=== PATIENT | male | born 1960 | race Caucasian/White ===

== ENCOUNTER → 2020-09-21 10:12 | Outpatient (BNVA) | payer MEDICARE, MEDICAID, SELFPAY | PROVIDERS: PCP Internal Medicine; Visit Provider Internal Medicine | DX: I48.0 Paroxysmal atrial fibrillation (principal); I48.92 Unspecified atrial flutter; E66.01 Morbid (severe) obesity due to excess calories; G47.33 Obstructive sleep apnea (adult) (pediatric); Z98.890 Other specified postprocedural states; Z99.89 Dependence on other enabling machines and devices | CPT/HCPCS: 93005; 99212 ==

== ENCOUNTER → 2021-04-26 10:56 | Outpatient (BNVA) | payer MEDICARE, MEDICAID, SELFPAY | PROVIDERS: PCP Internal Medicine; Referring Provider Internal Medicine; Visit Provider Internal Medicine | DX: I48.0 Paroxysmal atrial fibrillation (principal); I48.92 Unspecified atrial flutter; E66.01 Morbid (severe) obesity due to excess calories; G47.33 Obstructive sleep apnea (adult) (pediatric); Z98.890 Other specified postprocedural states; Z99.89 Dependence on other enabling machines and devices | CPT/HCPCS: 99212 ==

== ENCOUNTER → 2021-09-14 09:00 | Outpatient (RCR) | payer MEDICARE, MEDICAID, SELFPAY | END | disposition home or self-care (01) | LOC: HO.WCC 05-08 10:12 | PROVIDERS: PCP Internal Medicine; Visit Provider Physician Assistant | DX: I87.311 Chronic venous hypertension (idiopathic) with ulcer of right lower extremity (principal); L97.212 Non-pressure chronic ulcer of right calf with fat layer exposed; I73.9 Peripheral vascular disease, unspecified; I48.91 Unspecified atrial fibrillation; G62.9 Polyneuropathy, unspecified; E78.5 Hyperlipidemia, unspecified; L08.9 Local infection of the skin and subcutaneous tissue, unspecified; Z79.899 Other long term (current) drug therapy; Z87.891 Personal history of nicotine dependence; Z91.19 Patient's noncompliance with other medical treatment and regimen; Z79.2 Long term (current) use of antibiotics | CPT/HCPCS: 11042; 11045; 15271; 15272; 17250; 97602; 99212; 99213; 99214; Q4101; Q4186; Q4196 ==

== ENCOUNTER 2022-03-31 13:03 | Emergency (ER) | payer MEDICARE, MEDICAID, SELFPAY ==
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
[2022-03-31 13:11] VITALS: BP 133/42; PULSE 82; RESP 18; TEMP 36.9; O2SAT 98; BMI 37.3
[2022-03-31 13:22] VITALS: BP 152/82; PULSE 78; O2SAT 99
[2022-03-31 13:24] VITALS: BP 152/82; PULSE 78; RESP 16; TEMP 36.9; O2SAT 98
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
[2022-03-31] MEDS: Ibuprofen 600 MG TABLET PO (14:45)
[2022-03-31] MEDS: Acetaminophen 325 MG TABLET 975 MG PO (14:46)
== END 2022-03-31 18:04 | disposition home or self-care (01) ==
PROVIDERS: Emergency Provider Emergency Medicine; PCP Physician Assistant
DX: S13.4XXA Sprain of ligaments of cervical spine, initial encounter (principal); R51.9 Headache, unspecified; M54.2 Cervicalgia; R07.89 Other chest pain; M25.512 Pain in left shoulder; M25.511 Pain in right shoulder; V43.52XA Car driver injured in collision with other type car in traffic accident, initial encounter; Y93.9 Activity, unspecified; Y92.410 Unspecified street and highway as the place of occurrence of the external cause; Y99.9 Unspecified external cause status; Z87.81 Personal history of (healed) traumatic fracture
CPT/HCPCS: 70450; 71046; 72125; 73030; 99283

== ENCOUNTER → 2022-04-30 10:56 | Outpatient (BNVA) | payer MEDICARE, MEDICAID, SELFPAY | PROVIDERS: PCP Internal Medicine; Referring Provider Internal Medicine; Visit Provider Internal Medicine | DX: I48.0 Paroxysmal atrial fibrillation (principal); I48.92 Unspecified atrial flutter; E66.01 Morbid (severe) obesity due to excess calories; G47.33 Obstructive sleep apnea (adult) (pediatric); Z99.89 Dependence on other enabling machines and devices; Z98.890 Other specified postprocedural states | CPT/HCPCS: 93005 ==

== ENCOUNTER 2023-01-02 11:32 | Inpatient (IN) | payer OTHER, MEDICAID, SELFPAY ==
[2023-01-02] VITALS (8 sets, daily range): BP systolic 122–159; BP diastolic 70–91; PULSE 71–148; RESP 14–20; TEMP 36.1–36.8; O2SAT 96–97; BMI 37.4; BMI 36.5
--- NOTE | ~2023-01-02 | XR_ITS ---
EXAMINATION: XR CHEST CLINICAL INFORMATION: Chest pain, rule out pneumonia. COMPARISON: Chest radiographs dated 03/31/2022. TECHNIQUE: Frontal view of the chest was obtained. FINDINGS: No significant abnormality is noted involving the heart, lungs, mediastinum, bony thorax or soft tissues. XR/XR chest 1V IMPRESSION: No acute cardiopulmonary process.
--- NOTE | 2023-01-02 11:40 | ECG_ITS ---
Test Reason : CP Blood Pressure : / mmHG Vent. Rate : 148 BPM Atrial Rate : 148 BPM P-R Int : 142 ms QRS Dur : 074 ms QT Int : 292 ms P-R-T Axes : 000 043 -49 degrees QTc Int : 458 ms Atrial flutter with 2 to [address] and T wave abnormality Abnormal ECG When compared with ECG of 20-JUN-2017 13:17, Atrial flutter with 2 to 1 block has replaced Normal sinus rhythm Vent. rate has increased BY [address] now depressed in Inferior leads Non-specific change in ST segment in Lateral leads Referred By: Generic ED Physician Electronically Signed By:JUSTYNA ALVAREZ MD
--- NOTE | 2023-01-02 11:57 | PC.NURSE ---
Initial contact with pt. pt placed on monitor, afib in 140s. states started while sleeping around 1130.
--- NOTE | 2023-01-02 12:09 | ED.ARRPALP ---
HPI - Arrhythmia/Palpitations General Chief Complaint: Arrhythmia/Palpitations Stated Complaint: l cp 1/2 hour,pressure per ems Time Seen by Provider: 01/02/23 11:49 Source: patient Mode of arrival: ambulatory Limitations: no limitations History of Present Illness HPI narrative: 62-year-old male with a history of atrial fibrillation status post ablation who presents emergency department for evaluation of rapid irregular heart rate and left-sided chest pain patient states that he was doing yd work at around 10:00. He states that he stopped working in his yd to eat an early lunch. He then fell asleep in front of his television. He woke up at 11:30 with a fast heart rate and was skipping beats. He also noted a left sided chest pressure which is been constant is 5/10 at its worst. The patient states he takes diltiazem extended release 120 mg daily any took his daily dose prior to coming to the emergency department. The patient states that over the last 2 weeks he has been experiencing a fluttering sensation in his chest he states mainly with exertion and the sensation seems resolved when he rests. He also has increased fatigue with exertion which is new over the last 2 weeks as well. He is currently complaining of left-sided chest pressure which is 5/10. He denied lightheadedness, dizziness, diaphoresis, nausea, vomiting, neck, jaw or arm pain. He is not on blood thinners. Patient states that he has had an intentional weight loss any went from 354 lb to 266 lb. Related Data Home Medications Medication Instructions Recorded Confirmed apremilast 30 mg tablet 30 mg PO BID 09/21/20 05/29/22 miscellaneous medical supply ea miscellaneous 05/24/21 05/29/22 ibuprofen 800 mg tablet 800 mg PO TID 10/01/22 tizanidine 4 mg tablet 4 mg PO BEDTIME 10/01/22 Previous Rx's Medication Instructions Recorded betamethasone valerate 0.1 % lotion 1 appl topical BID #60 mL 06/19/21 miscellaneous medical supply 1 ea miscellaneous DAILY #1 ea 10/25/21 diltiazem HCl 120 mg 120 mg PO DAILY #90 caps 04/30/22 capsule,extended release 24 hr albuterol sulfate 2.5 mg/3 mL 2.5 mg (3 mL) inhalation Q4H PRN 05/29/22 (0.083 %) solution for nebulization shortness of breath or wheezing 30 days #540 mL cyclobenzaprine 10 mg tablet 10 mg PO TID PRN muscle spasm #14 05/29/22 tabs miscellaneous medical supply 1 ea miscellaneous DAILY #1 ea 10/01/22 lactulose 10 gram/15 mL oral 15 ml PO BEDTIME PRN constipation 10/17/22 solution #237 mL CPAP (CPAP Machine/Device) #1 ea 11/18/22 adhesive bandage 6 X 6 (Adhesive #50 ea 12/05/22 Pads) albuterol sulfate 90 mcg/actuation 2 puff inhalation Q6H PRN 12/05/22 aerosol inhaler (Ventolin HFA) shortness of breath or wheezing 30 days #8.5 grams docusate sodium 100 mg capsule 100 mg PO BID PRN constipation #60 12/05/22 caps fluticasone propionate 50 1 spray intranasal DAILY 30 days 12/05/22 mcg/actuation nasal #16 grams spray,suspension naproxen 500 mg tablet 500 mg PO Q12H PRN pain #30 tabs 12/05/22 amoxicillin 875 mg tablet 875 mg PO BID 7 days #14 tabs 12/17/22 Allergies Allergy/AdvReac Type Severity Reaction Status Date / Time No Known Allergies Allergy Unknown Verified 10/01/22 11:23 [No Known Allergies*] Review of Systems Review of Systems: Yes all other systems are reviewed and are negative [facility] Past Medical History [facility] Narrative: Past medical history: Reviewed below patient also has prior derma gangrenosum of the right lower extremity. Past surgical history: Cardiac ablation for atrial fibrillation. Social history: He denies tobacco use, he has quit smoking 30 years prior. He states that he drinks alcohol 2 times a week and drinks 3 shots at a time when he drinks. Medical History Morbid obesity MALICK on CPAP PAF (paroxysmal atrial fibrillation) Paroxysmal atrial flutter Psoriatic arthritis Surgical History History of cardiac radiofrequency ablation (RFA) (~11/05/17) Status post catheter ablation of atrial fibrillation Family History Family History Father CVD (cardiovascular disease) Mother CVD (cardiovascular disease) Atrial fibrillation Other Substance use disorder Social History Social History Housing: House Alcohol intake: never Patient Tobacco Use Status: Former Tobacco user Quit Date: 1994 Smoked: 20 +/- Smoked in Last 30 Days: No e-Cigarette/Vaping Use: Never Used Second Hand Smoke Exposure: No Use of substances other than those prescribed or required for medical reasons: No Advance Directives: No Advance Directives Information Provided: Yes service: No Current occupational status: disabled Cognitive needs: No Hearing needs: Yes (hearing aide) Vision needs: Yes (Glasses) Physical Exam Vital Signs: Vital Signs: Last Vital Signs Temp 97.7 F 01/02/23 11:43 Pulse 94 01/02/23 15:40 Resp 20 01/02/23 15:40 BP 139/74 01/02/23 15:40 Pulse Ox 97 01/02/23 15:40 O2 Del Method Room Air 01/02/23 15:40 BMI result Body Mass Index 37.4 Const: General: cooperative and no acute distress Orientation/consciousness: oriented to person and oriented to place Limitations: no limitations HEENT: Head: Yes normal to inspection, Yes normocephalic and Yes atraumatic Ears: external ears normal General nose exam: Normal external nose present Face and sinus: Yes normal facial exam Mouth: Normal oral and palatal mucosa present Throat: Yes posterior oropharynx normal Eyes: General: appearance normal, both eyes and all related structures Pupils: Equal, round and reactive pupils present Neck: Neck: Yes normal visual inspection, Yes no lymphadenopathy, Yes trachea midline and Yes supple Chest: Chest palpation & inspection: normal inspection of the chest and normal palpation of entire chest wall Resp: Effort & Inspection: normal respiratory effort and able to speak in complete sentences Auscultation: clear to auscultation bilaterally Cardio: Rate: tachycardic Rhythm: abnormal rhythm irregularly irregular Heart sounds: S1 normal heart sound present, S2 normal heart sound present and no murmurs GI: Inspection: Yes normal to inspection Palpation (GI): Soft to palpation, nontender and no guarding Auscultation: normal bowel sounds : General: Yes no CVA tenderness Back/Spine/Pelvis: Back: no CVA tenderness Neuro: General: oriented to person and oriented to place Cranial nerves: Yes CN's II-XII intact bilaterally and Yes Equal, round and reactive pupils present Cognition (Neuro): normal cognition Motor exam (neuro): 5/5 motor strength present throughout Extrem: Other: Patient's right lower extremity reveals chronic erythema with open lesions which is consistent with his pyoderma gangrenosum Psych: Appearance: grossly normal Speech and movement: Normal speech and movement present Affect: normal affect Attitude: cooperative Thought process: Normal thought process present Thought content: Normal thought content present Medications Administered Generic Name Dose Route Start Last Admin Trade Name Freq PRN Reason Stop Dose Admin Diltiazem HCl 125 mg/ Sodium 125 mls @ 0 mls/hr 01/02/23 14:15 01/02/23 15:07 Chloride IVCONT 10 mg/hr .Q0M HANNA 10 mls/hr Titration Protocol Per Protocol Discontinued Medications Generic Name Dose Route Start Last Admin Trade Name Freq PRN Reason Stop Dose Admin Diltiazem HCl 20 mg 01/02/23 12:17 01/02/23 12:25 Diltiazem Hcl 50 Mg/10 Ml Vial IVPUSH 01/02/23 12:18 20 mg STAT STA Administration Sodium Chloride 1,000 mls @ 999 mls/hr 01/02/23 12:09 01/02/23 13:09 Ns IV 01/02/23 13:09 Infused .Q1H1M STA Infusion Rivaroxaban 20 mg 01/02/23 14:11 01/02/23 14:38 Rivaroxaban 20 Mg Tablet PO 01/02/23 14:12 20 mg ONCE ONE Administration Medical Decision Making Medical Decision Making MDM Narrative: 62-year-old male with a history of paroxysmal atrial fibrillation status post ablation who presents emergency department for evaluation of left-sided chest pressure and rapid irregular heart rate. Patient is currently experiencing 5/10 left-sided chest pressure. Physical examination did reveal your irregularly irregular heart rapid heart rate and right skin lesion consistent with his pyoderma gangrenosum. I did order laboratory evaluation to include CBC, CMP, lipase, PT/INR, PTT, troponin, BMP, TSH, EKG and chest x-ray. Patient was ordered to get diltiazem 20 mg IV and normal saline x1 L. 1412: My interpretation patient's laboratory evaluation is as follows: CBC and CMP were unremarkable. BNP elevated 215. First troponin was normal at 4.3. Patient's ventricular rate improved after the above diltiazem. Patient still is in atrial flutter/fib I did discuss the patient's presentation with the covering candy cooker helper, Dr. Mendez who recommended giving the patient Xarelto 20 mg orally and starting the patient diltiazem drip. He recommended the patient be admitted for transesophageal echo and cardioversion. Differential Diagnosis Differential diagnosis includes was not limited to atrial flutter/ atrial fibrillation with rapid ventricular response, STEMI, NSTEMI, electrolyte abnormality, anemia Admission/Observation Consideration of admission/observation: Escalation of care including admission/observation considered Lab Data MDM Lab Attestation statement: I reviewed the patient's lab results. 01/02/23 12:15 01/02/23 12:15 Labs: Lab Results 01/02/23 01/02/23 01/02/23 Range/Units 12:15 12:15 12:15 WBC 10.9 H (4.8-10.8) X10*3/uL RBC 5.14 (4.60-5.80) X10*6/uL Hgb 14.1 (14.0-18.0) g/dl Hct 42.8 (42.0-52.0) % MCV 83.3 (80.0-98.0) fL MCH 27.4 (27.0-33.0) pg MCHC 32.9 (31.0-36.0) g/dl RDW 13.3 (11.0-16.0) % Plt Count 356 (160-400) X10*3/uL MPV 9.8 (9.4-12.4) fL Immature Gran % (Auto) 0.3 (0.0-0.4) % Neut % (Auto) 71.4 (45-73) % Lymph % (Auto) 21.1 (20-40) % Peach % (Auto) 6.4 (2-11) % Eos % (Auto) 0.6 (0-4) % Baso % (Auto) 0.2 (0-2) % Lymph # (Auto) 2.3 (1.2-4.9) X10*3/uL Peach # (Auto) 0.7 (0.1-1.2) X10*3/uL Eos # (Auto) 0.1 (0.0-0.4) X10*3/uL Baso # (Auto) 0.0 (0.0-0.2) X10*3/uL Abs Immat Gran (auto) 0.03 (0.00-0.03) X10*3/uL Absolute Neuts (auto) 7.8 (2.0-8.3) x10*3/uL Absolute Nucleated RBC 0.000 (0.0-0.012) X10*3/uL Nucleated RBC % (auto) 0.0 (0.0-0.2) /100WBC PT 12.7 (10.0-13.1) SEC INR 1.1 (0.9-1.1) APTT 26.8 (26.0-36.4) SEC Sodium 142 (135-145) mmol/L Potassium 4.4 (3.3-5.1) mmol/L Chloride 107 (96-108) mmol/L Carbon Dioxide 26 (22-29) mmol/L Anion Gap 13 (12-20) BUN 19 H (9-16) mg/dL Creatinine 0.84 (0.5-1.4) mg/dL Estim Creat Clear Calc 121.1 Estimated GFR > 60 Random Glucose 81 (60-115) mg/dL Calcium 9.9 (8.4-10.2) mg/dL Total Bilirubin 0.6 (0.0-1.0) mg/dL AST 15 (5-37) U/L ALT 24 (0-40) U/L Alkaline Phosphatase 89 (39-117) U/L Troponin I High Sens (<3.5-35.0) ng/L B-Natriuretic Peptide (<100) pg/mL Total Protein 6.7 (6.5-8.0) g/dL Albumin 3.9 (3.5-5.0) g/dL Lipase 15 (8-78) U/L TSH 1.40 (0.32-4.0) uIU/mL Ethyl Alcohol mg/dL 01/02/23 01/02/23 01/02/23 Range/Units 12:15 12:15 14:12 WBC (4.8-10.8) X10*3/uL RBC (4.60-5.80) X10*6/uL Hgb (14.0-18.0) g/dl Hct (42.0-52.0) % MCV (80.0-98.0) fL MCH (27.0-33.0) pg MCHC (31.0-36.0) g/dl RDW (11.0-16.0) % Plt Count (160-400) X10*3/uL MPV (9.4-12.4) fL Immature Gran % (Auto) (0.0-0.4) % Neut % (Auto) (45-73) % Lymph % (Auto) (20-40) % Peach % (Auto) (2-11) % Eos % (Auto) (0-4) % Baso % (Auto) (0-2) % Lymph # (Auto) (1.2-4.9) X10*3/uL Peach # (Auto) (0.1-1.2) X10*3/uL Eos # (Auto) (0.0-0.4) X10*3/uL Baso # (Auto) (0.0-0.2) X10*3/uL Abs Immat Gran (auto) (0.00-0.03) X10*3/uL Absolute Neuts (auto) (2.0-8.3) x10*3/uL Absolute Nucleated RBC (0.0-0.012) X10*3/uL Nucleated RBC % (auto) (0.0-0.2) /100WBC PT (10.0-13.1) SEC INR (0.9-1.1) APTT (26.0-36.4) SEC Sodium (135-145) mmol/L Potassium (3.3-5.1) mmol/L Chloride (96-108) mmol/L Carbon Dioxide (22-29) mmol/L Anion Gap (12-20) BUN (9-16) mg/dL Creatinine (0.5-1.4) mg/dL Estim Creat Clear Calc Estimated GFR Random Glucose (60-115) mg/dL Calcium (8.4-10.2) mg/dL Total Bilirubin (0.0-1.0) mg/dL AST (5-37) U/L ALT (0-40) U/L Alkaline Phosphatase (39-117) U/L Troponin I High Sens 4.3 (<3.5-35.0) ng/L B-Natriuretic Peptide 215 H (<100) pg/mL Total Protein (6.5-8.0) g/dL Albumin (3.5-5.0) g/dL Lipase (8-78) U/L TSH (0.32-4.0) uIU/mL Ethyl Alcohol < 10 mg/dL Independent Interpretation I performed an independent interpretation of an: EKG Interpretation: My interpretation the patient's 12 EKG done at 11:41 hours is as follows: Atrial flutter with a rate of 148, no ST segment elevation, no ST segment depression, no T-wave abnormalities, no PACs, no PVCs. Discharge Plan Discharge Clinical Impression: Atrial flutter with rapid ventricular response, Chest pain, Exertional angina Patient Disposition: Admitted As Inpatient
[2023-01-02] MEDS: 0.9 % Sodium Chloride 1,000 ML 999 ML IV (12:13)
[2023-01-02 12:22] LABS: MANUAL DIFF FLAG NO
[2023-01-02] MEDS: dilTIAZem HCL 50 MG/10 ML VIAL 20 MG IVPUSH (12:25)
[2023-01-02 12:31] LABS: Basophils Percent Auto 0.2 % (0-2); Eosinophils Absolute Auto 0.1 X10*3/uL (0.0-0.4); Eosinophils Percent Auto 0.6 % (0-4); Hematocrit 42.8 % (42.0-52.0); Hemoglobin 14.1 g/dl (14.0-18.0); Imm Gran Abs Auto 0.03 X10*3/uL (0.00-0.03); Imm Gran Pct Auto 0.3 % (0.0-0.4); Lymphocytes Absolute Auto 2.3 X10*3/uL (1.2-4.9); Lymphocytes Percent Auto 21.1 % (20-40); Mean Corpuscular HGB Conc 32.9 g/dl (31.0-36.0); Mean Corpuscular Hemoglobin 27.4 pg (27.0-33.0); Mean Corpuscular Volume 83.3 fL (80.0-98.0); Mean Platelet Volume 9.8 fL (9.4-12.4); Monocytes Absolute Auto 0.7 X10*3/uL (0.1-1.2); Monocytes Percent Auto 6.4 % (2-11); Neutrophils Absolute Auto 7.8 x10*3/uL (2.0-8.3); Neutrophils Percent Auto 71.4 % (45-73); Platelet Count 356 X10*3/uL (160-400); Red Blood Count 5.14 X10*6/uL (4.60-5.80); Red Cell Distribution Width 13.3 % (11.0-16.0); White Blood Count 10.9 X10*3/uL (4.8-10.8)
[2023-01-02 12:34] LABS: INTERNATIONAL NORM RATIO 1.1 (0.9-1.1); Prothrombin Time 12.7 SEC (10.0-13.1)
--- NOTE | 2023-01-02 12:34 | PC.NURSE ---
Hr improved after diltiazem with rates now 85-105. pt states chest pressure is greatly relieved.
[2023-01-02 12:37] LABS: Partial Thromboplastin Time 26.8 SEC (26.0-36.4)
[2023-01-02 12:57] LABS: Troponin-I High Sensitivity 4.3 ng/L (<3.5-35.0)
[2023-01-02 12:59] LABS: Alanine Aminotransferase 24 U/L (0-40); Albumin Level 3.9 g/dL (3.5-5.0); Alkaline Phosphatase 89 U/L (39-117); Anion Gap 13 (12-20); Aspartate Amino Transferase 15 U/L (5-37); Bilirubin Total 0.6 mg/dL (0.0-1.0); Blood Urea Nitrogen 19 mg/dL (9-16); Calcium 9.9 mg/dL (8.4-10.2); Carbon Dioxide 26 mmol/L (22-29); Chloride 107 mmol/L (96-108); Creatinine Clr Calc Pharmacy 121.1; Estimated Glomerular Filt Rate > 60; Glucose Random 81 mg/dL (60-115); Lipase 15 U/L (8-78); Potassium 4.4 mmol/L (3.3-5.1); Sodium 142 mmol/L (135-145); Total Protein 6.7 g/dL (6.5-8.0)
[2023-01-02 13:01] LABS: B Type Natriuretic Peptide 215 pg/mL (<100)
[2023-01-02] MEDS: dilTIAZem HCL 125 MG in 0.9 % Sodium Chloride 100 ML IVCONT (14:37)
[2023-01-02] MEDS: Rivaroxaban 20 MG TABLET PO (14:38)
[2023-01-02 15:03] LABS: Ethanol < 10 mg/dL
--- NOTE | 2023-01-02 16:25 | PM.IMHP ---
History of Present Illness Date of Service: 01/02/23 Chief Complaint: palpitations 62yo M with history of paroxysmal atrial fibrillation who has been doing well after an ablation in 2018, MALICK on CPAP, obesity [though actively losing weight], psoriatic arthritis, pyoderma gangrenosum, and intermittent asthma who was trimming his hedge this morning in the hot sun. At 10:00, he went inside his house to eat lunch, then fell asleep. He woke up at 11:00 with palpitations and chest pressure, consistent with how he has felt in the past with AF/RVR. He does admit occasional piercing pain in his chest over the last few weeks, mostly with defecation. He is on diltiazem 120 mg daily but not on any anticoagulation. In the ED, he was in atrial flutter with 2:1 block, ventricular rate of 148. He was given 20 mg of IV diltiazem then started on a diltiazem infusion which is currently running at 10 mg/hr with his heart in atrial fibrillation with ventricular rate in the 90s. He feels much better. Initial troponin-I 4.3. Mg 2.2, K 4.4. He was given rivaroxaban 20 mg once. Review of Systems Review of Systems: Yes all other systems are reviewed and are negative [facility] Medical History Morbid obesity MALICK on CPAP PAF (paroxysmal atrial fibrillation) Paroxysmal atrial flutter Psoriatic arthritis Family History Father CVD (cardiovascular disease) Mother CVD (cardiovascular disease) Atrial fibrillation Other Substance use disorder Surgical History History of cardiac radiofrequency ablation (RFA) (~11/05/17) Status post catheter ablation of atrial fibrillation Social History Housing: House Alcohol intake: never Patient Tobacco Use Status: Former Tobacco user Quit Date: 1994 Smoked: 20 +/- Smoked in Last 30 Days: No e-Cigarette/Vaping Use: Never Used Second Hand Smoke Exposure: No Use of substances other than those prescribed or required for medical reasons: No Advance Directives: No Advance Directives Information Provided: Yes service: No Current occupational status: disabled Cognitive needs: No Hearing needs: Yes (hearing aide) Vision needs: Yes (Glasses) Meds Allergies Allergy/AdvReac Type Severity Reaction Status Date / Time No Known Allergies Allergy Unknown Verified 10/01/22 11:23 [No Known Allergies*] Active Medications: Current Medications Acetaminophen (Acetaminophen 325 Mg Tablet) 650 mg PO Q6H PRN PRN Reason: Pain, Mild (Pain Scale 1-3) Diltiazem HCl 125 mg/ Sodium (Chloride) 125 mls @ 0 mls/hr IVCONT .Q0M [facility]; Protocol Last Titration: 01/02/23 15:07 Dose: 10 mg/hr, 10 mls/hr Ondansetron HCl (Ondansetron Hcl 4 Mg/2 Ml Vial) 4 mg IVPUSH Q8H PRN PRN Reason: Nausea and Vomiting Pharmacy Consult (Consult Rx Perform Med Rec) 1 each MISCELLANE ONCE PRN PRN Reason: Consult order Pharmacy Consult (Consult Rx Perform Med Rec) 1 each MISCELLANE STAT STA Stop: 01/02/23 15:42 Rivaroxaban (Rivaroxaban 20 Mg Tablet) 20 mg PO DAILY [facility] Sodium Chloride (0.9 % Sodium Chloride Flush 3 Ml Syringe) 3 ml IVFLUSH QSHIFT [facility] Home Medications Medication Instructions Recorded Confirmed Last Taken Type apremilast 30 mg tablet 30 mg PO BID 09/21/20 01/02/23 Unknown History alclometasone 0.05 % topical cream 1 appl topical BID PRN Itching 01/02/23 01/02/23 Unknown History fluocinonide 0.05 % topical cream 1 appl topical BID 01/02/23 01/02/23 Unknown History Physical Exam Vital Signs and Narrative: Vital Signs: Last Vital Signs Temp 97.9 F 01/02/23 16:00 Pulse 71 01/02/23 16:00 Resp 18 01/02/23 16:00 BP 127/70 01/02/23 16:00 Pulse Ox 97 01/02/23 16:00 O2 Del Method Room Air 01/02/23 16:00 BMI result Body Mass Index 37.4 Gen: in no acute distress HEENT: sclera anicteric, moist mucus membranes Neck: supple Lungs: clear to auscultation bilaterally Heart: irregularly irregular, no murmurs Abd: soft, non-tender, non-distended, obese Ext: no edema Skin: warm/well-perfused, chronic wounds on shins Neuro: alert and oriented x3, no focal findings Psych: appropriate affect Results Labs 01/02/23 12:15 01/02/23 12:15 Labs: Laboratory Results - last 24 hr 01/02/23 01/02/23 01/02/23 12:15 12:15 12:15 MCV 83.3 MCH 27.4 MCHC 32.9 RDW 13.3 Plt Count 356 MPV 9.8 Immature Gran % (Auto) 0.3 Neut % (Auto) 71.4 Lymph % (Auto) 21.1 Bates % (Auto) 6.4 Eos % (Auto) 0.6 Baso % (Auto) 0.2 Lymph # (Auto) 2.3 Bates # (Auto) 0.7 Eos # (Auto) 0.1 Baso # (Auto) 0.0 Abs Immat Gran (auto) 0.03 Absolute Neuts (auto) 7.8 Absolute Nucleated RBC 0.000 Nucleated RBC % (auto) 0.0 PT 12.7 INR 1.1 APTT 26.8 Anion Gap 13 Estim Creat Clear Calc 121.1 Estimated GFR > 60 Random Glucose 81 Calcium 9.9 Total Bilirubin 0.6 AST 15 ALT 24 Alkaline Phosphatase 89 Troponin I High Sens B-Natriuretic Peptide Total Protein 6.7 Albumin 3.9 Lipase 15 TSH 1.40 Ethyl Alcohol 01/02/23 01/02/23 01/02/23 12:15 12:15 14:12 MCV MCH MCHC RDW Plt Count MPV Immature Gran % (Auto) Neut % (Auto) Lymph % (Auto) Bates % (Auto) Eos % (Auto) Baso % (Auto) Lymph # (Auto) Bates # (Auto) Eos # (Auto) Baso # (Auto) Abs Immat Gran (auto) Absolute Neuts (auto) Absolute Nucleated RBC Nucleated RBC % (auto) PT INR APTT Anion Gap Estim Creat Clear Calc Estimated GFR Random Glucose Calcium Total Bilirubin AST ALT Alkaline Phosphatase Troponin I High Sens 4.3 B-Natriuretic Peptide 215 H Total Protein Albumin Lipase TSH Ethyl Alcohol < 10 Imaging Radiologist's Impressions: Impressions Chest X-Ray 01/02/23 12:54 IMPRESSION: No acute cardiopulmonary process. Assessment and Plan (1) Atrial flutter with rapid ventricular response: Status: Acute Plan 62yo M with history of paroxysmal atrial fibrillation who has been doing well after an ablation in 2018, MALICK on CPAP, obesity [though actively losing weight], psoriatic arthritis, pyoderma gangrenosum, and intermittent asthma presenting with palpitations and chest pressure, found to be in atrial flutter/fibrillation with rapid ventricular response. # AF/RVR - Admit to Telemetry. Diltiazem infusion. Cardiology consultation. NPO after midnight for possible ERMIAS-guided cardioversion. Continue rivaroxaban. As for chest pressure, could be due to AF/RVR but will recheck 3-hr troponin. # MALICK - CPAP at night # intermittent asthma - prn albuterol # psoriatic arthritis # pyoderma gangrenosum - apremilast # VTE ppx: rivaroxaban # dispo: eventual home # code: full I anticipate that the patient will stay at least 2 midnights as an inpatient in the hospital due to the above reasons. It is neither reasonable nor safe to care for them in a less acute setting. Time Spent With Patient Time: Total time managing care of this patient today ____ minutes. Quality Stroke Does the patient have a stroke diagnosis?: No VTE Prior VTE?: No VTE Risk Level:: Medical - moderate - high VTE Device Contraindication: N/A - Device Ordered VTE Drug Contraindication: N/A - Med Ordered
[2023-01-02 16:34] LABS: Magnesium 2.2 mg/dL (1.6-2.6)
[2023-01-02 16:53] LABS: Troponin-I High Sensitivity 18.2 ng/L (<3.5-35.0)
--- NOTE | 2023-01-03 | ECG_ITS ---
Test Reason : converted to sr Blood Pressure : / mmHG Vent. Rate : 058 BPM Atrial Rate : 058 BPM P-R Int : 162 ms QRS Dur : 066 ms QT Int : 396 ms P-R-T Axes : 078 048 063 degrees QTc Int : 388 ms Sinus bradycardia Otherwise normal ECG When compared with ECG of 02-JAN-2023 11:41, Previous ECG has undetermined rhythm, needs review ST no longer depressed in Inferior leads T wave inversion no longer evident in Inferior leads Referred By: Yvonne Fisher Electronically Signed By:JUSTYNA ALVAREZ MD
--- NOTE | 2023-01-03 00:07 | PC.NURSE ---
Assisted RN with proper titration of cardizem gtt: Pt HR 78 and maintaining while at 10mg/hr. Cardizem gtt titrated to 5mg/hr at 00:06 per protocol.
[2023-01-03 03:42] VITALS: BP 133/68; PULSE 96; RESP 20; TEMP 36.8; O2SAT 97
[2023-01-03 04:26] VITALS: PULSE 96; RESP 20; O2SAT 97
--- NOTE | 2023-01-03 06:41 | PC.NURSE ---
PATIENTS CARDIZEM DRIP MONITORED AND TITRATED BY [facility] [place] [facility] [employer] ACCOUNT DIRECTOR AWARE THAT THIS MANAGER NEONATAL WILL NEED THEM TO OVERSEE CARDIZEM DRIP INFUSION. HABITAT MANAGEMENT COORDINATOR AWARE ALSO AND PER PREVIOUS NOTE [facility] RN DID DECREASE RATE TO 5MG AT 0005, THEN KATIE RN STATED TO HAVE STOPPED DRIP APPROX., 0107 HEART RATE 70-80 S AND HE WILL CONTINUE TO MONITOR. DRIP REMAINS OFF STILL AT 0645 AND DAY RN WILL TAKE OVER CARE
[2023-01-03 07:14] VITALS: BP 118/68; PULSE 118; RESP 20; TEMP 36.6; O2SAT 96
[2023-01-03] MEDS: Fluticasone Propionate Nasal 16 GM SPRAY 1 SPRAY NOSTRIL-B (09:23)
[2023-01-03] MEDS: Triamcinolone Acet 0.5 % Cream 15 GM TUBE 1 APPL TOPICAL (09:23)
[2023-01-03 09:30] LABS: Anion Gap 13 (12-20); Blood Urea Nitrogen 15 mg/dL (9-16); Calcium 9.1 mg/dL (8.4-10.2); Carbon Dioxide 25 mmol/L (22-29); Chloride 106 mmol/L (96-108); Creatinine Clr Calc Pharmacy 119.5; Estimated Glomerular Filt Rate > 60; Glucose Random 98 mg/dL (60-115); Magnesium 2.2 mg/dL (1.6-2.6); Potassium 4.1 mmol/L (3.3-5.1); Sodium 140 mmol/L (135-145)
[2023-01-03 09:44] LABS: Troponin-I High Sensitivity 8.8 ng/L (<3.5-35.0)
[2023-01-03] MEDS: dilTIAZem HCL 125 MG in 0.9 % Sodium Chloride 100 ML IVCONT (10:54)
--- NOTE | 2023-01-03 11:05 | PM.CNCAR ---
History of Present Illness History of Present Illness Date of Service: 01/03/23 Requesting physician: Yvonne Fisher Consult reason: other ( atrial flutter) Chief complaint: pAF Narrative: I was consulted to see Abe in cardiology consultation today due to recurrent atrial arrhythmia. He is a pleasant 62-year-old male with prior history of psoriatic arthritis, obesity, sleep apnea and history of atrial fibrillation. Underwent ablation about 2 years ago and since then has had no recurrent episodes of atrial fibrillation has done well overall. Last seen Dr. Curry last April. At that time his Cardizem was reduced but he has been taking his medications religiously. He is not on oral anticoagulation as his risk of stroke is low. Uses BiPAP every day and is in good functional status with limitations of his arthritis. He said he was doing well over the last 2 weeks has been having intermittent symptoms of fluttering / palpitations. Symptoms would last only about 5 minutes. There is no clear trigger. Yesterday he was working in the hot weather and working heavy and then subsequently arm got tired and some fluttering in his chest. He had early lunch and then doze off. Then he woke up with rapid heart rate with chest pressure and shallow breathing. He took his pulse and was noted to be elevated he therefore came to the Emergency been Emergency was noted to be in atrial flutter with 2 is to 1 conduction and was started treated with IV Cardizem with some responses rate but remain in the arrhythmia. He remains in atrial fibrillation with controlled ventricular response IV Cardizem. He feels better but still not normal. He denies any recent other symptoms. Denies any recent exertional chest pain or shortness of breath. No recent echocardiograms in the chart. Review of Systems Constitutional: Constitutional: Reports no additional constitutional complaints Eyes: Eyes: Reports no additional eye complaints Cardiovascular: Cardiovascular: Reports chest pain at rest, Denies leg edema, Denies lightheadedness, Denies Loss of Consciousness, Reports palpitations and Reports dyspnea Respiratory: Respiratory: Reports no additional respiratory complaints and Reports dyspnea Gastrointestinal: Gastrointestinal: Reports no additional gastrointestinal complaints Musculoskeletal: Musculoskeletal: Reports no additional musculoskeletal complaints Integumentary/Breasts: Skin/Breast: Reports system reviewed and no additional complaints, except as docu Neurologic: Reports system reviewed and no additional complaints, except as documented Endocrine: Endocrine: Reports no additional endocrine complaints and Reports palpitations PMFSH Past Medical History Medical History Morbid obesity MALICK on CPAP PAF (paroxysmal atrial fibrillation) Paroxysmal atrial flutter Psoriatic arthritis Family History Family History Father CVD (cardiovascular disease) Mother CVD (cardiovascular disease) Atrial fibrillation Other Substance use disorder Surgical History Surgical History History of cardiac radiofrequency ablation (RFA) (~11/05/17) Status post catheter ablation of atrial fibrillation Social History Social History Household Members: Family Housing: House Do you presently have visiting nurse or other home services: No Alcohol intake: never Patient Tobacco Use Status: Former Tobacco user Quit Date: 1994 Smoked: 20 +/- e-Cigarette/Vaping Use: Never Used Second Hand Smoke Exposure: No service: No Current occupational status: disabled Cognitive needs: No Hearing needs: Yes (hearing aide) Vision needs: Yes (Glasses) Meds Allergies Allergy/AdvReac Type Severity Reaction Status Date / Time No Known Allergies Allergy Unknown Verified 10/01/22 11:23 [No Known Allergies*] Active Medications: Current Medications Acetaminophen (Acetaminophen 325 Mg Tablet) 650 mg PO Q6H PRN PRN Reason: Pain, Mild (Pain Scale 1-3) Albuterol Sulfate (Albuterol Sulfate 90 Mcg 8 Gm Inhaler) 2 puff INHALE Q6H PRN PRN Reason: shortness of breath or wheezing Docusate Sodium (Docusate Sodium 100 Mg Capsule) 100 mg PO BID PRN PRN Reason: constipation Fluticasone Propionate (Fluticasone Propionate Nasal 16 Gm [place]) 1 spray NOSTRIL-B DAILY [facility] Last Admin: 01/03/23 09:23 Dose: 1 spray Diltiazem HCl 125 mg/ Sodium (Chloride) 125 mls @ 0 mls/hr IVCONT .Q0M HANNA; Protocol Last Admin: 01/03/23 10:54 Dose: 5 mg/hr, 5 mls/hr Lactulose (Lactulose 20 Gm/30 Ml Solution) 10 gm PO BEDTIME PRN PRN Reason: constipation Non-Formulary Medication (Apremilast) 30 mg PO BID [facility] Ondansetron HCl (Ondansetron Hcl 4 Mg/2 Ml Vial) 4 mg IVPUSH Q8H PRN PRN Reason: Nausea and Vomiting Pharmacy Consult (Consult Rx Perform Med Rec) 1 each MISCELLANE ONCE PRN PRN Reason: Consult order Rivaroxaban (Rivaroxaban 20 Mg Tablet) 20 mg PO DAILY@1700 [facility] Sodium Chloride (0.9 % Sodium Chloride Flush 3 Ml Syringe) 3 ml IVFLUSH QSHIFT [facility] Last Admin: 01/03/23 09:24 Dose: Not Given Triamcinolone Acetonide (Triamcinolone Acet 0.5 % Cream 15 Gm Tube) 1 appl TOPICAL BID [facility] Last Admin: 01/03/23 09:23 Dose: 1 appl Home Medications Medication Instructions Recorded Confirmed Last Taken Type apremilast 30 mg tablet 30 mg PO BID 09/21/20 01/02/23 Unknown History alclometasone 0.05 % topical cream 1 appl topical BID PRN Itching 01/02/23 01/02/23 Unknown History fluocinonide 0.05 % topical cream 1 appl topical BID 01/02/23 01/02/23 Unknown History Physical Exam Vital Signs: Vital Signs: Last Vital Signs Temp 97.9 F 01/03/23 07:14 Pulse 118 H 01/03/23 07:14 Resp 20 01/03/23 07:14 BP 118/68 01/03/23 07:14 Pulse Ox 96 01/03/23 07:14 O2 Del Method Room Air 01/03/23 07:14 BMI result Body Mass Index 36.5 Const: General: cooperative, comfortable, no acute distress, alert and awake Nutritional Appearance: obese Orientation/consciousness: patient oriented x3 HEENT: Head: Yes normocephalic and Yes atraumatic Neck: Neck: Yes trachea midline, Yes supple and Yes no JVD Resp: Effort & Inspection: normal respiratory effort Auscultation: clear to auscultation bilaterally Cardio: Jugular venous distension: no JVD Rate: tachycardic Rhythm: abnormal rhythm irregularly irregular Heart sounds: S1 normal heart sound present, S2 normal heart sound present, no click, no gallops, no murmurs and no rubs GI: Auscultation: normal bowel sounds Skin: General skin exam: no rashes or lesions noted Neuro: General: patient oriented x3 and no focal motor deficits Extrem: General: Yes no clubbing, cyanosis or edema Objective Labs and Meds 01/02/23 12:15 01/03/23 08:55 Lab results: Laboratory Results - last 24 hr 01/02/23 01/02/23 01/02/23 12:15 12:15 12:15 WBC 10.9 H RBC 5.14 Hgb 14.1 Hct 42.8 MCV 83.3 MCH 27.4 MCHC 32.9 RDW 13.3 Plt Count 356 MPV 9.8 Immature Gran % (Auto) 0.3 Neut % (Auto) 71.4 Lymph % (Auto) 21.1 [place] % (Auto) 6.4 Eos % (Auto) 0.6 Baso % (Auto) 0.2 Lymph # (Auto) 2.3 [place] # (Auto) 0.7 Eos # (Auto) 0.1 Baso # (Auto) 0.0 Abs Immat Gran (auto) 0.03 Absolute Neuts (auto) 7.8 Absolute Nucleated RBC 0.000 Nucleated RBC % (auto) 0.0 PT 12.7 INR 1.1 APTT 26.8 Sodium 142 Potassium 4.4 Chloride 107 Carbon Dioxide 26 Anion Gap 13 BUN 19 H Creatinine 0.84 Estim Creat Clear Calc 121.1 Estimated GFR > 60 Random Glucose 81 Calcium 9.9 Magnesium 2.2 Total Bilirubin 0.6 AST 15 ALT 24 Alkaline Phosphatase 89 Troponin I High Sens B-Natriuretic Peptide Total Protein 6.7 Albumin 3.9 Lipase 15 TSH 1.40 Ethyl Alcohol 01/02/23 01/02/23 01/02/23 12:15 12:15 14:12 WBC RBC Hgb Hct MCV MCH MCHC RDW Plt Count MPV Immature Gran % (Auto) Neut % (Auto) Lymph % (Auto) [place] % (Auto) Eos % (Auto) Baso % (Auto) Lymph # (Auto) [place] # (Auto) Eos # (Auto) Baso # (Auto) Abs Immat Gran (auto) Absolute Neuts (auto) Absolute Nucleated RBC Nucleated RBC % (auto) PT INR APTT Sodium Potassium Chloride Carbon Dioxide Anion Gap BUN Creatinine Estim Creat Clear Calc Estimated GFR Random Glucose Calcium Magnesium Total Bilirubin AST ALT Alkaline Phosphatase Troponin I High Sens 4.3 B-Natriuretic Peptide 215 H Total Protein Albumin Lipase TSH Ethyl Alcohol < 10 0601/03/23 01/03/23 16:10 08:55 08:55 WBC RBC Hgb Hct MCV MCH MCHC RDW Plt Count MPV Immature Gran % (Auto) Neut % (Auto) Lymph % (Auto) [place] % (Auto) Eos % (Auto) Baso % (Auto) Lymph # (Auto) [place] # (Auto) Eos # (Auto) Baso # (Auto) Abs Immat Gran (auto) Absolute Neuts (auto) Absolute Nucleated RBC Nucleated RBC % (auto) PT INR APTT Sodium 140 Potassium 4.1 Chloride 106 Carbon Dioxide 25 Anion Gap 13 BUN 15 Creatinine 0.84 Estim Creat Clear Calc 119.5 Estimated GFR > 60 Random Glucose 98 Calcium 9.1 D Magnesium 2.2 Total Bilirubin AST ALT Alkaline Phosphatase Troponin I High Sens 18.2 D 8.8 D B-Natriuretic Peptide Total Protein Albumin Lipase TSH Ethyl Alcohol EKG on admission shows atrial flutter with 2 is 1 conduction, most likely left-sided atrial flutter. Imaging Radiologist's impression: Impressions Chest X-Ray 01/02/23 12:54 IMPRESSION: No acute cardiopulmonary process. Assessment and Plan (1) Atrial flutter with rapid ventricular response: Status: Acute Symptomatic atrial flutter with rapid ventricular response, recurrent since ablation 2 years ago. He has done well with ablation rhythm control approach. Given that he still symptomatic and remains atrial fibrillation will pursue rhythm control approach. Given that he has had symptoms for the last 2 weeks intermittently, would prefer to do a ERMIAS guided cardioversion. This was discussed with him. He understands and agrees. We discussed the risks and benefits of ERMIAS as well as synchronized cardioversion. Understands agrees. He has received Xarelto on last time. Continue Xarelto 20 mg and would continue for at least 6 weeks post cardioversion. If he has no intracardiac thrombi will proceed with synchronized cardioversion most likely require rhythm control approach with Cardizem and flecainide therapy. This was discussed with him. May need to consider repeat ablation. Will require an echocardiogram which can be done as an outpatient. Continue CPAP therapy. Continue participate in weight loss program. Will follow with you. Time Spent With Patient Time: Total time managing care of this patient today ____ minutes. Procedures Date of Service Date of Service: 01/03/23
--- NOTE | 2023-01-03 11:08 | MHC.CM.PN ---
HCP COMPLETED WITH PT NAMING MARTINEZ PEREZ AND JOHANA LOPEZ HIS AGENTS. COPIES GIVEN TO PT AND PLACED IN CHART PT ALSO EXPRESSED CONCERN ABOUT HIS CODE STATUS CM CONFIRMED HE IS FULL CODE, WHICH IS HIS CURRENT DESIRE
--- NOTE | 2023-01-03 11:11 | MHC.SHP ---
Pre-Procedural Eval Section A Date of Service: 01/03/23 The patient is an INPATIENT: Yes Changes since office visit: Yes New Medical Problems and Yes Patient answered all questions; No Cold of Flu in the past 2 weeks and No Changes in Medication The History & Physical has been completed within 30 days and I have reviewed it.: Yes Section B Chief Complaint: pAF Allergies: Allergies Allergy/AdvReac Type Severity Reaction Status Date / Time No Known Allergies Allergy Unknown Verified 10/01/22 11:23 [No Known Allergies*] Plan I have reviewed the history and physical and performed a pertinent physical examination on my patient. No changes have occurred unless specified. Time Spent With Patient Time: Total time managing care of this patient today ____ minutes.
[2023-01-03 11:19] VITALS: BP 132/86; PULSE 87; RESP 20; TEMP 36.2; O2SAT 96
[2023-01-03] MEDS: Flecainide Acetate 50 MG TABLET 100 MG PO (12:26)
[2023-01-03] MEDS: dilTIAZem HCL CD 180 MG CAP.ER.24H PO (12:26)
--- NOTE | 2023-01-03 12:44 | MHC.CM.PN ---
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
--- NOTE | 2023-01-03 14:06 | P.DS_ITS ---
DS: Providers Provider Date of Service: 01/03/23 Date of admission: 01/02/23 16:21 Date of discharge: 01/03/23 Primary care physician: Unknown Physician Consults: 01/02/23 16:21 Consult to Cardiology Routine Consulting Provider: [facility] [place] [facility] Reason for consultation: pAF DS: Diagnosis Discharge Diagnosis (1) Atrial flutter with rapid ventricular response: Status: Acute DS: Summary Hospital Course Hospital Course: from my admission H+P 6.1.23: 62yo M with history of paroxysmal atrial fibrillation who has been doing well after an ablation in 2018, MALICK on CPAP, obesity [though actively losing weight], psoriatic arthritis, pyoderma gangrenosum, and intermittent asthma who was trimming his hedge this morning in the hot sun.? At 10:00, he went inside his house to eat lunch, then fell asleep.? He woke up at 11:00 with palpitations and chest pressure, consistent with how he has felt in the past with AF/RVR.? He does admit occasional piercing pain in his chest over the last few weeks, mostly with defecation.? He is on diltiazem 120 mg daily but not on any anticoagulation. In the ED, he was in atrial flutter with 2:1 block, ventricular rate of 148.? He was given 20 mg of IV diltiazem then started on a diltiazem infusion which is currently running at 10 mg/hr with his heart in atrial fibrillation with ventricular rate in the 90s.? He feels much better. Initial troponin-I 4.3.? Mg 2.2, K 4.4.? He was given rivaroxaban 20 mg once. He was admitted to the [facility] on diltaizem IV infusion. He was made NPO for ERMIAS- guided cardioversion. However, on 01/03/23, he converted to NSR spontaneously. Sinus bradycardia was confirmed. Diltiazem IV infusion was stopped. PO 24-hr extended release diltiazem was increased from 120 to 180 mg. He was also placed on flecainide 100 mg twice daily for rhythm control as well as rivaroxaban 20 mg daily for stroke prevention. He will follow-up with his wealth management advisor and outpatient echocardiogram will be done. Tn-I elevation was mild and likely due to uncontrolled ventricular rate on presentation. Time Spent with Patient Time attestation: Total time managing care of this patient today __45__ minutes. Discharge coordination time: Greater than 30 minutes Quality: Safe Use of Opioids Does Pt have an Active Cancer Diagnosis on the Problem List?: No Quality: Stroke Does the patient have a stroke diagnosis?: No Physical Exam Vital Signs: Vital Signs: Last Vital Signs Temp 97.1 F 01/03/23 11:19 Pulse 87 01/03/23 11:19 Resp 20 01/03/23 11:19 BP 132/86 01/03/23 11:19 Pulse Ox 96 01/03/23 11:19 O2 Del Method Room Air 01/03/23 11:19 BMI result Body Mass Index 36.5 Gen: in no acute distress HEENT: sclera anicteric, moist mucus membranes Neck: supple Lungs: clear to auscultation bilaterally Heart: regular in high 50s, no murmurs Abd: soft, non-tender, non-distended Ext: no edema Skin: warm/well-perfused Neuro: alert and oriented x3, no focal findings Psych: appropriate affect DS: Data Data Completed and Pending Completed studies during hospitalization [Text1]: Laboratory Results WBC 10.9 X10*3/uL (4.8-10.8) H 01/02/23 12:15 RBC 5.14 X10*6/uL (4.60-5.80) 01/02/23 12:15 Hgb 14.1 g/dl (14.0-18.0) 01/02/23 12:15 Hct 42.8 % (42.0-52.0) 01/02/23 12:15 MCV 83.3 fL (80.0-98.0) 01/02/23 12:15 MCH 27.4 pg (27.0-33.0) 01/02/23 12:15 MCHC 32.9 g/dl (31.0-36.0) 01/02/23 12:15 RDW 13.3 % (11.0-16.0) 01/02/23 12:15 Plt Count 356 X10*3/uL (160-400) 01/02/23 12:15 MPV 9.8 fL (9.4-12.4) 01/02/23 12:15 Immature Gran % (Auto) 0.3 % (0.0-0.4) 01/02/23 12:15 Neut % (Auto) 71.4 % (45-73) 01/02/23 12:15 Lymph % (Auto) 21.1 % (20-40) 01/02/23 12:15 [place] % (Auto) 6.4 % (2-11) 01/02/23 12:15 Eos % (Auto) 0.6 % (0-4) 01/02/23 12:15 Baso % (Auto) 0.2 % (0-2) 01/02/23 12:15 Lymph # (Auto) 2.3 X10*3/uL (1.2-4.9) 01/02/23 12:15 [place] # (Auto) 0.7 X10*3/uL (0.1-1.2) 01/02/23 12:15 Eos # (Auto) 0.1 X10*3/uL (0.0-0.4) 01/02/23 12:15 Baso # (Auto) 0.0 X10*3/uL (0.0-0.2) 01/02/23 12:15 Abs Immat Gran (auto) 0.03 X10*3/uL (0.00-0.03) 01/02/23 12:15 Absolute Neuts (auto) 7.8 x10*3/uL (2.0-8.3) 01/02/23 12:15 Absolute Nucleated RBC 0.000 X10*3/uL (0.0-0.012) 01/02/23 12:15 Nucleated RBC % (auto) 0.0 /100WBC (0.0-0.2) 01/02/23 12:15 PT 12.7 SEC (10.0-13.1) 01/02/23 12:15 INR 1.1 (0.9-1.1) 01/02/23 12:15 APTT 26.8 SEC (26.0-36.4) 01/02/23 12:15 Sodium 140 mmol/L (135-145) 01/03/23 08:55 Potassium 4.1 mmol/L (3.3-5.1) 01/03/23 08:55 Chloride 106 mmol/L (96-108) 01/03/23 08:55 Carbon Dioxide 25 mmol/L (22-29) 01/03/23 08:55 Anion Gap 13 (12-20) 01/03/23 08:55 BUN 15 mg/dL (9-16) 01/03/23 08:55 Creatinine 0.84 mg/dL (0.5-1.4) 01/03/23 08:55 Estim Creat Clear Calc 119.5 01/03/23 08:55 Estimated GFR > 60 01/03/23 08:55 Random Glucose 98 mg/dL (60-115) 01/03/23 08:55 Calcium 9.1 mg/dL (8.4-10.2) D 01/03/23 08:55 Magnesium 2.2 mg/dL (1.6-2.6) 01/03/23 08:55 Total Bilirubin 0.6 mg/dL (0.0-1.0) 01/02/23 12:15 AST 15 U/L (5-37) 01/02/23 12:15 ALT 24 U/L (0-40) 01/02/23 12:15 Alkaline Phosphatase 89 U/L (39-117) 01/02/23 12:15 Troponin I High Sens 8.8 ng/L (<3.5-35.0) D 01/03/23 08:55 B-Natriuretic Peptide 215 pg/mL (<100) H 01/02/23 12:15 Total Protein 6.7 g/dL (6.5-8.0) 01/02/23 12:15 Albumin 3.9 g/dL (3.5-5.0) 01/02/23 12:15 Lipase 15 U/L (8-78) 01/02/23 12:15 TSH 1.40 uIU/mL (0.32-4.0) 01/02/23 12:15 Ethyl Alcohol < 10 mg/dL 01/02/23 14:12 Impressions Chest X-Ray 01/02/23 12:54 IMPRESSION: No acute cardiopulmonary process. Labs on day of discharge: = Discharge Plan Discharge Anticipated Discharge Date/Time: 01/03/23 14:00 Patient Disposition: Home, Self-Care Discharge Diagnosis: atrial fibrillation/flutter with rapid ventricular response Referrals: Christiano Tineo MD [Physician] - 1 Week Say Curry MD [Physician] - 1 Week Discharge Medications: New Xarelto 20 mg Tablet 20 mg PO DAILY@1700 Qty: 30 0RF diltiazem HCl [Cardizem CD] 180 mg Capsule,Extended Release 24hr 180 mg PO DAILY Qty: 30 0RF Protocol: Hold for SBP/HR < HOLD for SBP < : 90 HOLD for HR < : 60 Rx Instructions: replaces prior dose of 120 mg daily flecainide 100 mg tablet 100 mg PO Q12H Qty: 60 0RF Continued lactulose 10 gram/15 mL solution 15 ml PO BEDTIME PRN (Reason: constipation) Qty: 237 0RF (DME) CPAP Machine/Device Device See Rx Instructions .Route Qty: 1 0RF Rx Instructions: As directed fluticasone propionate 50 mcg/actuation spray,suspension 1 spray intranasal DAILY 30 Days Qty: 16 3RF docusate sodium 100 mg capsule 100 mg PO BID PRN (Reason: constipation) Qty: 60 3RF albuterol sulfate [Ventolin HFA] 90 mcg/actuation HFA aerosol inhaler 2 puff inhalation Q6H PRN (Reason: shortness of breath or wheezing) 30 Days Qty: 8.5 3RF (DME) Adhesive Pads 6 X 6 bandage See Rx Instructions .Route Qty: 50 3RF Rx Instructions: As directed alclometasone 0.05 % Cream 1 appl TOPICAL BID PRN (Reason: Itching) Rx Instructions: APPLY TO ELBOW fluocinonide 0.05 % Cream 1 appl TOPICAL BID Rx Instructions: APPLY TO FOREHEAD apremilast 30 mg tablet 30 mg PO BID Discontinued naproxen 500 mg tablet 500 mg PO Q12H PRN (Reason: pain) Qty: 30 2RF diltiazem HCl 120 mg capsule,extended release 24hr 120 mg PO DAILY Qty: 90 3RF Discharge Orders: Discharge Order (Routine); Ordered 01/03/23 Ordered By: Yvonne Fisher Diet: Low salt diet Activity on Discharge: As tolerated Stand Alone Forms: Patient Portal Discharge page Care Plan Goals: normal heart rhythm stroke prevention Health Concerns: atrial fibrillation/flutter with rapid ventricular response Plan of Treatment: RATE CONTROL: increase diltiazem from 120 to 180 mg daily RHYTHM CONTROL: take flecainide 100 mg twice daily STROKE PREVENTION: take rivaroxaban 20 mg once daily See you wealth management advisor within 1-2 weeks. Outpatient echocardiogram. Please follow up with your primary care doctor within 1 week. Return to the hospital if you experience recurrent or worsening symptoms. Assessment: See Discharge Summary.
== END 2023-01-03 15:52 | disposition home or self-care (01) | DRG 309 ==
LOC: HO.ED 15:10 → HO.EDOVER 16:27 → HO.IMC 20:23
PROVIDERS: Admitting Provider Family Medicine; Emergency Provider Emergency Medicine Emergency Medical Services; PCP Physician Assistant; Visit Provider Family Medicine
DX: I48.92 Unspecified atrial flutter (principal); L88 Pyoderma gangrenosum; G47.33 Obstructive sleep apnea (adult) (pediatric); E66.9 Obesity, unspecified; L40.50 Arthropathic psoriasis, unspecified; J45.20 Mild intermittent asthma, uncomplicated; Z68.36 Body mass index [BMI] 36.0-36.9, adult; Z79.52 Long term (current) use of systemic steroids; Z79.899 Other long term (current) drug therapy
CPT/HCPCS: 36415; 71045; 80048; 80053; 80307; 83690; 83735; 83880; 84443; 84484; 85025; 85610; 85730; 93005; 94660; 99222; 99285

== ENCOUNTER 2023-02-11 12:35 | Outpatient (AMB) | payer OTHER, SELFPAY ==
[2023-02-11 12:46] VITALS: BP 122/68; PULSE 72; BMI 35.9
--- NOTE | 2023-02-11 12:46 | MHC.OFFVIS ---
Intake Vital Signs 02/11/23 12:46 Height 5 ft 11 in Weight 257 lb 7.999 oz BMI 35.9 BP 122/68 Blood Pressure Location Lt brachial Position Sitting Pulse 72 Intake Visit Reasons: follow up Intake Note: follow up Licensed Acupuncturist Required: No Accompanied by: Self / Same As Patient Allergies No Known Allergies [No Known Allergies*] Allergy (Unknown, Verified 02/11/23 12:49) Medication List - Last Reconciled 02/11/23 by Say Curry MD adhesive bandage (Adhesive Pads) As directed albuterol sulfate 90 mcg/actuation (Ventolin HFA) 2 puffs inhalation Q6H PRN 30 days alclometasone 0.05% 1 appl topical BID PRN apremilast 30 mg PO BID blood pressure kit-extra large As directed CPAP (CPAP Machine/Device) As directed diltiazem HCl (Cardizem CD) 180 mg See Protocol PO DAILY diltiazem HCl 120 mg PO DAILY docusate sodium 100 mg PO BID PRN flecainide 100 mg PO Q12H fluocinonide 0.05% 1 appl topical BID fluticasone propionate 50 mcg/actuation 1 spray intranasal DAILY 30 days lactulose 15 mL PO BEDTIME PRN non-adherent bandage (Curity Abdominal Pad) As directed rivaroxaban (Xarelto) 20 mg PO DAILY@1700 silver sulfadiazine 1% (Silvadene) 1 appl topical DAILY 30 days sulfamethoxazole-trimethoprim 800-160 mg (Bactrim DS) 1 tab PO BID 7 days HPI HPI Comments History of Present Illness Details Tom returns for follow-up regarding atrial fibrillation. Previously, he underwent ablation for the same. He was actually free of atrial fibrillation for several years after the ablation. It seems that he was working hard and the weather was also heart and according to patient that led to atrial fibrillation. Subsequently admitted for the same. There was a plan to do ERIMAS/cardioversion but he actually converted to sinus. Currently on diltiazem/flecainide/Xarelto. Doing well. No new issues. [facility] Medical History Morbid obesity MALICK on CPAP PAF (paroxysmal atrial fibrillation) Paroxysmal atrial flutter Psoriatic arthritis Surgical History History of cardiac radiofrequency ablation (RFA) (~11/05/17) Status post catheter ablation of atrial fibrillation Family History Father CVD (cardiovascular disease) Mother CVD (cardiovascular disease) Atrial fibrillation Other Substance use disorder Social History Household Members: Family Housing: House Do you presently have visiting nurse or other home services: No Alcohol intake: never Patient Tobacco Use Status: Former Tobacco user Quit Date: 1994 Tobacco use type: Cigarette Years Smoked: 20 +/- e-Cigarette/Vaping Use: Never Used Second Hand Smoke Exposure: No service: No Current occupational status: disabled Cognitive needs: No Hearing needs: Yes (hearing aide) Vision needs: Yes (Glasses) Review of Systems Const Denies weakness ENT Denies dizziness Card Denies chest pain, Denies chest pain with activity, Denies syncope, Denies rapid heart rate, Denies pedal edema, Denies edema, Denies leg edema, Denies lightheadedness, Denies palpitations, Denies dyspnea, Denies dyspnea on exertion and Denies orthopnea Resp Denies cough, Denies dyspnea and Denies dyspnea on exertion GI Denies hematochezia and Denies change in stool character Musc Denies abnormal gait, Denies muscle cramps, Denies muscle weakness, Denies numbness, Denies radiating pain into limb and Denies tingling Neuro Denies abnormal gait, Denies dizziness, Denies syncope, Denies numbness, Denies tingling and Denies weakness Endo Denies palpitations Physical Exam Vital Signs: Last Vital Signs Pulse 72 02/11/23 12:46 BP 122/68 02/11/23 12:46 BMI result Body Mass Index 35.9 Const General: comfortable and no acute distress Orientation/consciousness: patient oriented x3 HEENT Other: Unremarkable Head: Yes normal to inspection Neck Neck: Yes normal visual inspection Chest Chest palpation & inspection: normal inspection of the chest Resp Auscultation: clear to auscultation bilaterally Cardio Palpation: normal PMI Heart sounds: S1 normal heart sound present, S2 normal heart sound present, no gallops, Murmur heart sound present systolic II/ and at the right sternal border and no rubs GI Palpation (GI): Soft to palpation Back/Spine/Pelvis Other: unremarkable Skin General skin exam: no rashes or lesions noted Neuro General: patient oriented x3 Extrem General: Yes normal to inspection Psych Mental Status: mental status grossly normal Assessment & Plan Assessment & Plan (1) PAF (paroxysmal atrial fibrillation): Code(s): I48.0 - Paroxysmal atrial fibrillation (2) Paroxysmal atrial flutter: Code(s): I48.92 - Unspecified atrial flutter (3) Status post catheter ablation of atrial fibrillation: Code(s): Z98.890 - Other specified postprocedural states (4) Morbid obesity: Code(s): E66.01 - Morbid (severe) obesity due to excess calories (5) MALICK on CPAP: Code(s): G47.33 - Obstructive sleep apnea (adult) (pediatric); Z99.89 - Dependence on other enabling machines and devices Plan Recent EKG with atrial flutter at a rate of 148/Min. Repeat EKG shows sinus rhythm. He should continue the diltiazem without changes. Flecainide can be continued for the foreseeable future. Same with Xarelto. Does have a low thromboembolic risk overall. Otherwise, continue CPAP for MALICK. Follow-up in 6 months time. Total time spent including review of hospitalization records, documentation, counseling, coordination of care-32 minutes. Orders: Orders CA echo transthoracic complete 6 Months I48.0 - Paroxysmal atrial fibrillation ECG 3 day holter monitor 6 Months I48.0 - Paroxysmal atrial fibrillation Coding Level of Care Code Est Pt Level 4 (30183) Diagnoses PAF (paroxysmal atrial fibrillation) I48.0 Paroxysmal atrial flutter I48.92 Status post catheter ablation of atrial fibrillation Z98.890 Morbid obesity E66.01 MALICK on CPAP G47.33; Z99.89
== END 2023-02-11 13:14 | disposition home or self-care (01) ==
PROVIDERS: PCP Physician Assistant; Visit Provider Internal Medicine
DX: I48.0 Paroxysmal atrial fibrillation (principal); I48.92 Unspecified atrial flutter; Z98.890 Other specified postprocedural states; E66.01 Morbid (severe) obesity due to excess calories; G47.33 Obstructive sleep apnea (adult) (pediatric); Z99.89 Dependence on other enabling machines and devices
CPT/HCPCS: 93010; 99214

== ENCOUNTER → 2023-02-11 12:35 | Outpatient (BNVA) | payer OTHER, SELFPAY | PROVIDERS: PCP Physician Assistant; Visit Provider Internal Medicine | DX: I48.0 Paroxysmal atrial fibrillation (principal); I48.92 Unspecified atrial flutter; G47.33 Obstructive sleep apnea (adult) (pediatric); E66.01 Morbid (severe) obesity due to excess calories; Z98.890 Other specified postprocedural states; Z99.89 Dependence on other enabling machines and devices; Z68.35 Body mass index [BMI] 35.0-35.9, adult | CPT/HCPCS: 93005; 99212 ==

== ENCOUNTER 2023-03-27 12:46 | Outpatient (AMB) | payer OTHER, SELFPAY ==
[2023-03-27 12:48] VITALS: BP 153/65; PULSE 72; BMI 36.3
--- NOTE | 2023-03-27 12:48 | MHC.OFFVIS ---
Intake Vital Signs 03/27/23 12:48 Height 5 ft 11 in Weight 260 lb 2.327 oz BMI 36.3 BP 153/65 H Blood Pressure Location Lt brachial Position Sitting Pulse 72 Intake Visit Reasons: Colonoscopy screening Intake Note: Patient presents to in office visit today as a new patient for colonoscopy screening. CC: Patient c/o occasional constipation. Denies other GI concerns today. Patient reports losing weight. Last colonoscopy done about 10 years ago. Pt report having stent placed recently for Afib. Sports Broadcaster Required: No Allergies No Known Allergies [No Known Allergies*] Allergy (Unknown, Verified 03/27/23 12:52) Medication List - Last Reconciled 03/27/23 by Cecile Colunga PA-C adhesive bandage (Adhesive Pads) As directed albuterol sulfate 90 mcg/actuation (Ventolin HFA) 2 puffs inhalation Q6H PRN 30 days alclometasone 0.05% 1 appl topical BID PRN apremilast 30 mg PO BID blood pressure kit-extra large As directed [boswellia 450 mg PO] CPAP (CPAP Machine/Device) As directed diltiazem HCl 120 mg PO DAILY docusate sodium 100 mg PO BID PRN flecainide 100 mg PO Q12H fluocinonide 0.05% 1 appl topical BID fluticasone propionate 50 mcg/actuation 1 spray intranasal DAILY 30 days ibuprofen 800 mg PO Q6H lactulose 15 mL PO BEDTIME PRN non-adherent bandage (Curity Abdominal Pad) As directed rivaroxaban (Xarelto) 20 mg PO DAILY 90 days HPI HPI Comments History of Present Illness Details A 62 y/o AFIB male hx colon polyps- Xarelto- for many years due for colonoscopy. He says that he has had a recent cardiac event in which he was admitted for a few days he is better rate controlled. Appetite is good Bowels normal No C.P-shortness of breath No nausea, vomiting, hematemesis, hematochezia fever chills PFSH Medical History Morbid obesity MALICK on CPAP PAF (paroxysmal atrial fibrillation) Paroxysmal atrial flutter Psoriatic arthritis Surgical History History of cardiac radiofrequency ablation (RFA) (~11/05/17) Status post catheter ablation of atrial fibrillation Family History Father CVD (cardiovascular disease) Mother CVD (cardiovascular disease) Atrial fibrillation Other Substance use disorder Social History Household Members: Family Housing: House Do you presently have visiting nurse or other home services: No Alcohol intake: never Patient Tobacco Use Status: Former Tobacco user Quit Date: 1994 Tobacco use type: Cigarette Years Smoked: 20 +/- e-Cigarette/Vaping Use: Never Used Second Hand Smoke Exposure: No service: No Current occupational status: disabled Cognitive needs: No Hearing needs: Yes (hearing aide) Vision needs: Yes (Glasses) Review of Systems Const All systems reviewed & are unremarkable except as noted in HPI and below Card Denies chest pain and Denies dyspnea Resp Denies dyspnea GI Denies abdominal pain, Denies nausea and Denies vomiting Physical Exam Vital Signs: Last Vital Signs Pulse 72 03/27/23 12:48 BP 153/65 H 03/27/23 12:48 BMI result Body Mass Index 36.3 Const General: cooperative, healthy appearing and comfortable Orientation/consciousness: patient oriented x3 Limitations: no limitations Eyes Sclerae: sclerae normal Resp Effort & Inspection: normal respiratory effort and able to speak in complete sentences Auscultation: clear to auscultation bilaterally, no rales, no rhonchi and no wheezes Cardio Rate: regular rate Rhythm: regular rhythm Heart sounds: S1 normal heart sound present and S2 normal heart sound present GI Palpation (GI): Soft to palpation and nontender Auscultation: normal bowel sounds Neuro General: patient oriented x3 Extrem Right lower extremity: knee (brace/cane) Psych Appearance: grossly normal and well kempt Mental Status: mental status grossly normal Speech and movement: Normal speech and movement present Affect: normal affect Attitude: cooperative Thought process: Normal thought process present Thought content: Normal thought content present Insight: Good insight present (Psych) Judgement: Good judgement present (Psych) Assessment & Plan Assessment & Plan (1) MALICK on CPAP: Comment: history colon polyps Code(s): G47.33 - Obstructive sleep apnea (adult) (pediatric); Z99.89 - Dependence on other enabling machines and devices (2) Status post catheter ablation of atrial fibrillation: Comment: 62-year-old male multiple comorbidities personal history colon polyps Code(s): Z98.890 - Other specified postprocedural states (3) History of colon polyps: Code(s): Z86.010 - Personal history of colonic polyps (4) Pyoderma: Code(s): L08.0 - Pyoderma Plan: r- ankle Plan colonoscopy- MG split- anesthesia consult- AFIB/ on xarelto typically d/c 2 days- needs clearance / recent cardiac event -he is fully aware Orders: Orders Colonoscopy - GI Use Only Today Z86.010 - Personal history of colonic polyps Medications: New bisacodyl (Dulcolax (bisacodyl)) Take 4 tablets by mouth at 12:00pm the day before your procedure. 20 mg (4 x 5 mg) PO ONCE 1 day 4 tabs 0RF colonoscopy prep Z12.11 - Encounter for screening for malignant neoplasm of colon polyethylene glycol 3350 (Miralax) Take as directed by mouth the day before your procedure. 238 grams PO ONCE 1 day PRN 238 grams 0RF laxative effect Patient Instructions: Continue to Follow back with Cardiology and PCP as recommended Polyp surveillance colonoscopy MiraLax Gatorade split prep Literature given He understands he must have clearance for anesthesia as well as to discontinue Xarelto for 2 days prior to procedure Encouraged to call questions or concerns Appreciate the opportunity assist in the care the patient Coding Level of Care Code New Pt Level 3 (93623) Diagnoses MALICK on CPAP G47.33; Z99.89 Status post catheter ablation of atrial fibrillation Z98.890 History of colon polyps Z86.010 Pyoderma L08.0 Time Spent (min) 30
== END 2023-03-27 13:30 | disposition home or self-care (01) ==
PROVIDERS: PCP Physician Assistant; Visit Provider Physician Assistant
DX: G47.33 Obstructive sleep apnea (adult) (pediatric) (principal); Z99.89 Dependence on other enabling machines and devices; Z98.890 Other specified postprocedural states; Z86.010 Personal history of colon polyps; L08.0 Pyoderma
CPT/HCPCS: 99203; 99213

== ENCOUNTER → 2023-03-27 12:46 | Outpatient (BNVA) | payer OTHER, SELFPAY | PROVIDERS: PCP Physician Assistant; Visit Provider Physician Assistant | DX: Z86.010 Personal history of colon polyps (principal); L08.0 Pyoderma; G47.33 Obstructive sleep apnea (adult) (pediatric); Z99.89 Dependence on other enabling machines and devices | CPT/HCPCS: 99202 ==

== ENCOUNTER 2023-06-11 09:14 | Outpatient (AMB) | payer OTHER, SELFPAY ==
[2023-06-11 09:28] VITALS: BP 130/52; PULSE 80; O2SAT 96
--- NOTE | 2023-06-11 09:28 | MHC.PC.OV ---
Vital Signs 06/11/23 09:28 Height 5 ft 11 in BMI Reason not done Patient refused/unable BP 130/52 L Blood Pressure Location Lt brachial Position Sitting Pulse 80 Pulse Source Pulse Oximeter Pulse Oximetry (%) 96 Oxygen Delivery Method Room Air Intake Visit Reasons: impetigo, psoariatic arthritis Parking Meter Collector Required: No Accompanied by: Self / Same As Patient Allergies No Known Allergies [No Known Allergies*] Allergy (Unknown, Verified 06/11/23 09:54) Medication List - Last Reconciled 06/11/23 by Noam Zapata PA-C adhesive bandage (Adhesive Pads) As directed albuterol sulfate 90 mcg/actuation (Ventolin HFA) 2 puffs inhalation Q6H PRN 30 days alclometasone 0.05% 1 appl topical BID PRN apremilast 30 mg PO BID bisacodyl (Dulcolax (bisacodyl)) 20 mg (4 x 5 mg) PO ONCE 1 day blood pressure kit-extra large As directed [boswellia 450 mg PO] CPAP (CPAP Machine/Device) As directed diltiazem HCl 120 mg PO DAILY docusate sodium 100 mg PO BID PRN flecainide 100 mg PO Q12H fluocinonide 0.05% 1 appl topical BID fluticasone propionate 50 mcg/actuation 1 spray intranasal DAILY 30 days ibuprofen 800 mg PO Q6H lactulose 15 mL PO BEDTIME PRN mupirocin calcium 2% 1 appl topical BID 30 days non-adherent bandage (Curity Abdominal Pad) As directed rivaroxaban (Xarelto) 20 mg PO DAILY 90 days Tobacco use date assessed: 10/01/22 Dental Screening Dental Screen Date: 06/11/23 Did you have a dental visit in the last 12 months?: No Did you have a dental problem in the last 6 months where you did not have access to dental care?: No Was dental information given to patient?: Patient has dentist HPI impetigo, psoariatic arthritis HPI Details Patient is a 62-year-old male here today for a follow-up visit.? Patient has a past medical history significant for AFib, morbid obesity,? MALICK, psoriatic arthritis,? pyoderma,? asthma Concerns--> reports over the last week having urinary frequency over the last 4 months. Urinalysis today showing 1+ protein though no nitrates, leukocytes, glucose or ketones. He does report some suprapubic discomfort Also reports having a rash that intermittently shows up in different parts of his body. He does use antibiotic soaps. He has been prescribed antibiotic and steroids which has helped to clear the rash. Rash presents as a possible psoriatic dermatologic eruptions. .. AFIB:? Patient is followed by round corner cutter operator and continues on diltiazem for rate control.? Has been status post cardiac ablation.? Has been started on Xarelto, flecainide-needs an outpatient echocardiogram. .. Obesity:? He does understand his BMI is over 30 and has been trying to be more physically active to reduce his weight. .. Obstructive sleep apnea:? He admits to using his BiPAP machine on nightly basis with good effect on his sleep. .. Pyoderma:? Has been doing his own wound management with barrier creams over his right lower extremity.? Has been a long-term patient of the [facility] and is considering re-establishing care if wound worsens. Has had vascular surgeries in the past though have not been effective. .. Psoriasis/ psoriatic arthritis:? Patient is followed by Rheumatology at the arthritic treatment center.? He does report getting cortisone injections in his knees which do significantly reduce his pain for a while.? He is on disease modifying drug (Aremilast) which has been helpful. Was on Enbrel in the past which completely cleared his polyarthralgia though had bed GI side effects. [facility] Medical History Morbid obesity MALICK on CPAP PAF (paroxysmal atrial fibrillation) Paroxysmal atrial flutter Psoriatic arthritis Surgical History Status post catheter ablation of atrial fibrillation History of cardiac radiofrequency ablation (RFA) (~11/05/17) Family History Father CVD (cardiovascular disease) Mother CVD (cardiovascular disease) Atrial fibrillation Other Substance use disorder Social History Household Members: Family Housing: House Do you presently have visiting nurse or other home services: No Alcohol intake: never Patient Tobacco Use Status: Former Tobacco user Quit Date: 1994 Tobacco use type: Cigarette Years Smoked: 20 +/- e-Cigarette/Vaping Use: Never Used Second Hand Smoke Exposure: No service: No Current occupational status: disabled Cognitive needs: No Hearing needs: Yes (hearing aide) Vision needs: Yes (Glasses) Questionnaire Thrive Questionnaire Date Thrive assessed: 01/16/23 YIN-7 AMB Questionnaire YIN-7 Date YIN - 7 assessed: 01/16/23 Source: Developed by Drs. Sudhir Vasquez, Terri Mcmanus, Mk Ram and colleagues, with an educational marleni from [employer]. Review of Systems Const Denies headache(s) Eyes Denies loss of vision ENT Denies vertigo, Denies dizziness, Denies headache(s) and Denies sore throat Card Denies chest pain, Denies leg edema and Denies lightheadedness Resp Denies cough, Denies hemoptysis and Denies wheezing GI Denies abdominal pain, Denies melena, Denies constipation, Denies diarrhea and Denies vomiting Denies dysuria, Denies urinary frequency and Denies urinary urgency Musc Denies arthralgias, Denies joint swelling, Denies numbness and Denies tingling Neuro Denies Abnormal speech present, Denies behavioral changes, Denies vertigo, Denies dizziness, Denies headache(s), Denies loss of vision, Denies memory loss, Denies numbness and Denies tingling Psych Denies anxiety, Denies behavioral changes, Denies depression, Denies memory loss and Denies panic attacks Americo/Lymph Denies easy bleeding and Denies easy bruising Aller/Immun Denies wheezing Physical exam (Primary Care) Vital Signs: Last Vital Signs Pulse 80 06/11/23 09:28 BP 130/52 L 06/11/23 09:28 Pulse Ox 96 06/11/23 09:28 Oxygen Delivery Method Room Air 06/11/23 09:28 Tobacco/Smoking Status: Tobacco use Status Tobacco use date assessed 10/01/22 06/11/23 09:29 Patient Tobacco Use Status Former Tobacco user 06/11/23 09:29 Tobacco use type Cigarette 06/11/23 09:29 e-Cigarette/Vaping Use Never Used 06/11/23 09:29 Thrive Assessment: Date of Thrive Assessment Date Thrive assessed 01/16/23 06/11/23 09:29 Const General: healthy appearing, no acute distress, alert and awake Nutritional Appearance: well nourished Orientation/consciousness: oriented to person, oriented to place and oriented to time HENMT Ears: TM's normal bilaterally General nose exam: Normal nasal mucous membranes and turbinates present Eyes Conjunctivae: conjunctivae normal Sclerae: sclerae normal Pupils: Equal, round and reactive pupils present Neck Neck: Yes no lymphadenopathy and Yes no JVD Thyroid: Thyroid normal Carotids: no bruits Resp Effort & Inspection: normal respiratory effort and not tachypneic Auscultation: no crackles, no rales, no rhonchi and no wheezes Cardio Rate: regular rate Rhythm: regular rhythm Heart sounds: no murmurs and normal S1 and S2 GI Palpation (GI): Soft to palpation, nontender, no hepatomegaly and no splenomegaly Auscultation: normal bowel sounds Skin Other: REMNANTS RASH OVER HER ARMS AND LOWER EXTREMITIES. General skin exam: dry skin Neuro General: oriented to person, oriented to place and oriented to time Cranial nerves: Yes Equal, round and reactive pupils present Speech: No Abnormal speech present Gait exam (Neuro): Normal gait present Motor exam (neuro): no tremor noted Extrem Right upper extremity: full ROM Left upper extremity: full ROM Right lower extremity: full ROM; no edema Left lower extremity: full ROM; no edema Psych Mental Status: mental status grossly normal Speech and movement: Normal speech and movement present Affect: normal affect Attitude: cooperative Thought process: Normal thought process present Office Procedures Flu Questionnaire Does the patient have a severe egg allergy?: No Does the patient have severe life threatening allergies?: No Does the patient have a fever or illness today?: No Has the patient ever had Guillain-[place] Syndrome?: No Has the patient ever had any past reaction to a flu shot?: No Results AMB Urinalysis, Automated UA Leukoctes 0 Carlton/uL Last Edit by ROBINSON Farias on 06/11/23 11:26 UA Nitrite Negative Last Edit by ROBINSON Farias on 06/11/23 11:26 UA Urobilinogen 0 mg/dL Last Edit by ROBINSON Farias on 06/11/23 11:26 UA Protein 30 mg/dL Last Edit by ROBINSON Farias on 06/11/23 11:26 UA pH 6.0 Last Edit by ROBINSON Farias on 06/11/23 11:26 UA Blood 0 Daryn/uL Last Edit by ROBINSON Farias on 06/11/23 11:26 UA Specific [place] 1.020 Last Edit by ROBINSON Farias on 06/11/23 11:26 UA Ketone Negative Last Edit by ROBINSON Farias on 06/11/23 11:26 UA Bilirubin 0 mg/dL Last Edit by ROBINSON Farias on 06/11/23 11:26 UA Glucose 0 mg/dL Last Edit by ROBINSON Farias on 06/11/23 11:26 Immunizations flu vacc [id number] 6mos up(PF) 60 mcg(15 mcgx4)/0.5 mL IM syringe Performing Provider: Noam Zapata PA-C Performing Location: [facility] Administered by: ROBINSON Farias on 06/11/23 09:59 Dose Route Admin Location Dispensed Lot Number Expiration Date ND Access Nurse 0.5 mL IM Left Deltoid 0.5 mL [id number] 02/01/24 [id number] [employer] VIS Given Date VIS Provided VIS Publication Date 06/11/23 Single Vaccine 21 Eligibility Eligibility Date Funding Source Not [facility] Eligible 06/11/23 Private Results Reviewed Results Reviewed: Laboratory Last Values Urine pH (Auto) 6.0 06/11/23 11:24 Specific [place] (Auto) 1.020 06/11/23 11:24 Urine Protein (Auto) 30 mg/dL 06/11/23 11:24 Glucose (UA)(Auto) 0 mg/dL 06/11/23 11:24 Urine Ketones (Auto) Negative 06/11/23 11:24 Urine Blood (Auto) 0 Daryn/uL 06/11/23 11:24 Urine Nitrite (Auto) Negative 06/11/23 11:24 Urine Bilirubin (Auto) 0 mg/dL 06/11/23 11:24 Urine Urobilinogen (Auto) 0 mg/dL 06/11/23 11:24 Leukocyte Esterase (Auto) 0 Carlton/uL 06/11/23 11:24 Assessment and Plan Assessment & Plan (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 (2) PAF (paroxysmal atrial fibrillation): Code(s): I48.0 - Paroxysmal atrial fibrillation Plan: Continues to follow cardiology. Continues on anticoagulation without any overt signs of bleeding (3) Urinary frequency: Code(s): R35.0 - Frequency of micturition Plan: Patient has been experiencing urinary frequency over the last 4 months. He reports several nighttime awakenings having to urinate. Will check his PSA and consider bladder ultrasound. Will trial tamsulosin for help with complete better emptying. (4) HLD (hyperlipidemia): Code(s): E78.5 - Hyperlipidemia, unspecified Qualifiers: Hyperlipidemia type: mixed hyperlipidemia Qualified Code(s): E78.2 - Mixed hyperlipidemia Plan: Patient's most recent lipid panel showing very elevated total cholesterol and LDL. Advised to get repeat lipid panel to evaluate his his cholesterol. Will consider statin therapy if LDL above 130 (5) HTN (hypertension): Code(s): I10 - Essential (primary) hypertension Qualifiers: Hypertension type: primary hypertension Qualified Code(s): I10 - Essential (primary) hypertension Plan: Blood pressure acceptable today in office. Will continue diltiazem. Goal blood pressure remain below 140/90 (6) Pyoderma: Code(s): L08.0 - Pyoderma Plan: As per HPI, has chronic pyoderma. Has been seen by wound clinic in the past. Now doing his own wound care. Will supply him with Silvadene cream to use and his own home wound bandages. Orders: Orders Urine Culture 06/11/23 R35.0 - Frequency of micturition Comprehensive Met. Panel 06/11/23 R35.0 - Frequency of micturition SOSA Reflex Titer and Pattern 06/11/23 L30.8 - Other specified dermatitis Erythrocyte Sedimentation Rate 06/11/23 L30.8 - Other specified dermatitis Influenza [id number] Immunization 06/11/23 Z23 - Encounter for immunization Prostate Specific Antigen Scr 06/11/23 R35.0 - Frequency of micturition, Z12.5 - Encounter for screening for malignant neoplasm of prostate Cyclic Citrullinated Peptide 06/11/23 L30.8 - Other specified dermatitis Complete Blood Count no Diff 06/11/23 L30.8 - Other specified dermatitis AMB Urinalysis Automated 06/11/23 R35.0 - Frequency of micturition Medications: New tamsulosin 0.4 mg PO DAILY 30 days 30 caps 3RF R35.0 - Frequency of micturition Coding Level of Care Code Est Pt Level 4 (17448) Diagnoses Psoriasiform eruption L30.8 PAF (paroxysmal atrial fibrillation) I48.0 Urinary frequency R35.0 Mixed hyperlipidemia E78.2 Hyperlipidemia type: mixed hyperlipidemia Primary hypertension I10 Hypertension type: primary hypertension Pyoderma L08.0
== END 2023-06-11 10:28 | disposition home or self-care (01) ==
PROVIDERS: PCP Physician Assistant; Visit Provider Physician Assistant
DX: Z23 Encounter for immunization (principal); R35.0 Frequency of micturition
CPT/HCPCS: 81003; 90471; 90686; 99214

== ENCOUNTER 2023-06-11 10:36 | Outpatient (REF) | payer OTHER, SELFPAY ==
[2023-06-11 11:38] LABS: Hematocrit 38.6 % (42.0-52.0); Hemoglobin 12.5 g/dl (14.0-18.0); Mean Corpuscular HGB Conc 32.4 g/dl (31.0-36.0); Mean Corpuscular Hemoglobin 27.7 pg (27.0-33.0); Mean Corpuscular Volume 85.4 fL (80.0-98.0); Mean Platelet Volume 9.5 fL (9.4-12.4); Platelet Count 285 X10*3/uL (160-400); Red Blood Count 4.52 X10*6/uL (4.60-5.80); Red Cell Distribution Width 13.2 % (11.0-16.0); White Blood Count 7.2 X10*3/uL (4.8-10.8)
[2023-06-11 12:04] LABS: Alanine Aminotransferase 8 U/L (0-40); Albumin Level 3.9 g/dL (3.5-5.0); Alkaline Phosphatase 86 U/L (39-117); Anion Gap 12 (12-20); Aspartate Amino Transferase 11 U/L (5-37); Bilirubin Total 0.4 mg/dL (0.0-1.0); Blood Urea Nitrogen 10 mg/dL (9-16); Calcium 9.1 mg/dL (8.4-10.2); Carbon Dioxide 27 mmol/L (22-29); Chloride 107 mmol/L (96-108); Estimated Glomerular Filt Rate > 60; Glucose Random 100 mg/dL (60-115); Potassium 3.9 mmol/L (3.3-5.1); Sodium 142 mmol/L (135-145)
[2023-06-11 12:14] LABS: Erythrocyte Sedimentation Rate 37 MM/HR (0-15)
[2023-06-11 12:19] LABS: Prostate Specific Antigen Scr 0.47 ng/mL (<0.05-4.0)
[2023-06-15 10:38] LABS: Anti Nuclear Antibody Screen NEGATIVE (NEGATIVE)
== END 2023-06-11 10:37 | disposition home or self-care (01) ==
LOC: HO.LAB 10:36
PROVIDERS: PCP Physician Assistant; Visit Provider Physician Assistant
DX: R35.0 Frequency of micturition (principal); L30.8 Other specified dermatitis; Z12.5 Encounter for screening for malignant neoplasm of prostate
CPT/HCPCS: 36415; 80053; 84153; 85027; 85652; 86038; 86200; 87086

== ENCOUNTER → 2023-08-05 10:45 | Outpatient (REF) | payer OTHER, SELFPAY ==
--- NOTE | 2023-08-05 10:49 | CA_ITS ---
Transthoracic Echocardiogram Patient (Last, First, Middle): Tom Miner C Gender: Male Date of : 1960 Age: 63 Procedure Date: 08/05/2023 Procedure Type: Transthoracic Echocardiogram Location: OP Height: 180.34 cm Weight: 108.86 kg BSA: 2.28 m2 Heart Rate: bpm BP: 150 / 70 mmHg Toolroom Checker: TO Referring MD: Say Curry MD Symptoms: I48.0 - Paroxysmal atrial fibrillation Study Quality: Adequate with contrast ECG Rhythm: Sinus Conclusions: - The left ventricular systolic function is normal. The calculated ejection fraction is 60% by biplane method. - The left atrium is moderately dilated. - There is mild aortic valve regurgitation. - There is mild mitral valve regurgitation. Findings Procedure Information Contrast agent, definity, is being given per protocol without apparent complications. Left Ventricle Normal left ventricular cavity size. The left ventricular systolic function is normal. The calculated ejection fraction is 60% by biplane method. There is no evidence of regional wall motion abnormalities. Diastolic function is normal for age. There is mild septal asymmetric hypertrophy. Right Ventricle Mildly increased right ventricular cavity size. There is normal right ventricular systolic function. Atria The left atrium is moderately dilated. The right atrium is normal in size. Aortic Valve There is a normal trileaflet aortic valve. There is mild calcification of the aortic valve. There is no aortic valve stenosis. There is mild aortic valve regurgitation. Mitral Valve There is mild anterior and posterior mitral leaflet thickening. There is mild mitral valve regurgitation. There is no mitral valve stenosis. Pulmonic Valve The pulmonic valve is likely normal. Tricuspid Valve Normal tricuspid valve structure. There is mild tricuspid valve regurgitation. Mild pulmonary hypertension is present. Great Vessels The aortic annulus, sinuses of valsalva, and asc aorta are normal in size. Venous The inferior vena cava is mildly dilated and collapses greater than 50% with inspiration. Pericardium/Pleural There is no evidence of pericardial effusion. Prior Study Comparison No significant change compared to prior study dated: 06/07/2019. Measurements 2D Linear Measurements IVSd: 1.17 0.6-0.9/0.6-1.0 cm LVIDd: 5.35 3.9-5.3/4.2-5.9 cm LVIDd Index: 2.35 2.4-3.2/2.2-3.1 cm/m2 LVIDs: 3.54 2.0-3.6 cm LVPWd: 0.98 0.7-1.1 cm LA Diam: 3.90 2.7-3.8/3.0-4.0 cm LAIDs Index: 1.71 1.5-2.3 cm/m2 LV Mass: 279.67 67-162/88-224 g LV Mass Index: 122.66 43-95/49-115 g/m2 LVOT Diam: 2.20 3.0+(-)1.3 cm 2D Systolic Function EF 4C: 59.40 >55% EF 2C: 61.90 >55% EF BiP: 60.20 >55% Mitral Valve MV VTI: 0.31 MV Pk Adithya: 1.29 MV Mn Adithya: 0.64 MV Pk Grad: 7.00 MV Mn Grad: 2.00 MV Pk E: 1.05 MV PK A: 0.51 MV Decel Time: 262.00 E/A: 2.00 E'Lateral: 8.81 E'Medial: 8.59 E/E' Med: 12.20 E/E' Lat: 11.90 PHT: 77.00 MVA PHT: 2.86 MVA Continuity: 3.53 Decel [place]: 4.01 Aortic Valve AoV Pk Adithya: 1.75 AoV Mn Adithya: 1.22 AoV VTI: 0.39 AoV Pk Grad: 12.00 Aov Mn Grad: 7.00 RICK Cont.VTI: 2.81 AI Pk Adithya: 4.47 AI [place]: 2.96 LVOT LVOT Pk Adithya: 1.30 LVOT Mn Adithya: 0.91 LVOT VTI: 0.29 LVOT Pk Grad: 7.00 LVOT Mn Grad: 4.00 LVOT Diam: 2.20 LVOT Area: 3.80 Diastolic Function MV Pk E: 1.05 MV Pk A: 0.51 E/A: 2.00 E'Medial: 8.59 E/E' Med: 12.20 E' Laterial: 8.81 E/E' Lat: 11.90 Right Ventricle TAPSE (mm): 25.40 TVS' Adithya: 10.30 Tricuspid Valve TR Pk Adithya: 2.90 TR Pk Grad: 34.00 RA Press: 8.00 RVSP: 42.00 Great Vessels Aorta Sinus of Valsalva: 3.66 2.0-3.[address] [place]: 3.04 1.7-3.4 cm Ao Asc: 3.80 2.1-3.4 cm Updated in Other Vendor System with Status of Final Say Curry MD electronically signed on 08/05/2023 3:14:52 PM with status of Final
== END ==
LOC: HO.CARD 10:45
PROVIDERS: PCP Physician Assistant; Visit Provider Internal Medicine
DX: I48.0 Paroxysmal atrial fibrillation (principal)
CPT/HCPCS: 93242; 93306; Q9957

== ENCOUNTER → 2023-08-05 10:49 | Outpatient (BNV) | payer OTHER, SELFPAY | PROVIDERS: PCP Physician Assistant; Visit Provider Internal Medicine | DX: I48.0 Paroxysmal atrial fibrillation (principal) | CPT/HCPCS: 93244; 93306 ==

== ENCOUNTER 2023-08-06 14:44 | Outpatient (AMB) | payer OTHER, SELFPAY ==
[2023-08-06 14:47] VITALS: BP 150/74; PULSE 78; RESP 17; O2SAT 100; BMI 36.7
--- NOTE | 2023-08-06 14:47 | MHC.PC.OV ---
Vital Signs 08/06/23 14:47 08/06/23 15:25 Height 5 ft 11 in Weight 263 lb BMI 36.7 BP 150/74 H 140/70 H Blood Pressure Location Lt brachial Position Sitting Respiration 17 Pulse 78 Pulse Source Pulse Oximeter Pulse Oximetry (%) 100 Oxygen Delivery Method Room Air Intake Visit Reasons: F/U Paper Finisher Required: No Accompanied by: Self / Same As Patient Allergies No Known Allergies [No Known Allergies*] Allergy (Unknown, Verified 08/06/23 15:06) Medication List - Last Reconciled 08/06/23 by Noam Zapata PA-C adhesive bandage (Adhesive Pads) As directed albuterol sulfate 90 mcg/actuation (Ventolin HFA) 2 puffs inhalation Q6H PRN 30 days alclometasone 0.05% 1 appl topical BID PRN apremilast 30 mg PO BID bisacodyl (Dulcolax (bisacodyl)) 20 mg (4 x 5 mg) PO ONCE 1 day blood pressure kit-extra large As directed [boswellia 450 mg PO] CPAP (CPAP Machine/Device) As directed diltiazem HCl 120 mg PO DAILY docusate sodium 100 mg PO BID PRN flecainide 100 mg PO Q12H fluocinonide 0.05% 1 appl topical BID fluticasone propionate 50 mcg/actuation 1 spray intranasal DAILY 30 days ibuprofen 800 mg PO Q6H lactulose 15 mL PO BEDTIME PRN mupirocin 2% 1 appl topical BID 15 days mupirocin calcium 2% 1 appl topical BID 30 days naproxen 500 mg PO ONCE PRN non-adherent bandage (Curity Abdominal Pad) As directed rivaroxaban (Xarelto) 20 mg PO DAILY 90 days tamsulosin 0.4 mg PO DAILY 30 days Tobacco use date assessed: 08/06/23 HPI F/U HPI Details Patient is a 63-year-old male here today for a follow-up visit.? Patient has a past medical history significant for AFib, morbid obesity,? MALICK, psoriatic arthritis,? pyoderma,? asthma .. AFIB:? Patient is followed by director of recruitment and continues on diltiazem for rate control.? Has been status post cardiac ablation.? HE continues on Xarelto without any overt signs of bleeding. His rate and rhythm controlled by diltiazem and flecainide. Recently had an echocardiogram which was essentially stable showing an EF of 60%. Currently has Holter monitor on and recording. .. HTN: Patient's blood pressure elevated initially in office. Does struggle to ambulate and is in lot of pain due to his bilateral knee arthritis. Repeat blood pressure much improved. .. Obesity:? He does understand his BMI is over 30 and has been trying to be more physically active to reduce his weight. .. Obstructive sleep apnea:? He admits to using his BiPAP machine on nightly basis with good effect on his sleep. .. Urinary retention: He does report since starting Flomax is urination/flow has been improved. Has seen urologist in the past whom apparently was to do a TURP procedure though patient declined. .. Pyoderma:? Has been doing his own wound management with barrier creams over his right lower extremity.? Has been a long-term patient of the [facility] and is considering re-establishing care if wound worsens. Has had vascular surgeries in the past though have not been effective. .. Psoriasis/ psoriatic arthritis:? Patient is followed by Rheumatology at the arth[facility] treatment center.? He does report getting cortisone injections in his knees which do significantly reduce his pain for a while.? --> HIS MOBILITY IS SEVERELY HINDERED DUE TO HIS PSORIATIC ARTHRITIS. HE HAS A LOT OF TROUBLE AMBULATING AND GETTING UP FROM A SITTING POSITION. USES A CANE FOR AMBULATION ASSISTANCE. DOES HAVE A LOT OF PAIN WITH AMBULATION/ USING STAIRS. HE IS COMPLETELY DISABLED AND DOES NEED ASSISTANCE WITH ACTIVITIES OF DAILY LIVING. He is on disease modifying drug (Aremilast) which has been helpful. Was on Enbrel in the past which completely cleared his polyarthralgia though had bed GI side effects. Laboratory Tests 01/01/19 06/11/23 12:10 10:58 RBC 4.52 L Hgb 12.5 L Creatinine 0.81 Cholesterol 246 D LDL Cholesterol, C alc 178 PSA Screen 0.47 [facility] Medical History (Updated 08/06/23 @ 15:12 by Noam Zapata PA-C) Psoriatic arthritis MALICK on CPAP Morbid obesity PAF (paroxysmal atrial fibrillation) Surgical History Status post catheter ablation of atrial fibrillation History of cardiac radiofrequency ablation (RFA) (~04/04/18) Family History Father CVD (cardiovascular disease) Mother CVD (cardiovascular disease) Atrial fibrillation Other Substance use disorder Social History Household Members: Family Housing: House Do you presently have visiting nurse or other home services: No Alcohol intake: never Patient Tobacco Use Status: Former Tobacco user Quit Date: 1994 Tobacco use type: Cigarette Years Smoked: 20 +/- e-Cigarette/Vaping Use: Never Used Second Hand Smoke Exposure: No service: No Current occupational status: disabled Cognitive needs: No Hearing needs: Yes (hearing aide) Vision needs: Yes (Glasses) Questionnaire PHQ-9 Over the last 2 weeks, how often have you been bothered by any of the following problems? 1. Little interest or pleasure in doing things: not at all 2. Feeling down, depressed, or hopeless: not at all 3. Trouble falling or staying asleep, or sleeping too much: not at all 4. Feeling tired or having little energy: not at all 5. Poor appetite or overeating: not at all 6. Feeling bad about yourself - or that you are a failure or have let yourself or your family down: not at all 7. Trouble concentrating on things, such as reading the newspaper or watching television: not at all 8. Moving or speaking so slowly that other people could have noticed. Or the opposite - being so fidgety or restless that you have been moving around a lot more than usual: not at all 9. Thoughts that you would be better off or of hurting yourself in some way: not at all Total score: 0 Depression Screening Interpretation: Negative Depression Screening Done: Yes 78064 - PHQ-9 Billing: Yes Source: Developed by Drs. Sudhir Vasquez, Terri Mcmanus, Mk Ram and colleagues, with an educational marleni from [employer]. Thrive Questionnaire Date Thrive assessed: 08/06/23 I am a: Patient What is your living situation today?: I have a steady place to live Within the past 12 months, did the food you bought not last and you didn't have the money to get more?: Sometimes True Within the past 12 months, did you worry whether your food would run out before you got money to buy more?: Sometimes True Do you have trouble paying for medicines?: Yes Do you have trouble getting transportation to medical appointments?: No Do you have trouble paying your heating and electricity bill?: Yes Do you have trouble taking care of your child, family member or friend?: No Do you have trouble with day-to-day activities such as bathing, preparing meals, shopping, managing finances, etc.?: No Are you currently unemployed and looking for a job?: No Are you interested in more education?: No AUDIT C Alcohol Use Questionnaire (AUDIT-C) 1. How often do you have a drink containing alcohol?: Monthly or less 2. How many drinks containing alcohol do you have on a typical day when you are drinking?: 1 or 2 3. How often do you have six or more drinks on one occasion?: Never Total Score: 1 YIN-7 AMB Questionnaire YIN-7 Date YIN - 7 assessed: 08/06/23 Feeling nervous, anxious, or on edge: 0 = Not at all Not being able to stop or control worryin = Not at all Worrying too much about different things: 0 = Not at all Trouble relaxin = Not at all Being so restless that it is hard to sit still: 0 = Not at all Becoming easily annoyed or irritable: 0 = Not at all Feeling afraid as if something awful might happen: 0 = Not at all Total YIN-7 score (0-4 normal; 5-9 mild; 10-14 moderate; 15-21 severe): 0 Source: Developed by Drs. Sudhir Vasquez, Terri Mcmanus, Mk Ram and colleagues, with an educational marleni from [employer]. YIN-7 Assessment Billing YIN-7 Assessment Tool: YIN-7 Assessment 92948 Review of Systems Const Denies headache(s) Eyes Denies loss of vision ENT Denies vertigo, Denies dizziness, Denies headache(s) and Denies sore throat Card Denies chest pain, Denies leg edema and Denies lightheadedness Resp Denies cough, Denies hemoptysis and Denies wheezing GI Denies abdominal pain, Denies melena, Denies constipation, Denies diarrhea and Denies vomiting Denies dysuria, Denies urinary frequency and Denies urinary urgency Musc Denies arthralgias, Denies joint swelling, Denies numbness and Denies tingling Neuro Denies Abnormal speech present, Denies behavioral changes, Denies vertigo, Denies dizziness, Denies headache(s), Denies loss of vision, Denies memory loss, Denies numbness and Denies tingling Psych Denies anxiety, Denies behavioral changes, Denies depression, Denies memory loss and Denies panic attacks Americo/Lymph Denies easy bleeding and Denies easy bruising Aller/Immun Denies wheezing Physical exam (Primary Care) Vital Signs: Last Vital Signs Pulse 78 08/06/23 14:47 Resp 17 08/06/23 14:47 BP 140/70 H 08/06/23 15:25 Pulse Ox 100 08/06/23 14:47 Oxygen Delivery Method Room Air 08/06/23 14:47 BMI result Body Mass Index 36.7 BMI Assessment/Plan discussion: High Tobacco/Smoking Status: Tobacco use Status Tobacco use date assessed 08/06/23 08/06/23 15:01 Patient Tobacco Use Status Former Tobacco user 08/06/23 14:49 Tobacco use type Cigarette 08/06/23 14:49 e-Cigarette/Vaping Use Never Used 08/06/23 14:49 PHQ-9: PHQ-9 Score PHQ-9: Total score 0 08/06/23 15:13 Depression Screening Interpretation: Negative Thrive Assessment: Date of Thrive Assessment Date Thrive assessed 08/06/23 08/06/23 14:56 Const Other: MORBIDLY OBESE General: healthy appearing, no acute distress, alert and awake Nutritional Appearance: well nourished Orientation/consciousness: oriented to person, oriented to place and oriented to time HENMT Ears: TM's normal bilaterally General nose exam: Normal nasal mucous membranes and turbinates present Eyes Conjunctivae: conjunctivae normal Sclerae: sclerae normal Pupils: Equal, round and reactive pupils present Neck Neck: Yes no lymphadenopathy and Yes no JVD Thyroid: Thyroid normal Carotids: no bruits Resp Effort & Inspection: normal respiratory effort and not tachypneic Auscultation: no crackles, no rales, no rhonchi and no wheezes Cardio Rate: regular rate Rhythm: regular rhythm Heart sounds: no murmurs and normal S1 and S2 GI Palpation (GI): Soft to palpation, nontender, no hepatomegaly and no splenomegaly Auscultation: normal bowel sounds Skin General skin exam: no rashes or lesions noted and dry skin Neuro General: oriented to person, oriented to place and oriented to time Cranial nerves: Yes Equal, round and reactive pupils present Speech: No Abnormal speech present Gait exam (Neuro): Normal gait present Motor exam (neuro): no tremor noted Extrem Other: BILATERAL KNEES WITH OBVIOUS DEFORMITIES. LIMITED RANGE OF MOTION OF THE KNEES DUE TO PAIN AND STIFFNESS Right upper extremity: full ROM Left upper extremity: full ROM Right lower extremity: ROM limited and no edema Left lower extremity: no edema Ankle/foot/toe images: 1. LARGE CHRONIC PYODERMA SKIN WOUND. Psych Mental Status: mental status grossly normal Speech and movement: Normal speech and movement present Affect: normal affect Attitude: cooperative Thought process: Normal thought process present Assessment and Plan Assessment & Plan (1) PAF (paroxysmal atrial fibrillation): Code(s): I48.0 - Paroxysmal atrial fibrillation Plan: Continues to follow cardiology. Continues on anticoagulation without any overt signs of bleeding. Continues on rate and rhythm control with diltiazem and flecainide. Most recent echocardiogram August 2019 for essentially stable with EF of 60% (2) HLD (hyperlipidemia): Code(s): E78.5 - Hyperlipidemia, unspecified Qualifiers: Hyperlipidemia type: mixed hyperlipidemia Qualified Code(s): E78.2 - Mixed hyperlipidemia Plan: Patient's most recent lipid panel showing very elevated total cholesterol and LDL. Advised to get repeat lipid panel to evaluate his his cholesterol. Will consider statin therapy if LDL above 130 (3) HTN (hypertension): Code(s): I10 - Essential (primary) hypertension Qualifiers: Hypertension type: primary hypertension Qualified Code(s): I10 - Essential (primary) hypertension Plan: Blood pressure slightly elevated today initially though on recheck improved. Believe he is having increased blood pressures due to pain from ambulating due to his psoriatic arthritis.. Will continue diltiazem. Goal blood pressure remain below 140/90 (4) Pyoderma: Code(s): L08.0 - Pyoderma Plan: As per HPI, has chronic pyoderma. Has been seen by wound clinic in the past. Now doing his own wound care. Will supply him with with antifungal cream. He will try to reestablish care with his sr. director product management( Dr. Corona) for treatment. (5) Psoriatic arthritis: Code(s): L40.50 - Arthropathic psoriasis, unspecified Plan: Continues to follow rheumatology (Dr. Elise) and continues on disease modifying medication. Will supply him with Tylenol arthritis to use instead of NSAID due to being contraindicated. HIS MOBILITY IS SEVERELY HINDERED DUE TO HIS PSORIATIC ARTHRITIS. HE HAS A LOT OF TROUBLE AMBULATING AND GETTING UP FROM A SITTING POSITION. USES A CANE FOR AMBULATION ASSISTANCE. DOES HAVE A LOT OF PAIN WITH AMBULATION/ USING STAIRS. HE IS COMPLETELY DISABLED AND DOES NEED ASSISTANCE WITH ACTIVITIES OF DAILY LIVING. (6) Obese: Code(s): E66.9 - Obesity, unspecified Qualifiers: Obesity type: due to excess calories Obesity classification: adult class 2 (BMI 35 - 39.9) Serious obesity comorbidity presence: with serious comorbidity Body mass index: BMI 36.0-36.9 Qualified Code(s): E66.01 - Morbid (severe) obesity due to excess calories; Z68.36 - Body mass index [BMI] 36.0-36.9, adult Plan: He does understand his BMI is over 30 and will try to work on better eating habits to reduce his weight. Unable to be more physically active due to his joint pains. Orders: Orders Lipid Panel 08/06/23 E78.2 - Mixed hyperlipidemia Complete Blood Count no Diff 08/06/23 E78.2 - Mixed hyperlipidemia Comprehensive [place]. Panel Fast 08/06/23 E78.2 - Mixed hyperlipidemia Prostate Specific Antigen Scr 08/06/23 E78.2 - Mixed hyperlipidemia, Z12.5 - Encounter for screening for malignant neoplasm of prostate Medications: New nystatin 1 appl topical DAILY 15 days 30 grams 4RF L08.0 - Pyoderma acetaminophen ER (Tylenol Arthritis Pain) 650 mg PO Q12H 30 days 60 tabs 3RF L40.50 - Arthropathic psoriasis, unspecified, M19.90 - Unspecified osteoarthritis, unspecified site Refilled diltiazem HCl 120 mg PO DAILY 90 caps 3RF docusate sodium 100 mg PO BID PRN 60 caps 3RF constipation I48.0 - Paroxysmal atrial fibrillation albuterol sulfate 90 mcg/actuation (Ventolin HFA) 2 puffs inhalation Q6H 30 days PRN 8.5 grams 3RF shortness of breath or wheezing I48.0 - Paroxysmal atrial fibrillation fluticasone propionate 50 mcg/actuation 1 spray intranasal DAILY 30 days 16 grams 3RF blood pressure kit-extra large As directed 1 ea 0RF I10 - Essential (primary) hypertension, I48.92 - Unspecified atrial flutter Coding Level of Care Code Est Pt Level 4 (71043) Diagnoses PAF (paroxysmal atrial fibrillation) I48.0 Mixed hyperlipidemia E78.2 Hyperlipidemia type: mixed hyperlipidemia Primary hypertension I10 Hypertension type: primary hypertension Pyoderma L08.0 Psoriatic arthritis L40.50 Class 2 severe obesity due to excess calories with serious comorbidity and body mass index (BMI) of 36.0 to 36.9 in adult E66.01; Z68.36 Obesity type: due to excess calories Obesity classification: adult class 2 (BMI 35 - 39.9) Serious obesity comorbidity presence: with serious comorbidity Body mass index: BMI 36.0-36.9 Additional Codes YIN-7 Assessment Billing - YIN-7 Assessment Tool: YIN-7 Assessment 70932 ([id number])
[2023-08-06 15:25] VITALS: BP 140/70
== END 2023-08-06 15:44 | disposition home or self-care (01) ==
PROVIDERS: PCP Physician Assistant; Visit Provider Physician Assistant
DX: I48.0 Paroxysmal atrial fibrillation (principal); L40.50 Arthropathic psoriasis, unspecified; E66.01 Morbid (severe) obesity due to excess calories; Z68.36 Body mass index [BMI] 36.0-36.9, adult; E78.2 Mixed hyperlipidemia; I10 Essential (primary) hypertension; L08.0 Pyoderma
CPT/HCPCS: 99214

== ENCOUNTER 2023-08-19 13:13 | Outpatient (AMB) | payer OTHER, SELFPAY ==
--- NOTE | 2023-08-19 13:14 | A.OFFVIS_ITS ---
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 Accompanied by: Self / Same As Patient Allergies flu vaccine Adverse Reaction (Intermediate, Uncoded 08/19/23 13:18) Hives Medication List - Last Reconciled 08/19/23 by Say Curry MD acetaminophen ER (Tylenol Arthritis Pain) 650 mg PO Q12H 30 days adhesive bandage (Adhesive Pads) As directed albuterol sulfate 90 mcg/actuation (Ventolin HFA) 2 puffs inhalation Q6H PRN 30 days alclometasone 0.05% 1 appl topical BID PRN apremilast 30 mg PO BID bisacodyl (Dulcolax (bisacodyl)) 20 mg (4 x 5 mg) PO ONCE 1 day blood pressure kit-extra large As directed [boswellia 450 mg PO] CPAP (CPAP Machine/Device) As directed diltiazem HCl 120 mg PO DAILY docusate sodium 100 mg PO BID PRN flecainide 100 mg PO Q12H fluocinonide 0.05% 1 appl topical BID fluticasone propionate 50 mcg/actuation 1 spray intranasal DAILY 30 days ibuprofen 800 mg PO Q6H lactulose 15 mL PO BEDTIME PRN mupirocin 2% 1 appl topical BID 15 days mupirocin calcium 2% 1 appl topical BID 30 days non-adherent bandage (Curity Abdominal Pad) As directed nystatin 1 appl topical DAILY 15 days rivaroxaban (Xarelto) 20 mg PO DAILY 90 days tamsulosin 0.4 mg PO DAILY 30 days HPI HPI Comments History of Present Illness Details Tom returns for follow-up regarding atrial fibrillation. Previously, he underwent ablation for the same. He was actually free of atrial fibrillation for several years after the ablation. Last summer, in the setting of working hard in heart weather, he had a hospitalization for atrial flutter/fibrillation. There was a plan for ERMIAS/cardioversion but he converted to sinus rhythm. Since then, he has been on diltiazem, flecainide and Xarelto. Overall, doing good. No new issues. He has lot significant amount of weight over the last couple of years. [facility] Medical History (Updated 08/06/23 @ 15:12 by Noam Zapata PA-C) Psoriatic arthritis MALICK on CPAP Morbid obesity PAF (paroxysmal atrial fibrillation) Surgical History Status post catheter ablation of atrial fibrillation History of cardiac radiofrequency ablation (RFA) (~11/05/17) Family History Father CVD (cardiovascular disease) Mother CVD (cardiovascular disease) Atrial fibrillation Other Substance use disorder Social History Household Members: Family Housing: House Do you presently have visiting nurse or other home services: No Alcohol intake: never Patient Tobacco Use Status: Former Tobacco user Quit Date: 1994 Tobacco use type: Cigarette Years Smoked: 20 +/- e-Cigarette/Vaping Use: Never Used Second Hand Smoke Exposure: No service: No Current occupational status: disabled Cognitive needs: No Hearing needs: Yes (hearing aide) Vision needs: Yes (Glasses) Review of Systems Const Denies weakness ENT Denies dizziness Card Denies chest pain, Denies chest pain with activity, Denies syncope, Denies rapid heart rate, Denies pedal edema, Denies edema, Denies leg edema, Denies lightheadedness, Denies palpitations, Denies dyspnea, Denies dyspnea on exertion and Denies orthopnea Resp Denies cough, Denies dyspnea and Denies dyspnea on exertion GI Denies hematochezia and Denies change in stool character Musc Denies abnormal gait, Denies muscle cramps, Denies muscle weakness, Denies numbness, Denies radiating pain into limb and Denies tingling Neuro Denies abnormal gait, Denies dizziness, Denies syncope, Denies numbness, Denies tingling and Denies weakness Endo Denies palpitations Physical Exam Vital Signs: Last Vital Signs BP 142/62 H 08/19/23 13:17 BMI result Body Mass Index 36.6 Const General: comfortable and no acute distress Orientation/consciousness: patient oriented x3 HEENT Other: Unremarkable Head: Yes normal to inspection Neck Neck: Yes normal visual inspection Chest Chest palpation & inspection: normal inspection of the chest Resp Auscultation: clear to auscultation bilaterally Cardio Palpation: normal PMI Heart sounds: S1 normal heart sound present, S2 normal heart sound present, no gallops, no murmurs and no rubs GI Palpation (GI): Soft to palpation Back/Spine/Pelvis Other: unremarkable Skin General skin exam: no rashes or lesions noted Neuro General: patient oriented x3 Extrem General: Yes normal to inspection Psych Mental Status: mental status grossly normal Office Procedures EKG Details: EKG with sinus rhythm at 80/Min; premature atrial contractions; no significant ST-T changes and otherwise unremarkable. [place]. [id number], Complete Assessment & Plan Assessment & Plan (1) PAF (paroxysmal atrial fibrillation): Code(s): I48.0 - Paroxysmal atrial fibrillation (2) Paroxysmal atrial flutter: Code(s): I48.92 - Unspecified atrial flutter (3) Status post catheter ablation of atrial fibrillation: Comment: 62-year-old male multiple comorbidities personal history colon polyps Code(s): Z98.890 - Other specified postprocedural states (4) Morbid obesity: Code(s): E66.01 - Morbid (severe) obesity due to excess calories (5) MALICK on CPAP: Comment: history colon polyps Code(s): G47.33 - Obstructive sleep apnea (adult) (pediatric); Z99.89 - Dependence on other enabling machines and devices Plan: On Bipap. Plan EKG from time of hospitalization with atrial flutter at a rate of 148/Min. Repeat EKG shows sinus rhythm. Echocardiogram with LVEF of 60%. Normal diastolic function. Moderately dilated left atrium. Mild aortic/mitral regurgitation. Holter shows underlying sinus rhythm with an average rate of 71/Min. Rare supraventricular ectopy. Cannot exclude transient atrial fibrillation. Nothing sustained overall. Overall, continue flecainide/diltiazem and Xarelto. He is on BiPAP for MALICK. Follow-up 6 months. In the interim, call with concerns. Coding Level of Care Code Est Pt Level 4 (26191) Diagnoses PAF (paroxysmal atrial fibrillation) I48.0 Paroxysmal atrial flutter I48.92 Status post catheter ablation of atrial fibrillation Z98.890 Morbid obesity E66.01 MALICK on CPAP G47.33; Z99.89 CPT Codes EKG - CPT: [id number], Complete ([id number])
[2023-08-19 13:17] VITALS: BP 142/62; BMI 36.6
== END 2023-08-19 13:44 | disposition home or self-care (01) ==
PROVIDERS: PCP Physician Assistant; Visit Provider Internal Medicine
DX: I48.0 Paroxysmal atrial fibrillation (principal); I48.92 Unspecified atrial flutter; Z98.890 Other specified postprocedural states; E66.01 Morbid (severe) obesity due to excess calories; G47.33 Obstructive sleep apnea (adult) (pediatric); Z99.89 Dependence on other enabling machines and devices
CPT/HCPCS: 93010; 99214

== ENCOUNTER → 2023-08-19 13:13 | Outpatient (BNVA) | payer OTHER, SELFPAY | PROVIDERS: PCP Physician Assistant; Visit Provider Internal Medicine | DX: I48.0 Paroxysmal atrial fibrillation (principal); I48.92 Unspecified atrial flutter; E66.01 Morbid (severe) obesity due to excess calories; Z68.36 Body mass index [BMI] 36.0-36.9, adult; G47.33 Obstructive sleep apnea (adult) (pediatric); Z79.01 Long term (current) use of anticoagulants; Z79.899 Other long term (current) drug therapy; Z99.89 Dependence on other enabling machines and devices | CPT/HCPCS: 93005; 99212 ==

== ENCOUNTER 2023-09-15 09:12 | Day surgery (SDC) | payer OTHER, SELFPAY ==
--- NOTE | 2023-09-12 09:15 | P.CONAN_ITS ---
Documented by User: Erica Nielsen NP 09/12/23 09:21 HPI - Anesthesia Eval Consult details Narrative: 63yo M for Colonoscopy Xarelto for afib Follows [facility] [place]. Last office visit 08/2023. Stable for 6 month f/u [facility] Active Problems Active Problems: All Active Problems (Updated 08/06/23 @ 15:12 by Noam Zapata PA-C) Urinary frequency (Acute) Psoriasiform eruption (Acute) History of colon polyps (Acute) HLD (hyperlipidemia) (Acute) Colon cancer screening (Acute) Annual physical exam (Acute) HTN (hypertension) (Acute) Impetigo (Acute) Psoriatic arthritis (Acute) Cellulitis (Acute) Obese (Acute) Low back pain (Acute) Moderate anxiety (Acute) Mild depression (Acute) Pyoderma (Acute) Allergic rhinitis (Acute) Constipation (Acute) Psoriasis (Acute) Intermittent asthma (Acute) MALICK on CPAP (Acute) Morbid obesity (Acute) Status post catheter ablation of atrial fibrillation (Acute) PAF (paroxysmal atrial fibrillation) (Acute) Past Medical History Medical History (Updated 09/12/23 @ 10:08 by Laquita Gomes, PANDA) Carpal tunnel syndrome Ambulates with cane [place] (hard of hearing) History of diverticulitis Weight loss Psoriatic arthritis MALICK on CPAP Morbid obesity PAF (paroxysmal atrial fibrillation) Family History Family History Father CVD (cardiovascular disease) Mother CVD (cardiovascular disease) Atrial fibrillation Other Substance use disorder Surgical History Surgical History (Updated 09/12/23 @ 09:55 by Laquita Gomes RN) Hx of colonoscopy Status post catheter ablation of atrial fibrillation History of cardiac radiofrequency ablation (RFA) (~11/05/17) Social History Social History Household Members: Family Housing: House Do you presently have visiting nurse or other home services: No Alcohol intake: never Patient Tobacco Use Status: Former Tobacco user Quit Date: 1994 Tobacco use type: Cigarette Years Smoked: 20 +/- e-Cigarette/Vaping Use: Never Used Second Hand Smoke Exposure: No service: No Current occupational status: disabled Cognitive needs: No Hearing needs: Yes (hearing aide) Vision needs: Yes (Glasses) Meds Allergies Allergy/AdvReac Type Severity Reaction Status Date / Time flu vaccine AdvReac Intermediate Hives Uncoded 08/19/23 13:18 Home Medications Medication Instructions Recorded Confirmed Last Taken Type apremilast 30 mg tablet 30 mg PO BID 09/21/20 08/19/23 Unknown History alclometasone 0.05 % topical cream 1 appl topical BID PRN Itching 01/02/23 08/19/23 Unknown History fluocinonide 0.05 % topical cream 1 appl topical BID 01/02/23 08/19/23 Unknown History boswellia 450 mg PO 03/27/23 08/19/23 Unknown History ibuprofen 200 mg capsule 800 mg PO Q6H 03/27/23 08/19/23 Unknown History Exam Pertinent Lab Results Pertinent Lab Results: Laboratory Tests 06/11/23 10:58 WBC 7.2 Hgb 12.5 L Hct 38.6 L Plt Count 285 Sodium 142 Potassium 3.9 Chloride 107 Carbon Dioxide 27 BUN 10 Creatinine 0.81 Narrative Narrative: EKG 08/2023 sinus rhythm at 80/Min; premature atrial contractions; no significant ST-T changes and otherwise unremarkable. Normal KS and corrected QT. Echocardiogram with LVEF of 60%. Normal diastolic function. Moderately dilated left atrium. Mild aortic/mitral regurgitation. Holter shows underlying sinus rhythm with an average rate of 71/Min. Rare supraventricular ectopy. Cannot exclude transient atrial fibrillation. Nothing sustained overall. Assessment and Plan Assessment Anesthesia Assessment: Chart Reviewed Documented by User: Lucia Mosher MD 09/15/23 09:34 [facility] Past Medical History Medical History (Updated 09/12/23 @ 10:08 by Laquita Gomes RN) Carpal tunnel syndrome Ambulates with cane [place] (hard of hearing) History of diverticulitis Weight loss Psoriatic arthritis MALICK on CPAP Morbid obesity PAF (paroxysmal atrial fibrillation) Family History Family History Father CVD (cardiovascular disease) Mother CVD (cardiovascular disease) Atrial fibrillation Other Substance use disorder Family history of problems with anesthesia: No Surgical History Surgical History (Updated 09/12/23 @ 09:55 by Laquita Gomse RN) Hx of colonoscopy Status post catheter ablation of atrial fibrillation History of cardiac radiofrequency ablation (RFA) (~11/05/17) History of Problems with Anesthesia: No Social History Social History Household Members: Family Housing: House Do you presently have visiting nurse or other home services: No Alcohol intake: never Patient Tobacco Use Status: Former Tobacco user Quit Date: 1994 Tobacco use type: Cigarette Years Smoked: 20 +/- e-Cigarette/Vaping Use: Never Used Second Hand Smoke Exposure: No service: No Current occupational status: disabled Cognitive needs: No Hearing needs: Yes (hearing aide) Vision needs: Yes (Glasses) Meds Allergies Allergy/AdvReac Type Severity Reaction Status Date / Time flu vaccine AdvReac Intermediate Hives Uncoded 08/19/23 13:18 Home Medications Medication Instructions Recorded Confirmed Last Taken Type apremilast 30 mg tablet 30 mg PO BID 09/21/20 08/19/23 Unknown History alclometasone 0.05 % topical cream 1 appl topical BID PRN Itching 01/02/23 08/19/23 Unknown History fluocinonide 0.05 % topical cream 1 appl topical BID 01/02/23 08/19/23 Unknown History boswellia 450 mg PO 03/27/23 08/19/23 Unknown History ibuprofen 200 mg capsule 800 mg PO Q6H 03/27/23 08/19/23 Unknown History Exam Airway Mallampati Class: II (top are implants) TM Dist: >3cm Neck ROM: Full Heart: rrr Lungs: cta Assessment and Plan Assessment Anesthesia Assessment: Anesthesia Plan Discussed Final Anesthetic Review Family History of Problems with Anesthesia: No History of Problems with Anesthesia: No NPO: Yes ASA Class: III Final Preanesthetic Review: No Changes in Pt Med Stat, Meds/Allgs Chart Reviewed and Consent Obtained/Reviewed Patient Risk: Low Procedure Risk: Low Anesthetic Plan Anesthetic Plan: MAC: Disposition: Standard PACU
[2023-09-12 09:40] VITALS: BMI 36.3
[2023-09-12 09:44] VITALS: BMI 33.2
[2023-09-15 09:29] VITALS: BMI 34.9
[2023-09-15 09:30] VITALS: BMI 34.9
[2023-09-15 09:47] VITALS: BP 144/66; PULSE 78; RESP 18; TEMP 36.8; O2SAT 95
[2023-09-15] MEDS: Lactated Ringers 1,000 ML 100 ML IVCONT (09:55)
--- NOTE | 2023-09-15 10:02 | MHC.SHP ---
Pre-Procedural Eval Section A - 24 Hr Update-Section A only Date of Service: 09/15/23 The patient is an INPATIENT: No The patient has been examined within 24 hours of the surgical procedure. The History & Physical has been completed within 30 days and I have reviewed it.: No Section B - Complete if H&P > 30 days Chief Complaint: Surveillance for colon polyps Relevant Family History (Specify if Yes): No Relevant Social History: Tobacco Use (Former smoker) Present Medications: see Short Stay Collaborative assessment Medical History: Significant History (Morbid obesity MALICK on CPAP PAF (paroxysmal atrial fibrillation) Paroxysmal atrial flutter Psoriatic arthritis) History of Previous Operations: Relevant previous surgery/procedure and date(s) (History of cardiac radiofrequency ablation (RFA) (~11/05/17) Status post catheter ablation of atrial fibrillation) Allergies: Allergies Allergy/AdvReac Type Severity Reaction Status Date / Time flu vaccine AdvReac Intermediate Hives Uncoded 08/19/23 13:18 Review of Systems Sugical H&P ROS: Negative: Constitution, Cardiovascular, Respiratory and Gastrointestinal Exam Surgical H&P Exam: Normal: Heart, Normal: Lungs, Normal: Extremities and Normal: Abdomen Plan Diagnosis/Plan: Unchanged I have reviewed the history and physical and performed a pertinent physical examination on my patient. No changes have occurred unless specified. Time Spent With Patient Time: Total time managing care of this patient today ____ minutes.
[2023-09-15 10:52] VITALS: BP 137/70; PULSE 73; RESP 16; TEMP 36.5; O2SAT 99
--- NOTE | 2023-09-15 10:52 | W.PM.OPN ---
Operative Note Operative Note Date of Service: 09/15/23 Narrative: COLONOSCOPY TILL CECUM WITH BIOPSIES, SNARE POLYPECTOMY SUBMUCOSAL INJECTION AND HEMOCLIP PLACEMENT Pre-op diagnosis: Colon cancer screening Post-op diagnosis:? Colon polyps, diverticulosis, hemorrhoids Endoscopist:? Jose Daugherty MD Anesthesia:?MAC Consent: Indications for the procedure and potential complications of bleeding, perforation, reaction to medications and missed diagnosis were discussed with the patient and informed consent was obtained. Instrument: Olympus CF H 190 L variable stiffness adult colonoscope Monitoring: Vital signs and clinical assessment, intermittent blood pressure monitoring, continuous EKG monitoring, Pulse oximetry and Carbon Dioxide monitoring were done throughout the procedure. Please see anesthesia flowsheet. Colon withdrawl time was 28 minutes. Procedure: The patient was placed in the left lateral decubitis position and pre-procedure medications were administered. After a digital rectal examination of the ano-rectum, the video colonoscope was inserted into the rectum and advanced through the colon to the cecum. The colonoscope was slowly withdrawn in a retrograde panoramic fashion and the colon mucosa was carefully examined including a retroflexed view of the rectum. Findings and interventions are described below. Procedure Difficulty: Without difficulty Findings: Terminal Ileum: Not evaluated Cecum: A 3-4 mm sessile polyp overlying the ICV - removed with a cold biopsy. Ascending Colon: A 2 cms flat polyp in the mid ascending colon at 85 cms. Polyp was raised with 6 cc of [place] and removed with a stiff hot snare. Polypectomy site was closed with 1 hemoclip and marked with Maria ink Moderate diverticulosis throughout the entire colon Transverse Colon: Moderate diverticulosis throughout the entire colon Descending Colon: Moderate diverticulosis throughout the entire colon Sigmoid Colon: A 4-5 mm sessile polyp - removed with a cold biopsy. Moderate diverticulosis Rectum: Normal Ano-rectum: Moderate internal hemorrhoids Colon preparation: Good after some irrigation [place] Bowel Preparation Scale Right colon: 3 Transverse colon: 3 Left colon; 3 (0 = Unprepared colon segment with mucosa not seen due to solid stool that cannot be cleared. 1 = Portion of mucosa of the colon segment seen, but other areas of the colon segment not well seen due to staining, residual stool and/or opaque liquid. 2 = Minor amount of residual staining, small fragments of stool and/or opaque liquid, but mucosa of colon segment seen well. 3 = Entire mucosa of colon segment seen well with no residual staining, small fragments of stool or opaque liquid) Impression and Post Procedure Diagnosis: Colonoscopy Findings: Two small and one medium sized polyps removed Moderate diverticulosis seen in the entire colon Moderate hemorrhoids on retroflexed exam. Plan: I will send a letter with pathology results Repeat Colonoscopy interval based on path results - in 2-3 years if polyps are adenomatous and 10 years if polyps are hyperplastic. Above findings were reviewed with the patient and colon polyps and diverticulosis handouts were given in the discharge area BIOPSIES SHOWED: A. Ileocecal valve, polyp: Tubular adenoma; negative for high-grade dysplasia and carcinoma. B. Colon, ascending at 85 cm, polyp: Tubular adenoma; negative for high-grade dysplasia and carcinoma. C. Colon, sigmoid, polyp: Tubular adenoma; negative for high-grade dysplasia and carcinoma
[2023-09-15 11:07] VITALS: BP 138/68; PULSE 75; RESP 15; O2SAT 98
[2023-09-15 11:22] VITALS: BP 133/69; PULSE 73; RESP 18; TEMP 36.7; O2SAT 99
== END 2023-09-15 11:34 | disposition home or self-care (01) ==
PROVIDERS: PCP Physician Assistant; Visit Provider Internal Medicine Gastroenterology
PROC: 0DJD8ZZ Inspection of Lower Intestinal Tract, Via Natural or Artificial Opening Endoscopic (ICD-10-PCS; CPT 45378; principal; 2023-09-15 11:50)
DX: Z12.11 Encounter for screening for malignant neoplasm of colon (principal); Z86.010 Personal history of colon polyps; D12.0 Benign neoplasm of cecum; D12.2 Benign neoplasm of ascending colon; D12.5 Benign neoplasm of sigmoid colon; K57.30 Diverticulosis of large intestine without perforation or abscess without bleeding; K64.8 Other hemorrhoids; I48.0 Paroxysmal atrial fibrillation; I10 Essential (primary) hypertension; J45.20 Mild intermittent asthma, uncomplicated; E66.01 Morbid (severe) obesity due to excess calories; Z68.36 Body mass index [BMI] 36.0-36.9, adult; G47.33 Obstructive sleep apnea (adult) (pediatric); L40.50 Arthropathic psoriasis, unspecified; L08.0 Pyoderma; Z79.01 Long term (current) use of anticoagulants; Z99.89 Dependence on other enabling machines and devices; Z79.899 Other long term (current) drug therapy; Z88.7 Allergy status to serum and vaccine; Z87.891 Personal history of nicotine dependence; Z98.890 Other specified postprocedural states
CPT/HCPCS: 45385; 45380; 45381; 88305; J2704

== ENCOUNTER → 2023-09-15 09:12 | Outpatient (BNV) | payer OTHER, SELFPAY | PROVIDERS: PCP Physician Assistant; Visit Provider Internal Medicine Gastroenterology | DX: Z12.11 Encounter for screening for malignant neoplasm of colon (principal); K57.30 Diverticulosis of large intestine without perforation or abscess without bleeding; D12.0 Benign neoplasm of cecum; D12.2 Benign neoplasm of ascending colon; D12.5 Benign neoplasm of sigmoid colon; K64.8 Other hemorrhoids | CPT/HCPCS: 45380; 45381; 45385 ==

== ENCOUNTER 2023-09-17 08:29 | Outpatient (AMB) | payer OTHER, SELFPAY ==
[2023-09-17 08:47] VITALS: BP 132/60; PULSE 63; O2SAT 98; BMI 35.3
--- NOTE | 2023-09-17 08:47 | A.OFFPC_ITS ---
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 Required: No Medication Nurse: Not Required per policy Accompanied by: Self / Same As Patient Allergies flu vaccine Adverse Reaction (Intermediate, Uncoded 09/17/23 09:14) Hives Medication List - Last Reconciled 09/17/23 by Noam Zapata PA-C acetaminophen ER (Tylenol Arthritis Pain) 650 mg PO Q12H 30 days adhesive bandage (Adhesive Pads) As directed albuterol sulfate 90 mcg/actuation (Ventolin HFA) 2 puffs inhalation Q6H PRN 30 days alclometasone 0.05% 1 appl topical BID PRN apremilast 30 mg PO BID blood pressure kit-extra large As directed [boswellia 450 mg PO] CPAP (CPAP Machine/Device) As directed diltiazem HCl 120 mg PO DAILY docusate sodium 100 mg PO BID PRN flecainide 100 mg PO Q12H fluocinonide 0.05% 1 appl topical BID fluticasone propionate 50 mcg/actuation 1 spray intranasal DAILY 30 days ibuprofen 800 mg PO Q6H lactulose 15 mL PO BEDTIME PRN mupirocin 2% 1 appl topical BID 15 days mupirocin calcium 2% 1 appl topical BID 30 days non-adherent bandage (Curity Abdominal Pad) As directed nystatin 1 appl topical DAILY 15 days rivaroxaban (Xarelto) 20 mg PO DAILY 90 days tamsulosin 0.4 mg PO DAILY 30 days Tobacco use date assessed: 08/06/23 Dental Screening Dental Screen Date: 09/17/23 Did you have a dental visit in the last 12 months?: Yes Did you have a dental problem in the last 6 months where you did not have access to dental care?: No Was dental information given to patient?: Patient has dentist HPI Colonoscopy Follow Up 2 HPI0 Details Patient is a 63-year-old male here today for a follow-up visit.? Patient has a past medical history significant for AFib, morbid obesity,? MALICK, psoriatic arthritis,? pyoderma,? asthma Recently underwent colonoscopy to which several polyps were found with pathology of tubular adenoma. He does understand he needs a repeat colonoscopy in 2-3 years. Pyoderma: He reports he is using a new cream and bigger not adhesive bandages which have been helping his skin heel. He would like scripts for new bandages and cream to have insurance help him with his expenses [facility] Medical History (Updated 09/17/23 @ 09:15 by Noam Zapata PA-C) Carpal tunnel syndrome Ambulates with cane [place] (hard of hearing) History of diverticulitis Weight loss Psoriatic arthritis MALICK on CPAP Morbid obesity PAF (paroxysmal atrial fibrillation) Surgical History Hx of colonoscopy Status post catheter ablation of atrial fibrillation History of cardiac radiofrequency ablation (RFA) (~11/05/17) Family History Father CVD (cardiovascular disease) Mother CVD (cardiovascular disease) Atrial fibrillation Other Substance use disorder Social History Household Members: Family Housing: House Do you presently have visiting nurse or other home services: No Alcohol intake: never Patient Tobacco Use Status: Former Tobacco user Quit Date: 1994 Tobacco use type: Cigarette Years Smoked: 20 +/- e-Cigarette/Vaping Use: Never Used Second Hand Smoke Exposure: No service: No Current occupational status: disabled Cognitive needs: No Hearing needs: Yes (hearing aide) Vision needs: Yes (Glasses) Questionnaire Thrive Questionnaire Date Thrive assessed: 08/06/23 YIN-7 AMB Questionnaire YIN-7 Date YIN - 7 assessed: 08/06/23 Source: Developed by Drs. Sudhir Vasquez, Terri Mcmanus, Mk Ram and colleagues, with an educational marleni from [employer]. Review of Systems Const Denies headache(s) Eyes Denies loss of vision ENT Denies vertigo, Denies dizziness, Denies headache(s) and Denies sore throat Card Denies chest pain, Denies leg edema and Denies lightheadedness Resp Denies cough, Denies hemoptysis and Denies wheezing GI Denies abdominal pain, Denies melena, Denies constipation, Denies diarrhea and Denies vomiting Denies dysuria, Denies urinary frequency and Denies urinary urgency Musc Denies arthralgias, Denies joint swelling, Denies numbness and Denies tingling Neuro Denies Abnormal speech present, Denies behavioral changes, Denies vertigo, Denies dizziness, Denies headache(s), Denies loss of vision, Denies memory loss, Denies numbness and Denies tingling Psych Denies anxiety, Denies behavioral changes, Denies depression, Denies memory loss and Denies panic attacks [place]/Lymph Denies easy bleeding and Denies easy bruising Aller/Immun Denies wheezing Physical exam (Primary Care) Vital Signs: Last Vital Signs Pulse 63 09/17/23 08:47 BP 132/60 09/17/23 08:47 Pulse Ox 98 09/17/23 08:47 Oxygen Delivery Method Room Air 09/17/23 08:47 BMI result Body Mass Index 35.3 Tobacco/Smoking Status: Tobacco use Status Tobacco use date assessed 08/06/23 09/17/23 08:48 Patient Tobacco Use Status Former Tobacco user 09/17/23 08:48 Tobacco use type Cigarette 09/17/23 08:48 e-Cigarette/Vaping Use Never Used 09/17/23 08:48 Thrive Assessment: Date of Thrive Assessment Date Thrive assessed 08/06/23 09/17/23 08:48 Const General: healthy appearing, no acute distress, alert and awake Nutritional Appearance: well nourished Orientation/consciousness: oriented to person, oriented to place and oriented to time HENMT Ears: TM's normal bilaterally General nose exam: Normal nasal mucous membranes and turbinates present Eyes Conjunctivae: conjunctivae normal Sclerae: sclerae normal Pupils: Equal, round and reactive pupils present Neck Neck: Yes no lymphadenopathy and Yes no JVD Thyroid: Thyroid normal Carotids: no bruits Resp Effort & Inspection: normal respiratory effort and not tachypneic Auscultation: no crackles, no rales, no rhonchi and no wheezes Cardio Rate: regular rate Rhythm: regular rhythm Heart sounds: no murmurs and normal S1 and S2 GI Palpation (GI): Soft to palpation, nontender, no hepatomegaly and no splenomegaly Auscultation: normal bowel sounds Skin General skin exam: no rashes or lesions noted and dry skin Neuro General: oriented to person, oriented to place and oriented to time Cranial nerves: Yes Equal, round and reactive pupils present Speech: No Abnormal speech present Gait exam (Neuro): Normal gait present Motor exam (neuro): no tremor noted Extrem Right upper extremity: full ROM Left upper extremity: full ROM Right lower extremity: full ROM; no edema Left lower extremity: full ROM; no edema Ankle/foot/toe images: 2 1. LARGE PYODERMA/ULCERATION OF THE RIGHT LOWER EXTREMITY Psych Mental Status: mental status grossly normal Speech and movement: Normal speech and movement present Affect: normal affect Attitude: cooperative Thought process: Normal thought process present Assessment and Plan Assessment & Plan (1) Tubular adenoma of colon: Code(s): D12.6 - Benign neoplasm of colon, unspecified Plan: As per HPI has several colon polyps positive for tubular adenoma. Needs repeat colonoscopy in 2-3 years (2) Pyoderma: Code(s): L08.0 - Pyoderma Plan: As per HPI continues to do his own home wound care. Declines offers to start professional wound care clinic evaluation as he has done this in the past. Still considering seeing a frozen meat cutter Medications: New 2 non-adherent bandage use daily 500 ea 12RF L08.0 - Pyoderma menthol-zinc oxide 0.44-20.6 % (Calmoseptine) use thin layer on affected skin area 1 appl topical BID 30 days 113 grams 6RF skin irritation L08.0 - Pyoderma Coding Level of Care Code Est Pt Level 3 (17234) Diagnoses Tubular adenoma of colon D12.6 Pyoderma L08.0
== END 2023-09-17 09:42 | disposition home or self-care (01) ==
PROVIDERS: PCP Physician Assistant; Visit Provider Physician Assistant
DX: D12.6 Benign neoplasm of colon, unspecified (principal); L08.0 Pyoderma
CPT/HCPCS: 99213

== ENCOUNTER 2023-11-05 11:02 | Outpatient (AMB) | payer OTHER, SELFPAY ==
--- NOTE | 2023-11-05 11:27 | A.OFFPC_ITS ---
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 Required: No Accompanied by: Self / Same As Patient Allergies flu vaccine Adverse Reaction (Intermediate, Uncoded 11/05/23 11:44) Hives Medication List - Last Reconciled 11/05/23 by Noam Zapata PA-C acetaminophen ER (Tylenol Arthritis Pain) 650 mg PO Q12H 30 days adhesive bandage (Adhesive Pads) As directed adhesive tape (Medipore) As directed albuterol sulfate 90 mcg/actuation (Ventolin HFA) 2 puffs inhalation Q6H PRN 30 days alclometasone 0.05% 1 appl topical BID PRN blood pressure kit-extra large As directed [boswellia 450 mg PO] CPAP (CPAP Machine/Device) As directed diltiazem HCl 120 mg PO DAILY docusate sodium 100 mg PO BID PRN flecainide 100 mg PO Q12H fluocinonide 0.05% 1 appl topical BID fluticasone propionate 50 mcg/actuation 1 spray intranasal DAILY 30 days ibuprofen 800 mg PO Q6H lactulose 15 mL PO BEDTIME PRN menthol-zinc oxide 0.44-20.6 % (Calmoseptine) 1 appl topical BID 30 days miscellaneous medical supply 1 ea miscellaneous DAILY 99 days mupirocin 2% 1 appl topical BID 15 days non-adherent bandage use daily nystatin 1 appl topical DAILY 15 days rivaroxaban (Xarelto) 20 mg PO DAILY 90 days tamsulosin 0.4 mg PO DAILY 30 days Tobacco use date assessed: 08/06/23 Dental Screening Dental Screen Date: 09/17/23 HPI f/u HTN/ AFIB/ arthritis HPI Details Patient is a 63-year-old male here today for a follow-up visit.? Patient has a past medical history significant for AFib, morbid obesity,? MALICK, psoriatic arthritis,? pyoderma,? asthma .. AFIB:? Patient is followed by inspector line and continues on diltiazem for rate control.? Has been status post cardiac ablation.? HE continues on Xarelto without any overt signs of bleeding. His rate and rhythm controlled by diltiazem and flecainide. Recently had an echocardiogram which was essentially stable showing an EF of 60%. Currently has Holter monitor on and recording. .. HTN: Patient's blood pressure acceptable today in office. .. Obesity:? He does understand his BMI is over 30 and has been trying to be more physically active to reduce his weight. .. Obstructive sleep apnea:? He admits to using his BiPAP machine on nightly basis with good effect on his sleep. .. .. Pyoderma:? Has been doing his own wound management with barrier creams over his right lower extremity.? Has been a long-term patient of the [place] wound care center and is considering re-establishing care if wound worsens. Has had vascular surgeries in the past though have not been effective. He is trying to reestablish care with a zoning technician. .. Psoriasis/ psoriatic arthritis:? Patient is followed by Rheumatology at the arthritic treatment center.? He does report getting cortisone injections in his knees which do significantly reduce his pain for a while.? --> HIS MOBILITY IS SEVERELY HINDERED DU E TO HIS PSORIATIC ARTHRITIS. HE HAS A LOT OF TROUBLE AMBULATING AND GETTING UP FROM A SITTING POSITION. USES A CANE FOR AMBULATION ASSISTANCE. DOES HAVE A LOT OF PAIN WITH AMBULATION/ USING STAIRS. HE IS COMPLETELY DISABLED AND DOES NEED ASSISTANCE WITH ACTIVITIES OF DAILY LIVING. He is on disease modifying drug (Aremilast) which has been helpful. Was on Enbrel in the past which completely cleared his polyarthralgia though had bed GI side effects. [facility] Medical History Carpal tunnel syndrome Ambulates with cane INAJA (hard of hearing) History of diverticulitis Weight loss Psoriatic arthritis MALICK on CPAP Morbid obesity PAF (paroxysmal atrial fibrillation) Surgical History Hx of colonoscopy Status post catheter ablation of atrial fibrillation History of cardiac radiofrequency ablation (RFA) (~11/05/17) Family History Father CVD (cardiovascular disease) Mother CVD (cardiovascular disease) Atrial fibrillation Other Substance use disorder Social History Household Members: Family Housing: House Do you presently have visiting nurse or other home services: No Alcohol intake: never Patient Tobacco Use Status: Former Tobacco user Quit Date: 1994 Tobacco use type: Cigarette Years Smoked: 20 +/- e-Cigarette/Vaping Use: Never Used Second Hand Smoke Exposure: No service: No Current occupational status: disabled Cognitive needs: No Hearing needs: Yes (hearing aide) Vision needs: Yes (Glasses) Questionnaire Thrive Questionnaire Date Thrive assessed: 08/06/23 YIN-7 AMB Questionnaire YIN-7 Date YIN - 7 assessed: 08/06/23 Source: Developed by Drs. Sudhir Vasquez, Terri Mcmanus, Mk Ram and colleagues, with an educational marleni from [employer]. ACT Questionnaire In the past 4 weeks, how much of the time did your asthma keep you from getting as much done at work, school or at home?: None of the time During the past 4 weeks, how often have you had shortness of breath?: 1-2 times a week During the past 4 weeks, how often did your asthma symptoms wake you up at night or earlier than usual in the morning?: Once or twice per week During the past 4 weeks, how often have you had to use your rescue inhaler or nebulizer medication?: Not at all How would you rate your asthma control during the past 4 weeks?: Well controlled ACT Interpretation: Negative Score: 22 Review of Systems Const Denies headache(s) Eyes Denies loss of vision ENT Denies vertigo, Denies dizziness, Denies headache(s) and Denies sore throat Card Denies chest pain, Denies leg edema and Denies lightheadedness Resp Denies cough, Denies hemoptysis and Denies wheezing GI Denies abdominal pain, Denies melena, Denies constipation, Denies diarrhea and Denies vomiting Denies dysuria, Denies urinary frequency and Denies urinary urgency Musc Denies arthralgias, Denies joint swelling, Denies numbness and Denies tingling Neuro Denies Abnormal speech present, Denies behavioral changes, Denies vertigo, Denies dizziness, Denies headache(s), Denies loss of vision, Denies memory loss, Denies numbness and Denies tingling Psych Denies anxiety, Denies behavioral changes, Denies depression, Denies memory loss and Denies panic attacks Americo/Lymph Denies easy bleeding and Denies easy bruising Aller/Immun Denies wheezing Physical exam (Primary Care) Vital Signs: Last Vital Signs Pulse 68 11/05/23 11:30 BP 130/60 11/05/23 11:30 Pulse Ox 96 11/05/23 11:30 Oxygen Delivery Method Room Air 11/05/23 11:30 Tobacco/Smoking Status: Tobacco use Status Tobacco use date assessed 08/06/23 11/05/23 11:27 Patient Tobacco Use Status Former Tobacco user 11/05/23 11:27 Tobacco use type Cigarette 11/05/23 11:27 e-Cigarette/Vaping Use Never Used 11/05/23 11:27 Thrive Assessment: Date of Thrive Assessment Date Thrive assessed 08/06/23 11/05/23 11:27 Const General: healthy appearing, no acute distress, alert and awake Nutritional Appearance: well nourished Orientation/consciousness: oriented to person, oriented to place and oriented to time HENMT Ears: TM's normal bilaterally General nose exam: Normal nasal mucous membranes and turbinates present Eyes Conjunctivae: conjunctivae normal Sclerae: sclerae normal Pupils: Equal, round and reactive pupils present Neck Neck: Yes no lymphadenopathy and Yes no JVD Thyroid: Thyroid normal Carotids: no bruits Resp Effort & Inspection: normal respiratory effort and not tachypneic Auscultation: no crackles, no rales, no rhonchi and no wheezes Cardio Rate: regular rate Rhythm: regular rhythm Heart sounds: no murmurs and normal S1 and S2 GI Palpation (GI): Soft to palpation, nontender, no hepatomegaly and no splenomegaly Auscultation: normal bowel sounds Skin General skin exam: no rashes or lesions noted and dry skin Neuro General: oriented to person, oriented to place and oriented to time Cranial nerves: Yes Equal, round and reactive pupils present Speech: No Abnormal speech present Gait exam (Neuro): Normal gait present Motor exam (neuro): no tremor noted Extrem Right upper extremity: full ROM Left upper extremity: full ROM Right lower extremity: full ROM; no edema Left lower extremity: full ROM; no edema Psych Mental Status: mental status grossly normal Speech and movement: Normal speech and movement present Affect: normal affect Attitude: cooperative Thought process: Normal thought process present Assessment and Plan Assessment & Plan (1) Pyoderma: Code(s): L08.0 - Pyoderma Plan: As per HPI, has chronic pyoderma. Has been seen by wound clinic in the past. Now doing his own wound care with barrier creams and adhesive pads which has be en helpful. He will try to reestablish care with his zoning technician( Dr. Corona) for further treatment. (2) PAF (paroxysmal atrial fibrillation): Code(s): I48.0 - Paroxysmal atrial fibrillation Plan: Continues to follow cardiology. Continues on anticoagulation without any overt signs of bleeding. Continues on rate and rhythm control with diltiazem and flecainide. Most recent echocardiogram August 2019 for essentially stable with EF of 60% (3) HLD (hyperlipidemia): Code(s): E78.5 - Hyperlipidemia, unspecified Qualifiers: Hyperlipidemia type: mixed hyperlipidemia Qualified Code(s): E78.2 - Mixed hyperlipidemia Plan: Patient's most recent lipid panel showing very elevated total cholesterol and LDL. Advised to get repeat lipid panel to evaluate his his cholesterol. Will consider statin therapy if LDL above 130 (4) HTN (hypertension): Code(s): I10 - Essential (primary) hypertension Qualifiers: Hypertension type: primary hypertension Qualified Code(s): I10 - Essential (primary) hypertension Plan: Blood pressure acceptable today in office.. Will continue diltiazem. Goal blood pressure remain below 140/90 (5) Psoriatic arthritis: Code(s): L40.50 - Arthropathic psoriasis, unspecified Plan: Continues to follow rheumatology (Dr. Elise) and continues on disease modifying medication. Will supply him with Tylenol arthritis to use instead of NSAID due to being contraindicated. HIS MOBILITY IS SEVERELY HINDERED DUE TO HIS PSORIATIC ARTHRITIS. HE HAS A LOT OF TROUBLE AMBULATING AND GETTING UP FROM A SITTING POSITION. USES A CANE FOR AMBULATION ASSISTANCE. DOES HAVE A LOT OF PAIN WITH AMBULATION/ USING STAIRS. HE IS COMPLETELY DISABLED AND DOES NEED ASSISTANCE WITH ACTIVITIES OF DAILY LIVING. (6) Intermittent asthma: Code(s): J45.20 - Mild intermittent asthma, uncomplicated Qualifiers: Asthma complication type: uncomplicated Asthma severity: mild Qualified Code(s): J45.20 - Mild intermittent asthma, uncomplicated Plan: Reports his asthma has been fairly stable. Does use Ventolin on a as needed basis with good effect. Otherwise denies any asthma exacerbations or nighttime awakenings with asthma symptoms. Medications: New miscellaneous medical supply need for adhesive pads 6 x 8in (4 pads per day) 1 ea miscellaneous BID 30 days 120 ea 3RF L08.0 - Pyoderma gauze bandage (Gauze Pad) As directed 100 ea 3RF L08.0 - Pyoderma Refilled fluticasone propionate 50 mcg/actuation 1 spray intranasal DAILY 30 days 16 grams 3RF nystatin 1 appl topical DAILY 15 days 30 grams 4RF L08.0 - Pyoderma albuterol sulfate 90 mcg/actuation (Ventolin HFA) 2 puffs inhalation Q6H 30 days PRN 8.5 grams 3RF shortness of breath or wheezing I48.0 - Paroxysmal atrial fibrillation lactulose 15 mL PO BEDTIME PRN 237 mL 0RF constipation I48.0 - Paroxysmal atrial fibrillation mupirocin 2% 1 appl topical BID 15 days 22 grams 0RF L30.8 - Other specified dermatitis menthol-zinc oxide 0.44-20.6 % (Calmoseptine) use thin layer on affected skin area 1 appl topical BID 30 days 113 grams 6RF skin irritation L08.0 - Pyoderma Coding Level of Care Code Est Pt Level 4 (49287) Diagnoses Pyoderma L08.0 PAF (paroxysmal atrial fibrillation) I48.0 Mixed hyperlipidemia E78.2 Hyperlipidemia type: mixed hyperlipidemia Primary hypertension I10 Hypertension type: primary hypertension Psoriatic arthritis L40.50 Mild intermittent asthma without complication J45.20 Asthma complication type: uncomplicated Asthma severity: mild
[2023-11-05 11:30] VITALS: BP 130/60; PULSE 68; O2SAT 96
== END 2023-11-05 12:09 | disposition home or self-care (01) ==
PROVIDERS: PCP Physician Assistant; Visit Provider Physician Assistant
DX: L08.0 Pyoderma (principal); L40.50 Arthropathic psoriasis, unspecified; I48.0 Paroxysmal atrial fibrillation; E78.2 Mixed hyperlipidemia; I10 Essential (primary) hypertension; J45.20 Mild intermittent asthma, uncomplicated
CPT/HCPCS: 99214

== ENCOUNTER 2023-11-21 08:37 | Outpatient (REF) | payer OTHER, SELFPAY ==
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
== END 2023-11-21 08:38 | disposition home or self-care (01) ==
LOC: HO.XRAY 08:37
PROVIDERS: PCP Physician Assistant; Visit Provider Physician Assistant
DX: S09.92XA Unspecified injury of nose, initial encounter (principal); X58.XXXA Exposure to other specified factors, initial encounter; Y93.9 Activity, unspecified; Y92.9 Unspecified place or not applicable; Y99.9 Unspecified external cause status
CPT/HCPCS: 70150; 70160

== ENCOUNTER 2024-01-15 14:13 | Outpatient (AMB) | payer OTHER, SELFPAY ==
[2024-01-15 14:20] VITALS: BP 122/80; PULSE 126; O2SAT 97; BMI 37.1
--- NOTE | 2024-01-15 14:20 | MHC.PC.OV ---
Vital Signs 01/15/24 14:20 Height 5 ft 11 in Weight 266 lb BMI 37.1 BP 122/80 Blood Pressure Location Lt brachial Position Sitting Pulse 126 H Pulse Source Pulse Oximeter Pulse Oximetry (%) 97 Oxygen Delivery Method Room Air Intake Visit Reasons: stepped on yamile nail/requesting Tetanus shot Hospice Manager Required: No Accompanied by: Self / Same As Patient Allergies flu vaccine Adverse Reaction (Intermediate, Uncoded 01/15/24 14:24) Hives Tobacco use date assessed: 08/06/23 Dental Screening Dental Screen Date: 01/15/24 Did you have a dental visit in the last 12 months?: Yes Did you have a dental problem in the last 6 months where you did not have access to dental care?: No Was dental information given to patient?: Patient has dentist HPI stepped on yamile nail/requesting Tetanus shot HPI Details Patient is a 63-year-old male here today for an urgent same-day visit. Reports he has stepped on a yamile nail and would like a tetanus shot. Last tetanus shot was in 2014. Will update him today with Tdap Pyoderma:? He has had a pyoderma over his right lower extremity over the last 9 years. He has been managing with using nonadherent pads and topical creams. He needs at least 3 nonadherent pads per day due to the amount of pyoderma weeping skin to adequately heal the epidermis. .. Has been doing his own wound management with barrier creams over his right lower extremity.? Has been a long-term patient of the [place] wound care center and is considering re-establishing care if wound worsens. Has had vascular surgeries in the past though have not been effective. He is trying to reestablish care with a rugby league footballer. .. Psoriasis/ psoriatic arthritis:? Patient is followed by Rheumatology at the arthritic treatment center.? He does report getting cortisone injections in his knees which do significantly reduce his pain for a while.? --> HIS MOBILITY IS SEVERELY HINDERED DUE TO HIS PSORIATIC ARTHRITIS. HE HAS A LOT OF TROUBLE AMBULATING AND GETTING UP FROM A SITTING POSITION. USES A CANE FOR AMBULATION ASSISTANCE. DOES HAVE A LOT OF PAIN WITH AMBULATION/ USING STAIRS. HE IS COMPLETELY DISABLED AND DOES NEED ASSISTANCE WITH ACTIVITIES OF DAILY LIVING. He is on disease modifying drug (Aremilast) which has been helpful. Was on Enbrel in the past which completely cleared his polyarthralgia though had bed GI side effects. [facility] Medical History Carpal tunnel syndrome Ambulates with cane HAVASUPAI (hard of hearing) History of diverticulitis Weight loss Psoriatic arthritis MALICK on CPAP Morbid obesity PAF (paroxysmal atrial fibrillation) Surgical History Hx of colonoscopy Status post catheter ablation of atrial fibrillation History of cardiac radiofrequency ablation (RFA) (~11/05/17) Family History Father CVD (cardiovascular disease) Mother CVD (cardiovascular disease) Atrial fibrillation Other Substance use disorder Social History Household Members: Family Housing: House Do you presently have visiting nurse or other home services: No Alcohol intake: never Patient Tobacco Use Status: Former Tobacco user Tobacco use type: Cigarette Years Smoked: 20 +/- e-Cigarette/Vaping Use: Never Used Second Hand Smoke Exposure: No service: No Current occupational status: disabled Cognitive needs: No Hearing needs: Yes (hearing aide) Vision needs: Yes (Glasses) Questionnaire Thrive Questionnaire Date Thrive assessed: 08/06/23 YIN-7 AMB Questionnaire YIN-7 Date YIN - 7 assessed: 08/06/23 Source: Developed by Drs. Sudhir Vasquez, Terri Mcmanus, Mk Ram and colleagues, with an educational marleni from [employer]. Review of Systems Const Denies headache(s) Eyes Denies loss of vision ENT Denies vertigo, Denies dizziness, Denies headache(s) and Denies sore throat Card Denies chest pain, Denies leg edema and Denies lightheadedness Resp Denies cough, Denies hemoptysis and Denies wheezing GI Denies abdominal pain, Denies melena, Denies constipation, Denies diarrhea and Denies vomiting Denies dysuria, Denies urinary frequency and Denies urinary urgency Musc Denies arthralgias, Denies joint swelling, Denies numbness and Denies tingling Neuro Denies Abnormal speech present, Denies behavioral changes, Denies vertigo, Denies dizziness, Denies headache(s), Denies loss of vision, Denies memory loss, Denies numbness and Denies tingling Psych Denies anxiety, Denies behavioral changes, Denies depression, Denies memory loss and Denies panic attacks Americo/Lymph Denies easy bleeding and Denies easy bruising Aller/Immun Denies wheezing Physical exam (Primary Care) Vital Signs: Last Vital Signs Pulse 126 H 01/15/24 14:20 BP 122/80 01/15/24 14:20 Pulse Ox 97 01/15/24 14:20 Oxygen Delivery Method Room Air 01/15/24 14:20 BMI result Body Mass Index 37.1 Tobacco/Smoking Status: Tobacco use Status Tobacco use date assessed 08/06/23 01/15/24 14:24 Patient Tobacco Use Status Former Tobacco user 01/15/24 14:24 Tobacco use type Cigarette 01/15/24 14:24 e-Cigarette/Vaping Use Never Used 01/15/24 14:24 Thrive Assessment: Date of Thrive Assessment Date Thrive assessed 08/06/23 01/15/24 14:24 Const General: healthy appearing, no acute distress, alert and awake Nutritional Appearance: well nourished Orientation/consciousness: oriented to person, oriented to place and oriented to time HENMT Ears: TM's normal bilaterally General nose exam: Normal nasal mucous membranes and turbinates present Eyes Conjunctivae: conjunctivae normal Sclerae: sclerae normal Pupils: Equal, round and reactive pupils present Neck Neck: Yes no lymphadenopathy and Yes no JVD Thyroid: Thyroid normal Carotids: no bruits Resp Effort & Inspection: normal respiratory effort and not tachypneic Auscultation: no crackles, no rales, no rhonchi and no wheezes Cardio Rate: regular rate Rhythm: regular rhythm Heart sounds: no murmurs and normal S1 and S2 GI Palpation (GI): Soft to palpation, nontender, no hepatomegaly and no splenomegaly Auscultation: normal bowel sounds Skin General skin exam: no rashes or lesions noted and dry skin Neuro General: oriented to person, oriented to place and oriented to time Cranial nerves: Yes Equal, round and reactive pupils present Speech: No Abnormal speech present Gait exam (Neuro): Normal gait present Motor exam (neuro): no tremor noted Extrem Other: RIGHT LOWER LEG WITH LARGE WEEPING PYODERMA SKIN LESION Right upper extremity: full ROM Left upper extremity: full ROM Right lower extremity: full ROM; no edema Left lower extremity: full ROM; no edema Psych Mental Status: mental status grossly normal Speech and movement: Normal speech and movement present Affect: normal affect Attitude: cooperative Thought process: Normal thought process present Immunizations Boostrix Tdap 2.5 Lf unit-8 mcg-5 Lf/0.5 mL intramuscular syringe Performing Provider: Noam Zapata PA-C [facility] Administered by: LARRY Segovia on 01/15/24 14:58 Dose Route Admin Location Dispensed Lot Number Expiration Date NDC [employer] 0.5 mL IM Left Deltoid 0.5 mL [id number] 03/11/26 [id number] Reelio VIS Given Date VIS Provided VIS Publication Date 01/15/24 Single Vaccine 21 Eligibility Eligibility Date Funding Source Not [facility] Eligible 01/15/24 Private Assessment and Plan Assessment & Plan (1) Pyoderma: Code(s): L08.0 - Pyoderma Plan: As per HPI, has chronic pyoderma. Has been seen by wound clinic in the past. THE PYODERMA CONTINUES TO WEEP THUS NEEDING 3 NOT ADHERENT PADS PER DAY FOR ADEQUATE TREATMENT ON THIS PYODERMA. Now doing his own wound care with barrier creams and adhesive pads which has been helpful. (2) Need for tetanus booster: Code(s): Z23 - Encounter for immunization (3) Osteoarthritis of right knee: Code(s): M17.11 - Unilateral primary osteoarthritis, right knee Qualifiers: Osteoarthritis type: primary Qualified Code(s): M17.11 - Unilateral primary osteoarthritis, right knee Orders: Orders TDaP Immunization Today Z23 - Encounter for immunization Medications: New Boostrix Tdap (diphth,pertus(acell),tetanus) 0.5 mL IM ONCE 0.5 mL 0RF NS Z23 - Encounter for immunization leg brace (Knee Support Brace) NEED FOR SOFT KNEE BRACE WITH MEDIAL AND LATERAL HARD SUPPORT 1 ea 0RF M17.11 - Unilateral primary osteoarthritis, right knee Refilled non-adherent bandage use daily 500 ea 12RF L08.0 - Pyoderma Coding Level of Care Code Est Pt Level 4 (99878) Diagnoses Pyoderma L08.0 Need for tetanus booster Z23 Primary osteoarthritis of right knee M17.11 Osteoarthritis type: primary
== END 2024-01-15 15:02 | disposition home or self-care (01) ==
PROVIDERS: PCP Physician Assistant; Visit Provider Physician Assistant
DX: L08.0 Pyoderma (principal); Z23 Encounter for immunization; M17.11 Unilateral primary osteoarthritis, right knee
CPT/HCPCS: 90471; 90715; 99214

== ENCOUNTER 2024-01-19 09:13 | Outpatient (AMB) | payer OTHER, SELFPAY ==
--- NOTE | 2024-01-19 09:30 | A.OFFPC_ITS ---
Vital Signs 01/19/24 09:38 Height 5 ft 11 in Weight 254 lb BMI 35.4 BP 142/90 H Blood Pressure Location Lt brachial Position Sitting Pulse 129 H Pulse Source Pulse Oximeter Pulse Oximetry (%) 97 Oxygen Delivery Method Room Air Intake Visit Reasons: PE Intake Note: Patient is here today for a physical. Air Brush Decorator Required: No Accompanied by: Self / Same As Patient Allergies flu vaccine Adverse Reaction (Intermediate, Uncoded 01/19/24 09:52) Hives Medication List - Last Reconciled 01/19/24 by Noam Zapata PA-C acetaminophen ER (Tylenol Arthritis Pain) 650 mg PO Q12H 30 days acetaminophen ER (Tylenol Arthritis Pain) 650 mg PO Q12H 30 days adhesive bandage (Adhesive Pads) As directed adhesive tape (Medipore) As directed albuterol sulfate 90 mcg/actuation (Ventolin HFA) 2 puffs inhalation Q6H PRN 30 days albuterol sulfate 90 mcg/actuation (Ventolin HFA) 2 puffs inhalation Q6H PRN 30 days alclometasone 0.05% 1 appl topical BID PRN blood pressure kit-extra large As directed [boswellia 450 mg PO] CPAP (CPAP Machine/Device) As directed diltiazem HCl CD 120 mg PO DAILY docusate sodium 100 mg PO BID PRN docusate sodium 100 mg PO BID PRN flecainide 100 mg PO Q12H fluocinonide 0.05% 1 appl topical BID fluticasone propionate 50 mcg/actuation 1 spray intranasal DAILY 30 days gauze bandage (Gauze Pad) As directed ibuprofen 800 mg PO Q6H lactulose 15 mL PO BEDTIME PRN lactulose 15 mL PO BEDTIME PRN leg brace (Knee Support Brace) NEED FOR SOFT KNEE BRACE WITH MEDIAL AND LATERAL HARD SUPPORT menthol-zinc oxide 0.44-20.6 % (Calmoseptine) 1 appl topical BID 30 days miscellaneous medical supply 1 ea miscellaneous DAILY 99 days miscellaneous medical supply 1 ea miscellaneous BID 30 days mupirocin 2% 1 appl topical BID 15 days non-adherent bandage use daily nystatin 1 appl topical DAILY 15 days rivaroxaban (Xarelto) 20 mg PO DAILY 90 days tamsulosin 0.4 mg PO DAILY 30 days Tobacco use date assessed: 08/06/23 Dental Screening Dental Screen Date: 01/15/24 HPI PE HPI Details Patient is a 63-year-old male here today for a PE > ? Patient has a past medical history significant for AFib, morbid obesity,? MALICK, psoriatic arthritis,? pyoderma,? asthma .. AFIB:? Reports recently noting elevated heart rates on his smart watch. Interestingly his heart rates are elevated just before he falls asleep. He does report feeling a bit off this morning though generally feels well without shortness of breath, dizziness or presyncopal episodes. --> will reach out to his ground services instructor see if he needs AFib control med adjustment. Patient is followed by ground services instructor and continues on diltiazem for rate control.? Has been status post cardiac ablation.? HE continues on Xarelto without any overt signs of bleeding. His rate and rhythm controlled by diltiazem and flecainide. Recently had an echocardiogram which was essentially stable showing an EF of 60%. .. HTN: Patient's blood pressure acceptable today in office. .. Obesity:? He does understand his BMI is over 30 and has been trying to be more physically active to reduce his weight. .. Obstructive sleep apnea:? He admits to using his BiPAP machine on nightly basis with good effect on his sleep. .. .. Pyoderma:? Has been doing his own wound management with barrier creams over his right lower extremity.? Has been a long-term patient of the [place] wound care center and is considering re-establishing care if wound worsens. He has been using nonadherent 8 in x 8 in or larger bandages 3-4 times per day depending on how much weepage this skin lesion produces. He feels the ability to change the dry bandages several times per day has led to better healing. Also using topical creams to promote skin growth and healing .. Psoriasis/ psoriatic arthritis:? Patient is followed by Rheumatology at the arthritic treatment center.? He does report getting cortisone injections in his knees which do significantly reduce his pain for a while.? --> HIS MOBILITY IS SEVERELY HINDERED DU E TO HIS PSORIATIC ARTHRITIS. HE HAS A LOT OF TROUBLE AMBULATING AND GETTING UP FROM A SITTING POSITION. USES A CANE FOR AMBULATION ASSISTANCE. DOES HAVE A LOT OF PAIN WITH AMBULATION/ USING STAIRS. HE IS COMPLETELY DISABLED AND DOES NEED ASSISTANCE WITH ACTIVITIES OF DAILY LIVING. He is on disease modifying drug (Aremilast) which has been helpful. Was on Enbrel in the past which completely cleared his polyarthralgia though had bed GI side effects. Vaccines: Up-to-date with COVID vaccine,UTD with Tdap, needs and pneumonia vaccine. Colon cancer screening: Done in 09/23/2023, tubular adenoma polyps found, repeat 2-3 years [facility] Medical History Carpal tunnel syndrome Ambulates with cane [place] (hard of hearing) History of diverticulitis Weight loss Psoriatic arthritis MALICK on CPAP Morbid obesity PAF (paroxysmal atrial fibrillation) Surgical History Hx of colonoscopy Status post catheter ablation of atrial fibrillation History of cardiac radiofrequency ablation (RFA) (~11/05/17) Family History (Updated 01/19/24 @ 09:59 by Noam Zapata PA-C) Father CVD (cardiovascular disease) Mother CVD (cardiovascular disease) Atrial fibrillation Alzheimer disease Other Substance use disorder Social History Household Members: Family Housing: House Do you presently have visiting nurse or other home services: No Alcohol intake: never Patient Tobacco Use Status: Former Tobacco user Tobacco use type: Cigarette Years Smoked: 20 +/- e-Cigarette/Vaping Use: Never Used Second Hand Smoke Exposure: No service: No Current occupational status: disabled Cognitive needs: No Hearing needs: Yes (hearing aide) Vision needs: Yes (Glasses) Questionnaire Thrive Questionnaire Date Thrive assessed: 08/06/23 YIN-7 AMB Questionnaire YIN-7 Date YIN - 7 assessed: 08/06/23 Source: Developed by Drs. Sudhir Vasquez, Terri Mcmanus, Mk Ram and colleagues, with an educational marleni from [employer]. Review of Systems Const Denies body aches, Denies chills, Denies excessive sweating, Denies fatigue, Denies fever(s) and Denies headache(s) Eyes Denies blurry vision ENT Denies dysphagia, Denies vertigo, Denies dizziness, Denies headache(s), Denies hearing loss and Denies tinnitus Card Denies chest pain, Denies chest pain with activity, Denies syncope, Denies irregular heart rhythm and Denies dyspnea Resp Denies chest congestion, Denies cough, Denies hemoptysis, Denies dyspnea and Denies wheezing GI Denies abdominal pain, Denies melena, Denies hematochezia, Denies coffee ground emesis, Denies dysphagia, Denies diarrhea, Denies nausea and Denies vomiting Denies difficulty urinating, Denies dysuria, Denies urinary frequency, Denies urinary hesitancy and Denies urinary urgency Musc Denies arthralgias, Denies limited range of motion, Denies muscle cramps and Denies muscle weakness Skin/Breast Denies rash and Denies skin ulcer Neuro Denies Abnormal speech present, Denies confusion, Denies vertigo, Denies dizziness, Denies syncope, Denies headache(s), Denies memory loss and Denies seizure-like activity Psych Denies anxiety, Denies confusion, Denies depression, Denies memory loss, Denies panic attacks and Denies paranoia Endo Denies excessive sweating, Denies fatigue, Denies flushing, Denies polydipsia and Denies polyuria Aller/Immun Denies wheezing Physical exam (Primary Care) Vital Signs: Last Vital Signs Pulse 129 H 01/19/24 09:38 BP 142/90 H 01/19/24 09:38 Pulse Ox 97 01/19/24 09:38 Oxygen Delivery Method Room Air 01/19/24 09:38 BMI result Body Mass Index 35.4 BMI Assessment/Plan discussion: High BMI High, discussed plan: lifestyle, weight reduction and dietary Tobacco/Smoking Status: Tobacco use Status Tobacco use date assessed 08/06/23 01/19/24 09:30 Patient Tobacco Use Status Former Tobacco user 01/19/24 09:30 Tobacco use type Cigarette 01/19/24 09:30 e-Cigarette/Vaping Use Never Used 01/19/24 09:30 Thrive Assessment: Date of Thrive Assessment Date Thrive assessed 08/06/23 01/19/24 09:30 Const General: cooperative, comfortable, no acute distress, alert and awake; No confusion Orientation/consciousness: oriented to person, oriented to place, patient oriented x3 and No confusion HENMT Head: Yes normocephalic Ears: external ears normal and TM's normal bilaterally Face and sinus: No sinus tenderness Mouth: Normal oral and palatal mucosa present and tongue normal Teeth and gingiva: dentition normal and gingiva normal Throat: Yes posterior oropharynx normal, Yes tonsils normal and Yes uvula midline Eyes Conjunctivae: conjunctivae normal Sclerae: sclerae normal Pupils: Equal, round and reactive pupils present EOM: EOMs intact bilaterally Direct Ophthalmoscopy: No no photophobia Neck Neck: Yes no lymphadenopathy, No tender and Yes no JVD Thyroid: Thyroid normal Carotids: no bruits Chest Chest palpation & inspection: no tenderness Resp Effort & Inspection: normal respiratory effort, no audible wheezes, not labored and no stridor Auscultation: no crackles, no rales, no rhonchi and no wheezes Cardio Jugular venous distension: no JVD Rate: regular rate, not bradycardic and not tachycardic Rhythm: regular rhythm Bruits: no carotid bruits Peripheral pulses: Peripheral pulses 2+ throughout GI Inspection: Yes normal to inspection, No abdominal wall ecchymosis and No visible herniation Palpation (GI): Soft to palpation, nontender, no guarding, not rigid and No hepatosplenomegaly present Auscultation: normoactive bowel sounds General: Yes no CVA tenderness Back/Spine/Pelvis Back: no CVA tenderness and No back tenderness Cervical Spine: cervical ROM normal Thoracic/Lumbar Spine: thoracic and lumbar spine normal to inspection, straight leg raise negative bilaterally, No thoraco-lumbar ROM limited and No lumbar spinal tenderness Skin Lesions: no lesions Rashes: no rashes Wounds: no wounds Neuro General: oriented to person, oriented to place, patient oriented x3, CN's II-XI intact bilaterally and No confusion Cranial nerves: Yes Equal, round and reactive pupils present and Yes Normal accommodation reflex present Cognition (Neuro): normal cognition Speech: No Abnormal speech present Gait exam (Neuro): Normal gait present Motor exam (neuro): 5/5 motor strength present throughout Extrem Right upper extremity: full ROM; no cyanosis Left upper extremity: full ROM; no cyanosis Right lower extremity: no edema Left lower extremity: no edema Psych Appearance: grossly normal Mental Status: mental status grossly normal Affect: normal affect Attitude: cooperative Thought process: Normal thought process present Assessment and Plan Assessment & Plan (1) Annual physical exam: Code(s): Z00.00 - Encounter for general adult medical examination without abnormal findings (2) Pyoderma: Code(s): L08.0 - Pyoderma Plan: As per HPI, has chronic pyoderma. Has been seen by wound clinic in the past. Now doing his own wound care with barrier creams and adhesive pads which has b een helpful. Due to the skin weeping she does use the nonadherent dry dressings 3-4 times per day which has been promoting healing. He will need more bandage supplies through his insurance. He will try to reestablish care with his pipeline technician( Dr. Corona) for further treatment. (3) PAF (paroxysmal atrial fibrillation): Code(s): I48.0 - Paroxysmal atrial fibrillation Plan: Has noted elevated heart rates over the last few weeks. He is fairly asymptomatic though does report feeling a bit off for short period of time this morning. Heart rates in office today 110s to 120s. Otherwise denies any shortness of breath, dizziness presyncopal episodes. Will reach out to his ground services instructor about making med adjustments Continues to follow cardiology. Continues on anticoagulation without any overt signs of bleeding. Continues on rate and rhythm control with diltiazem and flecainide. Most recent echocardiogram August 2019 for essentially stable with EF of 60% (4) HLD (hyperlipidemia): Code(s): E78.5 - Hyperlipidemia, unspecified Qualifiers: Hyperlipidemia type: mixed hyperlipidemia Qualified Code(s): E78.2 - Mixed hyperlipidemia Plan: Patient's most recent lipid panel showing very elevated total cholesterol and LDL. Advised to get repeat lipid panel to evaluate his his cholesterol. Will consider statin therapy if LDL above 130 (5) HTN (hypertension): Code(s): I10 - Essential (primary) hypertension Qualifiers: Hypertension type: primary hypertension Qualified Code(s): I10 - E ssential (primary) hypertension Plan: Blood pressure acceptable today in office.. Will continue diltiazem. Goal blood pressure remain below 140/90 (6) Psoriatic arthritis: Code(s): L40.50 - Arthropathic psoriasis, unspecified Plan: Continues to follow rheumatology (Dr. Elise) and continues on disease modifying medication. Will supply him with Tylenol arthritis to use instead of NSAID due to being contraindicated. HIS MOBILITY IS SEVERELY HINDERED DUE TO HIS PSORIATIC ARTHRITIS. HE HAS A LOT OF TROUBLE AMBULATING AND GETTING UP FROM A SITTING POSITION. USES A CANE FOR AMBULATION ASSISTANCE. DOES HAVE A LOT OF PAIN WITH AMBULATION/ USING STAIRS. HE IS COMPLETELY DISABLED AND DOES NEED ASSISTANCE WITH ACTIVITIES OF DAILY LIVING. (7) Intermittent asthma: Code(s): J45.20 - Mild intermittent asthma, uncomplicated Qualifiers: Asthma complication type: uncomplicated Asthma severity: mild Qualified Code(s): J45.20 - Mild intermittent asthma, uncomplicated Plan: Reports his asthma has been fairly stable. Does use Ventolin on a as needed basis with good effect. Otherwise denies any asthma exacerbations or nighttime awakenings with asthma symptoms. (8) Mild depression: Code(s): F32.0 - Major depressive disorder, single episode, mild Plan: Depression has been stable without the need for mental health medication or mental health therapy. Medications: Refilled acetaminophen ER (Tylenol Arthritis Pain) 650 mg PO Q12H 30 days 60 tabs 3RF L40.50 - Arthropathic psoriasis, unspecified, M19.90 - Unspecified osteoarthritis, unspecified site docusate sodium 100 mg PO BID PRN 60 caps 3RF constipation I48.0 - Paroxysmal atrial fibrillation lactulose 15 mL PO BEDTIME PRN 237 mL 0RF constipation I48.0 - Paroxysmal atrial fibrillation albuterol sulfate 90 mcg/actuation (Ventolin HFA) 2 puffs inhalation Q6H 30 days PRN 8.5 grams 3RF shortness of breath or wheezing I48.0 - Paroxysmal atrial fibrillation tamsulosin 0.4 mg PO DAILY 30 days 30 caps 3RF R35.0 - Frequency of micturition Patient Instructions: Goal: Control AFib, blood pressure remain below 140/90 Barriers: Adherence to physical activity and healthy eating habits Coding Level of Care Code Est Pt Prev Care 40-64y(75999) Diagnoses Annual physical exam Z00.00 Pyoderma L08.0 PAF (paroxysmal atrial fibrillation) I48.0 Mixed hyperlipidemia E78.2 Hyperlipidemia type: mixed hyperlipidemia Primary hypertension I10 Hypertension type: primary hypertension Psoriatic arthritis L40.50 Mild intermittent asthma without complication J45.20 Asthma complication type: uncomplicated Asthma severity: mild Mild depression F32.0
[2024-01-19 09:38] VITALS: BP 142/90; PULSE 129; O2SAT 97; BMI 35.4
== END 2024-01-19 10:28 | disposition home or self-care (01) ==
PROVIDERS: PCP Physician Assistant; Visit Provider Physician Assistant
DX: Z00.00 Encounter for general adult medical examination without abnormal findings (principal); L08.0 Pyoderma; I48.0 Paroxysmal atrial fibrillation; E78.2 Mixed hyperlipidemia; I10 Essential (primary) hypertension; L40.50 Arthropathic psoriasis, unspecified; J45.20 Mild intermittent asthma, uncomplicated; F32.0 Major depressive disorder, single episode, mild
CPT/HCPCS: 99396

== ENCOUNTER → 2024-01-19 14:58 | Outpatient (REF) | payer OTHER, SELFPAY ==
--- NOTE | 2024-01-19 15:09 | ECG_ITS ---
Test Reason : PAF Blood Pressure : / mmHG Vent. Rate : 116 BPM Atrial Rate : 000 BPM P-R Int : 000 ms QRS Dur : 074 ms QT Int : 316 ms P-R-T Axes : 000 066 108 degrees QTc Int : 439 ms Atrial fibrillation with rapid ventricular response Nonspecific ST and T wave abnormality Abnormal ECG When compared with ECG of 03-JAN-2023 12:09, Atrial fibrillation has replaced Sinus rhythm Vent. rate has increased BY 58 BPM Nonspecific T wave abnormality now evident in Inferior leads Nonspecific T wave abnormality now evident in Anterolateral leads Referred By: Noam Zapata Electronically Signed By:Arjun Roberts
== END ==
LOC: HO.CARD 14:58
PROVIDERS: PCP Physician Assistant; Visit Provider Physician Assistant
DX: I48.0 Paroxysmal atrial fibrillation (principal)
CPT/HCPCS: 93005

== ENCOUNTER → 2024-01-19 15:09 | Outpatient (BNV) | payer OTHER, SELFPAY | PROVIDERS: PCP Physician Assistant; Visit Provider Internal Medicine Cardiovascular Disease | DX: I48.91 Unspecified atrial fibrillation (principal) | CPT/HCPCS: 93010 ==

== ENCOUNTER 2024-01-21 13:08 | Outpatient (REF) | payer OTHER, SELFPAY ==
[2024-01-21 15:42] LABS: Hemoglobin 12.4 g/dl (14.0-18.0); Mean Corpuscular HGB Conc 33.5 g/dl (31.0-36.0); Mean Corpuscular Hemoglobin 28.6 pg (27.0-33.0); Mean Corpuscular Volume 85.3 fL (80.0-98.0); Mean Platelet Volume 9.3 fL (9.4-12.4); Platelet Count 300 X10*3/uL (160-400); Red Blood Count 4.34 X10*6/uL (4.60-5.80); White Blood Count 7.9 X10*3/uL (4.8-10.8)
[2024-01-21 16:40] LABS: Alanine Aminotransferase 9 U/L (0-40); Albumin Level 3.9 g/dL (3.5-5.0); Alkaline Phosphatase 96 U/L (39-117); Anion Gap 11 (12-20); Aspartate Amino Transferase 12 U/L (5-37); Bilirubin Total 0.3 mg/dL (0.0-1.0); Blood Urea Nitrogen 14 mg/dL (9-16); Calcium 9.3 mg/dL (8.4-10.2); Carbon Dioxide 28 mmol/L (22-29); Chloride 106 mmol/L (96-108); Cholesterol 204 mg/dL (<200); Estimated Glomerular Filt Rate > 60; Glucose Fasting 81 mg/dL (60-99); HDL Cholesterol 37 mg/dL (>40); LDL Cholesterol Calculated 130 mg/dL (<100); Sodium 141 mmol/L (135-145); Triglycerides 189 mg/dL (<150)
[2024-01-21 16:56] LABS: Prostate Specific Antigen Scr 0.52 ng/mL (<0.05-4.0)
== END 2024-01-21 13:09 | disposition home or self-care (01) ==
LOC: HO.LAB 13:08
PROVIDERS: PCP Physician Assistant; Visit Provider Internal Medicine
DX: I48.91 Unspecified atrial fibrillation (principal); I48.0 Paroxysmal atrial fibrillation; I48.92 Unspecified atrial flutter; E78.2 Mixed hyperlipidemia; E66.01 Morbid (severe) obesity due to excess calories; G47.33 Obstructive sleep apnea (adult) (pediatric); Z99.89 Dependence on other enabling machines and devices; Z98.890 Other specified postprocedural states; Z12.5 Encounter for screening for malignant neoplasm of prostate
CPT/HCPCS: 36415; 80053; 80061; 84153; 85027; 99212

== ENCOUNTER 2024-01-21 13:08 | Outpatient (AMB) | payer OTHER, SELFPAY ==
[2024-01-21 13:29] VITALS: BP 130/70; PULSE 114; BMI 37.2
--- NOTE | 2024-01-21 13:29 | MHC.OFFVIS ---
Vital Signs 01/21/24 13:29 Height 5 ft 11 in Weight 266 lb 12.149 oz BMI 37.2 BP 130/70 Blood Pressure Location Lt brachial Position Sitting Pulse 114 H Pulse Source Pulse Oximeter Intake Visit Reasons: Afib- tachy f/u Allergies flu vaccine Adverse Reaction (Intermediate, Uncoded 01/19/24 09:52) Hives Medication List - Last Reconciled 01/21/24 by Say Curry MD acetaminophen ER (Tylenol Arthritis Pain) 650 mg PO Q12H 30 days adhesive bandage (Adhesive Pads) As directed adhesive tape (Medipore) As directed albuterol sulfate 90 mcg/actuation (Ventolin HFA) 2 puffs inhalation Q6H PRN 30 days alclometasone 0.05% 1 appl topical BID PRN blood pressure kit-extra large As directed CPAP (CPAP Machine/Device) As directed diltiazem HCl CD 120 mg PO DAILY docusate sodium 100 mg PO BID PRN flecainide 100 mg PO Q12H fluocinonide 0.05% 1 appl topical BID fluticasone propionate 50 mcg/actuation 1 spray intranasal DAILY 30 days gauze bandage (Gauze Pad) As directed ibuprofen 800 mg PO Q6H lactulose 15 mL PO BEDTIME PRN leg brace (Knee Support Brace) NEED FOR SOFT KNEE BRACE WITH MEDIAL AND LATERAL HARD SUPPORT menthol-zinc oxide 0.44-20.6 % (Calmoseptine) 1 appl topical BID 30 days miscellaneous medical supply 1 ea miscellaneous DAILY 99 days miscellaneous medical supply 1 ea miscellaneous BID 30 days mupirocin 2% 1 appl topical BID 15 days non-adherent bandage use daily nystatin 1 appl topical DAILY 15 days rivaroxaban (Xarelto) 20 mg PO DAILY 90 days tamsulosin 0.4 mg PO DAILY 30 days HPI Comments Details: Tom returns for follow-up regarding atrial fibrillation. Previously, he underwent ablation for the same. He was actually free of atrial fibrillation for several years after the ablation. In 2022, he had recurrence of atrial fibrillation/flutter. There was a plan for ERMIAS/cardioversion but he converted to sinus rhythm. Then has been on flecainide/diltiazem/Xarelto. He was doing okay but recently he believes he has had a few episodes of atrial fibrillation over the last couple of months. Currently, in atrial fibrillation with slightly rapid rate. He states he is still feeling generally okay and does not have any major symptoms like shortness of breath, presyncope extra. [facility] Medical History Carpal tunnel syndrome Ambulates with cane [place] (hard of hearing) History of diverticulitis Weight loss Psoriatic arthritis MALICK on CPAP Morbid obesity PAF (paroxysmal atrial fibrillation) Surgical History Hx of colonoscopy Status post catheter ablation of atrial fibrillation History of cardiac radiofrequency ablation (RFA) (~11/05/17) Family History (Updated 01/19/24 @ 09:59 by Noam Zapata PA-C) Father CVD (cardiovascular disease) Mother CVD (cardiovascular disease) Atrial fibrillation Alzheimer disease Other Substance use disorder Social History Household Members: Family Housing: House Do you presently have visiting nurse or other home services: No Alcohol intake: never Patient Tobacco Use Status: Former Tobacco user Tobacco use type: Cigarette Years Smoked: 20 +/- e-Cigarette/Vaping Use: Never Used Second Hand Smoke Exposure: No service: No Current occupational status: disabled Cognitive needs: No Hearing needs: Yes (hearing aide) Vision needs: Yes (Glasses) Review of Systems Const Denies weakness ENT Denies dizziness Card Denies chest pain, Denies chest pain with activity, Denies syncope, Denies rapid heart rate, Denies pedal edema, Denies edema, Denies leg edema, Denies lightheadedness, Denies palpitations, Denies dyspnea, Denies dyspnea on exertion and Denies orthopnea Resp Denies cough, Denies dyspnea and Denies dyspnea on exertion GI Denies hematochezia and Denies change in stool character Musc Denies abnormal gait, Denies muscle cramps, Denies muscle weakness, Denies numbness, Denies radiating pain into limb and Denies tingling Neuro Denies abnormal gait, Denies dizziness, Denies syncope, Denies numbness, Denies tingling and Denies weakness Endo Denies palpitations Physical Exam Vital Signs: Last Vital Signs Pulse 114 H 01/21/24 13:29 BP 130/70 01/21/24 13:29 BMI result Body Mass Index 37.2 Const General: comfortable and no acute distress Orientation/consciousness: patient oriented x3 HEENT Other: Unremarkable Head: Yes normal to inspection Neck Neck: Yes normal visual inspection Chest Chest palpation & inspection: normal inspection of the chest Resp Auscultation: clear to auscultation bilaterally Cardio Palpation: normal PMI Heart sounds: S1 normal heart sound present, S2 normal heart sound present, no gallops, no murmurs and no rubs GI Palpation (GI): Soft to palpation Back/Spine/Pelvis Other: unremarkable Skin General skin exam: no rashes or lesions noted Neuro General: patient oriented x3 Extrem General: Yes normal to inspection Psych Mental Status: mental status grossly normal Assessment & Plan Assessment & Plan (1) PAF (paroxysmal atrial fibrillation): Code(s): I48.0 - Paroxysmal atrial fibrillation Category: Medical (2) Paroxysmal atrial flutter: Code(s): I48.92 - Unspecified atrial flutter Category: Medical (3) Status post catheter ablation of atrial fibrillation: Code(s): Z98.890 - Other specified postprocedural states Category: Surgical (4) Morbid obesity: Code(s): E66.01 - Morbid (severe) obesity due to excess calories Category: Medical (5) MALICK on CPAP: Code(s): G47.33 - Obstructive sleep apnea (adult) (pediatric); Z99.89 - Dependence on other enabling machines and devices Category: Medical Plan: On Bipap. Plan EKG yesterday shows atrial fibrillation at a rate of 116/Min with nonspecific ST-T changes. An older EKG from last year with atrial flutter at a rate of 148/Min. Echocardiogram with LVEF of 60%. Normal diastolic function. Moderately dilated left atrium. Mild aortic/mitral regurgitation. Essentially, recurrence of atrial flutter/fibrillation with a previous history of ablation few years back. As he is having these in spite of using flecainide, we will stop it. Start amiodarone. After few days of loading, we can do another EKG. If he does not convert back normal sinus rhythm, then potentially cardioversion will be arranged. Continue anticoagulation. Plan was discussed with patient as well as daughter Erica who are in agreement. Advised to avoid any strenuous physical activity. Otherwise, in case he develops any cardiac symptoms advised to seek emergency care. They understand and agree. Follow-up in 1 week for EKG. Orders: Orders Comprehensive [place]. Panel Fast 01/19/24 E78.2 - Mixed hyperlipidemia Medications: New amiodarone 200 mg PO DAILY 90 tabs 1RF amiodarone 400 mg (2 x 200 mg) PO BID 56 tabs 0RF 14 days amiodarone 400 mg (2 x 200 mg) PO BID 28 tabs 0RF Discontinued flecainide Discontinued Reason: Doctor's Order 100 mg PO Q12H 60 tabs 11RF Coding Level of Care Code Est Pt Level 4 (47595) Diagnoses PAF (paroxysmal atrial fibrillation) I48.0 Paroxysmal atrial flutter I48.92 Status post catheter ablation of atrial fibrillation Z98.890 Morbid obesity E66.01 MALICK on CPAP G47.33; Z99.89
== END 2024-01-21 13:56 | disposition home or self-care (01) ==
PROVIDERS: PCP Physician Assistant; Visit Provider Internal Medicine
DX: I48.0 Paroxysmal atrial fibrillation (principal); I48.92 Unspecified atrial flutter; Z98.890 Other specified postprocedural states; E66.01 Morbid (severe) obesity due to excess calories; G47.33 Obstructive sleep apnea (adult) (pediatric); Z99.89 Dependence on other enabling machines and devices
CPT/HCPCS: 99214

== ENCOUNTER → 2024-01-28 10:47 | Outpatient (BNVA) | payer OTHER, SELFPAY | PROVIDERS: PCP Physician Assistant; Visit Provider Internal Medicine ==

== ENCOUNTER 2024-02-06 10:28 | Day surgery (SDC) | payer OTHER, SELFPAY ==
[2024-02-06 10:46] VITALS: BMI 37.6
--- NOTE | 2024-02-06 11:18 | HO.ANESPROP2 ---
HPI - Anesthesia Eval Consult details Narrative: 63 yo M presenting for cardioversion [facility] Active Problems Active Problems: All Active Problems Osteoarthritis of right knee (Acute) Need for tetanus booster (Acute) Nasal injury (Acute) Tubular adenoma of colon (Acute) Urinary frequency (Acute) Psoriasiform eruption (Acute) History of colon polyps (Acute) HLD (hyperlipidemia) (Acute) Colon cancer screening (Acute) Annual physical exam (Acute) HTN (hypertension) (Acute) Impetigo (Acute) Cellulitis (Acute) Obese (Acute) Low back pain (Acute) Moderate anxiety (Acute) Mild depression (Acute) Pyoderma (Acute) Allergic rhinitis (Acute) Constipation (Acute) Psoriasis (Acute) Intermittent asthma (Acute) Psoriatic arthritis (Acute) MALICK on CPAP (Acute) Morbid obesity (Acute) Status post catheter ablation of atrial fibrillation (Acute) PAF (paroxysmal atrial fibrillation) (Acute) Past Medical History Medical History Carpal tunnel syndrome Ambulates with cane [place] (hard of hearing) History of diverticulitis Weight loss Psoriatic arthritis MALICK on CPAP Morbid obesity PAF (paroxysmal atrial fibrillation) Family History Family History (Updated 01/19/24 @ 09:59 by Noam Zapata PA-C) Father CVD (cardiovascular disease) Mother CVD (cardiovascular disease) Atrial fibrillation Alzheimer disease Other Substance use disorder Family history of problems with anesthesia: No Surgical History Surgical History Hx of colonoscopy Status post catheter ablation of atrial fibrillation History of cardiac radiofrequency ablation (RFA) (~11/05/17) History of Problems with Anesthesia: No Social History Social History Household Members: Family Housing: House Do you presently have visiting nurse or other home services: No Alcohol intake: never Patient Tobacco Use Status: Former Tobacco user Tobacco use type: Cigarette Years Smoked: 20 +/- e-Cigarette/Vaping Use: Never Used Second Hand Smoke Exposure: No Use of substances other than those prescribed or required for medical reasons: No Are you DNR?: No Advance Directives: No Advance Directives Information Provided: Yes service: No Current occupational status: disabled Cognitive needs: No Hearing needs: Yes (hearing aide) Vision needs: Yes (Glasses) Meds Allergies Allergy/AdvReac Type Severity Reaction Status Date / Time tetanus toxoid, adsorbed Allergy Hives Verified 02/06/24 10:44 Home Medications ?Medication ?Instructions ?Recorded ?Confirmed ?Last Taken ?Type alclometasone 0.05 % topical cream 1 appl topical BID PRN Itching 01/02/23 01/21/24 Unknown History fluocinonide 0.05 % topical cream 1 appl topical BID 01/02/23 01/21/24 Unknown History ibuprofen 200 mg capsule 800 mg PO Q6H 03/27/23 01/21/24 Unknown History Exam Exam Date and Time: February 06, 2024 1115 Height,Weight and Vital Signs: Height 5 ft 11 in Weight 122.186 kg Airway Mallampati Class: I TM Dist: >3cm Neck ROM: Full Loose/Missing/Broken Teeth: Yes (a few missing and broken teeth) Heart: S1S2 Lungs: CTAB Assessment and Plan Assessment Anesthesia Assessment: Anesthesia Plan Discussed and Chart Reviewed Final Anesthetic Review Family History of Problems with Anesthesia: No History of Problems with Anesthesia: No NPO: Yes ASA Class: III Final Preanesthetic Review: No Changes in Pt Med Stat, Meds/Allgs Chart Reviewed, Consent Obtained/Reviewed and Anes Risks/Benef Reviewed Patient Risk: Intermediate Procedure Risk: Low Anesthetic Plan Anesthetic Plan: MAC: and Agree w/ Assess. and Plan Disposition: Standard PACU
[2024-02-06] MEDS: Lactated Ringers 1,000 ML 50 ML IVCONT (11:33)
[2024-02-06 11:38] VITALS: BP 139/90; PULSE 97; RESP 16; TEMP 37.3; O2SAT 96
--- NOTE | 2024-02-06 11:50 | MHC.SHP ---
Pre-Procedural Eval Section A - 24 Hr Update-Section A only Date of Service: 02/06/24 The patient is an INPATIENT: No Section B - Complete if H&P > 30 days Chief Complaint: Paroxysmal atrial fibrillation Allergies: Allergies Allergy/AdvReac Type Severity Reaction Status Date / Time tetanus toxoid, adsorbed Allergy Hives Verified 02/06/24 10:44 Plan I have reviewed the history and physical and performed a pertinent physical examination on my patient. No changes have occurred unless specified. Time Spent With Patient Time: Total time managing care of this patient today ____ minutes.
--- NOTE | 2024-02-06 11:50 | HO.CARDIVERS ---
Cardioversion Procedure Note Cardioversion Date of Procedure: 02/06/2024 Indication for Procedure: Atrial fibrillation with rapid ventricular response Pre-Op Diagnosis: Atrial fibrillation Post-Op Diagnosis: Sinus rhythm Consent: Informed consent obtained Procedure: After informed consent was obtained, patient was taken to the PACU. The patient was then positioned appropriately. The cardioversion pads were placed in anteroposterior position. Once under anesthesia, 120 joules of synchronized shock was administered. The rhythm converted from atrial fibrillation to sinus rhythm. Patient remained in sinus rhythm after the end of procedure. Complications: None Impression: Successful cardioversion from atrial fibrillation to sinus rhythm Recommendations: Continue Amiodarone. Will discuss about ablation. Keep follow-up.
--- NOTE | 2024-02-06 12:00 | ECG_ITS ---
Test Reason : s/p cardioversion Blood Pressure : / mmHG Vent. Rate : 065 BPM Atrial Rate : 065 BPM P-R Int : 174 ms QRS Dur : 078 ms QT Int : 422 ms P-R-T Axes : 071 058 057 degrees QTc Int : 438 ms Normal sinus rhythm with sinus arrhythmia Normal ECG When compared with ECG of 19-JAN-2024 15:16, Sinus rhythm has replaced Atrial fibrillation Vent. rate has decreased BY 51 BPM Nonspecific T wave abnormality no longer evident in Inferior leads Nonspecific T wave abnormality no longer evident in Anterior leads Referred By: Alis Jarquin Electronically Signed By:ALIS JARQUIN
[2024-02-06 12:03] VITALS: BP 126/67; PULSE 63; RESP 14; TEMP 36.5; O2SAT 98
[2024-02-06 12:18] VITALS: BP 118/76; PULSE 67; RESP 16; O2SAT 98
[2024-02-06 12:32] VITALS: BP 124/71; PULSE 70; RESP 16; O2SAT 98
[2024-02-06 12:46] VITALS: BP 128/75; PULSE 71; RESP 16; TEMP 36.6; O2SAT 97
== END 2024-02-06 13:54 | disposition home or self-care (01) ==
PROVIDERS: PCP Physician Assistant; Visit Provider Internal Medicine
PROC: 5A2204Z Restoration of Cardiac Rhythm, Single (ICD-10-PCS; principal; 2024-02-06 12:30)
DX: I48.0 Paroxysmal atrial fibrillation (principal); Z79.01 Long term (current) use of anticoagulants; G47.33 Obstructive sleep apnea (adult) (pediatric)
CPT/HCPCS: 92960; 93005; J2704

== ENCOUNTER → 2024-02-06 10:28 | Outpatient (BNV) | payer OTHER, SELFPAY | PROVIDERS: PCP Physician Assistant; Visit Provider Internal Medicine | DX: I48.91 Unspecified atrial fibrillation (principal) | CPT/HCPCS: 92960; 93010 ==

== ENCOUNTER 2024-02-11 10:49 | Outpatient (AMB) | payer OTHER, SELFPAY ==
--- NOTE | 2024-02-11 11:10 | AM.OFFVISNUR ---
Intake Visit Reasons: 1 wk ekg after cardioversion Allergies tetanus toxoid, adsorbed Allergy (Verified 02/06/24 10:44) Hives Nursing Note PT IS HERE FOR NURSE VISIT WITH EKG EKG LEFT ON DR RUSH ALVARES FOR REVIEW Office Procedures EKG [id number], Complete
== END 2024-02-11 11:12 | disposition home or self-care (01) ==
LOC: HO.HCS 10:49
PROVIDERS: PCP Physician Assistant; Visit Provider Internal Medicine
DX: R94.31 Abnormal electrocardiogram [ECG] [EKG] (principal)
CPT/HCPCS: 93010

== ENCOUNTER → 2024-02-11 10:49 | Outpatient (BNVA) | payer OTHER, SELFPAY | PROVIDERS: PCP Physician Assistant; Visit Provider Internal Medicine | DX: Z98.890 Other specified postprocedural states (principal) | CPT/HCPCS: 93005 ==

== ENCOUNTER 2024-02-17 10:58 | Outpatient (AMB) | payer OTHER, SELFPAY ==
--- NOTE | 2024-02-17 11:11 | MHC.OFFVIS ---
Vital Signs 02/17/24 11:16 Height 6 ft Weight 268 lb 1.314 oz BMI 36.4 BP 118/70 Blood Pressure Location Lt brachial Position Sitting Pulse 108 H Intake Visit Reasons: 6 mth f/up Electroneurodiagnostic Technologist Required: No Accompanied by: Self / Same As Patient Allergies tetanus toxoid, adsorbed Allergy (Verified 02/06/24 10:44) Hives Medication List - Last Reconciled 02/17/24 by Say Curry MD acetaminophen ER (Tylenol Arthritis Pain) 650 mg PO Q12H 30 days adhesive bandage (Adhesive Pads) As directed adhesive tape (Medipore) As directed albuterol sulfate 90 mcg/actuation (Ventolin HFA) 2 puffs inhalation Q6H PRN 30 days alclometasone 0.05% 1 appl topical BID PRN amiodarone 200 mg PO DAILY blood pressure kit-extra large As directed CPAP (CPAP Machine/Device) As directed diltiazem HCl CD (Cardizem CD) 180 mg PO DAILY docusate sodium 100 mg PO BID PRN fluocinonide 0.05% 1 appl topical BID fluticasone propionate 50 mcg/actuation 1 spray intranasal DAILY 30 days gauze bandage (Gauze Pad) As directed ibuprofen 800 mg PO Q6H lactulose 15 mL PO BEDTIME PRN leg brace (Knee Support Brace) NEED FOR SOFT KNEE BRACE WITH MEDIAL AND LATERAL HARD SUPPORT menthol-zinc oxide 0.44-20.6 % (Calmoseptine) 1 appl topical BID 30 days miscellaneous medical supply 1 ea miscellaneous DAILY 99 days miscellaneous medical supply 1 ea miscellaneous BID 30 days mupirocin 2% 1 appl topical BID 15 days non-adherent bandage use daily nystatin 1 appl topical DAILY 15 days [Omni Tray for wheel chair As directed] rivaroxaban (Xarelto) 20 mg PO DAILY 90 days tamsulosin 0.4 mg PO DAILY 30 days HPI Comments Details: Tom returns for follow-up regarding atrial fibrillation. Previously, he underwent ablation for the same. He was actually free of atrial fibrillation for several years after the ablation. In 2022, he had recurrence of atrial fibrillation/flutter. There was a plan for ERMIAS/cardioversion but he converted to sinus rhythm. Then has been on flecainide/diltiazem/Xarelto. He was doing okay but recently he believes he has had a few episodes of atrial fibrillation over the last couple of months. During recent office visit, he was indeed in atrial fibrillation with slightly rapid rate. Subsequently, underwent cardioversion. However, when he came back for follow-up he was already back in atrial fibrillation with slightly rapid rate again. We increased the diltiazem dose but he has not been able to get that from the pharmacy as yet. He used to feel the palpitations a lot but in the last few days, not feeling them. Possibly because rate is also slightly slower. No new symptoms otherwise. Continues to take Amiodarone. [facility] Medical History Carpal tunnel syndrome Ambulates with cane [place] (hard of hearing) History of diverticulitis Weight loss Psoriatic arthritis MALICK on CPAP Morbid obesity PAF (paroxysmal atrial fibrillation) Surgical History Hx of colonoscopy Status post catheter ablation of atrial fibrillation History of cardiac radiofrequency ablation (RFA) (~11/05/17) Family History (Updated 01/19/24 @ 09:59 by Noam Zapata PA-C) Father CVD (cardiovascular disease) Mother CVD (cardiovascular disease) Atrial fibrillation Alzheimer disease Other Substance use disorder Social History Household Members: Family Housing: House Do you presently have visiting nurse or other home services: No Alcohol intake: never Patient Tobacco Use Status: Former Tobacco user Tobacco use type: Cigarette Years Smoked: 20 +/- e-Cigarette/Vaping Use: Never Used Second Hand Smoke Exposure: No service: No Current occupational status: disabled Cognitive needs: No Hearing needs: Yes (hearing aide) Vision needs: Yes (Glasses) Review of Systems Const Denies chills, Denies fatigue, Denies fever(s), Denies weight gain and Denies weight loss ENT Denies dizziness Card Denies chest pain, Denies leg edema, Denies lightheadedness, Denies palpitations, Reports dyspnea on exertion, Denies orthopnea and Denies other Resp Denies cough and Reports dyspnea on exertion GI Denies hematochezia and Denies change in stool character Musc Denies abnormal gait, Denies muscle weakness, Denies numbness, Denies radiating pain into limb and Denies tingling Neuro Denies abnormal gait, Denies dizziness, Denies numbness and Denies tingling Endo Denies fatigue and Denies palpitations Physical Exam Vital Signs: Last Vital Signs Pulse 108 H 02/17/24 11:16 BP 118/70 02/17/24 11:16 BMI result Body Mass Index 36.4 Const General: comfortable and no acute distress Orientation/consciousness: patient oriented x3 HEENT Other: Unremarkable Head: Yes normal to inspection Neck Neck: Yes normal visual inspection Chest Chest palpation & inspection: normal inspection of the chest Resp Auscultation: clear to auscultation bilaterally Cardio Palpation: normal PMI Heart sounds: S1 normal heart sound present, S2 normal heart sound present, no gallops, no murmurs and no rubs GI Palpation (GI): Soft to palpation Back/Spine/Pelvis Other: unremarkable Skin General skin exam: no rashes or lesions noted Neuro General: patient oriented x3 Extrem General: Yes normal to inspection Psych Mental Status: mental status grossly normal Office Procedures EKG Details: EKG with likely atrial flutter at a rate of 108/Min. [id number], Complete Assessment & Plan Assessment & Plan (1) PAF (paroxysmal atrial fibrillation): Code(s): I48.0 - Paroxysmal atrial fibrillation Category: Medical (2) Paroxysmal atrial flutter: Code(s): I48.92 - Unspecified atrial flutter Category: Medical (3) Status post catheter ablation of atrial fibrillation: Code(s): Z98.890 - Other specified postprocedural states Category: Surgical (4) Morbid obesity: Code(s): E66.01 - Morbid (severe) obesity due to excess calories Category: Medical (5) MALICK on CPAP: Code(s): G47.33 - Obstructive sleep apnea (adult) (pediatric); Z99.89 - Dependence on other enabling machines and devices Category: Medical Plan: On Bipap. Plan EKG today most suggestive of atrial flutter than fibrillation at a rate of 108/Min. Another recent EKG showed atrial fibrillation. A previous EKG had shown flutter in the 140s. Echocardiogram with LVEF of 60%. Normal diastolic function. Moderately dilated left atrium. Mild aortic/mitral regurgitation. Essentially, recurrence of atrial flutter/fibrillation with a previous history of ablation few years back. Failed recent cardioversion and he believes he was in sinus for a few days or so. We discussed about repeat cardioversion now that he has been adequately loaded with amiodarone and he is willing. We can schedule that for next week. Continue anticoagulation. Can try the slightly high dose of diltiazem once it has available from the pharmacy. He will hold it for about 2 days before the cardioversion to avoid any postprocedure bradycardia. Continue anticoagulation without interruption. We also discussed about ablation and he is interested. We will send him to [facility]. We will screen for coronary disease with coronary CTA. That has been requested and pending. Patient agrees with plan overall. Orders: Referrals Cardiac Electrophysiology Referral I48.0 - Paroxysmal atrial fibrillation Coding Level of Care Code Est Pt Level 4 (77465) Diagnoses PAF (paroxysmal atrial fibrillation) I48.0 Paroxysmal atrial flutter I48.92 Status post catheter ablation of atrial fibrillation Z98.890 Morbid obesity E66.01 MALICK on CPAP G47.33; Z99.89 CPT Codes EKG - CPT: [id number], Complete ([id number])
[2024-02-17 11:16] VITALS: BP 118/70; PULSE 108; BMI 36.4
== END 2024-02-17 11:45 | disposition home or self-care (01) ==
PROVIDERS: PCP Physician Assistant; Visit Provider Internal Medicine
DX: I48.0 Paroxysmal atrial fibrillation (principal); I48.92 Unspecified atrial flutter; Z98.890 Other specified postprocedural states; E66.01 Morbid (severe) obesity due to excess calories; G47.33 Obstructive sleep apnea (adult) (pediatric); Z99.89 Dependence on other enabling machines and devices
CPT/HCPCS: 93010; 99214

== ENCOUNTER → 2024-02-17 10:58 | Outpatient (BNVA) | payer OTHER, SELFPAY | PROVIDERS: PCP Physician Assistant; Visit Provider Internal Medicine | DX: I48.0 Paroxysmal atrial fibrillation (principal); I48.92 Unspecified atrial flutter; E66.01 Morbid (severe) obesity due to excess calories; G47.33 Obstructive sleep apnea (adult) (pediatric); Z98.890 Other specified postprocedural states; Z99.89 Dependence on other enabling machines and devices; Z68.36 Body mass index [BMI] 36.0-36.9, adult | CPT/HCPCS: 93005; 99212 ==

== ENCOUNTER 2024-02-27 12:05 | Day surgery (SDC) | payer OTHER, SELFPAY ==
[2024-02-25 16:24] VITALS: BMI 36.4
--- NOTE | 2024-02-26 11:47 | P.CONAN_ITS ---
Documented by User: Erica Nielsen NP 02/26/24 11:51 HPI - Anesthesia Eval Consult details Narrative: 63yo M for Cardioversion s/p Cardioversion 02/06/24 with MAC PMFSH Active Problems Active Problems: All Active Problems Osteoarthritis of right knee (Acute) Need for tetanus booster (Acute) Nasal injury (Acute) Tubular adenoma of colon (Acute) Urinary frequency (Acute) Psoriasiform eruption (Acute) History of colon polyps (Acute) HLD (hyperlipidemia) (Acute) Colon cancer screening (Acute) Annual physical exam (Acute) HTN (hypertension) (Acute) Impetigo (Acute) Cellulitis (Acute) Obese (Acute) Low back pain (Acute) Moderate anxiety (Acute) Mild depression (Acute) Pyoderma (Acute) Allergic rhinitis (Acute) Constipation (Acute) Psoriasis (Acute) Intermittent asthma (Acute) Psoriatic arthritis (Acute) MALICK on CPAP (Acute) Morbid obesity (Acute) Status post catheter ablation of atrial fibrillation (Acute) PAF (paroxysmal atrial fibrillation) (Acute) Past Medical History Medical History Carpal tunnel syndrome Ambulates with cane [place] (hard of hearing) History of diverticulitis Weight loss Psoriatic arthritis MALICK on CPAP Morbid obesity PAF (paroxysmal atrial fibrillation) Family History Family History (Updated 01/19/24 @ 09:59 by Noam Zapata PA-C) Father CVD (cardiovascular disease) Mother CVD (cardiovascular disease) Atrial fibrillation Alzheimer disease Other Substance use disorder Family history of problems with anesthesia: No Surgical History Surgical History Hx of colonoscopy Status post catheter ablation of atrial fibrillation History of cardiac radiofrequency ablation (RFA) (~11/05/17) History of Problems with Anesthesia: No Social History Social History Household Members: Family Housing: House Do you presently have visiting nurse or other home services: No Alcohol intake: never Patient Tobacco Use Status: Former Tobacco user Tobacco use type: Cigarette Years Smoked: 20 +/- e-Cigarette/Vaping Use: Never Used Second Hand Smoke Exposure: No Are you DNR?: No Advance Directives: No Advance Directives Information Provided: Yes Nutrition Risks: No Nutritional Risk service: No Current occupational status: disabled Cognitive needs: No Hearing needs: Yes (hearing aide) Vision needs: Yes (Glasses) Meds Allergies Allergy/AdvReac Type Severity Reaction Status Date / Time tetanus toxoid, adsorbed Allergy Hives Verified 02/27/24 12:22 Home Medications ?Medication ?Instructions ?Recorded ?Confirmed ?Last Taken ?Type alclometasone 0.05 % topical cream 1 appl topical BID PRN Itching 01/02/23 02/27/24 Unknown History fluocinonide 0.05 % topical cream 1 appl topical BID 01/02/23 02/27/24 Unknown History ibuprofen 200 mg capsule 800 mg PO Q6H 03/27/23 02/27/24 Unknown History Exam Height,Weight and Vital Signs: Height 6 ft Weight 121.6 kg Pertinent Lab Results Pertinent Lab Results: Laboratory Tests 01/21/24 14:14 WBC 7.9 Hgb 12.4 L Hct 37.0 L Plt Count 300 Sodium 141 Potassium 4.0 Chloride 106 Carbon Dioxide 28 BUN 14 Creatinine 0.89 Narrative Narrative: EKG 02/2024 atrial flutter at a rate of 108/Min Assessment and Plan Assessment Anesthesia Assessment: Chart Reviewed Final Anesthetic Review Family History of Problems with Anesthesia: No History of Problems with Anesthesia: No Documented by User: Lucia Mosher MD 02/27/24 13:43 [facility] Past Medical History Medical History Carpal tunnel syndrome Ambulates with cane [place] (hard of hearing) History of diverticulitis Weight loss Psoriatic arthritis MALICK on CPAP Morbid obesity PAF (paroxysmal atrial fibrillation) Family History Family History (Updated 01/19/24 @ 09:59 by Noam Zapata PA-C) Father CVD (cardiovascular disease) Mother CVD (cardiovascular disease) Atrial fibrillation Alzheimer disease Other Substance use disorder Surgical History Surgical History Hx of colonoscopy Status post catheter ablation of atrial fibrillation History of cardiac radiofrequency ablation (RFA) (~11/05/17) Social History Social History Household Members: Family Housing: House Do you presently have visiting nurse or other home services: No Alcohol intake: never Patient Tobacco Use Status: Former Tobacco user Tobacco use type: Cigarette Years Smoked: 20 +/- e-Cigarette/Vaping Use: Never Used Second Hand Smoke Exposure: No Are you DNR?: No Advance Directives: No Advance Directives Information Provided: Yes Nutrition Risks: No Nutritional Risk service: No Current occupational status: disabled Cognitive needs: No Hearing needs: Yes (hearing aide) Vision needs: Yes (Glasses) Meds Allergies Allergy/AdvReac Type Severity Reaction Status Date / Time tetanus toxoid, adsorbed Allergy Hives Verified 02/27/24 12:22 Home Medications ?Medication ?Instructions ?Recorded ?Confirmed ?Last Taken ?Type alclometasone 0.05 % topical cream 1 appl topical BID PRN Itching 01/02/23 02/27/24 Unknown History fluocinonide 0.05 % topical cream 1 appl topical BID 01/02/23 02/27/24 Unknown History ibuprofen 200 mg capsule 800 mg PO Q6H 03/27/23 02/27/24 Unknown History Exam Airway Mallampati Class: II (missing a couple, top front caps) TM Dist: >3cm Neck ROM: Full Heart: rrr Lungs: cta Assessment and Plan Assessment Anesthesia Assessment: Anesthesia Plan Discussed Final Anesthetic Review NPO: Yes ASA Class: III Final Preanesthetic Review: No Changes in Pt Med Stat, Meds/Allgs Chart Reviewed and Consent Obtained/Reviewed Patient Risk: Low Procedure Risk: Low Anesthetic Plan Anesthetic Plan: MAC: Disposition: Standard PACU
[2024-02-27 12:20] VITALS: BMI 34.4
[2024-02-27] MEDS: Lactated Ringers 1,000 ML 100 ML IVCONT (12:33)
[2024-02-27 12:44] VITALS: BP 143/91; PULSE 130; RESP 18; TEMP 36.6; O2SAT 96
--- NOTE | 2024-02-27 12:52 | MHC.SHP ---
Pre-Procedural Eval Section A - 24 Hr Update-Section A only Date of Service: 02/27/24 The patient is an INPATIENT: No Section B - Complete if H&P > 30 days Chief Complaint: Other persistent atrial fibrillation Allergies: Allergies Allergy/AdvReac Type Severity Reaction Status Date / Time tetanus toxoid, adsorbed Allergy Hives Verified 02/27/24 12:22 Plan I have reviewed the history and physical and performed a pertinent physical examination on my patient. No changes have occurred unless specified. Time Spent With Patient Time: Total time managing care of this patient today ____ minutes.
--- NOTE | 2024-02-27 12:53 | HO.CARDIVERS ---
Cardioversion Procedure Note Cardioversion Date of Procedure: 02/27/2024 Indication for Procedure: Atrial fibrillation Pre-Op Diagnosis: Atrial fibrillation Post-Op Diagnosis: Sinus rhythm Consent: Informed consent obtained. Procedure: After informed consent was obtained, patient was taken to the PACU. The patient was then positioned appropriately. The cardioversion pads were placed in anteroposterior position. Once under anesthesia, 120 joules of synchronized shock was administered. The rhythm converted from atrial fibrillation to sinus rhythm. Patient remained in sinus rhythm after the end of procedure. Complications: None. Impression: Successful cardioversion from atrial fibrillation to sinus rhythm. Recommendations: Continue amiodarone. Follow-up in clinic.
--- NOTE | 2024-02-27 14:03 | ECG_ITS ---
Test Reason : post cardioversion Blood Pressure : / mmHG Vent. Rate : 077 BPM Atrial Rate : 208 BPM P-R Int : 000 ms QRS Dur : 068 ms QT Int : 378 ms P-R-T Axes : 070 040 069 degrees QTc Int : 427 ms Artifact in tracing Normal sinus rhythm Normal EKG When compared with ECG of 06-FEB-2024 12:03, No significant changes seen Referred By: Alis Jarquin Electronically Signed By:ALIS JARQUIN
[2024-02-27 14:07] VITALS: BP 114/66; PULSE 80; RESP 16; TEMP 36.1
[2024-02-27 14:12] VITALS: BP 112/59; PULSE 80; RESP 16; O2SAT 98
[2024-02-27 14:17] VITALS: BP 98/60; PULSE 85; RESP 16; O2SAT 98
[2024-02-27 14:32] VITALS: BP 114/65; PULSE 71; RESP 16; TEMP 36.6; O2SAT 99
== END 2024-02-27 14:54 | disposition home or self-care (01) ==
PROVIDERS: PCP Physician Assistant; Visit Provider Internal Medicine
PROC: 5A2204Z Restoration of Cardiac Rhythm, Single (ICD-10-PCS; principal; 2024-02-27 14:00)
DX: I48.19 Other persistent atrial fibrillation (principal); Z79.01 Long term (current) use of anticoagulants; G47.33 Obstructive sleep apnea (adult) (pediatric); Z79.899 Other long term (current) drug therapy; Z79.1 Long term (current) use of non-steroidal anti-inflammatories (NSAID); E66.01 Morbid (severe) obesity due to excess calories; Z68.36 Body mass index [BMI] 36.0-36.9, adult; Z87.891 Personal history of nicotine dependence; Z98.890 Other specified postprocedural states
CPT/HCPCS: 92960; 93005; J2704

== ENCOUNTER → 2024-02-27 12:05 | Outpatient (BNV) | payer OTHER, SELFPAY | PROVIDERS: PCP Physician Assistant; Visit Provider Internal Medicine | DX: I48.91 Unspecified atrial fibrillation (principal); R94.31 Abnormal electrocardiogram [ECG] [EKG] | CPT/HCPCS: 92960; 93010 ==

== ENCOUNTER → 2024-03-03 09:23 | Outpatient (REF) | payer OTHER, SELFPAY ==
--- NOTE | 2024-03-03 09:25 | HM_ITS ---
* Total monitoring time 3 days. * Underlying rhythm is atrial fibrillation. Average ventricular rate 94/Min. About 29% of the time, rate > 100/Min. * Rare ventricular ectopy. * No significant pauses or AV blocks. * No patient markers or diary events. MTDD
== END ==
LOC: HO.CARD 09:23
PROVIDERS: PCP Physician Assistant; Visit Provider Internal Medicine
DX: I48.0 Paroxysmal atrial fibrillation (principal)
CPT/HCPCS: 93242

== ENCOUNTER → 2024-03-03 09:25 | Outpatient (BNV) | payer OTHER, SELFPAY | PROVIDERS: PCP Physician Assistant; Visit Provider Internal Medicine | DX: I48.91 Unspecified atrial fibrillation (principal) | CPT/HCPCS: 93244 ==

== ENCOUNTER 2024-03-03 09:54 | Outpatient (AMB) | payer OTHER, SELFPAY ==
[2024-03-03 10:05] VITALS: BP 128/70; PULSE 117; O2SAT 99; BMI 35.3
--- NOTE | 2024-03-03 10:05 | A.OFFPC_ITS ---
Vital Signs 03/03/24 10:05 Height 6 ft Weight 260 lb BMI 35.3 BP 128/70 Blood Pressure Location Lt brachial Position Sitting Pulse 117 H Pulse Source Pulse Oximeter Pulse Oximetry (%) 99 Oxygen Delivery Method Room Air Intake Visit Reasons: routine f/u Voucher Clerk Required: No Accompanied by: Self / Same As Patient Allergies tetanus toxoid, adsorbed Allergy (Verified 03/03/24 10:22) Hives Medication List - Last Reconciled 03/03/24 by Noam Zapata PA-C acetaminophen ER (Tylenol Arthritis Pain) 650 mg PO Q12H 30 days adhesive bandage (Adhesive Pads) As directed adhesive tape (Medipore) As directed albuterol sulfate 90 mcg/actuation (Ventolin HFA) 2 puffs inhalation Q6H PRN 30 days alclometasone 0.05% 1 appl topical BID PRN amiodarone 200 mg PO DAILY blood pressure kit-extra large As directed CPAP (CPAP Machine/Device) As directed diltiazem HCl CD (Cardizem CD) 180 mg PO DAILY docusate sodium 100 mg PO BID PRN fluocinonide 0.05% 1 appl topical BID fluticasone propionate 50 mcg/actuation 1 spray intranasal DAILY 30 days gauze bandage (Gauze Pad) As directed ibuprofen 800 mg PO Q6H lactulose 15 mL PO BEDTIME PRN leg brace (Knee Support Brace) NEED FOR SOFT KNEE BRACE WITH MEDIAL AND LATERAL HARD SUPPORT menthol-zinc oxide 0.44-20.6 % (Calmoseptine) 1 appl topical BID 30 days miscellaneous medical supply 1 ea miscellaneous DAILY 99 days miscellaneous medical supply 1 ea miscellaneous BID 30 days mupirocin 2% 1 appl topical BID 15 days non-adherent bandage use daily nystatin 1 appl topical DAILY 15 days [Omni Tray for wheel chair As directed] rivaroxaban (Xarelto) 20 mg PO DAILY 90 days tamsulosin 0.4 mg PO DAILY 30 days tizanidine 4 mg PO BEDTIME Tobacco use date assessed: 08/06/23 Dental Screening Dental Screen Date: 01/15/24 HPI routine f/u HPI Details Patient is a 63-year-old male here ? Patient has a past medical history significant for AFib, morbid obesity,? MALICK, psoriatic arthritis,? pyoderma,? asthma .. AFIB:? Recently been noted to have elevated heart rates and will send for EKG that did show AFib with RVR. Seen his cariologist and underwent cardioversion, unfortunately was unsuccessful. Today in office does seem to be in AFib. Diltazem dose has been increased. He is due for CT angiogram [facility] in April. Has followed up with Cardiology whom refer patient to electrophysiology at [facility]. .. HTN: Patient's blood pressure acceptable today in office. .. Obesity:? He does understand his BMI is over 30 and has been trying to be more physically active to reduce his weight. .. Obstructive sleep apnea:? He admits to using his BiPAP machine on nightly basis with good effect on his sleep. .. .. Pyoderma:? Has been doing his own wound management with barrier creams over his right lower extremity.? Has been a long-term patient of the [place] wound care center and is considering re-establishing care if wound worsens. He has been using nonadherent 8 in x 8 in or larger bandages 3-4 times per day depending on how much weepage this skin lesion produces. He feels the ability to change the dry bandages several times per day has led to better healing. Also using topical creams to promote skin growth and healing .. Psoriasis/ psoriatic arthritis:? Patient is followed by Rheumatology at the arthritic treatment center.? He does report getting cortisone injections in his knees which do significantly reduce his pain for a while.? --> HIS MOBILITY IS SEVERELY HINDERED DU E TO HIS PSORIATIC ARTHRITIS. HE HAS A LOT OF TROUBLE AMBULATING AND GETTING UP FROM A SITTING POSITION. USES A CANE FOR AMBULATION ASSISTANCE. DOES HAVE A LOT OF PAIN WITH AMBULATION/ USING STAIRS. HE IS COMPLETELY DISABLED AND DOES NEED ASSISTANCE WITH ACTIVITIES OF DAILY LIVING. HE ALSO DOES USE A LIFTED RECLINER CHAIR THAT HAS RECENTLY BROKE. HE HAS DME SUPPLIERS COMING TO FIX THE CHAIR. HE DOES NEED THE CHAIR TO GET UP FROM A SITTING POSITION DUE TO SEVERE KNEE AND ANKLE PSORIATIC ARTHRITIS PAIN. He is on disease modifying drug (Aremilast) which has been helpful. Was on Enbrel in the past which completely cleared his polyarthralgia though had bed GI side effects [facility] Medical History Carpal tunnel syndrome Ambulates with cane [place] (hard of hearing) History of diverticulitis Weight loss Psoriatic arthritis MALICK on CPAP Morbid obesity PAF (paroxysmal atrial fibrillation) Surgical History Hx of colonoscopy Status post catheter ablation of atrial fibrillation History of cardiac radiofrequency ablation (RFA) (~11/05/17) Family History Father CVD (cardiovascular disease) Mother CVD (cardiovascular disease) Atrial fibrillation Alzheimer disease Other Substance use disorder Social History Household Members: Family Housing: House Do you presently have visiting nurse or other home services: No Alcohol intake: never Patient Tobacco Use Status: Former Tobacco user Tobacco use type: Cigarette Years Smoked: 20 +/- e-Cigarette/Vaping Use: Never Used Second Hand Smoke Exposure: No service: No Current occupational status: disabled Cognitive needs: No Hearing needs: Yes (hearing aide) Vision needs: Yes (Glasses) Questionnaire Thrive Questionnaire Date Thrive assessed: 08/06/23 YIN-7 AMB Questionnaire YIN-7 Date YIN - 7 assessed: 08/06/23 Source: Developed by Drs. Sudhir Vasquez, Terri Mcmanus, Mk Ram and colleagues, with an educational marleni from [employer]. Review of Systems Const Denies headache(s) Eyes Denies loss of vision ENT Denies vertigo, Denies dizziness, Denies headache(s) and Denies sore throat Card Denies chest pain, Denies leg edema and Denies lightheadedness Resp Denies cough, Denies hemoptysis and Denies wheezing GI Denies abdominal pain, Denies melena, Denies constipation, Denies diarrhea and Denies vomiting Denies dysuria, Denies urinary frequency and Denies urinary urgency Musc Denies arthralgias, Denies joint swelling, Denies numbness and Denies tingling Neuro Denies Abnormal speech present, Denies behavioral changes, Denies vertigo, Denies dizziness, Denies headache(s), Denies loss of vision, Denies memory loss, Denies numbness and Denies tingling Psych Denies anxiety, Denies behavioral changes, Denies depression, Denies memory loss and Denies panic attacks Americo/Lymph Denies easy bleeding and Denies easy bruising Aller/Immun Denies wheezing Physical exam (Primary Care) Vital Signs: Last Vital Signs Pulse 117 H 03/03/24 10:05 BP 128/70 03/03/24 10:05 Pulse Ox 99 03/03/24 10:05 Oxygen Delivery Method Room Air 03/03/24 10:05 BMI result Body Mass Index 35.3 Tobacco/Smoking Status: Tobacco use Status Tobacco use date assessed 08/06/23 03/03/24 10:06 Patient Tobacco Use Status Former Tobacco user 03/03/24 10:06 Tobacco use type Cigarette 03/03/24 10:06 e-Cigarette/Vaping Use Never Used 03/03/24 10:06 Thrive Assessment: Date of Thrive Assessment Date Thrive assessed 08/06/23 03/03/24 10:06 Const General: healthy appearing, no acute distress, alert and awake Nutritional Appearance: well nourished Orientation/consciousness: oriented to person, oriented to place and oriented to time HENMT Ears: TM's normal bilaterally General nose exam: Normal nasal mucous membranes and turbinates present Eyes Conjunctivae: conjunctivae normal Sclerae: sclerae normal Pupils: Equal, round and reactive pupils present Neck Neck: Yes no lymphadenopathy and Yes no JVD Thyroid: Thyroid normal Carotids: no bruits Resp Effort & Inspection: normal respiratory effort and not tachypneic Auscultation: no crackles, no rales, no rhonchi and no wheezes Cardio Rate: regular rate Rhythm: regular rhythm Heart sounds: no murmurs and normal S1 and S2 GI Palpation (GI): Soft to palpation, nontender, no hepatomegaly and no splenomegaly Auscultation: normal bowel sounds Skin General skin exam: no rashes or lesions noted and dry skin Neuro General: oriented to person, oriented to place and oriented to time Cranial nerves: Yes Equal, round and reactive pupils present Speech: No Abnormal speech present Gait exam (Neuro): Normal gait present Motor exam (neuro): no tremor noted Extrem Other: Right lower extremity larger in diameter as compared to left. Right upper extremity: full ROM Left upper extremity: full ROM Right lower extremity: full ROM and edema Left lower extremity: full ROM; no edema Psych Mental Status: mental status grossly normal Speech and movement: Normal speech and movement present Affect: normal affect Attitude: cooperative Thought process: Normal thought process present Assessment and Plan Assessment & Plan (1) PAF (paroxysmal atrial fibrillation): Code(s): I48.0 - Paroxysmal atrial fibrillation Plan: As per HPI patient has been battling paroxysmal AFib. Recently underwent 2 cardioversions though unsuccessful. His diltiazem has been increased in dose. He has been referred to [facility] electrophysiology. Also is due for a CTA angiogram at [facility] in the next month. (2) HTN (hypertension): Code(s): I10 - Essential (primary) hypertension Qualifiers: Hypertension type: primary hypertension Qualified Code(s): I10 - Essential (primary) hypertension Plan: Blood pressure acceptable today in office.. Will continue diltiazem at current dose recommended by Cardiology. Goal blood pressure remain below 140/90 (3) Psoriatic arthritis: Code(s): L40.50 - Arthropathic psoriasis, unspecified Plan: Continues to follow rheumatology (Dr. Elise) and continues on disease modifying medication. Will supply him with Tylenol arthritis to use instead of NSAID due to being contraindicated. HIS MOBILITY IS SEVERELY HINDERED DUE TO HIS PSORIATIC ARTHRITIS. HE HAS A LOT OF TROUBLE AMBULATING AND GETTING UP FROM A SITTING POSITION. USES A CANE FOR AMBULATION ASSISTANCE. DOES HAVE A LOT OF PAIN WITH AMBULATION/ USING STAIRS. HE IS COMPLETELY DISABLED AND DOES NEED ASSISTANCE WITH ACTIVITIES OF DAILY LIVING. MEDICAL NECESSITY FOR RECLINER--> AGAIN ALSO DOES HAVE AN ELEVATED RECLINER TO HELP HIM GET UP FROM A SITTING POSITION DUE TO SEVERE KNEE AND ANKLE ARTHRITIS. UNFORTUNATELY RECLINER HAS BROKEN AND HAS DME SUPPLIER FIXING THE RECLINER. (4) Lower extremity edema: Code(s): R60.0 - Localized edema Plan: Noted right lower extremity edema likely secondary to his pyoderma and chronic skin inflammation. He has been doing his own wound care with some success with new supplies. Will send in Lasix 20 mg to use day the extremity. Medications: New furosemide 20 mg PO Q OTHER DAY 30 days 15 tabs 1RF R60.0 - Localized edema Refilled fluticasone propionate 50 mcg/actuation 1 spray intranasal DAILY 30 days 16 grams 3RF albuterol sulfate 90 mcg/actuation (Ventolin HFA) 2 puffs inhalation Q6H 30 days PRN 8.5 grams 3RF shortness of breath or wheezing I48.0 - Paroxysmal atrial fibrillation Coding Level of Care Code Est Pt Level 4 (03766) Diagnoses PAF (paroxysmal atrial fibrillation) I48.0 Primary hypertension I10 Hypertension type: primary hypertension Psoriatic arthritis L40.50 Lower extremity edema R60.0
== END 2024-03-03 10:44 | disposition home or self-care (01) ==
PROVIDERS: PCP Physician Assistant; Visit Provider Physician Assistant
DX: I48.0 Paroxysmal atrial fibrillation (principal); I10 Essential (primary) hypertension; L40.50 Arthropathic psoriasis, unspecified; R60.0 Localized edema
CPT/HCPCS: 99214

== ENCOUNTER 2024-03-16 09:49 | Inpatient (IN) | payer OTHER, SELFPAY ==
[2024-03-16] VITALS (8 sets, daily range): BP systolic 112–141; BP diastolic 67–85; PULSE 77–189; RESP 13–20; TEMP 36.5–37; O2SAT 96–98; BMI 33.5
--- NOTE | ~2024-03-16 | CT_ITS ---
EXAMINATION: CT ABDOMEN AND PELVIS WITHOUT CONTRAST CLINICAL INFORMATION: Abdominal pain, diarrhea, rule out colitis COMPARISON: 06/17/2017 TECHNIQUE: Multidetector volumetric imaging was performed from the superior aspect of the liver through the pubic symphysis. Sagittal and coronal reformatted images were obtained on the technologist's workstation. This CT examination was performed using dose optimization techniques as appropriate, variously including the following: *Automated exposure control *Adjustment of mA and/or kV according to patient size (this includes techniques or standardized protocols for targeted exams where dose is matched to indication/reason for exam; i.e. extremities or head) *Use of iterative reconstruction technique DLP: 945 mGy-cm FINDINGS: COMPLIANCE REPRESENTATIVE DEALER: Nonobstructive bowel pattern. LUNG BASES: The visualized lung bases are unremarkable, study limited by motion artifact. LIVER, GALLBLADDER, AND BILIARY TREE: The liver is enlarged and of global hypoattenuation. No focal hepatic lesion or biliary ductal dilatation is present. The gallbladder is unremarkable with no evidence of radiopaque gallstones, gallbladder wall thickening, or obvious pericholecystic inflammatory changes. PANCREAS: Unremarkable. SPLEEN: Unremarkable. Splenule. ADRENAL GLANDS: Unremarkable. KIDNEYS AND URETERS: The kidneys are normal in size, shape, and attenuation. No hydronephrosis, hydroureter, or calculi seen. Nonspecific mild perinephric stranding. BLADDER: Decompressed with irregular shaggy solis and surrounding stranding. GASTROINTESTINAL TRACT: Well distended and unremarkable. Nonobstructive bowel pattern. Unremarkable appendix. Diffuse diverticulosis with sigmoid colonic thickening and pericolonic stranding. Inferiorly, developing 4.2 abscess with air droplet not excluded, 3:76. No drainable fluid collection. This is in intimate association with irregular urinary bladder. ABDOMINAL WALL: Fat filled inguinal hernias. LYMPH NODES: Enlarged inguinal lymph nodes. No retroperitoneal lymphadenopathy. VASCULAR: Mild atherosclerotic calcifications. Nonaneurysmal aorta. Normal caliber inferior vena cava. PERITONEUM: Mesenteric mistiness and small mesenteric lymph nodes. No pathologic lymphadenopathy. PELVIC VISCERA: Unremarkable. OSSEOUS STRUCTURES: Unremarkable. CT/CT abdomen pelvis wo IV con IMPRESSION: Acute sigmoid diverticulitis. Developing abscess not excluded but no drainable fluid collections presently. Diverticulitis in intimate association with the adjacent thick-walled urinary bladder wall thickening, likely resulting in at least reactive bladder wall thickening, if not cystitis. Patient appears at risk to develop fistulous communication. Correlate with urinalysis with continued follow-up. Fleischner guidelines were followed.
--- NOTE | 2024-03-16 10:11 | ECG_ITS ---
Test Reason : A fib Blood Pressure : / mmHG Vent. Rate : 136 BPM Atrial Rate : 000 BPM P-R Int : 000 ms QRS Dur : 072 ms QT Int : 256 ms P-R-T Axes : 000 041 244 degrees QTc Int : 385 ms Atrial fibrillation with rapid ventricular response Nonspecific ST and T wave abnormality Abnormal ECG When compared with ECG of 27-FEB-2024 14:06, Atrial fibrillation has replaced Sinus rhythm Vent. rate has increased BY 59 BPM T wave inversion now evident in Inferior leads T wave inversion now evident in Anterior leads Referred By: Generic ED Physician Electronically Signed By:ALIS JARQUIN
[2024-03-16 10:53] LABS: MANUAL DIFF FLAG NO
[2024-03-16 10:57] LABS: Basophils Percent Auto 0.2 % (0-2); Eosinophils Absolute Auto 0.1 X10*3/uL (0.0-0.4); Eosinophils Percent Auto 0.7 % (0-4); Hematocrit 44.7 % (42.0-52.0); Hemoglobin 15.4 g/dl (14.0-18.0); Imm Gran Abs Auto 0.04 X10*3/uL (0.00-0.03); Imm Gran Pct Auto 0.4 % (0.0-0.4); Lymphocytes Absolute Auto 1.5 X10*3/uL (1.2-4.9); Lymphocytes Percent Auto 14.4 % (20-40); Mean Corpuscular HGB Conc 34.5 g/dl (31.0-36.0); Mean Corpuscular Hemoglobin 28.6 pg (27.0-33.0); Mean Corpuscular Volume 82.9 fL (80.0-98.0); Mean Platelet Volume 8.9 fL (9.4-12.4); Monocytes Absolute Auto 1.1 X10*3/uL (0.1-1.2); Monocytes Percent Auto 9.9 % (2-11); Neutrophils Percent Auto 74.4 % (45-73); Platelet Count 363 X10*3/uL (160-400); Red Blood Count 5.39 X10*6/uL (4.60-5.80); Red Cell Distribution Width 14.2 % (11.0-16.0); White Blood Count 10.7 X10*3/uL (4.8-10.8)
[2024-03-16 10:59] LABS: INTERNATIONAL NORM RATIO 1.3 (0.9-1.1); Prothrombin Time 16.3 SEC (11.1-13.3)
--- NOTE | 2024-03-16 11:01 | ED_ITS ---
HPI - Abdominal Pain General Chief Complaint: Abdominal Pain Stated Complaint: botulism ? Time Seen by Provider: 03/16/24 10:40 Source: patient Mode of arrival: ambulatory Limitations: no limitations History of Present Illness ED Provider: DR. Carmona HPI narrative: 63-year-old male history of paroxysmal AFib on Xarelto, MALICK on CPAP, psoriatic arthritis, asthma. Patient came in for evaluation persistent nonbloody watery diarrhea for 2 days started after eating [facility] chicken, patient has been taking Imodium with no relief of his symptoms, no nausea, no vomiting able to drink fluids and electrolyte orally, patient feeling dizzy and lightheadedness almost passing out this morning but never actually passed out. Otherwise no fever, no chills, complaining of diffuse intermittent abdominal cramps, patient declined using any recent antibiotic. Patient do not feel palpitation. Related Data Home Medications ?Medication ?Instructions ?Recorded ?Confirmed alclometasone 0.05 % topical cream 1 appl topical BID PRN Itching 01/02/23 03/03/24 fluocinonide 0.05 % topical cream 1 appl topical BID 01/02/23 03/03/24 ibuprofen 200 mg capsule 800 mg PO Q6H 03/27/23 03/03/24 tizanidine 4 mg tablet 4 mg PO BEDTIME 03/03/24 03/03/24 Previous Rx's ?Medication ?Instructions ?Recorded CPAP (CPAP Machine/Device) #1 ea 11/18/22 adhesive bandage 6 X 6 (Adhesive #50 ea 12/05/22 Pads) blood pressure kit-extra large #1 ea 08/06/23 miscellaneous medical supply 1 ea miscellaneous DAILY 99 days 09/22/23 #1 ea adhesive tape 2 X 10 yard #12 ea 09/29/23 (Medipore) gauze bandage 4 X 4 (Gauze Pad) #100 ea 11/05/23 menthol 0.44 %-zinc oxide 20.6 % 1 appl topical BID skin irritation 11/05/23 topical ointment (Calmoseptine) 30 days #113 grams miscellaneous medical supply 1 ea miscellaneous BID 30 days 11/05/23 #120 ea mupirocin 2 % topical ointment 1 appl topical BID 15 days #22 11/05/23 grams nystatin 100,000 unit/gram topical 1 appl topical DAILY 15 days #30 11/05/23 cream grams leg brace (Knee Support Brace) #1 ea 01/15/24 non-adherent bandage 8 X 10 #500 ea 01/15/24 acetaminophen 650 mg 650 mg PO Q12H 30 days #60 tabs 01/19/24 tablet,extended release (Tylenol Arthritis Pain) docusate sodium 100 mg capsule 100 mg PO BID PRN constipation #60 01/19/24 caps lactulose 10 gram/15 mL oral 15 ml PO BEDTIME PRN constipation 01/19/24 solution #237 mL tamsulosin 0.4 mg capsule 0.4 mg PO DAILY 30 days #30 caps 01/19/24 diltiazem HCl 180 mg 180 mg PO DAILY #90 caps 02/11/24 capsule,extended release 24 hr (Cardizem CD) Omni Tray for wheel chair #1 ea 02/24/24 rivaroxaban 20 mg tablet (Xarelto) 20 mg PO DAILY 90 days #90 tabs 03/01/24 albuterol sulfate 90 mcg/actuation 2 puff inhalation Q6H PRN 03/03/24 aerosol inhaler (Ventolin HFA) shortness of breath or wheezing 30 days #8.5 grams fluticasone propionate 50 1 spray intranasal DAILY 30 days 03/03/24 mcg/actuation nasal #16 grams spray,suspension furosemide 20 mg tablet 20 mg PO Q OTHER DAY 30 days #15 03/03/24 tabs digoxin 125 mcg (0.125 mg) tablet 125 mcg PO DAILY #90 tabs 03/09/24 diltiazem HCl 240 mg 240 mg PO DAILY #90 caps 03/09/24 capsule,extended release 24 hr Allergies Allergy/AdvReac Type Severity Reaction Status Date / Time tetanus toxoid, adsorbed Allergy Hives Verified 03/16/24 10:09 Review of Systems Review of Systems All other systems are reviewed and are negative Constitutional: Reports as per HPI and Reports no additional constitutional complaints Eyes: Reports as per HPI and Reports no additional eye complaints Reports system reviewed and no additional complaints, except as documented Cardiovascular: Reports as per HPI and Reports no additional cardiovascular complaints Respiratory: Reports as per HPI and Reports no additional respiratory complaints Gastrointestinal: Reports as per HPI and Reports no additional gastrointestinal complaints Genitourinary: Reports no additional female genitourinary complaints Musculoskeletal: Reports no additional musculoskeletal complaints Skin/Breast: Reports system reviewed and no additional complaints, except as docu Psychiatric: Reports no additional psychiatric complaints Endocrine: Reports no additional endocrine complaints Hematologic/Lymphatic: Reports no additional hematologic/lymphatic complaints Allergic/Immunologic: Reports no additional allergic/immunologic complaints Reports system reviewed and no additional complaints, except as documented and Reports Abnormal speech present [facility] Past Medical History Medical History Carpal tunnel syndrome Ambulates with cane [place] (hard of hearing) History of diverticulitis Weight loss Psoriatic arthritis MALICK on CPAP Morbid obesity PAF (paroxysmal atrial fibrillation) Surgical History Hx of colonoscopy Status post catheter ablation of atrial fibrillation History of cardiac radiofrequency ablation (RFA) (~11/05/17) Family History Family History Father CVD (cardiovascular disease) Mother CVD (cardiovascular disease) Atrial fibrillation Alzheimer disease Other Substance use disorder Social History Social History Household Members: Family Housing: House Do you presently have visiting nurse or other home services: No Alcohol intake: never Patient Tobacco Use Status: Former Tobacco user Tobacco use type: Cigarette Years Smoked: 20 +/- e-Cigarette/Vaping Use: Never Used Second Hand Smoke Exposure: No Advance Directives: Yes Advance Directives Information Provided: Yes Advance Directives on File: No service: No Current occupational status: disabled Cognitive needs: No Hearing needs: Yes (hearing aide) Vision needs: Yes (Glasses) Physical Exam ED Vital Signs: Vital Signs - 24 hr 03/16/24 10:08 03/16/24 10:53 03/16/24 10:54 Temperature 98 F Pulse Rate 77 94 92 Respiratory Rate 19 Blood Pressure 141/78 H 128/85 114/81 Pulse Oximetry 96 Oxygen Delivery Method Room Air 03/16/24 10:54 03/16/24 12:29 03/16/24 13:10 Temperature 98.6 F Pulse Rate 93 189 H 107 H Respiratory Rate 16 20 Blood Pressure 118/81 118/81 120/84 Pulse Oximetry 98 97 Oxygen Delivery Method Room Air Room Air BMI result Body Mass Index 33.5 Vital signs have been reviewed and appear to be correct. Blood pressure elevated. Heart rate normal. Respiratory rate normal. Temperature normal. Oxygen saturation normal. Appearance: Alert. Oriented X3. No acute distress. Head: Normal external exam. Normocephalic. Atraumatic. No Duval signs noted. No raccoon eyes noted Eyes: PERRLA. EOMI. Conjunctiva and sclera normal. Eyelids normal. ENT: TM's Normal. Pharynx normal. Uvula midline. Moist mucous membranes. No trismus noted. No drooling noted. No muffled voice noted. Neck: Normal inspection. Neck supple. FROM. No adenopathy. Thyroid Normal. No meningeal signs. No neck mass noted. CVS: Normal heart rate and rhythm. Heart sound normal. No murmurs noted. Pulses normal throughout. Respiratory: No respiratory distress. Painless inspiration. Breath sounds normal. No wheezes/rales/rhonchi noted. Chest nontender. No accessory muscle usage noted or decreased air movement noted. Abdomen: Soft and nontender. Bowel sounds normal in all 4 quadrants. No distention noted. No organomegaly noted. No visible injury noted. Back: No CVA tenderness. Full range of motion noted. Skin: Skin warm and dry. Normal skin color. Normal skin turgor. No rashes/lesions/lacerations noted. Extremities: No lower extremity edema. Extremities exhibit normal range of motion. Extremities nontender. Neuro: Oriented X 3. Cranial nerve exam: II-XII are grossly intact No motor deficit. No sensory deficit. Reflexes normal. Course Reevaluation(s) Reevaluation #1: 63-year-old male came in with multiple findings. 1. Rapid atrial fibrillation likely secondary to dehydration and subtherapeutic digoxin level, improved with IV hydration, digoxin. 2. Hypokalemia replete potassium IV/p.o.. 3. Constant diarrhea, CT abdomen pelvis questioning diverticulitis with questionable early abscess without definite drainable fluid collection. 4. Diverticulitis without SIRS, [place], case discussed with Dr. Akers plan to did admit to medicine with inpatient surgical consult. 5. Check stool samples when available for C diff/GI panel Time: 15:22 Medical Decision Making Differential Diagnosis Differential Diagnoses: The differential diagnosis associated with the presentation includes (Gastroenteritis, colitis, diverticulitis, pancreatitis, dehydration, hypovolemia, electrolyte derangement, severe anemia, subtherapeutic digoxin, digoxin toxicity, ACS, C diff.) Admission/Observation Consideration of admission/observation: Escalation of care including admission/observation considered Consult Healthcare Provider Management of the patient was discussed with: Hospitalist (Dr. Templeton) and Rover Tender (Dr. Akers) Lab Data MDM Lab Attestation statement: I reviewed the patient's lab results. 03/16/24 10:46 03/16/24 10:46 Labs: Lab Results 03/16/24 03/16/24 Range/Units 10:46 11:02 WBC 10.7 (4.8-10.8) X10*3/uL RBC 5.39 D (4.60-5.80) X10*6/uL Hgb 15.4 D (14.0-18.0) g/dl Hct 44.7 D (42.0-52.0) % MCV 82.9 (80.0-98.0) fL MCH 28.6 (27.0-33.0) pg MCHC 34.5 (31.0-36.0) g/dl RDW 14.2 (11.0-16.0) % Plt Count 363 (160-400) X10*3/uL MPV 8.9 L (9.4-12.4) fL Immature Gran % (Auto) 0.4 (0.0-0.4) % Neut % (Auto) 74.4 H (45-73) % Lymph % (Auto) 14.4 L (20-40) % [place] % (Auto) 9.9 (2-11) % Eos % (Auto) 0.7 (0-4) % Baso % (Auto) 0.2 (0-2) % Lymph # (Auto) 1.5 (1.2-4.9) X10*3/uL [place] # (Auto) 1.1 (0.1-1.2) X10*3/uL Eos # (Auto) 0.1 (0.0-0.4) X10*3/uL Baso # (Auto) 0.0 (0.0-0.2) X10*3/uL Abs Immat Gran (auto) 0.04 H (0.00-0.03) X10*3/uL Absolute Neuts (auto) 8.0 (2.0-8.3) x10*3/uL Absolute Nucleated RBC 0.000 (0.0-0.012) X10*3/uL Nucleated RBC % (auto) 0.0 (0.0-0.2) /100WBC PT 16.3 H (11.1-13.3) SEC INR 1.3 H (0.9-1.1) Sodium 139 (135-145) mmol/L Potassium 3.2 L (3.3-5.1) mmol/L Chloride 111 H (96-108) mmol/L Carbon Dioxide 20 L (22-29) mmol/L Anion Gap 11 L (12-20) BUN 19 H (9-16) mg/dL Creatinine 1.06 (0.5-1.4) mg/dL Estim Creat Clear Calc 89.5 Estimated GFR > 60 Random Glucose 105 (60-115) mg/dL Calcium 9.0 (8.4-10.2) mg/dL Total Bilirubin 1.0 (0.0-1.0) mg/dL Direct Bilirubin 0.4 (0.0-0.5) mg/dL AST 42 H (5-37) U/L ALT 63 H (0-40) U/L Alkaline Phosphatase 106 (39-117) U/L Troponin I High Sens < 2.7 D (<3.5-35.0) ng/L Total Protein 7.9 (6.5-8.0) g/dL Albumin 4.3 (3.5-5.0) g/dL Lipase 12 (8-78) U/L Digoxin 0.3 L (0.8-2.0) ng/mL Independent Interpretation I performed an independent interpretation of an: CT Scan (Abdomen pelvis:1. No evidence of acute intracranial hemorrhage or edematous territorial infarction. Extensive underlying microangiopathy and generalized cerebral volume loss. Chronic lacunar infarct of the left thalamus. 2. CTA of the head and neck without proximal occlusion or flow-limiting steno) Radiology Impression Discussion of test interpretation with radiology: I have reviewed the radiologist's reading. Chronic Conditions Patient?s care impacted by: Other (Chronic AFib) Medications Administered Discontinued Medications Generic Name Dose Route Start Last Admin Trade Name Freq PRN Reason Stop Dose Admin Digoxin 0.25 mg 03/16/24 13:01 03/16/24 13:07 Digoxin 0.5 Mg/2 Ml Ampul IVPUSH 03/16/24 13:02 0.25 mg ONCE ONE Administration Sodium Chloride 1,000 mls @ 999 mls/hr 03/16/24 10:47 03/16/24 11:07 Ns IV 03/16/24 11:47 999 mls/hr .Q1H1M ONE Administration Potassium Chloride 10 meq in 100 mls @ 100 mls/hr 03/16/24 14:12 03/16/24 14:43 Potassium Chloride/H20 IV 03/16/24 15:11 100 mls/hr ONCE ONE Administration Potassium Chloride 40 meq 03/16/24 14:12 03/16/24 14:43 Potassium Chloride Packet 20 Meq Packet PO 03/16/24 14:13 40 meq ONCE ONE Administration Critical Care Time Critical Care Time Critical Care Time: Yes Total Critical Care Time: 60 Attestation: The patient was critically ill with a high probability of imminent or life- threatening deterioration. I spent greater than 30 minutes of discontinuous time evaluating the patient, delivering critical care at the bedside, discussing evaluating data with consultants. Critical care time does not include time spent performing separately billable procedures or teaching. Time spent performing critical care was 60 minutes. Discharge Plan Discharge Clinical Impression: Atrial fibrillation with RVR, Diverticulitis, Dehydration, Acute hypokalemia Patient Disposition: Admitted As Inpatient Print Language: Palestinian
[2024-03-16] MEDS: 0.9 % Sodium Chloride 1,000 ML 999 ML IV (11:07)
[2024-03-16 11:13] LABS: Alanine Aminotransferase 63 U/L (0-40); Albumin Level 4.3 g/dL (3.5-5.0); Alkaline Phosphatase 106 U/L (39-117); Anion Gap 11 (12-20); Aspartate Amino Transferase 42 U/L (5-37); Bilirubin Direct 0.4 mg/dL (0.0-0.5); Blood Urea Nitrogen 19 mg/dL (9-16); Carbon Dioxide 20 mmol/L (22-29); Chloride 111 mmol/L (96-108); Creatinine Clr Calc Pharmacy 89.5; Estimated Glomerular Filt Rate > 60; Glucose Random 105 mg/dL (60-115); Lipase 12 U/L (8-78); Potassium 3.2 mmol/L (3.3-5.1); Sodium 139 mmol/L (135-145); Total Protein 7.9 g/dL (6.5-8.0)
[2024-03-16 11:18] LABS: Troponin-I High Sensitivity < 2.7 ng/L (<3.5-35.0)
[2024-03-16 11:31] LABS: Digoxin 0.3 ng/mL (0.8-2.0)
[2024-03-16] MEDS: Digoxin 0.5 MG/2 ML AMPUL 0.25 MG IVPUSH ×2 (13:07→19:36)
[2024-03-16] MEDS: Potassium Chloride Packet 20 MEQ PACKET 40 MEQ PO (14:43)
[2024-03-16] MEDS: Potassium Chloride/H20 10 MEQ/100 ML PIGGYBACK 100 MEQ IV (14:43)
--- NOTE | 2024-03-16 15:45 | P.HPHOSP_ITS ---
History of Present Illness Date of Service: 03/16/24 Attending physician on admission: Greyson Templeton Chief Complaint: Diarrhea 63-year-old male with history of MALICK on CPAP, paroxysmal atrial fibrillation anticoagulated with Xarelto and on digoxin, pyoderma, hyperlipidemia, hypertension, history of diverticulitis who is obese with BMI > 33 presented to the ED earlier today for evaluation of copious diarrhea ongoing for 3 days. He reports that he ate [place] fried chicken and shortly after developed copious diarrhea. He states his daughter developed similar symptoms but hers resolved shortly thereafter. He states that he has been having urgency and abdominal cramping with diarrheal episodes about every 20 minutes since then. Denies any melena hematochezia. No fevers, chills, nausea, vomiting, dysuria, hematuria, increased urinary frequency/urgency, lightheadedness, syncope, shortness breast, palpitations, chest pain. On arrival, heart rate 189 and noted to be in atrial fibrillation, vitals otherwise stable, no hypotension. Hematology studies unremarkable. Renal function baseline, potassium 3.2, chloride 111, CO2 20. AST 42, ALT 63. Troponin level undetectable. Lipase 12. Digoxin level 0.3. CT abdomen pelvis shows developing abscess with associated acute sigmoid diverticulitis. No drainable fluid collections presently. Diverticulitis is in intimate association with the adjacent thick-walled urinary bladder possibly resulting in at least reactive bladder wall thickening if not cystitis and appears to be at risk to developing fistulous communication. In the ED has received 1 L IV NS, 40 mEq potassium chloride orally and 10 mEq potassium chloride IV, IV Zosyn, and has been loaded with 0.25 mg IV digoxin. Review of Systems 2 Review of Systems: Yes all other systems are reviewed and are negative [facility] Medical History Carpal tunnel syndrome Ambulates with cane [place] (hard of hearing) History of diverticulitis Weight loss Psoriatic arthritis MALICK on CPAP Morbid obesity PAF (paroxysmal atrial fibrillation) Family History Father CVD (cardiovascular disease) Mother CVD (cardiovascular disease) Atrial fibrillation Alzheimer disease Other Substance use disorder Surgical History Hx of colonoscopy Status post catheter ablation of atrial fibrillation History of cardiac radiofrequency ablation (RFA) (~11/05/17) Social History Household Members: Family Housing: House Do you presently have visiting nurse or other home services: No Alcohol intake: never Patient Tobacco Use Status: Former Tobacco user Tobacco use type: Cigarette Years Smoked: 20 +/- e-Cigarette/Vaping Use: Never Used Second Hand Smoke Exposure: No Advance Directives: Yes Advance Directives Information Provided: Yes Advance Directives on File: No service: No Current occupational status: disabled Cognitive needs: No Hearing needs: Yes (hearing aide) Vision needs: Yes (Glasses) Meds Allergies Allergy/AdvReac Type Severity Reaction Status Date / Time tetanus toxoid, adsorbed Allergy Hives Verified 03/16/24 10:09 Home Medications ?Medication ?Instructions ?Recorded ?Confirmed ?Last Taken ?Type alclometasone 0.05 % topical cream 1 appl topical BID PRN Itching 01/02/23 03/16/24 Unknown History fluocinonide 0.05 % topical cream 1 appl topical BID PRN Rash 01/02/23 03/16/24 Unknown History ibuprofen 200 mg capsule 800 mg PO Q6H PRN Pain 03/27/23 03/16/24 Unknown History tizanidine 4 mg tablet 4 mg PO BEDTIME 03/03/24 03/16/24 03/15/24 History furosemide 20 mg tablet 20 mg PO Q48H 03/16/24 03/16/24 03/15/24 History menthol 0.44 %-zinc oxide 20.6 % 1 appl topical BID PRN skin 03/16/24 03/16/24 Unknown History topical ointment (Calmoseptine) irritation mupirocin 2 % topical ointment 1 appl topical BID PRN boils 03/16/24 03/16/24 Unknown History nystatin 100,000 unit/gram topical 1 appl topical DAILY PRN Rash 03/16/24 03/16/24 Unknown History cream rivaroxaban 20 mg tablet (Xarelto) 20 mg PO DAILY 03/16/24 03/16/24 03/15/24 History Physical Exam 2 Vital Signs and Narrative: Vital Signs: Last Vital Signs Temp 97.9 F 03/16/24 15:26 Pulse 105 H 03/16/24 15:26 Resp 13 03/16/24 15:26 BP 112/76 03/16/24 15:26 Pulse Ox 98 03/16/24 15:26 O2 Del Method Room Air 03/16/24 15:26 BMI result Body Mass Index 33.5 Constitutional - Awake and Alert, No apparent distress Eyes - PERRLA, EOMI Cardiovascular - S1S2, irregularly irregular, tachycardic, No edema Respiratory - Normal lung expansion, Normal respiratory effort, No respiratory distress, CTA bilaterally Gastrointestinal - NT / ND; +BS; No rebound or guarding Extremities - no calf tenderness bilaterally, no swelling Skin - Warm/Dry Neurological - Alert & oriented x3 Psychological - Appropriate affect Results Labs 03/16/24 10:46 03/16/24 10:46 Labs: Laboratory Results - last 24 hr 03/16/24 03/16/24 10:46 11:02 MCV 82.9 MCH 28.6 MCHC 34.5 RDW 14.2 Plt Count 363 MPV 8.9 L Immature Gran % (Auto) 0.4 Neut % (Auto) 74.4 H Lymph % (Auto) 14.4 L [place] % (Auto) 9.9 Eos % (Auto) 0.7 Baso % (Auto) 0.2 Lymph # (Auto) 1.5 [place] # (Auto) 1.1 Eos # (Auto) 0.1 Baso # (Auto) 0.0 Abs Immat Gran (auto) 0.04 H Absolute Neuts (auto) 8.0 Absolute Nucleated RBC 0.000 Nucleated RBC % (auto) 0.0 PT 16.3 H INR 1.3 H Anion Gap 11 L Estim Creat Clear Calc 89.5 Estimated GFR > 60 Random Glucose 105 Calcium 9.0 Total Bilirubin 1.0 Direct Bilirubin 0.4 AST 42 H ALT 63 H Alkaline Phosphatase 106 Troponin I High Sens < 2.7 D Total Protein 7.9 Albumin 4.3 Lipase 12 Digoxin 0.3 L Imaging Radiologist's Impressions: Impressions Abdomen/Pelvis CT 03/16/24 11:57 IMPRESSION: Acute sigmoid diverticulitis. Developing abscess not excluded but no drainable fluid collections presently. Diverticulitis in intimate association with the adjacent thick-walled urinary bladder wall thickening, likely resulting in at least reactive bladder wall thickening, if not cystitis. Patient appears at risk to develop fistulous communication. Correlate with urinalysis with continued follow-up. Fleischner guidelines were followed. Assessment and Plan (1) Acute hypokalemia: Status: Acute (2) Dehydration: Status: Acute (3) Diverticulitis: Status: Acute (4) Atrial fibrillation with RVR: Status: Acute Plan 63-year-old male with history of MALICK on CPAP, paroxysmal atrial fibrillation anticoagulated with Xarelto and on digoxin, pyoderma, hyperlipidemia, hypertension, history of diverticulitis who is obese with BMI > 33 admitted for further management of afib rvr secondary to dehydration from gi losses/diarrhea #Paroxysmal atrial fibrillation with rvr -hold Xarelto in case of surgical procedure. Will give therapeutic Lovenox in place of this for now -continue IVF -0.25 mg digoxin IV x2 additional doses, then resume p.o. digoxin (home dose). Digoxin level 0.3 -continue diltiazem -advanced to cardiac diet -cardiology consult -monitor on telemetry # acute diverticulitis with possible abscess -IV Levaquin and Flagyl (initiated 03/16) -general surgery consult -keep NPO for now -no leukocytosis, no sepsis # acute diarrhea with dehydration -GI panel and C diff PCR pending -hold on Imodium until infectious etiology ruled out -continue IVF # acute hypokalemia -due to GI losses, repleted in the ED -follow lytes #? Diverticular fistula -? Communicating with bladder -check UA -general surgery consult # hypertension -continue diltiazem, Lasix # BPH -Flomax DVT prophylaxis-therapeutic Lovenox Full code Patient requires inpatient stay at least 2 midnights for management of paroxysmal atrial fibrillation secondary to dehydration from GI losses and will require aggressive IV fluid resuscitation, digoxin load, expert consultation and close monitoring of renal function electrolyte levels Quality Stroke Does the patient have a stroke diagnosis?: No VTE Prior VTE?: No VTE Risk Level:: Medical - moderate - high VTE Device Contraindication: Treatment Not Indicated VTE Drug Contraindication: N/A - Med Ordered
[2024-03-16] MEDS: Piperacillin Sodium/Tazobactam 3.375 GM in 0.9 % Sodium Chloride 50 ML IV (15:48)
[2024-03-16] MEDS: Lactated Ringers 1,000 ML 100 ML IVCONT (16:56)
--- NOTE | 2024-03-16 16:59 | PHA.MEDREC ---
Addendum entered by Sundar Harris RPh 03/16/24 17:14: Reviewed by [facility], [facility]. Original Note: Pharmacy Consult ? Medication Reconciliation Pharmacy has completed the medication reconciliation. Spoke to patient to confirm med list. Patient was very kind and was able to tell me what he takes. Patient states that his Dr increased his diltiazem to 240 mg daily.
--- NOTE | 2024-03-16 17:55 | PM.CNGS ---
History of Present Illness Consult details Consult date: 03/16/24 Reason for consult: abdominal pain Narrative: The pt is a 63 year old male who has been treated for Afib with cardioversions etc who ate some ?chicken and he and his daughter got ill. He had significant diarrhea fo the last few days was nauseated but not much throwing up. He has been trying to stay hydrated with electrolyte drinks but feels like he is losing out so came to the hospital today. Here he is noted to be in rapid afib and this was corrected. He was noted to have some abdo discomfort and a ct scan showed changes of diverticulitis with inflammatory changes in the llq. He has known diverticulosis and has a recent colonoscopy which confirmed that. He has had episodes of diverticulitis in the past and says this feels very different than his previous episodes. He denies fever or chills. His heart rate is better Review of Systems Review of Systems: Yes all other systems are reviewed and are negative PMFSH Past Medical History Medical History Carpal tunnel syndrome Ambulates with cane AKUTAN (hard of hearing) History of diverticulitis Weight loss Psoriatic arthritis MALICK on CPAP Morbid obesity PAF (paroxysmal atrial fibrillation) Family History Family History Father CVD (cardiovascular disease) Mother CVD (cardiovascular disease) Atrial fibrillation Alzheimer disease Other Substance use disorder Surgical History Surgical History Hx of colonoscopy Status post catheter ablation of atrial fibrillation History of cardiac radiofrequency ablation (RFA) (~11/05/17) Social History Social History Household Members: Family Housing: House Do you presently have visiting nurse or other home services: No Alcohol intake: never Patient Tobacco Use Status: Former Tobacco user Tobacco use type: Cigarette Years Smoked: 20 +/- e-Cigarette/Vaping Use: Never Used Second Hand Smoke Exposure: No Advance Directives: Yes Advance Directives Information Provided: Yes Advance Directives on File: No service: No Current occupational status: disabled Cognitive needs: No Hearing needs: Yes (hearing aide) Vision needs: Yes (Glasses) Meds Allergies Allergy/AdvReac Type Severity Reaction Status Date / Time tetanus toxoid, adsorbed Allergy Hives Verified 03/16/24 10:09 Active Medications: Current Medications Acetaminophen (Acetaminophen 325 Mg Tablet) 650 mg PO Q6H PRN PRN Reason: Pain, Mild (Pain Scale 1-3), fever or headache Albuterol Sulfate (Albuterol Sulfate 90 Mcg 8 Gm Inhaler) 2 puff INHALE Q6H PRN PRN Reason: shortness of breath or wheezing Calcium Carbonate (Calcium Carbonate 750 Mg Tab.Chew) 750 mg PO Q4H PRN PRN Reason: Heartburn Digoxin (Digoxin 0.5 Mg/2 Ml Ampul) 0.25 mg IVPUSH Q6H HANNA Stop: 03/17/24 01:01 Diltiazem HCl (Diltiazem Hcl Cd 240 Mg Cap.Er.Deg) 240 mg PO DAILY HANNA; Protocol Enoxaparin Sodium (Enoxaparin Sodium 120 Mg/0.8 Ml Syringe) 105 mg 1 mg/kg (105 mg) SUBCUT Q12H [facility] Fluticasone Propionate (Fluticasone Propionate Nasal 16 Gm Marquette) 1 spray NOSTRIL-B DAILY [facility] Furosemide (Furosemide 20 Mg Tablet) 20 mg PO Q48H HANNA; Protocol Lactated Ringer's (Lr) 1,000 mls @ 100 mls/hr IVCONT .Q10H HANNA Last Admin: 03/16/24 16:56 Dose: 100 mls/hr Levofloxacin (Levaquin) 750 mg in 150 mls @ 100 mls/hr IV Q24H [facility] Metronidazole (Flagyl) 500 mg in 100 mls @ 100 mls/hr IV Q8H [facility] Magnesium Hydroxide (Milk Of Magnesia 30 Ml Oral.Susp) 30 ml PO DAILY PRN PRN Reason: Constipation Melatonin (Melatonin 3 Mg Tablet) 6 mg PO BEDTIME PRN PRN Reason: Insomnia Nystatin (Nystatin Cream 15 Gm Tube) 1 appl TOPICAL DAILY PRN; Protocol PRN Reason: Rash Sodium Chloride (0.9 % Sodium Chloride Flush 3 Ml Syringe) 3 ml IVFLUSH QSHIFT [facility]ANNA Tamsulosin HCl (Tamsulosin Hcl 0.4 Mg Capsule) 0.4 mg PO DAILY [facility] Tizanidine HCl (Tizanidine Hcl 4 Mg Tablet) 4 mg PO BEDTIME [facility] Triamcinolone Acetonide (Triamcinolone Acet 0.5 % Cream 15 Gm Tube) 1 appl TOPICAL BID PRN PRN Reason: Rash Home Medications ?Medication ?Instructions ?Recorded ?Confirmed ?Last Taken ?Type alclometasone 0.05 % topical cream 1 appl topical BID PRN Itching 01/02/23 03/16/24 Unknown History fluocinonide 0.05 % topical cream 1 appl topical BID PRN Rash 01/02/23 03/16/24 Unknown History ibuprofen 200 mg capsule 800 mg PO Q6H PRN Pain 03/27/23 03/16/24 Unknown History tizanidine 4 mg tablet 4 mg PO BEDTIME 03/03/24 03/16/24 03/15/24 History furosemide 20 mg tablet 20 mg PO Q48H 03/16/24 03/16/24 03/15/24 History menthol 0.44 %-zinc oxide 20.6 % 1 appl topical BID PRN skin 03/16/24 03/16/24 Unknown History topical ointment (Calmoseptine) irritation mupirocin 2 % topical ointment 1 appl topical BID PRN boils 03/16/24 03/16/24 Unknown History nystatin 100,000 unit/gram topical 1 appl topical DAILY PRN Rash 03/16/24 03/16/24 Unknown History cream rivaroxaban 20 mg tablet (Xarelto) 20 mg PO DAILY 03/16/24 03/16/24 03/15/24 History Physical Exam Vital Signs: Vital Signs: Last Vital Signs Temp 97.9 F 03/16/24 15:26 Pulse 92 03/16/24 16:12 Resp 13 03/16/24 16:12 BP 127/85 03/16/24 16:12 Pulse Ox 98 03/16/24 16:12 O2 Del Method Room Air 03/16/24 16:12 BMI result Body Mass Index 33.5 Const: General: cooperative, healthy appearing, comfortable and no acute distress Orientation/consciousness: oriented to person, oriented to place and oriented to time Resp: Effort & Inspection: normal respiratory effort Cardio: Rate: regular rate Rhythm: abnormal rhythm GI: Other: abdomen soft mild tenderness left side no guarding or rebound no peritoneal signs no masses Neuro: General: oriented to person, oriented to place and oriented to time Extrem: General: Yes normal to inspection Results Labs 03/16/24 10:46 03/16/24 10:46 Labs: Abnormal lab results 03/16/24 03/16/24 Range/Units 10:46 11:02 MPV 8.9 L (9.4-12.4) fL Neut % (Auto) 74.4 H (45-73) % Lymph % (Auto) 14.4 L (20-40) % Abs Immat Gran (auto) 0.04 H (0.00-0.03) X10*3/uL PT 16.3 H (11.1-13.3) SEC INR 1.3 H (0.9-1.1) Potassium 3.2 L (3.3-5.1) mmol/L Chloride 111 H (96-108) mmol/L Carbon Dioxide 20 L (22-29) mmol/L Anion Gap 11 L (12-20) BUN 19 H (9-16) mg/dL AST 42 H (5-37) U/L ALT 63 H (0-40) U/L Digoxin 0.3 L (0.8-2.0) ng/mL Short CBC 03/16/24 Range/Units 10:46 WBC 10.7 (4.8-10.8) X10*3/uL Hgb 15.4 D (14.0-18.0) g/dl Hct 44.7 D (42.0-52.0) % Plt Count 363 (160-400) X10*3/uL BMP 03/16/24 10:46 Sodium 139 Potassium 3.2 L Chloride 111 H Carbon Dioxide 20 L BUN 19 H Creatinine 1.06 Calcium 9.0 Liver Function 03/16/24 Range/Units 10:46 Total Bilirubin 1.0 (0.0-1.0) mg/dL Direct Bilirubin 0.4 (0.0-0.5) mg/dL AST 42 H (5-37) U/L ALT 63 H (0-40) U/L Alkaline Phosphatase 106 (39-117) U/L Albumin 4.3 (3.5-5.0) g/dL All other labs normal. Imaging Additional studies: Chart - [employer] ? Diagnostics Subcategory All Activity ??:?? All Time ??:?? All Subcategories Filter Laboratory Imaging Microbiology Pathology Blood Bank Tests Cardiovascular Other Specialty DATE TYPE STATUS REF RANGE/AUTHOR Hx 03/16/24 11:57 Abdomen/Pelvis CT Signed Melissa Schaefer 11/21/23 09:03 Nasal Bones X-Ray Signed Christiana Landa 11/21/23 09:03 Face X-Ray Signed Christiana Landa 09/15/23 00:00 General Surgery Image ? 01/02/23 12:54 Chest X-Ray Signed Jonah Cortes 03/31/22 16:31 Shoulder X-Ray Signed Alexis Terry 03/31/22 16:31 Chest X-Ray Signed Alexis Terry 03/31/22 15:[address] Signed Alexis Terry 03/31/22 15:[address] Signed Alexis Terry He/Him/His Tom Miner Acute 63, M?1960 MRN#? [id number] ADM IN,?Emergency Department??ED Bed 13?-ED13? 5ft 11in 240lb BSA: 2.34m? BMI: 33.5kg/m? Acc#? [id number] Full Code Historical Visits Allergies tetanus toxoid, adsorbed Hives Problems ? ONSET Acute hypokalemia Dehydration Diverticulitis Atrial fibrillation with RVR Lower extremity edema Osteoarthritis of right knee Need for tetanus booster Tubular adenoma of colon Urinary frequency Psoriasiform eruption History of colon polyps HLD (hyperlipidemia) Colon cancer screening Annual physical exam HTN (hypertension) Impetigo Cellulitis Obese Low back pain Moderate anxiety Mild depression Pyoderma Allergic rhinitis Constipation Psoriasis Intermittent asthma Psoriatic arthritis MALICK on CPAP Morbid obesity Status post catheter ablation of atrial fibrillation PAF (paroxysmal atrial fibrillation) Vital Signs 03/16/24 20:44 BP 124/67? Pulse 100? Resp 15? Temp 97.7 F? O2 Sat 97? Delivery Room Air? Home Meds Not Confirmed Prescription Monitoring Program MEDICATIONS (INSTRUCTIONS) LAST TAKEN Active acetaminophen 650 mg tablet,extended release 650 [id number] days#60 tabs 03/15/24 albuterol sulfate 90 mcg/actuation aerosol inhaler 2 [id number] of breath or [id number] days#8.5 grams Unknown alclometasone 1 appltopicalBIDPRNItching Unknown digoxin 125 mcg (0.125 mg) tablet 125 mcgPODAILY#90 tabs 03/15/24 diltiazem HCl 240 mg capsule,extended release 24 hr 240 mgPODAILY#90 caps 03/15/24 docusate sodium 100 mg capsule 100 mgPOBIDPRNconstipation#60 caps Unknown fluocinonide 1 appltopicalBIDPRNRash Unknown fluticasone propionate 50 mcg/actuation nasal spray,suspension 1 [id number] days#16 grams 03/15/24 furosemide 20 [id number] 03/15/24 ibuprofen 200 mg capsule 800 [id number] Unknown lactulose 10 gram/15 mL oral solution 15 mlPOBEDTIMEPRNconstipation#237 mL Unknown menthol-zinc oxide [Calmoseptine] 1 appltopicalBIDPRNskin irritation Unknown mupirocin 1 appltopicalBIDPRNboils Unknown nystatin 1 appltopicalDAILYPRNRash Unknown rivaroxaban [Xarelto] 20 mgPODAILY 03/15/24 tamsulosin 0.4 mg capsule 0.4 [id number] days#30 caps 03/15/24 tizanidine 4 mg tablet 4 mgPOBEDTIME 03/15/24 DME/Medical Supplies ??adhesive bandage 6 X 6 ??adhesive tape 2 X 10 yard ??blood pressure kit-extra large ??CPAP ??gauze bandage 4 X 4 ??leg brace ??non-adherent bandage 8 X 10 ??Omni Tray for wheel chair ?Not Included in Conflicts My Widget No Data to Display Diagnostics Reports MarymaulikTom??He/Him/His??63??M??1960 ? Allergy/Adv: tetanus toxoid, adsorbed (More??) Close Abdomen/Pelvis CT (Signed) Melissa Schaefer - 03/16/24 Nasal Bones X-Ray (Signed) Christiana Landa - 11/21/23 Face X-Ray (Signed) Christiana Landa - 11/21/23 General Surgery Image 09/15/23 Chest X-Ray (Signed) Jonah Cortes - 01/02/23 Shoulder X-Ray (Signed) Alexis Terry - 03/31/22 Chest X-Ray (Signed) Alexis Terry - 03/31/[address] (Signed) Alexis Terry - 03/31/[address] (Signed) Alexis Terry - 03/31/22 Launch?Image [address] [address] [address] Scan Report Signed Patient: Tom Miner MR#: [id number] : 1960 Acct:[id number] Age/Sex: 63 / M ADM Date: 03/16/24 Loc: HO.ED Attending Dr: Ordering Physician: Rafa Carmona MD Date of Service: 03/16/24 Procedure(s): CT abdomen pelvis wo IV con Accession Number(s): [id number] cc: Rafa Carmona MD; Noam Zapata PA-C~ EXAMINATION: CT ABDOMEN AND PELVIS WITHOUT CONTRAST CLINICAL INFORMATION: Abdominal pain, diarrhea, rule out colitis COMPARISON: 06/17/2017 TECHNIQUE: Multidetector volumetric imaging was performed from the superior aspect of the liver through the pubic symphysis. Sagittal and coronal reformatted images were obtained on the technologist's workstation. This CT examination was performed using dose optimization techniques as appropriate, variously including the following: *Automated exposure control *Adjustment of mA and/or kV according to patient size (this includes techniques or standardized protocols for targeted exams where dose is matched to indication/reason for exam; i.e. extremities or head) *Use of iterative reconstruction technique DLP: 945 mGy-cm FINDINGS: RENAL SOCIAL WORKER: Nonobstructive bowel pattern. LUNG BASES: The visualized lung bases are unremarkable, study limited by motion artifact. LIVER, GALLBLADDER, AND BILIARY TREE: The liver is enlarged and of global hypoattenuation. No focal hepatic lesion or biliary ductal dilatation is present. The gallbladder is unremarkable with no evidence of radiopaque gallstones, gallbladder wall thickening, or obvious pericholecystic inflammatory changes. PANCREAS: Unremarkable. SPLEEN: Unremarkable. Splenule. ADRENAL GLANDS: Unremarkable. KIDNEYS AND URETERS: The kidneys are normal in size, shape, and attenuation. No hydronephrosis, hydroureter, or calculi seen. Nonspecific mild perinephric stranding. BLADDER: Decompressed with irregular shaggy solis and surrounding stranding. GASTROINTESTINAL TRACT: Well distended and unremarkable. Nonobstructive bowel pattern. Unremarkable appendix. Diffuse diverticulosis with sigmoid colonic thickening and pericolonic stranding. Inferiorly, developing 4.2 abscess with air droplet not excluded, 3:76. No drainable fluid collection. This is in intimate association with irregular urinary bladder. ABDOMINAL WALL: Fat filled inguinal hernias. LYMPH NODES: Enlarged inguinal lymph nodes. No retroperitoneal lymphadenopathy. VASCULAR: Mild atherosclerotic calcifications. Nonaneurysmal aorta. Normal caliber inferior vena cava. PERITONEUM: Mesenteric mistiness and small mesenteric lymph nodes. No pathologic lymphadenopathy. PELVIC VISCERA: Unremarkable. OSSEOUS STRUCTURES: Unremarkable. CT/CT abdomen pelvis wo IV con IMPRESSION: Acute sigmoid diverticulitis. Developing abscess not excluded but no drainable fluid collections presently. Diverticulitis in intimate association with the adjacent thick-walled urinary bladder wall thickening, likely resulting in at least reactive bladder wall thickening, if not cystitis. Patient appears at risk to develop fistulous communication. Correlate with urinalysis with continued follow-up. Fleischner guidelines were followed. Dictated By: Melissa Schaefer MD Signed By: <Electronically signed by Melissa Schaefer MD in OV> 03/16/24 1433 DD/ 1157 TD/TT: Chore Tender: Assessment and Plan (1) Colitis: Status: Acute Plan 63 year old male with abdominal pain and diarrhea CT scan showing findings ?diverticulitis-pt says this feels different - pt has some type of colitis could be infectious- his exam is not worrisome - would advise stool cultures, npo with iv hydration, serial abdo exams, antibiotics. GI consult as needed. No need for any surgical intervention at this time. If deemed to be diverticulitis pt may benefit from elective surgery at some point. Procedures Date of Service Date of Service: 03/17/24
[2024-03-16] MEDS: Enoxaparin Sodium 120 MG/0.8 ML SYRINGE 105 MG SUBCUT (19:48)
--- NOTE | 2024-03-16 20:00 | PC.NURSE ---
pt is axox4 resting comfortably in stretcher. pt reports L. AC iv uncomfortable as iv pump triggers when he bends his arm. new iv established to L. wrist and ivf infusing. pt medicated per mar. call bautista within reach.
[2024-03-16 20:50] LABS: Appearance Urine Cloudy; Color Urine Yellow; Glucose Urine UA Negative (Negative); Leukocyte Esterase Urine Negative (Negative); Nitrite Urine Negative (Negative); PH 5.5 (5.0-9.0); Urine Blood Negative (Negative); Urine Ketones Negative (Negative); Urine Protein Negative (Neg-Trace)
[2024-03-16 21:00] LABS: OBS Int Ctl Valid YES; OBS1 POSITIVE (NEGATIVE)
[2024-03-16] MEDS: levoFLOXacin/D5W 750 MG/150 ML PIGGYBACK 100 MG IV (21:10)
[2024-03-16] MEDS: TiZANidine HCL 4 MG TABLET PO (21:12)
--- NOTE | 2024-03-16 21:17 | PC.NURSE ---
iv abx infusing. call bautista within reach. pt reports generalized pain 3/10, increases to 8/10 with movement. medicated per oct.
[2024-03-16 21:38] LABS: CDiff Gene PCR NEGATIVE (Negative)
[2024-03-16] MEDS: metroNIDAZOLE/NS 500 MG/100 ML PIGGYBACK 100 MG IV (23:32)
--- NOTE | 2024-03-16 23:39 | PC.NURSE ---
pt reports accidentally ripped out 22g iv L. wrist. area cleaned and dressed. new iv established L. hand 22g. pt resting comfortably. RT called for CPAP as pt reports he wants to sleep, tolerating well. call bautista within reach.
[2024-03-17] VITALS (11 sets, daily range): BP systolic 110–138; BP diastolic 59–80; PULSE 71–105; RESP 16–21; TEMP 36–37.1; O2SAT 96–99
[2024-03-17] MEDS: Digoxin 0.5 MG/2 ML AMPUL 0.25 MG IVPUSH (02:29)
--- NOTE | 2024-03-17 04:03 | PC.NURSE ---
pt reports he is feeling uncomfortable. helped with the urinal. pt offered prn for pain and refused. offered hospital bed/extra pillows and pt refused. pt requested warm blankets and hospital socks. pt reports hes comfortable at this time and denies further concerns. call bautista within reach.
[2024-03-17 05:14] LABS: MANUAL DIFF FLAG NO
[2024-03-17 05:19] LABS: Basophils Percent Auto 0.3 % (0-2); Eosinophils Absolute Auto 0.1 X10*3/uL (0.0-0.4); Eosinophils Percent Auto 0.9 % (0-4); Hematocrit 41.1 % (42.0-52.0); Hemoglobin 13.9 g/dl (14.0-18.0); Imm Gran Abs Auto 0.02 X10*3/uL (0.00-0.03); Imm Gran Pct Auto 0.3 % (0.0-0.4); Lymphocytes Absolute Auto 1.9 X10*3/uL (1.2-4.9); Lymphocytes Percent Auto 25.1 % (20-40); Mean Corpuscular HGB Conc 33.8 g/dl (31.0-36.0); Mean Corpuscular Hemoglobin 28.3 pg (27.0-33.0); Mean Corpuscular Volume 83.5 fL (80.0-98.0); Mean Platelet Volume 9.2 fL (9.4-12.4); Monocytes Absolute Auto 0.6 X10*3/uL (0.1-1.2); Monocytes Percent Auto 7.8 % (2-11); Neutrophils Absolute Auto 4.9 x10*3/uL (2.0-8.3); Neutrophils Percent Auto 65.6 % (45-73); Platelet Count 286 X10*3/uL (160-400); Red Blood Count 4.92 X10*6/uL (4.60-5.80); Red Cell Distribution Width 13.9 % (11.0-16.0); White Blood Count 7.5 X10*3/uL (4.8-10.8)
[2024-03-17 05:34] LABS: Anion Gap 12 (12-20); Blood Urea Nitrogen 13 mg/dL (9-16); Calcium 8.9 mg/dL (8.4-10.2); Carbon Dioxide 20 mmol/L (22-29); Chloride 110 mmol/L (96-108); Creatinine Clr Calc Pharmacy 112.9; Estimated Glomerular Filt Rate > 60; Glucose Random 87 mg/dL (60-115); Potassium 3.9 mmol/L (3.3-5.1); Sodium 138 mmol/L (135-145)
[2024-03-17] MEDS: Lactated Ringers 1,000 ML 100 ML IVCONT ×2 (06:03→16:14)
[2024-03-17] MEDS: metroNIDAZOLE/NS 500 MG/100 ML PIGGYBACK 100 MG IV ×2 (06:04→16:13)
[2024-03-17] MEDS: Enoxaparin Sodium 120 MG/0.8 ML SYRINGE 105 MG SUBCUT (07:30)
[2024-03-17] MEDS: 0.9 % Sodium Chloride Flush 3 ML SYRINGE IVFLUSH ×2 (07:33→16:13)
[2024-03-17] MEDS: Tamsulosin HCL 0.4 MG CAPSULE PO (09:15)
[2024-03-17] MEDS: Furosemide 20 MG TABLET PO (09:15)
[2024-03-17 09:19] LABS: Adenovirus F 40/41 Not Detected (Not Detect.); Astrovirus Not Detected (Not Detect.); Campylobacter Not Detected (Not Detect.); Cryptosporidium Not Detected (Not Detect.); Cyclospora cayetanensis Not Detected (Not Detect.); E. coli EAEC Not Detected (Not Detect.); E. coli EPEC Not Detected (Not Detect.); E. coli ETEC Not Detected (Not Detect.); E. coli STEC Not Detected (Not Detect.); Entamoeba histolytica Not Detected (Not Detect.); Giardia lamblia Not Detected (Not Detect.); Norovirus GI/GII Not Detected (Not Detect.); Plesiomonas shigelloides Not Detected (Not Detect.); Rotavirus A Not Detected (Not Detect.); Salmonella Not Detected (Not Detect.); Sapovirus Not Detected (Not Detect.); Shigella sp./EIEC Not Detected (Not Detect.); Vibrio Not Detected (Not Detect.); Vibrio Cholerae Not Detected (Not Detect.); Yersinia enterocolitica Not Detected (Not Detect.)
--- NOTE | 2024-03-17 10:15 | PM.CNCAR ---
History of Present Illness History of Present Illness Date of Service: 03/17/24 Chief complaint: afib rvr dehydration diarrhea Narrative: This is a cardiology consultation regarding atrial fibrillation. Patient is well known to our practice. He has a history of atrial fibrillation ablation. He has been fine for many years due last year when he had recurrence of atrial fibrillation. There was a plan for ERMIAS/cardioversion but then he converted to sinus rhythm. Then been on flecainide/diltiazem. He was doing fine but then again had more recent atrial fibrillation issues for which she underwent 2 cardioversions. In spite of being on amiodarone, he is back in atrial fibrillation. Then, rate control meds were optimized and then plan for another ablation. He is actually awaiting EP consultation in few months. He is currently admitted for lot of diarrhea. In fact, he was having diarrhea every 20 minutes or so. In this context, he was also having atrial fibrillation rapid rate. Then it seems that he has been fluid resuscitated and then the heart rate is actually come down quite a bit. When I was physically in the room, the atrial fibrillation rate was around 90-100/Min. Otherwise, he states he feels well and not having any cardiac symptoms at this time. Diarrhea is also improved. Review of Systems Review of Systems: Yes all other systems are reviewed and are negative Constitutional: Constitutional: Reports as per HPI and Reports no additional constitutional complaints Eyes: Eyes: Reports as per HPI and Denies no additional eye complaints ENT: Denies system reviewed and no additional complaints, except as documented and Reports as per HPI Cardiovascular: Cardiovascular: Reports as per HPI, Reports no additional cardiovascular complaints, Denies acrocyanosis, Denies cool extremities, Denies chest pain, Denies leg edema, Denies lightheadedness, Denies palpitations and Denies dyspnea Respiratory: Respiratory: Reports as per HPI, Denies no additional respiratory complaints and Denies dyspnea Gastrointestinal: Gastrointestinal: Reports as per HPI (diarrhea) and Denies no additional gastrointestinal complaints Genitourinary: Genitourinary: Reports no additional male genitourinary complaints and Reports as per HPI Musculoskeletal: Musculoskeletal: Reports no additional musculoskeletal complaints and Reports as per HPI Integumentary/Breasts: Skin/Breast: Reports system reviewed and no additional complaints, except as docu Neurologic: Reports system reviewed and no additional complaints, except as documented and Reports as per HPI Psychiatric: Psychiatric: Reports no additional psychiatric complaints and Reports as per HPI Endocrine: Endocrine: Reports no additional endocrine complaints, Reports as per HPI and Denies palpitations Hematologic/Lymphatic: Hematologic/Lymphatic: Reports no additional hematologic/lymphatic complaints and Reports as per HPI Allergic/Immunologic: Allergic/Immunologic: Reports no additional allergic/immunologic complaints and Reports as per HPI PMFSH Past Medical History Medical History Carpal tunnel syndrome Ambulates with cane [place]ILKAT (hard of hearing) History of diverticulitis Weight loss Psoriatic arthritis MALICK on CPAP Morbid obesity PAF (paroxysmal atrial fibrillation) Family History Family History Father CVD (cardiovascular disease) Mother CVD (cardiovascular disease) Atrial fibrillation Alzheimer disease Other Substance use disorder Surgical History Surgical History Hx of colonoscopy Status post catheter ablation of atrial fibrillation History of cardiac radiofrequency ablation (RFA) (~11/05/17) Social History Social History Household Members: Family Housing: House Do you presently have visiting nurse or other home services: No Alcohol intake: never Patient Tobacco Use Status: Former Tobacco user Tobacco use type: Cigarette Years Smoked: 20 +/- e-Cigarette/Vaping Use: Never Used Second Hand Smoke Exposure: No service: No Current occupational status: disabled Cognitive needs: No Hearing needs: Yes (hearing aide) Vision needs: Yes (Glasses) Meds Allergies Allergy/AdvReac Type Severity Reaction Status Date / Time tetanus toxoid, adsorbed Allergy Hives Verified 03/16/24 10:09 Active Medications: Current Medications Acetaminophen (Acetaminophen 325 Mg Tablet) 650 mg PO Q6H PRN PRN Reason: Pain, Mild (Pain Scale 1-3), fever or headache Albuterol Sulfate (Albuterol Sulfate 90 Mcg 8 Gm Inhaler) 2 puff INHALE Q6H PRN PRN Reason: shortness of breath or wheezing Calcium Carbonate (Calcium Carbonate 750 Mg Tab.Chew) 750 mg PO Q4H PRN PRN Reason: Heartburn Diltiazem HCl (Diltiazem Hcl Cd 240 Mg Cap.Er.Deg) 240 mg PO DAILY [facility]; Protocol Enoxaparin Sodium (Enoxaparin Sodium 120 Mg/0.8 Ml Syringe) 105 mg 1 mg/kg (105 mg) SUBCUT Q12H [facility] Last Admin: 03/17/24 07:30 Dose: 105 mg Fluticasone Propionate (Fluticasone Propionate Nasal 16 Gm [place]) 1 spray NOSTRIL-B DAILY [facility] Furosemide (Furosemide 20 Mg Tablet) 20 mg PO Q48H [facility]; Protocol Last Admin: 03/17/24 09:15 Dose: 20 mg Lactated Ringer's (Lr) 1,000 mls @ 100 mls/hr IVCONT .Q10H [facility] Last Admin: 03/17/24 06:03 Dose: 100 mls/hr Levofloxacin (Levaquin) 750 mg in 150 mls @ 100 mls/hr IV Q24H [facility] Last Infusion: 03/16/24 23:32 Dose: Infused Metronidazole (Flagyl) 500 mg in 100 mls @ 100 mls/hr IV Q8H [facility] Last Admin: 03/17/24 06:04 Dose: 100 mls/hr Magnesium Hydroxide (Milk Of Magnesia 30 Ml Oral.Susp) 30 ml PO DAILY PRN PRN Reason: Constipation Melatonin (Melatonin 3 Mg Tablet) 6 mg PO BEDTIME PRN PRN Reason: Insomnia Nystatin (Nystatin Cream 15 Gm Tube) 1 appl TOPICAL DAILY PRN; Protocol PRN Reason: Rash Sodium Chloride (0.9 % Sodium Chloride Flush 3 Ml Syringe) 3 ml IVFLUSH QSHIFT [facility] Last Admin: 03/17/24 07:33 Dose: 3 ml Tamsulosin HCl (Tamsulosin Hcl 0.4 Mg Capsule) 0.4 mg PO DAILY [facility] Last Admin: 03/17/24 09:15 Dose: 0.4 mg Tizanidine HCl (Tizanidine Hcl 4 Mg Tablet) 4 mg PO BEDTIME [facility] Last Admin: 03/16/24 21:12 Dose: 4 mg Triamcinolone Acetonide (Triamcinolone Acet 0.5 % Cream 15 Gm Tube) 1 appl TOPICAL BID PRN PRN Reason: Rash Home Medications ?Medication ?Instructions ?Recorded ?Confirmed ?Last Taken ?Type alclometasone 0.05 % topical cream 1 appl topical BID PRN Itching 01/02/23 03/16/24 Unknown History fluocinonide 0.05 % topical cream 1 appl topical BID PRN Rash 01/02/23 03/16/24 Unknown History ibuprofen 200 mg capsule 800 mg PO Q6H PRN Pain 03/27/23 03/16/24 Unknown History tizanidine 4 mg tablet 4 mg PO BEDTIME 03/03/24 03/16/24 03/15/24 History furosemide 20 mg tablet 20 mg PO Q48H 03/16/24 03/16/24 03/15/24 History menthol 0.44 %-zinc oxide 20.6 % 1 appl topical BID PRN skin 03/16/24 03/16/24 Unknown History topical ointment (Calmoseptine) irritation mupirocin 2 % topical ointment 1 appl topical BID PRN boils 03/16/24 03/16/24 Unknown History nystatin 100,000 unit/gram topical 1 appl topical DAILY PRN Rash 03/16/24 03/16/24 Unknown History cream rivaroxaban 20 mg tablet (Xarelto) 20 mg PO DAILY 03/16/24 03/16/24 03/15/24 History Physical Exam Vital Signs: Vital Signs: Last Vital Signs Temp 98.8 F 03/17/24 04:00 Pulse 84 03/17/24 04:00 Resp 18 03/17/24 04:00 BP 118/72 03/17/24 09:15 Pulse Ox 96 03/17/24 04:00 O2 Del Method Room Air 03/17/24 04:00 BMI result Body Mass Index 33.5 Const: General: comfortable and no acute distress Orientation/consciousness: patient oriented x3 HEENT: Other: Unremarkable Head: Yes normal to inspection Neck: Neck: Yes normal visual inspection Chest: Chest palpation & inspection: normal inspection of the chest Resp: Auscultation: clear to auscultation bilaterally Cardio: Palpation: normal PMI Heart sounds: S1 normal heart sound present, S2 normal heart sound present, no gallops, no murmurs and no rubs GI: Palpation (GI): Soft to palpation Back/Spine/Pelvis: Other: unremarkable Skin: General skin exam: no rashes or lesions noted Neuro: General: patient oriented x3 Extrem: General: Yes normal to inspection Psych: Mental Status: mental status grossly normal Objective Labs and Meds 03/17/24 04:27 03/17/24 04:27 Lab results: Laboratory Results - last 24 hr 0803/16/24 03/16/24 10:46 11:02 20:40 WBC 10.7 RBC 5.39 D Hgb 15.4 D Hct 44.7 D MCV 82.9 MCH 28.6 MCHC 34.5 RDW 14.2 Plt Count 363 MPV 8.9 L Immature Gran % (Auto) 0.4 Neut % (Auto) 74.4 H Lymph % (Auto) 14.4 L [place] % (Auto) 9.9 Eos % (Auto) 0.7 Baso % (Auto) 0.2 Lymph # (Auto) 1.5 [place] # (Auto) 1.1 Eos # (Auto) 0.1 Baso # (Auto) 0.0 Abs Immat Gran (auto) 0.04 H Absolute Neuts (auto) 8.0 Absolute Nucleated RBC 0.000 Nucleated RBC % (auto) 0.0 PT 16.3 H INR 1.3 H Sodium 139 Potassium 3.2 L Chloride 111 H Carbon Dioxide 20 L Anion Gap 11 L BUN 19 H Creatinine 1.06 Estim Creat Clear Calc 89.5 Estimated GFR > 60 Random Glucose 105 Calcium 9.0 Total Bilirubin 1.0 Direct Bilirubin 0.4 AST 42 H ALT 63 H Alkaline Phosphatase 106 Troponin I High Sens < 2.7 D Total Protein 7.9 Albumin 4.3 Lipase 12 Urine Color Yellow Urine Appearance Cloudy Urine pH 5.5 Ur Specific [place] 1.020 Urine Protein Negative Urine Glucose (UA) Negative Urine Ketones Negative Urine Blood Negative Urine Nitrite Negative Ur Leukocyte Esterase Negative Stool Occult Blood POSITIVE Stl C. cayetanensis PCR Not Detected Stool Rotavirus A PCR Not Detected Stl Adenov F 40/41 PCR Not Detected Stool Astrovirus (PCR) Not Detected Stool Campylobacter PCR Not Detected Stool Cryptosporidium PCR Not Detected Stl Sh Tox Pr E STEC PCR Not Detected Stool E coli O157 PCR Not applicable Stl Enterotoxigenic E PCR Not Detected Stool EPEC (PCR) Not Detected Stool EAEC (PCR) Not Detected Stl E. histolytica PCR Not Detected Stool Giardia Lamblia PCR Not Detected Stl P. shigelloides PCR Not Detected Stool Salmonella PCR Not Detected Stool Sapovirus (PCR) Not Detected Stl Shigella/EIEC PCR Not Detected St Y.enterocolitica PCR Not Detected Stool Vibrio (PCR) Not Detected Stl Vibrio cholerae PCR Not Detected Stl Norovirus GI/GII PCR Not Detected Digoxin 0.3 L C. difficile Tox B Gene NEGATIVE 03/17/24 04:27 WBC 7.5 RBC 4.92 Hgb 13.9 L Hct 41.1 L MCV 83.5 MCH 28.3 MCHC 33.8 RDW 13.9 Plt Count 286 MPV 9.2 L Immature Gran % (Auto) 0.3 Neut % (Auto) 65.6 Lymph % (Auto) 25.1 [place] % (Auto) 7.8 Eos % (Auto) 0.9 Baso % (Auto) 0.3 Lymph # (Auto) 1.9 [place] # (Auto) 0.6 Eos # (Auto) 0.1 Baso # (Auto) 0.0 Abs Immat Gran (auto) 0.02 Absolute Neuts (auto) 4.9 Absolute Nucleated RBC 0.000 Nucleated RBC % (auto) 0.0 PT INR Sodium 138 Potassium 3.9 D Chloride 110 H Carbon Dioxide 20 L Anion Gap 12 BUN 13 Creatinine 0.84 Estim Creat Clear Calc 112.9 Estimated GFR > 60 Random Glucose 87 Calcium 8.9 Total Bilirubin Direct Bilirubin AST ALT Alkaline Phosphatase Troponin I High Sens Total Protein Albumin Lipase Urine Color Urine Appearance Urine pH Ur Specific [place] Urine Protein Urine Glucose (UA) Urine Ketones Urine Blood Urine Nitrite Ur Leukocyte Esterase Stool Occult Blood Stl C. cayetanensis PCR Stool Rotavirus A PCR Stl Adenov F 40/41 PCR Stool Astrovirus (PCR) Stool Campylobacter PCR Stool Cryptosporidium PCR Stl Sh Tox Pr E STEC PCR Stool E coli O157 PCR Stl Enterotoxigenic E PCR Stool EPEC (PCR) Stool EAEC (PCR) Stl E. histolytica PCR Stool Giardia Lamblia PCR Stl P. shigelloides PCR Stool Salmonella PCR Stool Sapovirus (PCR) Stl Shigella/EIEC PCR St Y.enterocolitica PCR Stool Vibrio (PCR) Stl Vibrio cholerae PCR Stl Norovirus GI/GII PCR Digoxin C. difficile Tox B Gene ECG Interpretation: EKG on arrival shows atrial fibrillation rate of 136/Min. Nonspecific ST-T changes. Imaging Radiologist's impression: Impressions Abdomen/Pelvis CT 03/16/24 11:57 IMPRESSION: Acute sigmoid diverticulitis. Developing abscess not excluded but no drainable fluid collections presently. Diverticulitis in intimate association with the adjacent thick-walled urinary bladder wall thickening, likely resulting in at least reactive bladder wall thickening, if not cystitis. Patient appears at risk to develop fistulous communication. Correlate with urinalysis with continued follow-up. Fleischner guidelines were followed. Assessment and Plan (1) Atrial fibrillation with RVR: Status: Acute (2) Diverticulitis: Status: Acute (3) Dehydration: Status: Acute (4) Acute hypokalemia: Status: Acute Plan Initially, he had atrial fibrillation rapid rate on arrival, mainly due to diarrhea and dehydration. Also had hypokalemia. Now the atrial fibrillation rate is much better controlled. While I was physically in the room, rate was around 90-100/Min. He can continue the current dose of diltiazem and digoxin. Continue anticoagulation. Not clear if digoxin had any role diarrhea but if there is recurrent issue, we may have to address that. Otherwise, correct lytes, keep him well hydrated. Will follow with you. Also discussed with his daughter Erica over the phone. Procedures Date of Service Date of Service: 03/17/24
[2024-03-17] MEDS: dilTIAZem HCL CD 240 MG CAP.ER.DEG PO (10:42)
--- NOTE | 2024-03-17 10:42 | HO.PM.IMPN ---
Subjective Subjective Date of Service: 03/17/24 Interval History: abd pain, ready for clears, stool more formed Physical Exam Vital Signs: Vital Signs: Last Vital Signs Temp 96.8 F 03/17/24 10:25 Pulse 105 H 03/17/24 10:25 Resp 16 03/17/24 10:25 BP 138/66 03/17/24 10:25 Pulse Ox 99 03/17/24 10:25 O2 Del Method Room Air 03/17/24 10:25 BMI result Body Mass Index 33.5 Const: General: comfortable and no acute distress Orientation/consciousness: patient oriented x3 HEENT: Other: Unremarkable Head: Yes normal to inspection Neck: Neck: Yes normal visual inspection Chest: Chest palpation & inspection: normal inspection of the chest Resp: Auscultation: clear to auscultation bilaterally Cardio: Palpation: normal PMI Heart sounds: S1 normal heart sound present, S2 normal heart sound present, no gallops, no murmurs and no rubs GI: Palpation (GI): Soft to palpation Back/Spine/Pelvis: Other: unremarkable Skin: General skin exam: no rashes or lesions noted Neuro: General: patient oriented x3 Extrem: General: Yes normal to inspection Psych: Mental Status: mental status grossly normal Objective Data Active Medications Acetaminophen (Acetaminophen 325 Mg Tablet) 650 mg PO Q6H PRN PRN Reason: Pain, Mild (Pain Scale 1-3), fever or headache Albuterol Sulfate (Albuterol Sulfate 90 Mcg 8 Gm Inhaler) 2 puff INHALE Q6H PRN PRN Reason: shortness of breath or wheezing Calcium Carbonate (Calcium Carbonate 750 Mg Tab.Chew) 750 mg PO Q4H PRN PRN Reason: Heartburn Diltiazem HCl (Diltiazem Hcl Cd 240 Mg Cap.Er.Deg) 240 mg PO DAILY [facility]; Protocol Fluticasone Propionate (Fluticasone Propionate Nasal 16 Gm [place]) 1 spray NOSTRIL-B DAILY [facility] Furosemide (Furosemide 20 Mg Tablet) 20 mg PO Q48H [facility]; Protocol Last Admin: 03/17/24 09:15 Dose: 20 mg Documented By: LAVELLE Lactated Ringer's (Lr) 1,000 mls @ 100 mls/hr IVCONT .Q10H [facility] Last Admin: 03/17/24 06:03 Dose: 100 mls/hr Documented By: ANJALI Levofloxacin (Levaquin) 750 mg in 150 mls @ 100 mls/hr IV Q24H [facility] Last Infusion: 03/16/24 23:32 Dose: Infused Documented By: ANJALI Metronidazole (Flagyl) 500 mg in 100 mls @ 100 mls/hr IV Q8H [facility] Last Infusion: 03/17/24 10:31 Dose: Infused Documented By: THA Magnesium Hydroxide (Milk Of Magnesia 30 Ml Oral.Susp) 30 ml PO DAILY PRN PRN Reason: Constipation Melatonin (Melatonin 3 Mg Tablet) 6 mg PO BEDTIME PRN PRN Reason: Insomnia Nystatin (Nystatin Cream 15 Gm Tube) 1 appl TOPICAL DAILY PRN; Protocol PRN Reason: Rash Rivaroxaban (Rivaroxaban 20 Mg Tablet) 20 mg PO DAILY [facility] Sodium Chloride (0.9 % Sodium Chloride Flush 3 Ml Syringe) 3 ml IVFLUSH QSHIFT [facility] Last Admin: 03/17/24 07:33 Dose: 3 ml Documented By: LAVELLE Tamsulosin HCl (Tamsulosin Hcl 0.4 Mg Capsule) 0.4 mg PO DAILY [facility] Last Admin: 03/17/24 09:15 Dose: 0.4 mg Documented By: LAVELLE Tizanidine HCl (Tizanidine Hcl 4 Mg Tablet) 4 mg PO BEDTIME [facility] Last Admin: 03/16/24 21:12 Dose: 4 mg Documented By: ANJALI Triamcinolone Acetonide (Triamcinolone Acet 0.5 % Cream 15 Gm Tube) 1 appl TOPICAL BID PRN PRN Reason: Rash Labs 03/17/24 04:27 03/17/24 04:27 Labs: Laboratory Results - last 24 hr 03/16/24 03/16/24 03/16/24 10:46 11:02 20:40 MCV 82.9 MCH 28.6 MCHC 34.5 RDW 14.2 Plt Count 363 MPV 8.9 L Immature Gran % (Auto) 0.4 Neut % (Auto) 74.4 H Lymph % (Auto) 14.4 L [place] % (Auto) 9.9 Eos % (Auto) 0.7 Baso % (Auto) 0.2 Lymph # (Auto) 1.5 [place] # (Auto) 1.1 Eos # (Auto) 0.1 Baso # (Auto) 0.0 Abs Immat Gran (auto) 0.04 H Absolute Neuts (auto) 8.0 Absolute Nucleated RBC 0.000 Nucleated RBC % (auto) 0.0 PT 16.3 H INR 1.3 H Anion Gap 11 L Estim Creat Clear Calc 89.5 Estimated GFR > 60 Random Glucose 105 Calcium 9.0 Total Bilirubin 1.0 Direct Bilirubin 0.4 AST 42 H ALT 63 H Alkaline Phosphatase 106 Troponin I High Sens < 2.7 D Total Protein 7.9 Albumin 4.3 Lipase 12 Urine Color Yellow Urine Appearance Cloudy Urine pH 5.5 Ur Specific [place] 1.020 Urine Protein Negative Urine Glucose (UA) Negative Urine Ketones Negative Urine Blood Negative Urine Nitrite Negative Ur Leukocyte Esterase Negative Stool Occult Blood POSITIVE Stl C. cayetanensis PCR Not Detected Stool Rotavirus A PCR Not Detected Stl Adenov F 40/41 PCR Not Detected Stool Astrovirus (PCR) Not Detected Stool Campylobacter PCR Not Detected Stool Cryptosporidium PCR Not Detected Stl Sh Tox Pr E STEC PCR Not Detected Stool E coli O157 PCR Not applicable Stl Enterotoxigenic E PCR Not Detected Stool EPEC (PCR) Not Detected Stool EAEC (PCR) Not Detected Stl E. histolytica PCR Not Detected Stool Giardia Lamblia PCR Not Detected Stl P. shigelloides PCR Not Detected Stool Salmonella PCR Not Detected Stool Sapovirus (PCR) Not Detected Stl Shigella/EIEC PCR Not Detected St Y.enterocolitica PCR Not Detected Stool Vibrio (PCR) Not Detected Stl Vibrio cholerae PCR Not Detected Stl Norovirus GI/GII PCR Not Detected Digoxin 0.3 L C. difficile Tox B Gene NEGATIVE 03/17/24 04:27 MCV 83.5 MCH 28.3 MCHC 33.8 RDW 13.9 Plt Count 286 MPV 9.2 L Immature Gran % (Auto) 0.3 Neut % (Auto) 65.6 Lymph % (Auto) 25.1 [place] % (Auto) 7.8 Eos % (Auto) 0.9 Baso % (Auto) 0.3 Lymph # (Auto) 1.9 [place] # (Auto) 0.6 Eos # (Auto) 0.1 Baso # (Auto) 0.0 Abs Immat Gran (auto) 0.02 Absolute Neuts (auto) 4.9 Absolute Nucleated RBC 0.000 Nucleated RBC % (auto) 0.0 PT INR Anion Gap 12 Estim Creat Clear Calc 112.9 Estimated GFR > 60 Random Glucose 87 Calcium 8.9 Total Bilirubin Direct Bilirubin AST ALT Alkaline Phosphatase Troponin I High Sens Total Protein Albumin Lipase Urine Color Urine Appearance Urine pH Ur Specific [place] Urine Protein Urine Glucose (UA) Urine Ketones Urine Blood Urine Nitrite Ur Leukocyte Esterase Stool Occult Blood Stl C. cayetanensis PCR Stool Rotavirus A PCR Stl Adenov F 40/41 PCR Stool Astrovirus (PCR) Stool Campylobacter PCR Stool Cryptosporidium PCR Stl Sh Tox Pr E STEC PCR Stool E coli O157 PCR Stl Enterotoxigenic E PCR Stool EPEC (PCR) Stool EAEC (PCR) Stl E. histolytica PCR Stool Giardia Lamblia PCR Stl P. shigelloides PCR Stool Salmonella PCR Stool Sapovirus (PCR) Stl Shigella/EIEC PCR St Y.enterocolitica PCR Stool Vibrio (PCR) Stl Vibrio cholerae PCR Stl Norovirus GI/GII PCR Digoxin C. difficile Tox B Gene Assessment and Plan (1) Colitis: Status: Acute Plan 83M PMH MALICK on CPAP, paroxysmal atrial fibrillation on Xarelto, pyoderma, hyperlipidemia, hypertension, history of diverticulitis, obesity presented with diarrhea and AFib with RVR. Acute diverticulitis with early abscess IV Levaquin and Flagyl Advanced to clears General surgery appreciated, intervention unlikely at the time Paroxysmal atrial fibrillation with rapid ventricular response As intervention unlikely will restart Xarelto Continue diltiazem Hypokalemia Replace and monitor Hypertension Continue diltiazem MALICK, obesity CPAP at night, weight loss recommended DVT prophylaxis on Xarelto Full code reason for continued hospitalization: Ongoing abdominal pain diarrhea awaiting tolerance is solids Quality Stroke Does the patient have a stroke diagnosis?: No VTE Prior VTE?: No VTE Risk Level:: Medical - moderate - high VTE Device Contraindication: Treatment Not Indicated VTE Drug Contraindication: N/A - Med Ordered
--- NOTE | 2024-03-17 14:26 | MHC.CM.PN ---
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 PCP/HCP ON FILE VERIFIED.
[2024-03-17] MEDS: Acetaminophen 325 MG TABLET 650 MG PO (17:43)
[2024-03-17] MEDS: levoFLOXacin/D5W 750 MG/150 ML PIGGYBACK 100 MG IV (22:50)
[2024-03-17] MEDS: TiZANidine HCL 4 MG TABLET PO (22:58)
--- NOTE | 2024-03-17 23:31 | PC.RT ---
Pt refusing NIV at this time; pt will call if needed.
[2024-03-18] MEDS: metroNIDAZOLE/NS 500 MG/100 ML PIGGYBACK 100 MG IV ×2 (00:19→09:00)
[2024-03-18 03:38] VITALS: BP 102/55; PULSE 76; RESP 18; TEMP 36; O2SAT 98
[2024-03-18 06:46] LABS: Hematocrit 37.2 % (42.0-52.0); Mean Corpuscular HGB Conc 34.9 g/dl (31.0-36.0); Mean Corpuscular Hemoglobin 28.7 pg (27.0-33.0); Mean Corpuscular Volume 82.1 fL (80.0-98.0); Mean Platelet Volume 9.3 fL (9.4-12.4); Platelet Count 223 X10*3/uL (160-400); Red Blood Count 4.53 X10*6/uL (4.60-5.80); Red Cell Distribution Width 13.6 % (11.0-16.0); White Blood Count 6.8 X10*3/uL (4.8-10.8)
[2024-03-18 06:47] LABS: Alanine Aminotransferase 56 U/L (0-40); Albumin Level 3.2 g/dL (3.5-5.0); Alkaline Phosphatase 86 U/L (39-117); Anion Gap 9 (12-20); Aspartate Amino Transferase 24 U/L (5-37); Bilirubin Direct 0.2 mg/dL (0.0-0.5); Bilirubin Total 0.6 mg/dL (0.0-1.0); Blood Urea Nitrogen 11 mg/dL (9-16); Calcium 8.1 mg/dL (8.4-10.2); Carbon Dioxide 21 mmol/L (22-29); Chloride 111 mmol/L (96-108); Creatinine Clr Calc Pharmacy 126.5; Estimated Glomerular Filt Rate > 60; Glucose Fasting 107 mg/dL (60-99); Magnesium 2.1 mg/dL (1.6-2.6); Potassium 3.4 mmol/L (3.3-5.1); Sodium 138 mmol/L (135-145)
[2024-03-18 08:00] VITALS: BP 102/63; PULSE 81; RESP 20; TEMP 36.6; O2SAT 98
[2024-03-18 08:59] VITALS: BP 102/63; PULSE 81
[2024-03-18] MEDS: dilTIAZem HCL CD 240 MG CAP.ER.DEG PO (08:59)
[2024-03-18] MEDS: Tamsulosin HCL 0.4 MG CAPSULE PO (08:59)
[2024-03-18] MEDS: 0.9 % Sodium Chloride Flush 3 ML SYRINGE IVFLUSH ×2 (09:10)
--- NOTE | 2024-03-18 10:16 | P.DS_ITS ---
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 pyoderma x9yrs . Has provider been notified: No DS: Diagnosis Discharge Diagnosis (1) Colitis: Status: Acute DS: Summary Hospital Course Hospital Course: from initial hpi: 63-year-old male with history of MALICK on CPAP, paroxysmal atrial fibrillation anticoagulated with Xarelto and on digoxin, pyoderma, hyperlipidemia, hypertension, history of diverticulitis who is obese with BMI > 33 presented to the ED earlier today for evaluation of copious diarrhea ongoing for 3 days. He reports that he ate [employer] fried chicken and shortly after developed copious diarrhea. He states his daughter developed similar symptoms but hers resolved shortly thereafter. He states that he has been having urgency and abdominal cramping with diarrheal episodes about every 20 minutes since then. Denies any melena hematochezia. No fevers, chills, nausea, vomiting, dysuria, hematuria, increased urinary frequency/urgency, lightheadedness, syncope, shortness breast, palpitations, chest pain. On arrival, heart rate 189 and noted to be in atrial fibrillation, vitals otherwise stable, no hypotension. Hematology studies unremarkable. Renal function baseline, potassium 3.2, chloride 111, CO2 20. AST 42, ALT 63. Troponin level undetectable. Lipase 12. Digoxin level 0.3. CT abdomen pelvis shows developing abscess with associated acute sigmoid diverticulitis. No drainable fluid collections presently. Diverticulitis is in intimate association with the adjacent thick-walled urinary bladder possibly resulting in at least reactive bladder wall thickening if not cystitis and appears to be at risk to developing fistulous communication. In the ED has received 1 L IV NS, 40 mEq potassium chloride orally and 10 mEq potassium chloride IV, IV Zosyn, and has been loaded with 0.25 mg IV digoxin. hospital course: Patient was admitted for acute diverticulitis with early abscess. He was treated with IV Levaquin and Flagyl and diet was slowly advanced and patient tolerated well. Stools became more solid and pain completely resolved. He was seen by General surgery who recommended antibiotics and did not feel surgical intervention required at this time. Patient will be discharged home on 10 more days of levofloxacin and Flagyl. For paroxysmal atrial fibrillation with rapid ventricular response was seen by Cardiology. Was continued on diltiazem and digoxin and rate became better controlled. Was continued on Xarelto. For hypokalemia received replacement. For hypertension was continued on diltiazem. For MALICK and obesity he wear CPAP at night and weight loss recommended. Time Attestation Discharge Coordination Time (in mins): 34 Quality: Safe Use of Opioids Does Pt have an Active Cancer Diagnosis on the Problem List?: No Quality: Stroke Does the patient have a stroke diagnosis?: No Physical Exam Vital Signs: Vital Signs: Last Vital Signs Temp 97.8 F 03/18/24 08:00 Pulse 81 03/18/24 08:59 Resp 20 03/18/24 08:00 BP 102/63 03/18/24 08:59 Pulse Ox 98 03/18/24 08:00 O2 Del Method Room Air 03/18/24 08:00 BMI result Body Mass Index 33.5 Const: General: comfortable and no acute distress Orientation/consciou sness: patient oriented x3 HEENT: Other: Unremarkable Head: Yes normal to inspection Neck: Neck: Yes normal visual inspection Chest: Chest palpation & inspection: normal inspection of the chest Resp: Auscultation: clear to auscultation bilaterally Cardio: Palpation: normal PMI Heart sounds: S1 normal heart sound present, S2 normal heart sound present, no gallops, no murmurs and no rubs GI: Palpation (GI): Soft to palpation Back/Spine/Pelvis: Other: unremarkable Skin: General skin exam: no rashes or lesions noted Neuro: General: patient oriented x3 Extrem: General: Yes normal to inspection Psych: Mental Status: mental status grossly normal DS: Data Data Completed and Pending Completed studies during hospitalization [Text1]: Procedures Assistance with Respiratory Ventilation, Less than 24 Consecutive Hours, Continuous Positive Airway Pressure (01/02/23) Labs on day of discharge: Laboratory Results - last 24 hr 03/18/24 06:11 WBC 6.8 RBC 4.53 L Hgb 13.0 L Hct 37.2 L MCV 82.1 MCH 28.7 MCHC 34.9 RDW 13.6 Plt Count 223 MPV 9.3 L Absolute Nucleated RBC 0.000 Nucleated RBC % (auto) 0.0 Sodium 138 Potassium 3.4 Chloride 111 H Carbon Dioxide 21 L Anion Gap 9 L BUN 11 Creatinine 0.75 Estim Creat Clear Calc 126.5 Estimated GFR > 60 Fasting Glucose 107 H Calcium 8.1 L D Magnesium 2.1 Total Bilirubin 0.6 Direct Bilirubin 0.2 AST 24 ALT 56 H Alkaline Phosphatase 86 Total Protein 6.0 L Albumin 3.2 L Discharge Plan Discharge Anticipated Discharge Date/Time: 03/18/24 10:13 Patient Disposition: Home, Self-Care Discharge Diagnosis: diverticulitis Referrals: Noam Zapata PA-C [Primary Care Provider] - 1 Week Discharge Medications: New levofloxacin 500 mg tablet 500 mg PO Q24H Qty: 10 0RF metronidazole 500 mg tablet 500 mg PO Q12H Qty: 20 0RF Continued (DME) CPAP Machine/Device Device See Rx Instructions .Route Qty: 1 0RF Rx Instructions: As directed (DME) Adhesive Pads 6 X 6 bandage See Rx Instructions .Route Qty: 50 3RF Rx Instructions: As directed (DME) Medipore 2 X 10 -yard tape See Rx Instructions .Route Qty: 12 1RF Rx Instructions: As directed diltiazem HCl 240 mg capsule,extended release 24hr 240 mg PO DAILY Qty: 90 3RF digoxin 125 mcg (0.125 mg) tablet 125 mcg PO DAILY Qty: 90 1RF (DME) Omni Tray for wheel chair See Rx Instructions .Route .MEDSUPPLY Qty: 1 0RF Rx Instructions: As directed alclometasone 0.05 % Cream 1 appl TOPICAL BID PRN (Reason: Itching) Rx Instructions: APPLY TO ELBOW fluocinonide 0.05 % Cream 1 appl TOPICAL BID PRN (Reason: Rash) Rx Instructions: APPLY TO FOREHEAD Xarelto 20 mg tablet 20 mg PO DAILY nystatin 100,000 unit/gram cream 1 appl topical DAILY PRN (Reason: Rash) mupirocin 2 % ointment 1 appl topical BID PRN (Reason: boils) furosemide 20 mg tablet 20 mg PO Q48H menthol-zinc oxide [Calmoseptine] 0.44-20.6 % ointment 1 appl topical BID PRN (Reason: skin irritation) Rx Instructions: use thin layer on affected skin area acetaminophen [Tylenol Arthritis Pain] 650 mg tablet extended release 650 mg PO Q12H 30 Days Qty: 60 3RF docusate sodium 100 mg capsule 100 mg PO BID PRN (Reason: constipation) Qty: 60 3RF lactulose 10 gram/15 mL solution 15 ml PO BEDTIME PRN (Reason: constipation) Qty: 237 0RF tamsulosin 0.4 mg capsule 0.4 mg PO DAILY 30 Days Qty: 30 3RF (DME) non-adherent bandage 8 X 10 bandage See Rx Instructions .Route Qty: 500 12RF Rx Instructions: use daily (DME) Knee Support Brace Misc See Rx Instructions .Route Qty: 1 0RF Rx Instructions: NEED FOR SOFT KNEE BRACE WITH MEDIAL AND LATERAL HARD SUPPORT tizanidine 4 mg tablet 4 mg PO BEDTIME albuterol sulfate [Ventolin HFA] 90 mcg/actuation HFA aerosol inhaler 2 puff inhalation Q6H PRN (Reason: shortness of breath or wheezing) 30 Days Qty: 8.5 3RF fluticasone propionate 50 mcg/actuation spray,suspension 1 spray intranasal DAILY 30 Days Qty: 16 3RF (DME) blood pressure kit-extra large Kit See Rx Instructions .Route Qty: 1 0RF Rx Instructions: As directed (DME) gauze bandage [Gauze Pad] 4 X 4 bandage See Rx Instructions .Route Qty: 100 3RF Rx Instructions: As directed ibuprofen 200 mg capsule 800 mg PO Q6H PRN (Reason: Pain) Discharge Orders: Discharge Order (Routine); Ordered 03/18/24 Ordered By: Elmer Greene Diet: Advance to usual diet Activity on Discharge: As tolerated Stand Alone Forms: Patient Portal Discharge page Print Language: Sinhala Care Plan Goals: recovery Health Concerns: diverticulitis Plan of Treatment: 10 more days antibiottics Assessment: see above
--- NOTE | 2024-03-18 11:03 | PM.PNCARD ---
Subjective Subjective Date of Service: 03/18/24 Interval history: He states he feels fine. No cardiac complaints. Sitting and having breakfast. Review of Systems Review of Systems Yes all other systems are reviewed and are negative Constitutional: Reports as per HPI and Reports no additional constitutional complaints Eyes: Reports as per HPI and Denies no additional eye complaints Denies system reviewed and no additional complaints, except as documented and Reports as per HPI Cardiovascular: Reports as per HPI, Reports no additional cardiovascular complaints, Denies acrocyanosis, Denies cool extremities, Denies chest pain, Denies leg edema, Denies lightheadedness, Denies palpitations and Denies dyspnea Respiratory: Reports as per HPI, Denies no additional respiratory complaints and Denies dyspnea Gastrointestinal: Reports as per HPI and Denies no additional gastrointestinal complaints Genitourinary: Reports no additional male genitourinary complaints and Reports as per HPI Musculoskeletal: Reports no additional musculoskeletal complaints and Reports as per HPI Skin/Breast: Reports system reviewed and no additional complaints, except as docu Reports system reviewed and no additional complaints, except as documented and Reports as per HPI Psychiatric: Reports no additional psychiatric complaints and Reports as per HPI Endocrine: Reports no additional endocrine complaints, Reports as per HPI and Denies palpitations Hematologic/Lymphatic: Reports no additional hematologic/lymphatic complaints and Reports as per HPI Allergic/Immunologic: Reports no additional allergic/immunologic complaints and Reports as per HPI Physical Exam Vital Signs: Last Vital Signs Temp 97.8 F 03/18/24 08:00 Pulse 81 03/18/24 08:59 Resp 20 03/18/24 08:00 BP 102/63 03/18/24 08:59 Pulse Ox 98 03/18/24 08:00 O2 Del Method Room Air 03/18/24 08:00 BMI result Body Mass Index 33.5 Const General: comfortable and no acute distress Orientation/consciousness: patient oriented x3 HEENT Other: Unremarkable Head: Yes normal to inspection Neck Neck: Yes normal visual inspection Chest Chest palpation & inspection: normal inspection of the chest Resp Auscultation: clear to auscultation bilaterally Cardio Palpation: normal PMI Heart sounds: S1 normal heart sound present, S2 normal heart sound present, no gallops, no murmurs and no rubs GI Palpation (GI): Soft to palpation Back/Spine/Pelvis Other: unremarkable Skin General skin exam: no rashes or lesions noted Neuro General: patient oriented x3 Extrem General: Yes normal to inspection Psych Mental Status: mental status grossly normal Objective Labs and Meds 03/18/24 06:11 03/18/24 06:11 Lab results: Laboratory Results - last 24 hr 03/18/24 06:11 WBC 6.8 RBC 4.53 L Hgb 13.0 L Hct 37.2 L MCV 82.1 MCH 28.7 MCHC 34.9 RDW 13.6 Plt Count 223 MPV 9.3 L Absolute Nucleated RBC 0.000 Nucleated RBC % (auto) 0.0 Sodium 138 Potassium 3.4 Chloride 111 H Carbon Dioxide 21 L Anion Gap 9 L BUN 11 Creatinine 0.75 Estim Creat Clear Calc 126.5 Estimated GFR > 60 Fasting Glucose 107 H Calcium 8.1 L D Magnesium 2.1 Total Bilirubin 0.6 Direct Bilirubin 0.2 AST 24 ALT 56 H Alkaline Phosphatase 86 Total Protein 6.0 L Albumin 3.2 L Progress Note: A&P Assessment and plan (1) Atrial fibrillation with RVR: Status: Acute (2) Diverticulitis: Status: Acute (3) Dehydration: Status: Acute (4) Acute hypokalemia: Status: Acute Plan Initially, he had atrial fibrillation rapid rate on arrival, mainly due to diarrhea and dehydration. Also had hypokalemia. On telemetry, currently atrial fibrillation is much better controlled. He does not have any cardiac symptoms at this time. Continue the current medication regimen that he takes at home including diltiazem, digoxin, anticoagulation. Hydration, keep electrolytes optimal. Outpatient follow-up. Time Spent With Patient Time: Total time managing care of this patient today ____ minutes. Progress Note: Quality Stroke Does the patient have a stroke diagnosis?: No Procedures Date of Service Date of Service: 03/18/24
--- NOTE | 2024-03-18 11:11 | MHC.CM.PN ---
Pt. has been medically cleared for DC, he will arrange transport home, plan is self care.
== END 2024-03-18 11:30 | disposition home or self-care (01) | DRG 392 ==
LOC: HO.ED 15:21 → HO.EDOVER 16:37 → HO.IMC 03-17 07:49
PROVIDERS: Admitting Provider Physician Assistant; Emergency Provider Emergency Medicine; PCP Physician Assistant; Visit Provider Internal Medicine
DX: K57.20 Diverticulitis of large intestine with perforation and abscess without bleeding (principal); I48.0 Paroxysmal atrial fibrillation; E86.0 Dehydration; E87.6 Hypokalemia; N40.0 Benign prostatic hyperplasia without lower urinary tract symptoms; I10 Essential (primary) hypertension; E66.9 Obesity, unspecified; G47.33 Obstructive sleep apnea (adult) (pediatric); L40.50 Arthropathic psoriasis, unspecified; Z68.33 Body mass index [BMI] 33.0-33.9, adult; Z71.3 Dietary counseling and surveillance; Z79.01 Long term (current) use of anticoagulants; Z79.51 Long term (current) use of inhaled steroids; Z79.899 Other long term (current) drug therapy
CPT/HCPCS: 36415; 74176; 80048; 80076; 80162; 81003; 82272; 83690; 83735; 84484; 85025; 85027; 85610; 87493; 87507; 93005; 94660; 99285; J1160; J1650; J1836; J1956; J2543; J3480; J7120

== ENCOUNTER → 2024-03-16 10:11 | Outpatient (BNV) | payer OTHER, SELFPAY | PROVIDERS: Admitting Provider Physician Assistant; Emergency Provider Emergency Medicine; PCP Physician Assistant; Visit Provider Internal Medicine | DX: I48.91 Unspecified atrial fibrillation (principal) | CPT/HCPCS: 93010 ==

== ENCOUNTER → 2024-03-16 16:27 | Outpatient (BNV) | payer OTHER, SELFPAY | PROVIDERS: Admitting Provider Physician Assistant; Emergency Provider Emergency Medicine; PCP Physician Assistant; Visit Provider Internal Medicine | DX: I48.91 Unspecified atrial fibrillation (principal); K57.92 Diverticulitis of intestine, part unspecified, without perforation or abscess without bleeding; E86.0 Dehydration; E87.6 Hypokalemia | CPT/HCPCS: 99223; 99233 ==

== ENCOUNTER → 2024-03-16 16:27 | Outpatient (BNV) | payer OTHER, SELFPAY | PROVIDERS: Admitting Provider Physician Assistant; Emergency Provider Emergency Medicine; PCP Physician Assistant; Visit Provider Physician Assistant | DX: K52.9 Noninfective gastroenteritis and colitis, unspecified (principal) | CPT/HCPCS: 99223; 99232; 99239 ==

== ENCOUNTER → 2024-03-16 16:27 | Outpatient (BNV) | payer OTHER, SELFPAY | PROVIDERS: Admitting Provider Physician Assistant; Emergency Provider Emergency Medicine; PCP Physician Assistant; Visit Provider Surgery | DX: K52.9 Noninfective gastroenteritis and colitis, unspecified (principal) | CPT/HCPCS: 99222 ==

== ENCOUNTER → 2024-03-23 09:59 | Outpatient (BNVA) | payer OTHER, SELFPAY | PROVIDERS: PCP Physician Assistant; Visit Provider Internal Medicine ==

== ENCOUNTER 2024-04-22 09:40 | Outpatient (AMB) | payer OTHER, SELFPAY ==
[2024-04-22 09:48] VITALS: BP 130/72; PULSE 126; O2SAT 97; BMI 33.3
--- NOTE | 2024-04-22 09:48 | A.OFFPC_ITS ---
Vital Signs 04/22/24 09:48 Height 5 ft 11 in Weight 239 lb BMI 33.3 BP 130/72 Blood Pressure Location Lt brachial Position Sitting Pulse 126 H Pulse Source Pulse Oximeter Pulse Oximetry (%) 97 Oxygen Delivery Method Room Air Intake Visit Reasons: f/u HTN/ AFIB Blocker Automatic Required: No Accompanied by: Self / Same As Patient Allergies tetanus toxoid, adsorbed Allergy (Verified 04/22/24 10:18) Hives Medication List - Last Reconciled 04/22/24 by Noam Zapata PA-C acetaminophen ER (Tylenol Arthritis Pain) 650 mg PO Q12H 30 days adhesive bandage (Adhesive Pads) As directed adhesive tape (Medipore) As directed albuterol sulfate 90 mcg/actuation (Ventolin HFA) 2 puffs inhalation Q6H PRN 30 days alclometasone 0.05% 1 appl topical BID PRN blood pressure kit-extra large As directed CPAP (CPAP Machine/Device) As directed digoxin 125 mcg PO DAILY diltiazem HCl CD 240 mg PO DAILY docusate sodium 100 mg PO BID PRN fluocinonide 0.05% 1 appl topical BID PRN fluticasone propionate 50 mcg/actuation 1 spray intranasal DAILY 30 days furosemide 20 mg PO Q48H gauze bandage (Gauze Pad) As directed ibuprofen 800 mg PO Q6H PRN lactulose 15 mL PO BEDTIME PRN leg brace (Knee Support Brace) NEED FOR SOFT KNEE BRACE WITH MEDIAL AND LATERAL HARD SUPPORT levofloxacin 500 mg PO Q24H menthol-zinc oxide 0.44-20.6 % (Calmoseptine) 1 appl topical BID PRN mupirocin 2% 1 appl topical BID PRN non-adherent bandage use daily nystatin 1 appl topical DAILY PRN [Omni Tray for wheel chair As directed] rivaroxaban (Xarelto) 20 mg PO DAILY tamsulosin 0.4 mg PO DAILY 30 days tizanidine 4 mg PO BEDTIME Tobacco use date assessed: 08/06/23 Dental Screening Dental Screen Date: 01/15/24 HPI f/u HTN/ AFIB HPI Details Patient is a 63-year-old male here for follow-up visit ? Patient has a past medical history significant for AFib, morbid obesity,? MALICK, psoriatic arthritis,? pyoderma,? asthma. Patient recently admitted to [facility] in mid March for acute diverticulitis with early abscess after eating [place] fried chicken. He was treated with IV Levaquin and Flagyl in his diet was slowly advanced. He was seen by general surgeon who did not feel surgery was required. He has found to be fairly hypokalemic which was replenished while in the hospital. .. AFIB:? Continues to follow [facility]. Seems to still be in AFib rhythm. Does report feeling fatigued at times. Was referred to parts identifier/Cardiology at [facility] due to his resistant AFib though has not been evaluated. Seen his cariologist and underwent cardioversion, unfortunately was unsuccessful. .. Obstructive sleep apnea: Has been diagnosed with obstructive sleep apnea over 10 years ago. Did have a sleep study about 10 years ago and was started on CPAP machine. He reports he does use a BiPAP machine in particular. He is interested in getting a new machine as his machine is quite old and feels he does not working as it once was. He has lost weight since his original diagnosis and wonders if he needs new BiPAP settings. Will try for a CPAP titration study to evaluate the pressures he actually needs. .. HTN: Patient's blood pressure acceptable today in office. .. Obesity:? He does understand his BMI is over 30 and has been trying to be more physically active to reduce his weight. .. Obstructive sleep apnea:? He admits to using his BiPAP machine on nightly basis with good effect on his sleep. [facility] Medical History Carpal tunnel syndrome Ambulates with cane KLAMATH (hard of hearing) History of diverticulitis Weight loss Psoriatic arthritis MALICK on CPAP Morbid obesity PAF (paroxysmal atrial fibrillation) Surgical History Hx of colonoscopy Status post catheter ablation of atrial fibrillation History of cardiac radiofrequency ablation (RFA) (~11/05/17) Family History Father CVD (cardiovascular disease) Mother CVD (cardiovascular disease) Atrial fibrillation Alzheimer disease Other Substance use disorder Social History Household Members: Children Housing: House Do you presently have visiting nurse or other home services: Yes ([employer]) Alcohol intake: never Patient Tobacco Use Status: Former Tobacco user Tobacco use type: Cigarette Years Smoked: 20 +/- e-Cigarette/Vaping Use: Never Used Second Hand Smoke Exposure: No Advance Directives Date on File: 03/17/24 service: No Current occupational status: disabled Cognitive needs: No Hearing needs: Yes (hearing aide) Vision needs: Yes (Glasses) Questionnaire Thrive Questionnaire Date Thrive assessed: 03/17/24 Are you currently unemployed and looking for a job?: No YIN-7 AMB Questionnaire YIN-7 Date YIN - 7 assessed: 08/06/23 Source: Developed by Drs. Sudhir Vasquez, Terri Mcmanus, Mk Ram and colleagues, with an educational marleni from [employer]. Review of Systems Const Reports fatigue and Denies headache(s) Eyes Denies loss of vision ENT Denies vertigo, Denies dizziness, Denies headache(s) and Denies sore throat Card Denies chest pain, Denies leg edema and Denies lightheadedness Resp Denies cough, Denies hemoptysis and Denies wheezing GI Denies abdominal pain, Denies melena, Denies constipation, Denies diarrhea and Denies vomiting Denies dysuria, Denies urinary frequency and Denies urinary urgency Musc Denies arthralgias, Denies joint swelling, Denies numbness and Denies tingling Neuro Denies Abnormal speech present, Denies behavioral changes, Denies vertigo, Denies dizziness, Denies headache(s), Denies loss of vision, Denies memory loss, Denies numbness and Denies tingling Psych Denies anxiety, Denies behavioral changes, Denies depression, Denies memory loss and Denies panic attacks Endo Reports fatigue Americo/Lymph Denies easy bleeding and Denies easy bruising Aller/Immun Denies wheezing Physical exam (Primary Care) Vital Signs: Last Vital Signs Pulse 126 H 04/22/24 09:48 BP 130/72 04/22/24 09:48 Pulse Ox 97 04/22/24 09:48 Oxygen Delivery Method Room Air 04/22/24 09:48 BMI result Body Mass Index 33.3 Tobacco/Smoking Status: Tobacco use Status Tobacco use date assessed 08/06/23 04/22/24 09:53 Patient Tobacco Use Status Former Tobacco user 04/22/24 09:53 Tobacco use type Cigarette 04/22/24 09:53 e-Cigarette/Vaping Use Never Used 04/22/24 09:53 Thrive Assessment: Date of Thrive Assessment Date Thrive assessed 03/17/24 04/22/24 09:53 Const General: healthy appearing, no acute distress, alert and awake Nutritional Appearance: well nourished Orientation/consciousness: oriented to person, oriented to place and oriented to time HENMT Ears: TM's normal bilaterally General nose exam: Normal nasal mucous membranes and turbinates present Eyes Conjunctivae: conjunctivae normal Sclerae: sclerae normal Pupils: Equal, round and reactive pupils present Neck Neck: Yes no lymphadenopathy and Yes no JVD Thyroid: Thyroid normal Carotids: no bruits Resp Effort & Inspection: normal respiratory effort and not tachypneic Auscultation: no crackles, no rales, no rhonchi and no wheezes Cardio Rate: regular rate Rhythm: regular rhythm Heart sounds: no murmurs and normal S1 and S2 GI Palpation (GI): Soft to palpation, nontender, no hepatomegaly and no splenomegaly Auscultation: normal bowel sounds Skin General skin exam: no rashes or lesions noted and dry skin Neuro General: oriented to person, oriented to place and oriented to time Cranial nerves: Yes Equal, round and reactive pupils present Speech: No Abnormal speech present Gait exam (Neuro): Normal gait present Motor exam (neuro): no tremor noted Extrem Right upper extremity: full ROM Left upper extremity: full ROM Right lower extremity: full ROM; no edema Left lower extremity: full ROM; no edema Psych Mental Status: mental status grossly normal Speech and movement: Normal speech and movement present Affect: normal affect Attitude: cooperative Thought process: Normal thought process present Assessment and Plan Assessment & Plan (1) PAF (paroxysmal atrial fibrillation): Code(s): I48.0 - Paroxysmal atrial fibrillation Plan: Followed by [facility]. As per HPI patient has been battling paroxysmal AFib. He does report feeling somewhat fatigued at times. Physical exam still seems to be in AFib though not rapid at this time.. Otherwise denies any overt signs of bleeding Recently underwent 2 cardioversions though unsuccessful. He has been referred to [facility] electrophysiology though has not been called for initial appointment. Also is due for a CTA angiogram at [facility] in the next month. (2) HTN (hypertension): Code(s): I10 - Essential (primary) hypertension Qualifiers: Hypertension type: primary hypertension Qualified Code(s): I10 - Essential (primary) hypertension Plan: Blood pressure acceptable today in office.. Will continue diltiazem at current dose recommended by Cardiology. Goal blood pressure remain below 140/90 (3) MALICK on CPAP: Code(s): G47.33 - Obstructive sleep apnea (adult) (pediatric); Z99.89 - Dependence on other enabling machines and devices Plan: As per HPI patient has had sleep apnea for over 10 years. Has not had any new sleep study. He uses BiPAP machine at home though wonders if he needs a new setting as he has lost weight. Will try to set him up with a CPAP titration sleep study to evaluate for changes in his pressure settings. Orders: Orders RT PSG in-lab sleep titration 04/22/24 G47.33 - Obstructive sleep apnea (adult) (pediatric), Z99.89 - Dependence on other enabling machines and devices Comprehensive [place]. Panel Fast 04/22/24 I48.0 - Paroxysmal atrial fibrillation Lipid Panel 04/22/24 E78.2 - Mixed hyperlipidemia Complete Blood Count no Diff 04/22/24 I48.0 - Paroxysmal atrial fibrillation Referrals Cardiac Electrophysiology Referral I48.0 - Paroxysmal atrial fibrillation Medications: Changed From furosemide 20 mg PO Q48H I48.0 - Paroxysmal atrial fibrillation To furosemide 20 mg PO Q48H 45 tabs 1RF 90 days I48.0 - Paroxysmal atrial fibrillation From ibuprofen 800 mg PO Q6H PRN Pain L40.9 - Psoriasis, unspecified To ibuprofen 800 mg (4 x 200 mg) PO Q6H PRN 480 caps 0RF Pain 30 days L40.9 - Psoriasis, unspecified From rivaroxaban (Xarelto) 20 mg PO DAILY I48.0 - Paroxysmal atrial fibrillation To rivaroxaban (Xarelto) 20 mg PO DAILY 90 tabs 3RF 90 days I48.0 - Paroxysmal atrial fibrillation From tamsulosin 0.4 mg PO DAILY 30 days 30 caps 3RF R35.0 - Frequency of micturition To tamsulosin 0.4 mg PO DAILY 90 caps 3RF 90 days R35.0 - Frequency of micturition From digoxin 125 mcg PO DAILY 90 tabs 1RF I48.0 - Paroxysmal atrial fibrillation To digoxin 125 mcg PO DAILY 90 tabs 1RF 90 days I48.0 - Paroxysmal atrial fibr illation From diltiazem HCl CD 240 mg PO DAILY 90 caps 3RF I48.0 - Paroxysmal atrial fibrillation To diltiazem HCl CD 240 mg PO DAILY 90 caps 3RF 90 days I48.0 - Paroxysmal atrial fibrillation From tizanidine 4 mg PO BEDTIME L40.50 - Arthropathic psoriasis, unspecified To tizanidine 4 mg PO BEDTIME PRN 30 tabs 3RF muscle spasticity 30 days L40.50 - Arthropathic psoriasis, unspecified Refilled acetaminophen ER (Tylenol Arthritis Pain) 650 mg PO Q12H 60 tabs 3RF 30 days L40.50 - Arthropathic psoriasis, unspecified, M19.90 - Unspecified osteoarthritis, unspecified site Patient Instructions: Goal: Controlled AFib Barriers: Adherence to physical activity and healthy eating habits Coding Level of Care Code Est Pt Level 4 (08239) Diagnoses PAF (paroxysmal atrial fibrillation) I48.0 Primary hypertension I10 Hypertension type: primary hypertension MALICK on CPAP G47.33; Z99.89
== END 2024-04-22 10:54 | disposition home or self-care (01) ==
PROVIDERS: PCP Physician Assistant; Visit Provider Physician Assistant
DX: I48.0 Paroxysmal atrial fibrillation (principal); I10 Essential (primary) hypertension; G47.33 Obstructive sleep apnea (adult) (pediatric); Z99.89 Dependence on other enabling machines and devices

== ENCOUNTER → 2024-04-22 09:40 | Outpatient (BNVA) | payer OTHER, SELFPAY | PROVIDERS: PCP Physician Assistant; Visit Provider Physician Assistant | DX: I48.0 Paroxysmal atrial fibrillation (principal); I10 Essential (primary) hypertension; G47.33 Obstructive sleep apnea (adult) (pediatric); Z99.89 Dependence on other enabling machines and devices | CPT/HCPCS: 99212 ==

== ENCOUNTER 2024-04-28 13:43 | Outpatient (AMB) | payer OTHER, SELFPAY ==
[2024-04-28 13:46] VITALS: BP 116/70; PULSE 110; BMI 36.3
--- NOTE | 2024-04-28 13:46 | A.OFFVIS_ITS ---
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: No Accompanied by: Self / Same As Patient Allergies tetanus toxoid, adsorbed Allergy (Verified 04/22/24 10:18) Hives Medication List - Last Reconciled 04/28/24 by Say Curry MD acetaminophen ER (Tylenol Arthritis Pain) 650 mg PO Q12H 30 days adhesive bandage (Adhesive Pads) As directed adhesive tape (Medipore) As directed albuterol sulfate 90 mcg/actuation (Ventolin HFA) 2 puffs inhalation Q6H PRN 30 days alclometasone 0.05% 1 appl topical BID PRN blood pressure kit-extra large As directed CPAP (CPAP Machine/Device) As directed digoxin 125 mcg PO DAILY 90 days diltiazem HCl CD 240 mg PO DAILY 90 days docusate sodium 100 mg PO BID PRN fluocinonide 0.05% 1 appl topical BID PRN fluticasone propionate 50 mcg/actuation 1 spray intranasal DAILY 30 days furosemide 20 mg PO Q48H 90 days gauze bandage (Gauze Pad) As directed ibuprofen 800 mg (4 x 200 mg) PO Q6H PRN 30 days lactulose 15 mL PO BEDTIME PRN leg brace (Knee Support Brace) NEED FOR SOFT KNEE BRACE WITH MEDIAL AND LATERAL HARD SUPPORT menthol-zinc oxide 0.44-20.6 % (Calmoseptine) 1 appl topical BID PRN mupirocin 2% 1 appl topical BID PRN non-adherent bandage use daily nystatin 1 appl topical DAILY PRN [Omni Tray for wheel chair As directed] rivaroxaban (Xarelto) 20 mg PO DAILY 90 days tamsulosin 0.4 mg PO DAILY 90 days tizanidine 4 mg PO BEDTIME PRN 30 days HPI Comments Details: Tom returns for follow-up regarding atrial fibrillation. Previously, he underwent ablation for the same. He was actually free of atrial fibrillation for several years after the ablation. In 2022, he had recurrence of atrial fibrillation/flutter. There was a plan for ERMIAS/cardioversion but he converted to sinus rhythm. Then was on flecainide/diltiazem/Xarelto. However, has been having recurrent atrial fibrillation. He initially underwent cardioversion. Then we did amiodarone loading and again cardioverted. In spite of all this, he is back in atrial fibrillation. He is now rate controlled with diltiazem and digoxin. Overall, he feels okay. Some palpitations but not too often. Some chest pains but he states they last for only 30 seconds. Not clear if it is something like angina or nonspecific. He is awaiting EP appointment to discuss another ablation. [facility] Medical History Carpal tunnel syndrome Ambulates with cane [place] (hard of hearing) History of diverticulitis Weight loss Psoriatic arthritis MALICK on CPAP Morbid obesity PAF (paroxysmal atrial fibrillation) Surgical History Hx of colonoscopy Status post catheter ablation of atrial fibrillation History of cardiac radiofrequency ablation (RFA) (~11/05/17) Family History Father CVD (cardiovascular disease) Mother CVD (cardiovascular disease) Atrial fibrillation Alzheimer disease Other Substance use disorder Social History Household Members: Children Housing: House Do you presently have visiting nurse or other home services: Yes ([employer]) Alcohol intake: never Patient Tobacco Use Status: Former Tobacco user Tobacco use type: Cigarette Years Smoked: 20 +/- e-Cigarette/Vaping Use: Never Used Second Hand Smoke Exposure: No Advance Directives Date on File: 03/17/24 service: No Current occupational status: disabled Cognitive needs: No Hearing needs: Yes (hearing aide) Vision needs: Yes (Glasses) Review of Systems Const Denies chills, Denies fatigue, Denies fever(s), Denies weight gain and Denies weight loss ENT Denies dizziness Card Denies chest pain, Denies leg edema, Denies lightheadedness, Denies palpitations, Denies dyspnea on exertion, Denies orthopnea and Denies other Resp Denies cough and Denies dyspnea on exertion GI Denies hematochezia and Denies change in stool character Musc Denies abnormal gait, Denies muscle weakness, Denies numbness, Denies radiating pain into limb and Denies tingling Neuro Denies abnormal gait, Denies dizziness, Denies numbness and Denies tingling Endo Denies fatigue and Denies palpitations Physical Exam Vital Signs: Last Vital Signs Pulse 110 H 04/28/24 13:46 BP 116/70 04/28/24 13:46 BMI result Body Mass Index 36.3 Const General: comfortable and no acute distress Orientation/consciousness: patient oriented x3 HEENT Other: Unremarkable Head: Yes normal to inspection Neck Neck: Yes normal visual inspection Chest Chest palpation & inspection: normal inspection of the chest Resp Auscultation: clear to auscultation bilaterally Cardio Palpation: normal PMI Heart sounds: S1 normal heart sound present, S2 normal heart sound present, no gallops, no murmurs and no rubs GI Palpation (GI): Soft to palpation Back/Spine/Pelvis Other: unremarkable Skin General skin exam: no rashes or lesions noted Neuro General: patient oriented x3 Extrem General: Yes normal to inspection Psych Mental Status: mental status grossly normal Assessment & Plan Assessment & Plan (1) PAF (paroxysmal atrial fibrillation): Code(s): I48.0 - Paroxysmal atrial fibrillation Category: Medical (2) Paroxysmal atrial flutter: Code(s): I48.92 - Unspecified atrial flutter Category: Medical (3) Status post catheter ablation of atrial fibrillation: Code(s): Z98.890 - Other specified postprocedural states Category: Surgical (4) Morbid obesity: Code(s): E66.01 - Morbid (severe) obesity due to excess calories Category: Medical (5) MALICK on CPAP: Code(s): G47.33 - Obstructive sleep apnea (adult) (pediatric); Z99.89 - Dependence on other enabling machines and devices Category: Medical Plan: On Bipap. (6) Precordial chest pain: Code(s): R07.2 - Precordial pain Category: Medical Plan Last EKG from March shows atrial fibrillation at a rate of 105/Min. Nonspecific ST-T changes. In summary, history of atrial fibrillation ablation, recurrence over the last 1- 2 years with 2 cardioversions and he is still back in atrial fibrillation, in spite of Amiodarone use. No overt symptoms. When I manually checked, ventricular rate between 90- 100/Min. He already has EP appointment to discuss ablation and he can keep that. With regard to the chest pains, not clear what it is. We had initially planned to coronary CTA but as he is already back in atrial fibrillation, may not be feasible. Also rates slightly fast for a good quality CTA. We can do a pharmacological stress test with Lexiscan. If any persisting chest pain, advised him to seek emergency help. He states it is not frequent and happens only for a few seconds. Hence not clear what it is. Will follow-up after the testing and EP appointment. Orders: Orders CA lexiscan stress w janine Today I20.9 - Angina pectoris, unspecified NM cardiolite stress test Today R07.2 - Precordial pain CA echo transthoracic complete Today I48.0 - Paroxysmal atrial fibrillation Coding Level of Care Code Est Pt Level 4 (22246) Diagnoses PAF (paroxysmal atrial fibrillation) I48.0 Paroxysmal atrial flutter I48.92 Status post catheter ablation of atrial fibrillation Z98.890 Morbid obesity E66.01 MALICK on CPAP G47.33; Z99.89 Precordial chest pain R07.2
== END 2024-04-28 15:10 | disposition home or self-care (01) ==
LOC: HO.HCS 13:43
PROVIDERS: PCP Physician Assistant; Visit Provider Internal Medicine
DX: I48.0 Paroxysmal atrial fibrillation (principal); I48.92 Unspecified atrial flutter; Z98.890 Other specified postprocedural states; E66.01 Morbid (severe) obesity due to excess calories; G47.33 Obstructive sleep apnea (adult) (pediatric); Z99.89 Dependence on other enabling machines and devices; R07.2 Precordial pain
CPT/HCPCS: 99214

== ENCOUNTER → 2024-04-28 13:43 | Outpatient (BNVA) | payer OTHER, SELFPAY | PROVIDERS: PCP Physician Assistant; Visit Provider Internal Medicine | DX: R07.2 Precordial pain (principal); I48.0 Paroxysmal atrial fibrillation; I48.92 Unspecified atrial flutter; G47.33 Obstructive sleep apnea (adult) (pediatric); E66.01 Morbid (severe) obesity due to excess calories; Z68.36 Body mass index [BMI] 36.0-36.9, adult; Z98.890 Other specified postprocedural states; Z99.89 Dependence on other enabling machines and devices | CPT/HCPCS: 99212 ==

== ENCOUNTER → 2024-05-17 09:54 | Outpatient (BNVA) | payer OTHER, SELFPAY | PROVIDERS: PCP Physician Assistant; Visit Provider Physician Assistant ==

== ENCOUNTER → 2024-05-25 14:32 | Outpatient (REF) | payer OTHER, SELFPAY ==
--- NOTE | 2024-05-25 14:36 | CA_ITS ---
Transthoracic Echocardiogram Patient (Last, First, Middle): Tom Miner C Gender: Male Date of : 1960 Age: 63 Procedure Date: 05/25/2024 Procedure Type: Transthoracic Echocardiogram Location: OP Height: 180.34 cm Weight: 101.61 kg BSA: 2.21 m2 Heart Rate: bpm BP: 116 / 60 mmHg Service Order Taker: Referring MD: Say Curry MD Symptoms: I48.0 - Paroxysmal atrial fibrillation Study Quality: Adequate ECG Rhythm: Atrial Fibrillation Conclusions: - The left ventricular systolic function is normal. The visually estimated ejection fraction is between 55-60%. - There is mild aortic valve regurgitation. Findings Left Ventricle Normal left ventricular cavity size. The left ventricular systolic function is normal. The visually estimated ejection fraction is between 55-60%. There is no evidence of regional wall motion abnormalities. Diastolic function is indeterminate on the basis of available data. [id number] concentric left ventricular hypertrophy. Right Ventricle Normal right ventricular cavity size and systolic function. Atria The left atrium is mildly dilated. The right atrium is normal in size. Aortic Valve There is mild calcification of the aortic valve. There is no aortic valve stenosis. There is mild aortic valve regurgitation. Mitral Valve There is mild mitral annular calcification. There is no mitral valve regurgitation. There is no mitral valve stenosis. Pulmonic Valve The pulmonic valve is likely normal. Tricuspid Valve Normal tricuspid valve structure. There is trace tricuspid valve regurgitation. There is no evidence of pulmonary hypertension. Great Vessels The asc aorta is normal in size. Venous The inferior vena cava is normal in size and collapses less than 50% with inspiration. Pericardium/Pleural There is no evidence of pericardial effusion. Prior Study Comparison No significant change compared to prior study dated: 08/05/2023. Measurements 2D Linear Measurements IVSd: 1.32 0.6-0.9/0.6-1.0 cm LVIDd: 4.64 3.9-5.3/4.2-5.9 cm LVIDd Index: 2.10 2.4-3.2/2.2-3.1 cm/m2 LVIDs: 2.88 2.0-3.6 cm LVPWd: 1.28 0.7-1.1 cm Ao Root: 3.30 2.1-3.5 cm LA Diam: 4.00 2.7-3.8/3.0-4.0 cm LAIDs Index: 1.81 1.5-2.3 cm/m2 LV Mass: 290.79 67-162/88-224 g LV Mass Index: 131.58 43-95/49-115 g/m2 LVOT Diam: 2.20 3.0+(-)1.3 cm 2D Systolic Function EF 4C: 63.70 >55% EF 2C: 49.10 >55% EF BiP: 58.50 >55% Mitral Valve MV Pk E: 0.96 MV Decel Time: 168.00 E'Lateral: 10.00 E'Medial: 9.36 E/E' Med: 10.20 E/E' Lat: 9.60 PHT: 49.00 MVA PHT: 4.49 Decel [place]: 5.69 Aortic Valve AoV Pk Adithya: 1.48 AoV Mn Adithya: 1.00 AoV VTI: 0.31 AoV Pk Grad: 9.00 Aov Mn Grad: 5.00 RICK Cont.VTI: 2.88 AI Pk Adithya: 4.33 AI [place]: 2.71 LVOT LVOT Pk Adithya: 1.04 LVOT Mn Adithya: 0.76 LVOT VTI: 0.24 LVOT Pk Grad: 4.00 LVOT Mn Grad: 3.00 LVOT Diam: 2.20 LVOT Area: 3.80 Diastolic Function MV Pk E: 0.96 E'Medial: 9.36 E/E' Med: 10.20 E' Laterial: 10.00 E/E' Lat: 9.60 Right Ventricle TAPSE (mm): 25.00 TVS' Adithya: 13.00 Tricuspid Valve TR Pk Adithya: 2.22 TR Pk Grad: 20.00 RA Press: 3.00 RVSP: 23.00 Great Vessels Aorta Ao Root-2D: 3.30 2.0-3.7 cm Ao Asc: 3.40 2.1-3.4 cm Pulmonary Valve PV Pk Adithya: 1.10 Peak PV Grad: 5.00 Updated in Other Vendor System with Status of Final Say uCrry MD electronically signed on 05/26/2024 12:00:02 PM with status of Final
== END ==
LOC: HO.CARD 14:32
PROVIDERS: PCP Physician Assistant; Visit Provider Internal Medicine
DX: I48.0 Paroxysmal atrial fibrillation (principal)
CPT/HCPCS: 93306

== ENCOUNTER → 2024-05-25 14:36 | Outpatient (BNV) | payer OTHER, SELFPAY | PROVIDERS: PCP Physician Assistant; Visit Provider Internal Medicine | DX: I42.2 Other hypertrophic cardiomyopathy (principal); I35.1 Nonrheumatic aortic (valve) insufficiency; I35.8 Other nonrheumatic aortic valve disorders; I34.81 Nonrheumatic mitral (valve) annulus calcification | CPT/HCPCS: 93306 ==

== ENCOUNTER → 2024-07-12 08:41 | Outpatient (REF) | payer OTHER, SELFPAY ==
--- NOTE | ~2024-07-12 | NM_ITS ---
Lexiscan Myocardial perfusion study Indication: Precordial chest pain Technique: The patient was brought in for a Lexiscan perfusion study on 07/12/2024 and was injected 0.4 mg of Lexiscan intravenously. Within a minute of this injection 40 mCi of sestamibi was given intravenously. Images were obtained using the SPECT gamma camera interlaced with the gating device. Images were obtained in supine position. Resting perfusion study was performed on 07/13/2024. Patient was administered 40 mCi of sestamibi intravenously at rest. Images were then obtained in supine position. Images obtained without without CT attenuation. Total DLP 177 mGy-cm. Images were processed with the software and compared side to side in short axis, horizontal long axis and vertical long axis views. Findings: The stress perfusion study showed nonattenuated images show mildly reduced uptake basal inferior wall of the LV myocardium. Remainder of the LV myocardium normally perfused. Attenuated corrected images show mildly reduced uptake in the distal anterior and apical wall of the LV myocardium.. The gated study shows reduced LV systolic function with calculated LVEF of 41%. LV cavity is mildly dilated in size. The gated study shows reduced wall thickening and contraction of segments. Resting perfusion study showed no significant change in perfusion pattern compared to stress perfusion study. Gating at rest not performed due to atrial fibrillation. The findings are consistent with likely normal myocardial perfusion. NM/NM cardiolite stress test Impression: 1. Myocardial perfusion imaging study shows likely normal myocardial perfusion 2. Gated LVEF is 41% 3. Transient ischemic dilatation present but of unclear significance Nondiagnostic changes on EKG. Electronically signed by: Taco Mendez MD 07/13/2024 04:01 PM [facility]
--- NOTE | 2024-07-12 08:45 | CA_ITS ---
Acquisition Time: 2024-07-12 10:04:34 Total Exercise Time: 00:02:00 Test Indications: Abnormal ECG AFIB CP Medications: SEE H Protocol: LEXISCAN Max HR: 146 BPM 93% of Pred: 156 BPM Max BP: 146/070 mmHG Max Work Load: 1.0 METS Pharmacologic stress test with lexciscan while pt laid supine, without any anginal symptoms, with isolated PVCs, with normotensive response to injection. Nondiagnostic EKG for ischemia. In recovery, pt treated with IVP Aminophylline 75 mg to reverse Lexiscan. Nuclear images pending. Test reviewed with Dr. Mendez. Note: Underlying rhythm Afib with RVR, rate 130s on arrival; had him take his Diltiazem and Digoxin and lay in supine. Test was started when HR improved. Referred By: Say Curry Overread By: NELY CAMERON
== END ==
LOC: HO.CARD 08:41
PROVIDERS: PCP Physician Assistant; Visit Provider Internal Medicine
DX: R07.2 Precordial pain (principal); I20.9 Angina pectoris, unspecified
CPT/HCPCS: 78452; 93017; A9500; J0280; J2785

== ENCOUNTER → 2024-07-12 08:45 | Outpatient (BNV) | payer OTHER, SELFPAY | PROVIDERS: PCP Physician Assistant; Visit Provider Nurse Practitioner Family | DX: I49.3 Ventricular premature depolarization (principal) | CPT/HCPCS: 78452; 93016; 93018 ==

== ENCOUNTER 2024-08-24 10:18 | Outpatient (AMB) | payer OTHER, SELFPAY ==
--- NOTE | 2024-08-24 10:19 | A.OFFPC_ITS ---
Vital Signs 08/24/24 10:22 Height 5 ft 11 in Weight 240 lb BMI 33.5 BP 128/60 Blood Pressure Location Lt brachial Position Sitting Pulse 102 H Pulse Source Pulse Oximeter Pulse Oximetry (%) 97 Oxygen Delivery Method Room Air Intake Visit Reasons: f/u AFIB/ HLD Equipment Validation Engineer Required: No Accompanied by: Self / Same As Patient Allergies tetanus toxoid, adsorbed Allergy (Verified 08/24/24 10:27) Hives Medication List - Last Reconciled 08/24/24 by Noam Zapata PA-C [4 x 4 non woven gauze As directed] acetaminophen ER (Tylenol Arthritis Pain) 650 mg PO Q12H 30 days adhesive bandage (Adhesive Pads) As directed adhesive tape (Medipore) As directed albuterol sulfate 90 mcg/actuation (Ventolin HFA) 2 puffs inhalation Q6H PRN 30 days alclometasone 0.05% 1 appl topical BID PRN blood pressure kit-extra large As directed [coloplast triad cream As directed] CPAP (CPAP Machine/Device) As directed digoxin 125 mcg PO DAILY 90 days diltiazem HCl CD 240 mg PO DAILY 90 days docusate sodium 100 mg PO BID PRN fluocinonide 0.05% 1 appl topical BID PRN fluticasone propionate 50 mcg/actuation 1 spray intranasal DAILY 30 days furosemide 20 mg PO Q48H 90 days gauze bandage (Gauze Pad) As directed ibuprofen 800 mg (4 x 200 mg) PO Q6H PRN 30 days lactulose 15 mL PO BEDTIME PRN leg brace (Knee Support Brace) NEED FOR SOFT KNEE BRACE WITH MEDIAL AND LATERAL HARD SUPPORT menthol-zinc oxide 0.44-20.6 % (Calmoseptine) 1 appl topical BID 30 days miscellaneous medical supply 1 ea miscellaneous DAILY 99 days mupirocin 2% 1 appl topical BID PRN non-adherent bandage use daily nystatin 1 appl topical DAILY PRN [Omni Tray for wheel chair As directed] [reclining lift chair As directed] rivaroxaban (Xarelto) 20 mg PO DAILY 90 days tamsulosin 0.4 mg PO DAILY 90 days tizanidine 4 mg PO BEDTIME PRN 30 days Tobacco use date assessed: 08/24/24 Fall risk assessment: 1 Fall in past year Last assessed Fall Risk: 08/24/24 Dental Screening Dental Screen Date: 08/24/24 Did you have a dental visit in the last 12 months?: No Did you have a dental problem in the last 6 months where you did not have access to dental care?: No Was dental information given to patient?: Patient has dentist HPI f/u AFIB/ HLD HPI Details Patient is a 64-year-old male here for follow-up visit ? Patient has a past medical history significant for AFib, morbid obesity,? MALICK, psoriatic arthritis,? pyoderma,? asthma. .. Paroxysmal AFIB:? Continues to follow [facility]. Seems to still be in AFib rhythm. Does report feeling fatigued at times. Has undergone multiple cardioversions though has been unsuccessful. Was referred to malter operator/Cardiology at [facility] due to his resistant AFib and is discussing perhaps an atrial ablation on Sep 08 2024 . .. Obstructive sleep apnea: Has been diagnosed with obstructive sleep apnea over 10 years ago. Did have a sleep study about 10 years ago and was started on CPAP machine. He reports he does use a BiPAP machine in particular at 12 cm water pressure. He is interested in getting a new machine as his machine is quite old and feels he does not working as it once was. He has lost weight since his original diagnosis and wonders if he needs new BiPAP settings. .. Psoriatic arthritis: Continues to have pretty severe psoriatic arthritis pain and disability. Continues to ambulate with cane assistance. Does follow a laborer carpentry dock whom gives injections to patient for his affected joints. He does have an electric lift chair that has been broken over the last 2 years and has been trying to get this fixed or replacement chair for quite some time to help him with his quality of life at home. .. HTN: Patient's blood pressure acceptable today in office. .. Obesity:? He does understand his BMI is over 30 and has been trying to be more physically active to reduce his weight. .. PFSH Medical History Carpal tunnel syndrome Ambulates with cane [place] (hard of hearing) History of diverticulitis Weight loss Psoriatic arthritis MALICK on CPAP Morbid obesity PAF (paroxysmal atrial fibrillation) Surgical History Hx of colonoscopy Status post catheter ablation of atrial fibrillation History of cardiac radiofrequency ablation (RFA) (~11/05/17) Family History Father CVD (cardiovascular disease) Mother CVD (cardiovascular disease) Atrial fibrillation Alzheimer disease Other Substance use disorder Social History Household Members: Children Housing: House Do you presently have visiting nurse or other home services: Yes (LOADER HELPER) Alcohol intake: never Patient Tobacco Use Status: Former Tobacco user Tobacco use type: Cigarette Years Smoked: 20 +/- e-Cigarette/Vaping Use: Never Used Second Hand Smoke Exposure: No Advance Directives Date on File: 03/17/24 service: No Current occupational status: disabled Cognitive needs: No Hearing needs: Yes (hearing aide) Vision needs: Yes (Glasses) Questionnaire PHQ-9 Over the last 2 weeks, how often have you been bothered by any of the following problems? 1. Little interest or pleasure in doing things: not at all 2. Feeling down, depressed, or hopeless: not at all 3. Trouble falling or staying asleep, or sleeping too much: not at all 4. Feeling tired or having little energy: not at all 5. Poor appetite or overeating: not at all 6. Feeling bad about yourself - or that you are a failure or have let yourself or your family down: not at all 7. Trouble concentrating on things, such as reading the newspaper or watching television: not at all 8. Moving or speaking so slowly that other people could have noticed. Or the opposite - being so fidgety or restless that you have been moving around a lot more than usual: not at all 9. Thoughts that you would be better off or of hurting yourself in some way: not at all Total score: 0 Depression Screening Interpretation: Negative Depression Screening Done: Yes 06218 - PHQ-9 Billing: Yes Source: Developed by Drs. Sudhir Vasquez, Terri Mcmanus, Mk Ram and colleagues, with an educational marleni from [employer]. Thrive Questionnaire Date Thrive assessed: 08/24/24 I am a: Patient What is your living situation today?: I have a steady place to live Within the past 12 months, did the food you bought not last and you didn't have the money to get more?: Sometimes True Within the past 12 months, did you worry whether your food would run out before you got money to buy more?: Sometimes True Do you have trouble paying for medicines?: Yes Do you have trouble getting transportation to medical appointments?: No Do you have trouble paying your heating and electricity bill?: Yes Do you have trouble taking care of your child, family member or friend?: No Do you have trouble with day-to-day activities such as bathing, preparing meals, shopping, managing finances, etc.?: No Are you currently unemployed and looking for a job?: No Are you interested in more education?: No Please select the resources that you would like help with: None Currently or been in a relationship where the following occur: No concerns reported THRIVE Score: 3 AUDIT C Alcohol Use Questionnaire (AUDIT-C) 1. How often do you have a drink containing alcohol?: Monthly or less 2. How many drinks containing alcohol do you have on a typical day when you are drinking?: 1 or 2 3. How often do you have six or more drinks on one occasion?: Never Total Score: 1 YIN-7 AMB Questionnaire YIN-7 Date YIN - 7 assessed: 08/24/24 Feeling nervous, anxious, or on edge: 0 = Not at all Not being able to stop or control worryin = Not at all Worrying too much about different things: 0 = Not at all Trouble relaxin = Not at all Being so restless that it is hard to sit still: 0 = Not at all Becoming easily annoyed or irritable: 0 = Not at all Feeling afraid as if something awful might happen: 0 = Not at all Total YIN-7 score (0-4 normal; 5-9 mild; 10-14 moderate; 15-21 severe): 0 Source: Developed by Drs. Sudhir Vasquez, Terri Mcmanus, Mk Ram and colleagues, with an educational marleni from [employer]. YIN-7 Assessment Billing YIN-7 Assessment Tool: YIN-7 Assessment 62926 Review of Systems Const Denies headache(s) Eyes Denies loss of vision ENT Denies vertigo, Denies dizziness, Denies headache(s) and Denies sore throat Card Denies chest pain, Denies leg edema and Denies lightheadedness Resp Denies cough, Denies hemoptysis and Denies wheezing GI Denies abdominal pain, Denies melena, Denies constipation, Denies diarrhea and Denies vomiting Denies dysuria, Denies urinary frequency and Denies urinary urgency Musc Denies arthralgias, Denies joint swelling, Denies numbness and Denies tingling Neuro Denies Abnormal speech present, Denies behavioral changes, Denies vertigo, Denies dizziness, Denies headache(s), Denies loss of vision, Denies memory loss, Denies numbness and Denies tingling Psych Denies anxiety, Denies behavioral changes, Denies depression, Denies memory loss and Denies panic attacks Americo/Lymph Denies easy bleeding and Denies easy bruising Aller/Immun Denies wheezing Physical exam (Primary Care) Vital Signs: Last Vital Signs Pulse 102 H 08/24/24 10:22 BP 128/60 08/24/24 10:22 Pulse Ox 97 08/24/24 10:22 Oxygen Delivery Method Room Air 08/24/24 10:22 BMI result Body Mass Index 33.5 Tobacco/Smoking Status: Tobacco use Status Tobacco use date assessed 08/24/24 08/24/24 10:26 Patient Tobacco Use Status Former Tobacco user 08/24/24 10:22 Tobacco use type Cigarette 08/24/24 10:22 e-Cigarette/Vaping Use Never Used 08/24/24 10:22 PHQ-9: PHQ-9 Score PHQ-9: Total score 0 08/24/24 10:32 Depression Screening Interpretation: Negative Thrive Assessment: Date of Thrive Assessment Date Thrive assessed 08/24/24 08/24/24 10:22 Currently or been in a relationship where the following occur: No concerns reported Const General: healthy appearing, no acute distress, alert and awake Nutritional Appearance: well nourished Orientation/consciousness: oriented to person, oriented to place and oriented to time HENMT Ears: TM's normal bilaterally General nose exam: Normal nasal mucous membranes and turbinates present Eyes Conjunctivae: conjunctivae normal Sclerae: sclerae normal Pupils: Equal, round and reactive pupils present Neck Neck: Yes no lymphadenopathy and Yes no JVD Thyroid: Thyroid normal Carotids: no bruits Resp Effort & Inspection: normal respiratory effort and not tachypneic Auscultation: no crackles, no rales, no rhonchi and no wheezes Cardio Rate: regular rate Rhythm: regular rhythm Heart sounds: no murmurs and normal S1 and S2 GI Palpation (GI): Soft to palpation, nontender, no hepatomegaly and no splenomegaly Auscultation: normal bowel sounds Skin General skin exam: no rashes or lesions noted and dry skin Neuro General: oriented to person, oriented to place and oriented to time Cranial nerves: Yes Equal, round and reactive pupils present Speech: No Abnormal speech present Gait exam (Neuro): Normal gait present Motor exam (neuro): no tremor noted Extrem Right upper extremity: full ROM Left upper extremity: full ROM Right lower extremity: full ROM; no edema Left lower extremity: full ROM; no edema Psych Mental Status: mental status grossly normal Speech and movement: Normal speech and movement present Affect: normal affect Attitude: cooperative Thought process: Normal thought process present Coding Level of Care Code Est Pt Level 4 (34847) Diagnoses PAF (paroxysmal atrial fibrillation) I48.0 Psoriatic arthritis L40.50 Mixed hyperlipidemia E78.2 Hyperlipidemia type: mixed hyperlipidemia MALICK treated with BiPAP G47.33 Additional Codes PHQ-9 - 64685 - PHQ-9 Billing: Yes ([id number]) YIN-7 Assessment Billing - YIN-7 Assessment Tool: YIN-7 Assessment 57149 ([id number]) Assessment & Plan Assessment & Plan (1) PAF (paroxysmal atrial fibrillation): Code(s): I48.0 - Paroxysmal atrial fibrillation Category: Medical Plan: As per HPI patient is due to see an malter operator at [facility] to do new transesophageal ablation procedure. He has high hopes that this will help cure his AFib. Otherwise continues on with the control with digoxin and anticoagulated with Xarelto. (2) Psoriatic arthritis: Code(s): L40.50 - Arthropathic psoriasis, unspecified Category: Medical Plan: As per HPI patient has severe psoriatic arthritis to which he is seeing a laborer carpentry dock for. He does get injections in his joints that give him temporary relief. Otherwise he is fairly disabled and continues to ambulate with cane assistance. He is asking for a new recliner lift chair to help him get up off of his chair at home as part of his quality of life. (3) HLD (hyperlipidemia): Code(s): E78.5 - Hyperlipidemia, unspecified Category: Medical Qualifiers: Hyperlipidemia type: mixed hyperlipidemia Qualified Code(s): E78.2 - Mixed hyperlipidemia Plan: Patient has particular hypertriglyceridemia that seems to be borderline on most recent labs. Will continue working on dietary modifications. (4) MALICK treated with BiPAP: Code(s): G47.33 - Obstructive sleep apnea (adult) (pediatric) Category: Medical Plan: Patient uses BiPAP machine on nightly basis. He reports his BiPAP machine is over 20 years old and needs a new machine. He reports his machine only continuously blows air and does not have it is BiPAP abilities at this time. Have tried several different DME supplier as though has not been successful. Will refer to pulmonology for re-evaluation of his obstructive sleep apnea and perhaps needs his pressures change. We did discuss having uncontrolled obstructive sleep apnea could be a reason for his difficult to control AFib Orders: Orders Prostate Specific Antigen Scr Today G47.33 - Obstructive sleep apnea (adult) (pediatric), Z12.5 - Encounter for screening for malignant neoplasm of prostate, Z99.89 - Dependence on other enabling machines and devices Microalbumin, Random (w Creat) Today I10 - Essential (primary) hypertension Lipid Panel Today E78.2 - Mixed hyperlipidemia Comprehensive [place]. Panel Fast Today I10 - Essential (primary) hypertension Complete Blood Count no Diff Today I10 - Essential (primary) hypertension Referrals Pulmonology Referral G47.33 - Obstructive sleep apnea (adult) (pediatric)
[2024-08-24 10:22] VITALS: BP 128/60; PULSE 102; O2SAT 97; BMI 33.5
--- OUTSIDE RECORDS SUMMARY | 2024-08-24 11:31 | XMS_ITS | Encounter Summary ---
Author Organization [employer] Address [address] [place] [address] Care Team Providers Care Heater Worker Name Role Phone Unavailable Primary Care Provider Unavailabl e Encounter Details Date Type Department Care Team (Latest Contact Info) Description 09/03/2018 Abstract C CONVERSIONS Dental, Provider, DDS Social History Tobacco Use Types Packs/Day Years Used Date Smoking Tobacco: Never Assessed Sex and Gender Information Value Date Recorded Sex Assigned at Male 06/03/2022 10:24 AM EDT Legal Sex Male 10:24 AM EDT Gender Identity Male 06/03/2022 10:24 AM EDT Sexual Orientation Straight 06/03/2022 10 :24 AM EDT documented as of this encounter Plan of Treatment Not on file documented as of this encounter Visit Diagnoses Not on filedocumented in this encounter
--- OUTSIDE RECORDS SUMMARY | 2024-08-24 11:31 | XMS_ITS | Encounter Summary ---
Author Organization [employer] Address [address] [place] [address] Care Team Providers Care Veneer Sheet Repairer Name Role Phone Unavailable Primary Care Provider Unavailabl e Encounter Details Date Type Department Care Team (Latest Contact Info) Description 10/11/2021 Abstract [facility] CONVERSIONS Dental, Provider, DDS Social History Tobacco [...]
--- OUTSIDE RECORDS SUMMARY | 2024-08-24 11:31 | XMS_ITS | Clinical Summary ---
Author Organization [employer] Address [address] [place] [address] [address] [place] [address] Care Team Providers Care Rack Maker Name Role Phone Unavailable Primary Care Provider Unavailabl e Allergies No known active allergies Medications albuterol 108 (90 Base) MCG/ACT inhaler INHALE 2 PUFFS BY MOUTH EVERY 6 HOURS NEEDED FOR SHORTNESS OF BREATH OR WHEEZING 3 Active amoxicillin (Amoxil) 875 MG tablet Take 875 mg by mouth 2 times daily. 3 Active Otezla 30 MG tablet 3 Active dilTIAZem CD (Cardizem CD) 120 MG 24 hr capsule Take 120 mg by mouth in the morning. 3 Active docusate sodium (Colace) 100 MG capsule TAKE 1 CAPSULE BY MOUTH 2 TIMES A SHELLY NEEDED FOR CONSTIPATION 3 Active fluticasone (Flonase) 50 MCG/ACT nasal spray SHAKE LIQUID AND USE 1 SPRAY IN EACH NOSTRIL DAILY 3 Active fluocinonide (Lidex) 0.05 % cream 3 Active Fluticasone Propionate, Inhal, (Flovent Diskus) 100 MCG/ACT aerosol powder Inhale 1 puff every 12 (twelve) hours. Active naproxen (Naprosyn) 500 MG tablet Take 500 mg by mouth every 12 (twelve) hours if needed. 3 Active tiZANidine (Zanaflex) 4 MG tablet Take 4 mg by mouth at bedtime. 3 Active Active Problems Problem Noted Date Diagnosed Date Missing teeth, acquired 11/18/2023 Dental calculus 12/27/2022 Social History Tobacco Use Types Packs/Day Years Used Date Smoking Tobacco: Former Cigarettes Smokeless Tobacco: Never Alcohol Use Standard Drinks/Week Comments Yes 0 (1 standard drink = 0.6 oz pur e alcohol) Sex and Gender Information Value Date Recorded Sex Assigned at Male 06/03/2022 10:24 AM EDT Legal Sex Male 10:24 AM EDT Gender Identity Male 06/03/2022 10:24 AM EDT Sexual Orientation Straight 06/03/2022 10 :24 AM EDT Last Filed Vital Signs Vital Sign Reading Time Taken Comments Blood Pressure 124/62 12/31/2023 11:02 AM EDT Pulse 75 11/18/2023 9:38 AM EDT Temperature - - Respiratory Rate - - Oxygen Saturation - - Inhaled Oxygen Concentration - - Weight - - Height - - Body Mass Index - - Plan of Treatment Health Maintenance Due Date Last Done Comments Anal Pap 1960 CT Colonography 1960 Colonoscopy 1960 Colorectal Cancer Screening 1960 Depression Screening 1960 FIT DNA/Cologuard 1960 FIT 1960 FOBT 1960 HIV Screening 1960 Lipid Panel 1960 SDOH Screening 1960 Sigmoidoscopy 1960 Alcohol/Substance Use Screening 1972 Hepatitis C Screening 1978 Hepatitis A Vaccines (1 of 2 - Risk 2-dose series) 1979 Zoster Vaccines (1 of 2) 2010 Hepatitis B Vaccines (1 of 3 - Risk 3-dose series) 2020 COVID-19 Vaccine (3 - season) 2024 07/18/2021, 11/13/2020 Influenza Vaccine (#1) 2024 , 04/23/2016, 05/04/2012, Additional history exists Dental Oral Exam 05/20/2024 11/18/2023, 12/27/2022 Dental Prophylaxis 05/20/2024 11/18/2023, 12/27/2022 Dental X-Ray: Bitewings 11/18/2024 11/18/2023, 12/27 Tobacco Screening 01/06/2025 01/07/2024 DTaP/Tdap/Td Vaccines (2 - Td or Tdap) 06/12/2025 06/12/2015 Dental X-Ray: Full Mouth 11/18/2026 11/18/2023, 01/0 12/2020 RSV Patients and Patients Aged 60 years or older (1 - 1-dose 75+ series) 2035 HIB Vaccines Aged Out No longer eligi ble based on patient's age to complete this topic HPV Vaccines Aged Out No longer eligi ble based on patient's age to complete this topic IPV Vaccines Aged Out No longer eligi ble based on patient's age to complete this topic Meningococcal Vaccine Aged Out No krysten catrina eligible based on patient's age to complete this topic Pneumococcal Vaccine: Pediatrics (0 to 5 Years) and At-Risk Patients (6 to 64 Years) Aged Out No longer eligible based on patient's age to complete this topic RSV under 20 months Aged Out No longe r eligible based on patient's age to complete this topic Rotavirus Vaccines Aged Out No longer eligible based on patient's age to complete this topic Procedures Procedure Name Priority Date/Time Associated Diagnosis Comments PROPHYLAXIS - ADULT Routine 11/18/2023 1 0:00 AM EDT DIAGNOSTIC - DIAGNOSTIC IMAGING - INTRAORAL - COMPREHENSIVE SERIES OF RADIOGRAPHIC IMAGES Routine 11/18/2023 10:00 AM EDT PERIODIC ORAL EVALUATION - ESTABLISHED PATIENT Routine 11/18/2023 10:00 AM EDT from Last 3 Months or Most Recently Relevant to Health Maintenance Insurance [facility]
--- OUTSIDE RECORDS SUMMARY | 2024-08-24 11:31 | XMS_ITS | Encounter Summary ---
Author Organization [employer] Address [address] [place] [address] Care Team Providers Care Food Service Worker Name Role Phone Unavailable Primary Care Provider Unavailabl e Encounter Details Date Type Department Care Team (Latest Contact Info) Description 08/25/2020 Abstract [facility]HC CONVERSIONS Dental, Provider, DDS Social [...]
== END 2024-08-24 11:08 | disposition home or self-care (01) ==
PROVIDERS: PCP Physician Assistant; Visit Provider Physician Assistant
DX: I48.0 Paroxysmal atrial fibrillation (principal); L40.50 Arthropathic psoriasis, unspecified; E78.2 Mixed hyperlipidemia; G47.33 Obstructive sleep apnea (adult) (pediatric)

== ENCOUNTER → 2024-08-24 10:18 | Outpatient (BNVA) | payer OTHER, SELFPAY | PROVIDERS: PCP Physician Assistant; Visit Provider Physician Assistant | DX: I48.0 Paroxysmal atrial fibrillation (principal); L40.50 Arthropathic psoriasis, unspecified; E78.2 Mixed hyperlipidemia; G47.33 Obstructive sleep apnea (adult) (pediatric) | CPT/HCPCS: 96127; 99212 ==

== ENCOUNTER 2024-09-23 15:28 | Outpatient (AMB) | payer OTHER, SELFPAY ==
[2024-09-23 15:49] VITALS: BP 128/58; PULSE 75; TEMP 36.2; O2SAT 99; BMI 34.5
--- NOTE | 2024-09-23 15:49 | A.OFFPC_ITS ---
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 Accompanied by: Self / Same As Patient Allergies tetanus toxoid, adsorbed Allergy (Verified 09/23/24 16:08) Hives Medication List - Last Reconciled 09/23/24 by Noam Zapata PA-C [4 x 4 non woven gauze As directed] acetaminophen ER (Tylenol Arthritis Pain) 650 mg PO Q12H 30 days adhesive bandage (Adhesive Pads) As directed adhesive tape (Medipore) As directed albuterol sulfate 90 mcg/actuation (Ventolin HFA) 2 puffs inhalation Q6H PRN 30 days alclometasone 0.05% 1 appl topical BID PRN atorvastatin mg PO DAILY blood pressure kit-extra large As directed [coloplast triad cream As directed] CPAP (CPAP Machine/Device) As directed digoxin 125 mcg PO DAILY 90 days diltiazem HCl CD 240 mg PO DAILY 90 days docusate sodium 100 mg PO BID PRN fluocinonide 0.05% 1 appl topical BID PRN fluticasone propionate 50 mcg/actuation 1 spray intranasal DAILY 30 days furosemide 20 mg PO Q48H 90 days furosemide mg PO DAILY gauze bandage (Gauze Pad) As directed ibuprofen 800 mg (4 x 200 mg) PO Q6H PRN 30 days lactulose 15 mL PO BEDTIME PRN leg brace (Knee Support Brace) NEED FOR SOFT KNEE BRACE WITH MEDIAL AND LATERAL HARD SUPPORT menthol-zinc oxide 0.44-20.6 % (Calmoseptine) 1 appl topical BID 30 days miscellaneous medical supply 1 ea miscellaneous DAILY 99 days mupirocin 2% 1 appl topical BID PRN non-adherent bandage use daily nystatin 1 appl topical DAILY PRN [Omni Tray for wheel chair As directed] potassium chloride ER mEq PO DAILY [reclining lift chair As directed] rivaroxaban (Xarelto) 20 mg PO DAILY 90 days tamsulosin 0.4 mg PO DAILY 90 days tizanidine 4 mg PO BEDTIME PRN 30 days Tobacco use date assessed: 08/24/24 Dental Screening Dental Screen Date: 08/24/24 HPI [facility] 09/19 HPI Details Patient is a 64-year-old male here for acute rehab stay follow-up. ? Patient has a past medical history significant for AFib, morbid obesity,? MALICK, psoriatic arthritis,? pyoderma,? asthma. ---->He was seen at [facility] for acute a ltered mental status and visual disturbance. While at [facility] ER did go undergo a CT angiogram of head and neck which showed the distal left APPARATUS LINEMAN occlusion. He did have an elevated troponin though was 72 hours post cardiac ablation for his AFib. While in the hospital neurology consulted and brain MRI done which did show an early acute left posterior medial temporal lobe infarct and also an intra luminal thrombus within the left posterior cerebral artery. He has been started on moderate dose statin atorvastatin 40 mg. -- > Currently doing much better and fee ling as though he has more energy. Has not noted any palpitations or fast heart rates. He reports he has been sleeping much better even to the point he is not been using his BiPAP machine at night. .. Paroxysmal AFIB:? Recently underwent a transesophageal cardiac ablation which seems to be successful. Now normal rhythm and reports he is feeling much better in heart rates now in the 70s to 80s. He continues on diltiazem, digoxin and Xarelto for stroke prophylaxis. 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 .. Obstructive sleep apnea: Has been diagnosed with obstructive sleep apnea over 10 years ago. Did have a sleep study about 10 years ago and was started on CPAP machine. He reports he does use a BiPAP machine in particular at 12 cm water pressure. He has upcoming appointment with pulmonology to evaluate his obstructive sleep apnea in the need for continued use of BiPAP. .. Psoriatic arthritis: Continues to have pretty severe psoriatic arthritis pain and disability. Continues to ambulate with cane assistance. Does follow a tobacco sprayer whom gives injections to patient for his affected joints. He does have an electric lift chair that has been broken over the last 2 years and has been trying to get this fixed or replacement chair for quite some time to help him with his quality of life at home. .. HTN: Patient's blood pressure acceptable today in office. .. Obesity:? He does understand his BMI is over 30 and has been trying to be more physically active to reduce his weight. .. PFSH Medical History Carpal tunnel syndrome Ambulates with cane [place] (hard of hearing) History of diverticulitis Weight loss Psoriatic arthritis MALICK on CPAP Morbid obesity PAF (paroxysmal atrial fibrillation) Surgical History Hx of colonoscopy Status post catheter ablation of atrial fibrillation History of cardiac radiofrequency ablation (RFA) (~11/05/17) Family History Father CVD (cardiovascular disease) Mother CVD (cardiovascular disease) Atrial fibrillation Alzheimer disease Other Substance use disorder Social History Household Members: Children Housing: House Do you presently have visiting nurse or other home services: Yes ([employer]) Alcohol intake: never Patient Tobacco Use Status: Former Tobacco user Tobacco use type: Cigarette Years Smoked: 20 +/- e-Cigarette/Vaping Use: Never Used Second Hand Smoke Exposure: No Advance Directives Date on File: 03/17/24 service: No Current occupational status: disabled Cognitive needs: No Hearing needs: Yes (hearing aide) Vision needs: Yes (Glasses) Questionnaire Thrive Questionnaire Date Thrive assessed: 08/24/24 YIN-7 AMB Questionnaire YIN-7 Date YIN - 7 assessed: 08/24/24 Source: Developed by Drs. Sudhir Vasquez, Terri Mcmanus, Mk Ram and colleagues, with an educational marleni from [employer]. Review of Systems Const Denies headache(s) Eyes Denies loss of vision ENT Denies vertigo, Denies dizziness, Denies headache(s) and Denies sore throat Card Denies chest pain, Denies leg edema and Denies lightheadedness Resp Denies cough, Denies hemoptysis and Denies wheezing GI Denies abdominal pain, Denies melena, Denies constipation, Denies diarrhea and Denies vomiting Denies dysuria, Denies urinary frequency and Denies urinary urgency Musc Denies arthralgias, Denies joint swelling, Denies numbness and Denies tingling Neuro Denies Abnormal speech present, Denies behavioral changes, Denies vertigo, Denies dizziness, Denies headache(s), Denies loss of vision, Denies memory loss, Denies numbness and Denies tingling Psych Denies anxiety, Denies behavioral changes, Denies depression, Denies memory loss and Denies panic attacks Americo/Lymph Denies easy bleeding and Denies easy bruising Aller/Immun Denies wheezing Physical exam (Primary Care) Vital Signs: Last Vital Signs Temp 97.1 F 09/23/24 15:49 Pulse 75 09/23/24 15:49 BP 128/58 L 09/23/24 15:49 Pulse Ox 99 09/23/24 15:49 BMI result Body Mass Index 34.5 Tobacco/Smoking Status: Tobacco use Status Tobacco use date assessed 08/24/24 09/23/24 15:58 Patient Tobacco Use Status Former Tobacco user 09/23/24 15:58 Tobacco use type Cigarette 09/23/24 15:58 e-Cigarette/Vaping Use Never Used 09/23/24 15:58 Thrive Assessment: Date of Thrive Assessment Date Thrive assessed 08/24/24 09/23/24 15:58 Const General: healthy appearing, no acute distress, alert and awake Nutritional Appearance: well nourished Orientation/consciousness: oriented to person, oriented to place and oriented to time HENMT Ears: TM's normal bilaterally General nose exam: Normal nasal mucous membranes and turbinates present Eyes Conjunctivae: conjunctivae normal Sclerae: sclerae normal Pupils: Equal, round and reactive pupils present Neck Neck: Yes no lymphadenopathy and Yes no JVD Thyroid: Thyroid normal Carotids: no bruits Resp Effort & Inspection: normal respiratory effort and not tachypneic Auscultation: no crackles, no rales, no rhonchi and no wheezes Cardio Rate: regular rate Rhythm: regular rhythm Heart sounds: no murmurs and normal S1 and S2 GI Palpation (GI): Soft to palpation, nontender, no hepatomegaly and no splenomegaly Auscultation: normal bowel sounds Skin General skin exam: no rashes or lesions noted and dry skin Neuro General: oriented to person, oriented to place and oriented to time Cranial nerves: Yes Equal, round and reactive pupils present Speech: No Abnormal speech present Gait exam (Neuro): Normal gait present Motor exam (neuro): no tremor noted Extrem Right upper extremity: full ROM Left upper extremity: full ROM Right lower extremity: full ROM; no edema Left lower extremity: full ROM; no edema Psych Mental Status: mental status grossly normal Speech and movement: Normal speech and movement present Affect: normal affect Attitude: cooperative Thought process: Normal thought process present Coding Level of Care Code Est Pt Level 4 (33541) Diagnoses PAF (paroxysmal atrial fibrillation) I48.0 Cerebrovascular accident (CVA) due to embolism of left middle cerebral artery I63.412 CVA mechanism: embolism Laterality of affected vessel: left Precerebral and cerebral artery: middle cerebral artery History of radiofrequency ablation (RFA) procedure for cardiac arrhythmia Z98.890 Mixed hyperlipidemia E78.2 Hyperlipidemia type: mixed hyperlipidemia Assessment & Plan Assessment & Plan (1) PAF (paroxysmal atrial fibrillation): Code(s): I48.0 - Paroxysmal atrial fibrillation Category: Medical Plan: As per HPI patient underwent a transesophageal cardiac ablation which seems to have been successful. He had now normal rhythm and heart rates are much more appropriate. He reports he has been breathing better has much more energy. He also interestingly enough reports he has been able to sleep lying down without needing to gas for air. He has not been using his BiPAP machine at night. With pulmonology to evaluate the need for continued CPAP (2) CVA (cerebral vascular accident): Code(s): I63.9 - Cerebral infarction, unspecified Category: Medical Qualifiers: CVA mechanism: embolism Laterality of affected vessel: left Precerebral and cerebral artery: middle cerebral artery Qualified Code(s): I63.412 - Cerebral infarction due to embolism of left middle cerebral artery Plan: As per HPI patient experienced acute stroke after his cardiac ablation. He seemed to make a full recovery from his cognitive deficits he was experiencing during his stroke. [facility] with [facility]. Has been started on statin therapy and will continue Xarelto for anticoagulation. Goal LDL to be optimally below 70 (3) History of radiofrequency ablation (RFA) procedure for cardiac arrhythmia: Code(s): Z98.890 - Other specified postprocedural states Category: Surgical Plan: As above (4) HLD (hyperlipidemia): Code(s): E78.5 - Hyperlipidemia, unspecified Category: Medical Qualifiers: Hyperlipidemia type: mixed hyperlipidemia Qualified Code(s): E78.2 - Mixed hyperlipidemia Plan: Has been started on atorvastatin 40 mg due to his recent stroke. Will continue working on dietary modifications. Will continue to follow lipid panel with goal LDL to be optimally below 70 Orders: Referrals Cardiology Referral I48.0 - Paroxysmal atrial fibrillation
--- OUTSIDE RECORDS SUMMARY | 2024-09-23 16:31 | XMS_ITS | Encounter Summary ---
Author Organization [employer] Address [address] [place] [address] Care Team Providers Care Customer Care Professional Name Role Phone Unavailable Primary Care Provider [...]
--- OUTSIDE RECORDS SUMMARY | 2024-09-23 16:31 | XMS_ITS | Encounter Summary ---
Author Organization [employer] Address [address] [place] [address] Care Team Providers Care Podiatric Medicine Doctor Name Role Phone Unavailable Primary Care Provider [...]
--- OUTSIDE RECORDS SUMMARY | 2024-09-23 16:31 | XMS_ITS | Encounter Summary ---
Author Organization [employer] Address [address] [facility] [address] [place] [address] Care Team Providers Care Salvage Grinder Name Role Phone Unavailable Primary Care Provider [...]
--- OUTSIDE RECORDS SUMMARY | 2024-09-23 16:31 | XMS_ITS | Continuity of Care Document ---
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 Name Role Phone Noam Membreno Primary Care Physician Encounter [facility] [place] Date(s): 09/09/24 - 09/13/[address] [id number] Encounter Diagnosis Stroke(Final) - 09/09/24 Discharge Disposition: A-D/C Home Attending Physician: Latonya Chaudhari MD, David Admitting Physician: David FABIAN, Jamin Referring Physician: Not on Staff, Referring MD Encounter Type: Disch IP Allergies, Adverse Reactions, Alerts Substance Criticality Severity Reaction Reaction Severity Status Contrast Dye 1 Activ e Seasonale Active 1Patient had adverse reaction after receiving contrast dye--felt alot of pressure in head and then pain in head, neck, shoulders and back--took a few days to get better per patient Medications Acetaminophen Tablet 650 mg, Tablet, By Mouth, Every 4 hours, PRN for Pain , Mild, Temperature Greater than 100.5, Routine, 09/09/24 11:50:00 PM EST Start Date: 09/09/24 Stop Date: 09/14/24 Status: Discontinued Repeat number: 1 Albuterol (Eqv-ProAir HFA) 90 mcg/inh inhalation aerosol 1 inhalation = 90 mcg, Inhalation, Every 4 hours, PRN as needed for shortness of breath or wheezing, # 8.5 Gm, 0 Refills, Maintenance, 09/08/24 11:34:00 AM EST, Aerosol, Partial fill upon patient request if the prescription is for a schedule II opioid drug. Start Date: 09/08/24 Status: Ordered Quantity: 8.5 Unit: g Repeat number: 1 atorvastatin 40 mg oral tablet = 40 mg, By Mouth, Daily at bedtime, # 30 tablet, 0 Refills, Maintenance, 09/13/24 7:30:00 AM EST, Tablet, [facility], Partial fill upon patient request if the prescription is for a schedule II opioid drug., 180, cm, 09/12/24 4:52:00 EST, Height, 112.5, kg, 09/10/24 17:47:00 EST, Dry Weight Start Date: 09/13/24 Stop Date: 10/13/24 Status: Ordered Quantity: 30.0 Unit: tablet Repeat number: 1 digoxin 0.125 mg oral tablet 125 mcg, Tablet, By Mouth, 09/13/24 4:00:00 PM EST Start Date: 09/13/24 Stop Date: 09/13/24 Status: Completed Repeat number: 1 digoxin 0.125 mg oral tablet 125 mcg, 1, tablet, By Mouth, Daily, Refills 0, Maintenance, 09/08/24 11:35:00 AM EST, Partial fill upon patient request if the prescription is for a schedule II opioid drug. Start Date: 09/08/24 Status: Ordered Repeat number: 1 diltiazem 240 mg/24 hours oral capsule, extended release 240 mg, CD Capsule, By Mouth, 09/13/24 9:00:00 AM EST Start Date: 09/13/24 Stop Date: 09/13/24 Status: Completed Repeat number: 1 diltiazem 240 mg/24 hours oral capsule, extended release 240 mg, 1, capsule, By Mouth, Daily, Refills 0, Maintenance, 09/08/24 11:29:00 AM EST, Partial fill upon patient request if the prescription is for a schedule II opioid drug. Start Date: 09/08/24 Status: Ordered Repeat number: 1 docusate sodium 100 mg oral capsule 100 mg, 1, capsule, By Mouth, 2 times a day, PRN, # 20 capsule, Refills 0, Maintenance, for constipation, 10/31/17 12:56:04 PM EDT Start Date: 10/31/17 Status: Ordered Quantity: 20.0 Unit: capsule Repeat number: 1 Flonase 50 mcg/inh nasal spray 1 sprays, Nares, Both, 2 times a day, # 16 Gm, 0 Refills, Maintenance, 11/05/17 7:21:21 AM EDT, [place] Start Date: 11/05/17 Status: Ordered Quantity: 16.0 Unit: g Repeat number: 1 Lasix 40 mg oral tablet 40 mg, By Mouth, Daily, Refills 0, Maintenance, 09/13/24 9:52:00 AM EST, Partial fill upon patient request if the prescription is for a schedule II opioid drug. Start Date: 09/13/24 Status: Ordered Repeat number: 1 Xarelto 20 mg oral tablet 1 tablet = 20 mg, By Mouth, Daily at supper, # 30 tablet, 0 Refills, Maintenance, 10/31/17 12:57:28 PM EDT, Tablet Start Date: 10/31/17 Status: Ordered Quantity: 30.0 Unit: tablet Repeat number: 1 Problem List Condition Confirmation Course Effective Dates Status Health [facility] Informant Laugh Apnea Confirmed Active Afib Confirmed Active Chronic back pain Confirmed Active Fatigue Confirmed Active HLD (hyperlipidemia) Confirmed Active Pulmonary nodule, right Confirmed Active Obese class I Confirmed Active Obstructive sleep apnea w/CPAP Confirmed Active Psoriatic arthritis Confirmed Active Right drake Pyoderma gangrenosum Confirmed Active SNHL (sensorineural hearing loss), bilateral hearing aids Confirmed Active Results Radiology Reports * Exam Date Time Procedure Performing Provider Status 09/09/24 10:[address] Angio Neck Hyperacute Stroke Joan Kim; Auth (Verified) Notes: (CT Angio Neck Hyperacute Stroke) Reason For Exam: Aneurysm, neck vessel(s);Other: RESULT: CT Angio Neck Hyperacute Stroke CT Angio Head Hyperacute Stroke, CT Angio Neck Hyperacute Stroke Reason: Other:; Stroke; Clinical Question(s): Other:; Hematoma Aneurysm / Other: TECHNIQUE: CT angiogram of the head and neck was performed after bolus administration of intravenous contrast. 100 mL of Isovue 300 was administered intravenously. Coronal and sagittal MIP reformatted images were obtained. Additional 3-D images were created on a separate workstation under concurrent supervision by the attending radiologist. All stenoses are measured using NASCET criteria. Weight-based protocol using automatic tube modulation was used to optimize exposure parameters. RADIATION DOSE PARAMETERS: CTDIvol Body: 20.07 mGy, DLP Body: 857 mGy*cm. CTDIvol Head: 46.20 mGy, DLP Head: 773 mGy*cm. COMPARISON: Noncontrast CT head performed concurrently. FINDINGS: CTA OF THE NECK: Arch: There is a three vessel aortic arch. There is mild atherosclerotic plaque of the aortic arch,but origins of the supra aortic vessels are patent. Soft plaque mild narrowing of the proximal leftsubclavian artery. Right carotid system: The common carotid and cervical internal carotid arteries are patent. There is calcified atherosclerotic plaque at the carotid bifurcation, but no ICA stenosis (0%) by NASCET criteria. Left carotid system: The common carotid and cervical internal carotid arteries are patent. No stenosis (0%) by NASCET criteria. Right vertebral: Patent. Left vertebral: Patent. Other: Soft tissues and bones: No evidence of lymphadenopathy or mass. The thyroid is unremarkable. Visualized lungs are blurred by motion artifact, without significant superimposed airspace opacity. Degenerative changes of the cervical spine. CTA OF THE HEAD: Anterior circulation: Calcifications of the intracranial internal carotid arteries are present. There is mild stenosis of the distal vertical cavernous segment of the left ICA. Posterior communicating arteries are present. The ICA termini are maintained. The A1 and A2 segments of the anterior cerebral arteries are patent. The M1 segments of the middle cerebral arteries and M2 branch origins are patent. Posterior circulation: Focal calcifications of the vertebral arteries are present with mild stenoses. The PICA origins are patent. The basilar artery and superior cerebellar arteries are patent. There is a focal cutoff of the proximal P3 segment of the left posterior cerebral artery with reconstitution of the more distal left FAUCETS ASSEMBLER branches. The right posterior cerebral artery is patent. Veins: Major dural venous sinuses are patent. Other: Soft tissues and bones: No midline shift or effacement of the basal cisterns. No space-occupying hemorrhage. No acute territorial loss of patel-white matter differentiation. Orbits are unremarkable. Fluid is present within the right sphenoid sinus, and there is complete opacification of the left maxillary sinus. Opacification of the underdeveloped left mastoid air cells. IMPRESSION: 1. 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 2. No hemodynamically-significant stenoses of the extracranial internal carotid and vertebral arteries. A preliminary report was issued to the emergency room by the [facility] service 09/09/2024 at 10:36 PM. WSN: [id number] Ordering Physician: Dixon Benavides Dictated By: Evan Lane MD Dictated Date/Time: 09/10/24 10:13 a Reviewed By: Evan Lane MD Signed By: Evan Lane MD Signed Date/Time: 09/10/24 10:13 am Transcribed By: ROBERT Transcribed Date/Time: 09/10/24 10:02 am * Exam Date Time Procedure Performing Provider Status 09/09/24 10:[address] Angio Head Hyperacute Stroke Joan Kim; Auth (Verified) Notes: (CT Angio Head Hyperacute Stroke) Reason For Exam: Stroke;Other: RESULT: CT Angio Head Hyperacute Stroke CT Angio Head Hyperacute Stroke, CT Angio Neck Hyperacute Stroke Reason: Other:; Stroke; Clinical Question(s): Other:; Hematoma Aneurysm / Other: TECHNIQUE: CT angiogram of the head and neck was performed after bolus administration of intravenous contrast. 100 mL of Isovue 300 was administered intravenously. Coronal and sagittal MIP reformatted images were obtained. Additional 3-D images were created on a separate workstation under concurrent supervision by the attending radiologist. All stenoses are measured using NASCET criteria. Weight-based protocol using automatic tube modulation was used to optimize exposure parameters. RADIATION DOSE PARAMETERS: CTDIvol Body: 20.07 mGy, DLP Body: 857 mGy*cm. CTDIvol Head: 46.20 mGy, DLP Head: 773 mGy*cm. COMPARISON: Noncontrast CT head performed concurrently. FINDINGS: CTA OF THE NECK: Arch: There is a three vessel aortic arch. There is mild atherosclerotic plaque of the aortic arch,but origins of the supra aortic vessels are patent. Soft plaque mild narrowing of the proximal leftsubclavian artery. Right carotid system: The common carotid and cervical internal carotid arteries are patent. There is calcified atherosclerotic plaque at the carotid bifurcation, but no ICA stenosis (0%) by NASCET criteria. Left carotid system: The common carotid and cervical internal carotid arteries are patent. No stenosis (0%) by NASCET criteria. Right vertebral: Patent. Left vertebral: Patent. Other: Soft tissues and bones: No evidence of lymphadenopathy or mass. The thyroid is unremarkable. Visualized lungs are blurred by motion artifact, without significant superimposed airspace opacity. Degenerative changes of the cervical spine. CTA OF THE HEAD: Anterior circulation: Calcifications of the intracranial internal carotid arteries are present. There is mild stenosis of the distal vertical cavernous segment of the left ICA. Posterior communicating arteries are present. The ICA termini are maintained. The A1 and A2 segments of the anterior cerebral arteries are patent. The M1 segments of the middle cerebral arteries and M2 branch origins are patent. Posterior circulation: Focal calcifications of the vertebral arteries are present with mild stenoses. The PICA origins are patent. The basilar artery and superior cerebellar arteries are patent. There is a focal cutoff of the proximal P3 segment of the left posterior cerebral artery with reconstitution of the more distal left FAUCETS ASSEMBLER branches. The right posterior cerebral artery is patent. Veins: Major dural venous sinuses are patent. Other: Soft tissues and bones: No midline shift or effacement of the basal cisterns. No space-occupying hemorrhage. No acute territorial loss of patel-white matter differentiation. Orbits are unremarkable. Fluid is present within the right sphenoid sinus, and there is complete opacification of the left maxillary sinus. Opacification of the underdeveloped left mastoid air cells. IMPRESSION: 1. 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 2. No hemodynamically-significant stenoses of the extracranial internal carotid and vertebral arteries. A preliminary report was issued to the emergency room by the [facility] service 09/09/2024 at 10:36 PM. WSN: [id number] Ordering Physician: Dixon Benavides Dictated By: Evan Lane MD Dictated Date/Time: 09/10/24 10:13 a Reviewed By: Evan Lane MD Signed By: Evan Lane MD Signed Date/Time: 09/10/24 10:13 am Transcribed By: ROBERT Transcribed Date/Time: 09/10/24 10:02 am * Exam Date Time Procedure Performing Provider Status 09/10/24 3:41 AM MRI Brain W/O Contrast Vicky Ordonez (Verified) Notes: (MRI Brain W/O Contrast) Reason For Exam: acute CVA;Other: RESULT: MRI Brain W/O Contrast MRI Brain W/O Contrast INDICATION / CLINICAL QUESTION: Reason: Other:; acute CVA; Clinical Question(s): Other:; Order Comment: Please see Reference Text for complete list of contraindications Other: TECHNIQUE: MRI of the brain was performed without contrast utilizing sagittal T1, axial T2, axial FLAIR, axial SWAN, and axial DWI sequences. COMPARISON: CT scan of the head and CTA of the head and neck 09/09/2024 FINDINGS: BRAIN and EXTRA-AXIAL SPACES: * There is a well-defined restricted diffusion within the posterior-medial right temporal lobe including the posterior left hippocampus. This is mildly bright on the axial FLAIR images. No associatedsusceptibility artifact to indicate intraparenchymal hemorrhage. A small curvilinear focus of susceptibility artifact is present within the left posterolateral ambient cistern correlating with a focal hyperdensity on the noncontrast CT scan of the head and focal cut off of the left posterior cerebral artery on CTA of the head. Small chronic right cerebellar infarcts are present. A few scattered small FLAIR bright foci withinthe supratentorial white matter are nonspecific, but are compatible with mild chronic microangiopathic/small vessel ischemic change. Mild prominence of the ventricles and sulci. No mass effect or extra-axial fluid collection. EXTRACRANIAL SOFT TISSUES: The visualized extracranial soft tissues and orbital structures are unremarkable. BONES: T2 bright signal within the left maxillary sinus correlating with opacity on the prior CT scans. IMPRESSION: 1. Early acute LEFT posterior-medial temporal lobe infarct. No hemorrhagic transformation. 2. Intraluminal thrombus within the left posterior cerebral artery correlating with the site of vascular cut off on the prior CTA of the head 3. Chronic small cerebellar infarcts. WSN: [id number] Ordering Physician: Rafa Cuello Dictated By: Evan Lane MD Dictated Date/Time: 09/10/24 10:13 a Reviewed By: Evan Lane MD Signed By: Evan Lane MD Signed Date/Time: 09/10/24 10:13 am Transcribed By: ROBERT Transcribed Date/Time: 09/10/24 10:01 am * Exam Date Time Procedure Performing Provider Status 09/09/24 11:49 PM Chest 2 Views Frontal and Lat Nicole Marshall; [place] (Verified) Notes: (Chest 2 Views Frontal and Lat) Reason For Exam: Stroke;Other: RESULT: Chest 2 Views Frontal and Lat Chest 2 Views Frontal and Lat Reason: Other:; Stroke; Clinical Question(s): CHF COMPARISON: None. FINDINGS: LINES AND TUBES: None. LUNGS AND PLEURA: Pulmonary vascularity is increased. Lungs are otherwise clear. No pleural effusion. No pneumothorax. HEART, MEDIASTINUM AND TASHA: The heart is mildly enlarged. Normal mediastinal and hilar contour. BONES AND SOFT TISSUES: No acute abnormality. IMPRESSION: Cardiomegaly with mild CHF. WSN: [id number] Ordering Physician: Dixon Benavides Dictated By: Chi Rizzo MD Dictated Date/Time: 09/09/24 11:57 p Reviewed By: Chi Rizzo MD Signed By: Chi Rizzo MD Signed Date/Time: 09/09/24 11:57 pm Transcribed By: ROBERT Transcribed Date/Time: 09/09/24 11:55 pm * Exam Date Time Procedure Performing Provider Status 09/09/24 10:[address] Head-Hyper Acute Stroke Dio Kim; Auth (Verified) Notes: (CT Head-Hyper Acute Stroke) Reason For Exam: Neuro deficit, acute, stroke suspected;Other: RESULT: CT Head-Hyper Acute Stroke CT Head-Hyper Acute Stroke INDICATION: Acute onset confusion. Reason: Other:; Neuro deficit, acute, stroke suspected; ClinicalQuestion(s): Other:; Hematoma Infarction TECHNIQUE: Noncontrast head CT using axial technique and reconstructed in axial and coronal planes.Iterative reconstruction techniques are used to optimize dose and image quality. CTDIvol Body: 20.07 mGy, DLP Body: 857 mGy*cm. CTDIvol Head: 46.20 mGy, DLP Head: 773 mGy*cm. COMPARISON: None. FINDINGS: Jewel Bearing Broacher view findings, lines and tubes: None. BRAIN AND EXTRA-AXIAL SPACES: No parenchymal hemorrhage, midline shift, or mass effect. Patel-white matter differentiation is wellpreserved. No acute infarct. Negative insular ribbon and hyperdense vessel signs. Mild prominence of the ventricles and sulci consistent with parenchymal volume loss. Mild low-density white matter changes. No subarachnoid hemorrhage. No subdural or epidural collection. CALVARIUM, SKULL BASE, AND SOFT TISSUES: No fractures or suspicious bony lesions. Left maxillary sinus is completely opacified with thickening of the surrounding bone, suggesting chronic sinusitis. Right sphenoid sinus is partially opacified. Left mastoid air cells are diminutive and opacified. The remainder of the paranasal sinuses and right mastoid air cells are clear. Visualized orbits and globes are intact. The extracranial soft tissues are unremarkable. IMPRESSION: No acute intracranial pathology. Paranasal sinus disease as described. Left mastoid air cell effusion without underlying bony abnormalities. The impression above was relayed to Dixon Benavides DO by Dr. Keshav Rosado via [employer] with acknowledgement received on 09/09/2024 at 10:21 PM. WSN: [id number] Ordering Physician: Dixon Benavides Dictated By: Keshav Rosado MD Dictated Date/Time: 09/09/24 10:21 p Reviewed By: Keshav Rosado MD Signed By: Keshav Rosado MD Signed Date/Time: 09/09/24 10:21 pm Transcribed By: ROBERT Transcribed Date/Time: 09/09/24 10:16 pm Vital Signs Most recent to oldest [Reference Range]: 1 2 3 Height 180 cm (09/13/24 4:02 PM) 180 cm (09/13/24 12:25 PM) 180 cm (09/13/24 8:25 AM) Weight 112.5 kg (09/10/24 5:47 PM) 112.3 kg (09/10/24 4:38 PM) 112.3 kg (09/10/24 4:34 PM) Oxygen Saturation [94-100 %] 97 % (09/13/24 4:02 PM) 95 % (09/13/24 12:25 PM) 93 % *L* (09/13/24 8:25 AM) Pulse Rate [55-90 bpm] 80 bpm (09/13/24 4:11 PM) 79 bpm (09/13/24 4:02 PM) 77 bpm (09/13/24 12:25 PM) Body Mass Index [18.5-24.99 kg/m2] 34.72 kg/m2 *>HHI* (09/10/24 5:47 PM) 32.25 kg/m2 *>HHI* (09/10/24 11:02 AM) 32.25 kg/m2 *>HHI* (09/10/24 7:28 AM) Blood Pressure [90-138/55-84 mm Hg] 113/34mm Hg (09/13/24 4:02 PM) 138/78mm Hg (09/13/24 12:25 PM) 133/76mm Hg (09/13/24 9:39 AM) Respiratory Rate [16-30 br/min] 20 br/min (09/13/24 4:02 PM) 20 br/min (09/13/24 12:25 PM) 18 br/min (09/13/24 10:39 AM) Temperature [96.8-100.4 DegF] 97.5 DegF (09/13/24 4:02 PM) 97.5 DegF (09/13/24 12:25 PM) 97.9 DegF (09/13/24 8:25 AM) Mode of Delivery (Oxygen) Room air (09/13/24 4:02 PM) Room air (09/13/24 12:25 PM) Room air (09/13/24 8:25 AM) Blood pressure sites Arm, right (09/13/24 4:02 PM) Arm, right (09/13/24 12:25 PM) Arm, left (09/13/24 8:25 AM) Temperature Route Temporal (09/13/24 4:02 PM) Oral (09/13/24 12:25 PM) Temporal (09/13/24 8:25 AM) Dry Weight 112.5 kg (09/10/24 5:47 PM) 104.5 kg (09/10/24 11:02 AM) 104.5 kg (09/10/24 7:28 AM) Weight Obtained Via Standing scale (09/10/24 4:38 PM) Standing scale (09/10/24 4:34 PM) Standing scale (09/09/24 9:35 PM) Dry Weight Obtained Via Standing scale (09/09/24 9:26 PM) Social History Social History Type Response Smoking Status Former smoker; Other : Quit years ago; entered on: 10/31/17 Sex Sex Representation Male (finding) Admission evaluation note * Khushboo FABIAN, Rafa Fenton: MODIFY, PERFORM Event Display: Admission Note Authored Date: Patient: ??GUALBERTO MINER ? Age:??64 Years?Sex:??Male?:??1960?? Chief Complaint/Reason for Consultation stroke-like symptoms History of Present Illness Source of information is from his daughter who is at the bedside. 64-year-old patient who was brought to the emergency department for evaluation of mental status change.?? He has a past medical history of morbid obesity, and persistent atrial fibrillation s/p recent ablation on 2/5.?? He tolerated the procedure very well without apparent complications and was discharged home on the same day.?? His daughter has noticed that he was confused.?? She started talkingabout the politics and he did not know who the patient was.?? Daughter herself assessed neurological function she has a medical background and was found to have vision changes on the left side with right-sided weakness.?? She denies any facial droop.?? Therefore, he was brought to the emergency department for evaluation.?? Upon arrival to our facility is NIH stroke scale was [address] scan ofthe head with no acute intracranial abnormalities.?? CT angiogram head/neck with distal left FAUCETS ASSEMBLER occlusion, TNK was deferred since the patient on Xarelto.?? Was also felt by neuroendovascular and theclot was too distal.?? Initial blood work was fairly stable on manage change from prior.?? High-sens itivity troponin was high.?? Neurology was consulted with recommendation for admission to the neurofloor, evaluation, he was lying comfortably without any signs of distress was able to follow commands, elevated x 3 4 out of 5 weakness on the right side Review of Systems A full review of systems was completed and is otherwise negative except as mentioned in history of present illness. Objective Measurements?? Height: 180 cm (09/09/24) Weight: 104.5 kg (09/09/24) Dry Weight: 104.5 kg (09/09/24) Body Mass Index:??32.25 kg/m2??Critical (09/09/24) ? Vital Signs?? Temperature: 98.4 DegF (09/09/24 22:41:00) Temperature Route: Oral (09/09/24 22:41:00) Pulse Rate: 68 bpm (09/09/24 22:11:00) Respiratory Rate: 16 br/min (09/09/24 22:11:00) Systolic Blood Pressure: 100 mm Hg (09/09/24 22:11:00) Diastolic Blood Pressure: 75 mm Hg (09/09/24 22:11:00) Blood pressure sites: Arm, left (09/09/24 22:11:00) Mean Arterial Pressure: 88 mm Hg (09/09/24 21:26:00) Pulse Pressure: 25 mm Hg (09/09/24 22:11:00) Oxygen Saturation: 100 % (09/09/24 22:11:00) Mode of Delivery (Oxygen): Room air (09/09/24 22:11:00) ? Intake/Output? No Data Available ? Physical Exam General Appearance: The patient is in NAD. Head: atraumatic EENT: MMM, no scleral icterus Cardiovascular: RRR no MRG Respiratory:?? Breath sounds clear to auscultation bilaterally. No wheezing. room air. GI: Soft. Nontender and nondistended. Normal bowel sounds present throughout abdomen. MS:?? No edema or erythema in the lower extremities. Peripheral sensation intact. Skin: warm, dry, no rashes Neuro:?? No slurred speech.?? However: 4 out??of 5??on the right side. ??5 out of 5??on the left side Intact sensation. ??Cranial nerves are intact. Patient seen moving their upper and lower extremities independently. Psych: calm Lines: Peripheral IV in place. Assessment/Plan Diagnoses Atrial fibrillation ??(I48.91) Stroke ??(I63.9) Stroke ??(I63.9) Stroke-like symptom ??(R29.90) ?? Stroke (I63.9) Stroke-like symptom (R29.90) ? Patient with a past medical history as noted above who was brought to the emergency ferment for evaluation of acute??change of mental status??with focal signs including right-sided weaknessand left-sided blurry vision. CT scan of the head without acute intercranial normalities.??CT angiogram head/neck with??left distal P2 occlusion. TNK was deferred??since the patient was on Xarelto and low NIH stroke scale. Neurology recommended admission to medical floor. Obtain brain MRI without contrast. Echocardiogram. Permissive hypertension. Lipid profile and A1c. Daily aspirin. Continue to monitor telemetry.??Neurochecks every [address]??for any neurological??status change.?? Follow-up??on brain MRI results ?? Atrial fibrillation (I48.91):??Persistent atrial fibrillation s/p ablation x 2 most recently??yesterday. Resume diltiazem.??Xarelto on hold.??Please resume after MRI results. ?? VTE Prophylaxis:??Hold Xarelto??till after the results of the MRI.??Lovenox. ?VTE Prophylaxis Assessment:??VTE Prophylaxis Ordered ?? Discharge Planning:? Code Status:??Full code ?Order Code Status:??Code Status Ordered ? Estimated Discharge Date ? Histories Allergies Allergies ?(Active and Proposed Allergies Only) Seasonale? (Severity: Unknown severity, Onset: Unknown) Contrast Dye? (Severity: Unknown severity, Onset: Unknown) ?Comments: Patient had adverse reaction after receiving contrast dye--felt alot of pressure in head and then pain in ?head, neck, shoulders and back--took a few days to get better perpatient ? Past Medical History/Problem List Active Problems(11) Afib Chronic back pain Fatigue HLD (hyperlipidemia) Laugh Apnea Obese class I Obstructive sleep apnea w/CPAP Psoriatic arthritis Pulmonary nodule, right Right drake Pyoderma gangrenosum SNHL (sensorineural hearing loss), bilateral hearing aids ? Past Surgical History No surgery history documented. ? Social History Tobacco Details:??Former smoker, Other: Quit years ago. ? Family History No Family History documented. ? Medications Home Medications Albuterol (Albuterol (Eqv-ProAir HFA) 90 mcg/inh inhalation aerosol)??1 inhalation 90 Microgram Inhalation Every 4 hours as needed as needed for shortness of breath or wheezing Cetirizine (cetirizine 10 mg oral tablet)??See Instructions take by mouth once [address] Digoxin (digoxin 0.125 mg oral tablet)??125 Microgram 1 tablet By Mouth Daily Diltiazem (diltiazem 240 mg/24 hours oral capsule, extended release)??240 Milligram 1 capsule By Mouth Daily Docusate (docusate sodium 100 mg oral capsule)??100 Milligram 1 capsule By Mouth 2 times a day as needed for constipation Fluticasone Nasal (Flonase 50 mcg/inh nasal spray)??1 spray(s) Nares, Both 2 times a day Furosemide (Lasix 40 mg oral tablet)??40 Milligram By Mouth Daily for 30 Days MethylPREDNISolone (methylPREDNISolone 32 mg oral tablet)??See Instructions take 1 tablet 12 hours before CTtake 1 tablet [address] rivaroxaban (Xarelto 20 mg oral tablet)??1 tab(s) 20 Milligram By Mouth Daily at supper Tizanidine (tiZANidine 4 mg oral capsule)??2 capsule 8 Milligram By Mouth 3 times a day ? Results Recent Labs BLOOD COUNT & DIFF WBC 10.7 k/mm3 ()?? 09/09/2024 21:40 RBC 3.98 m/mm3 (Low)?? 09/09/2024 21:40 Hgb 11.4 Gm/dL (Low)?? 09/09/2024 21:40 Hct 34.2 % (Low)?? 09/09/2024 21:40 MCV 85.9 femtoliters ()?? 09/09/2024 21:40 MCH 28.6 pg ()?? 09/09/2024 21:40 MCHC 33.3 Gm/dL ()?? 09/09/2024 21:40 Platelet Count 255 k/mm3 ()?? 09/09/2024 21:40 RDW-SD 46.5 femtoliters ()?? 09/09/2024 21:40 MPV 9.5 femtoliters ()?? 09/09/2024 21:40 Nucleated RBC (Automated) 0.0 #/100 WBC'S ()?? 09/09/2024 21:40 Abs. NRBC 0.0 k/mm3 ()?? 09/09/2024 21:40 Abs. Neut 7.0 k/mm3 ()?? 09/09/2024 21:40 Abs. Lymph 2.7 k/mm3 ()?? 09/09/2024 21:40 Abs. Bond 0.8 k/mm3 ()?? 09/09/2024 21:40 Abs. Eo 0.1 k/mm3 ()?? 09/09/2024 21:40 Abs. Baso 0.0 k/mm3 ()?? 09/09/2024 21:40 Neut % 65.2 % ()?? 09/09/2024 21:40 Lymph % 25.5 % ()?? 09/09/2024 21:40 Bond % 7.7 % ()?? 09/09/2024 21:40 Eos % 0.8 % ()?? 09/09/2024 21:40 Baso % 0.3 % ()?? 09/09/2024 21:40 Imm Gran 0.5 % ()?? 09/09/2024 21:40 Abs. Imm Gran 0.1 k/mm3 ()?? 09/09/2024 21:40 ?? CARDIAC High Sensitivity Troponin (HSTnT) 329 ng/L (Critical)?? 09/09/2024 21:40 ?? CHEM GENERAL Sodium 144 mmol/L ()?? 09/09/2024 21:40 Potassium 3.6 mmol/L ()?? 09/09/2024 21:40 Chloride 107 mmol/L ()?? 09/09/2024 21:40 Bicarbonate Level 27 mmol/L ()?? 09/09/2024 21:40 Anion Gap 10 mmol/L ()?? 09/09/2024 21:40 Glucose Level 112 mg/dL (High)?? 09/09/2024 21:40 Glucose, POC 135 mg/dL (High)?? 09/09/2024 21:34 BUN 16 mg/dL ()?? 09/09/2024 21:40 Creatinine-Blood 0.86 mg/dL ()?? 09/09/2024 21:40 Estimated GFR Creatinine 97 ML/MIN/1.73 M2 ()?? 09/09/2024 21:40 Calcium 9.0 mg/dL ()?? 09/09/2024 21:40 AST (SGOT) 15 units/L ()?? 09/09/2024 21:40 ?? COAG INR 1.2 (High)?? 09/09/2024 21:40 Protime (PT) 12.6 seconds (High)?? 09/09/2024 21:40 APTT 29.6 seconds ()?? 09/09/2024 21:40 POC ACT-LR 226.0 seconds ()?? 09/08/2024 13:28 ?? MISC. CHEMISTRY Hold Gel Top SPECIMEN DISCARDED AFTER 1 WEEK ()?? 09/09/2024 21:40 ?? URINE OTHER Est Creatinine Clearance 92.04 mL/min ()?? 09/09/2024 22:36 ? EKG study * Event Display: ECG 12-Lead Authored Date: Please click on pdf link to open report * Event Display: ECG 12-Lead Authored Date: Ventricular Rate: 67 BPM Atrial Rate: 67 BPM P-R Interval: 180 ms QRS Duration: 76 ms Q-T Interval: 412 ms QTC Calculation(Bazett): 435 ms P Milam: 69 degrees R Milam: 66 degrees T Milam: 88 degrees Normal sinus rhythm Nonspecific T wave abnormality Abnormal ECG When compared with ECG of 08-Sep-2024 15:37, No significant change was found Confirmed by JOHN NGUYEN ([id number]) on 09/10/2024 10:26:28 AM [place]: JOHN NGUYEN Heart * Event Display: Echocardiogram - Complete Authored Date: [id number] Transthoracic Echocardiography Report (TTE) Patient Demographics Patient Name GUALBERTO MINER Date of Study 09/10/2024 Corporate Gender Male Facility Race .[id number] Ethnicity Date of 1960 Height: 70.87 inches Age 64 year(s) Weight: 229.28 pounds Accession Number [id number] BSA: 2.23 m2 Room Number [id number] BMI: 32.1 kg/m2 Referring Physician Khushboo Fenton MD Interpreting Johann Canas MD Physician Faucets Assembler Josette [facility] [place] Indications CVA. Clinical History Atrial fibrillation. Hyperlipidemia. Obesity. Study Data Type of Study TTE procedure:Echo Complete-(Doppler, Colorflow) with Contrast. Procedure Information:Definity was administered by Hammerer Helper . Study Date09/10/2024 Start Time: 09:28 AM Study Location: [facility] [place] Study Status: Echo lab Patient Status: Routine Technical Quality: Technically difficult due to poor acoustical window. Blood Pressure:124/67 mmHg EKG: Normal sinus rhythm HR: 70 bpm Contrast Medium: Definity. Amount - 2 ml Allergies - Contrast. 2D Measurements LV Diastolic Dimension: 4.6 cm LV Systolic Dimension: 3.3 cm LV Septum Diastolic: 0.7 cm LV PW Diastolic: 0.8 cm AO Root Dimension: 3.7 cm LA ESV (BP):77.7 ml LVOT Stroke Volume: 70.02 ml LA ESV Index: 35 ml/m2 Stroke Volume Index31.4 ml/m2 LVOT: 2 cm Cardiac Index:2.2 l/min/m2 Ascending Aorta:3.2 cm Doppler Measurements AV Peak Velocity: 140 cm/s MV Peak E-Wave: 101 cm/s AV Peak Gradient: 7.84 mmHg MV Peak A-Wave: 43.3 cm/s AV Mean Gradient: 5 mmHg MV E/A Ratio: 2.33 AV VTI:32.5 cm MV P1/2t: 59 msec LVOT Peak Velocity: 85.5 cm/s MV Mean Gradient: 2 mmHg LVOT VTI22.3 cm MV Area (continuity): 2.1 cm2 AV Area (Continuity):2.15 cm2 MV Deceleration Time: 201 msec AV P1/2t: 395 msec MV Area (PHT): 3.73 cm2 TR Velocity:254 cm/s TR Gradient:25.81 mmHg PV Peak Velocity: 107 cm/s PV Peak Gradient: 4.58 mmHg E' Septal Velocity: 6.53 cm/s E' Lateral Velocity: 10.9 cm/s E/Med E':15.78376 E/Lat E':[id number] Cardiac Anatomy Left Ventricle/Interventricular Septum Left ventricular size and wall thickness are normal. The LV systolic function is vigorous. LV ejection fraction by Loredo's biplane method is 71%. There are no definite regional wall motion abnormalities. Unable to assess diastolic function due to mitral stenosis and mitral annular calcification. Left Atrium/Interatrial Septum The left atrium is mildly dilated. Aortic Valve The aortic valve is trileaflet. The aortic valve appears mildly thickened. There is mild aortic regurgitation. There is no significant aortic stenosis. Mitral Valve There is mitral annular calcification. The mitral valve appears thickened and calcified and mobility of the posterior leaflet is restricted. There is mild mitral regurgitation. Mitral valve mean gradient is 2 mmHg at a HR of 68 bpm. Calculated mitral valve area is 2.1 cm2. There is progressive (mild range) mitral stenosis. Aorta The ascending aorta and aortic root are normal in size when indexed for body surface area (BSA). Right Ventricle The right ventricle is normal in size and function. Right Atrium The right atrium is normal in size. Pulmonic Valve The pulmonic valve is poorly visualized. There is trace pulmonic regurgitation. Tricuspid Valve The tricuspid valve leaflet opening is normal. There is trace tricuspid valve regurgitation. Pumonary Artery An accurate pulmonary artery pressure could not be obtained. Venous Structures The inferior vena cava is dilated with poor inspiratory collapse consistent with elevated right atrial pressures. The central venous pressure estimation is 15 mmHg. Pericardium/Extracardiac There is an epicardial fat pad present. Summary Left ventricular size and wall thickness are normal. The LV systolic function is vigorous. LV ejection fraction by Loredo's biplane method is 71%. There are no definite regional wall motion abnormalities. Unable to assess diastolic function due to mitral stenosis and mitral annular calcification. The right ventricle is normal in size and function. An accurate pulmonary artery pressure could not be obtained. The left atrium is mildly dilated. There is mitral annular calcification. The mitral valve appears thickened and calcified and mobility of the posterior leaflet is restricted. There is mild mitral regurgitation. Mitral valve mean gradient is 2 mmHg at a HR of 68 bpm. Calculated mitral valve area is 2.1 cm2. There is progressive (mild range) mitral stenosis. The aortic valve is trileaflet. The aortic valve appears mildly thickened. There is mild aortic regurgitation. There is no significant aortic stenosis. The central venous pressure estimation is elevated, 15 mmHg. Comparison No prior study available for comparison. Signature * Event Display: Echocardiogram - Complete Authored Date: Cardiology * Event Display: Cardiac Rhythm Strips Authored Date: Hospital Progress note * Cheri Guzmán RN: MODIFY, SIGN, MODIFY, SIGN, PERFORM, SIGN, VERIFY Event Display: Progress Note Hospital Authored Date: Patient: GUALBERTO MINER Age: 64 years Sex: Male : 1960 Associated Diagnoses: None Author: Cheri Guzmán RN Findings Problem Related to Alteration in Neurological : Alteration in Neurological Function/new 09/13/2024 9:00 EST Alteration in Neuro status Related to Acute Stroke (CVA) Goals & Outcomes, Neurological Pt will be discharged without infection, Pt will be hemodynamically stable, Pt will be Neurologically stable, Pt will become pain free with appropriate intervention, Pt will maintain intact skin integrity, Pt will remain free from injury, Pt will resume/maintain adequate cardiac output, Pt will state importance of adhering to medication regime, Pt/caregiver will receive psychosocial support as needed, Pt/caregiver will state understanding of rehab plan, Pt/caregiver will state strategies to reduce risk factors, Pt/caregiver will state understanding aspiration precautions, Pt/caregiver will state understanding dietary modifications, Pt/caregiver will state understanding of disease process, Pt will demonstrate safe transfers, Pt will be without signs of aspiration Interventions, Neurological Assess/monitor for increased Intracranial Pressure, Assess/monitor neurologic status, Assess/monitor VS per unit standards & prn, Call/Report variances in assessments to provider, Collaborate w/ provider to implement appropriate guidelines, Collaborate with Nutrition, Collaborate with provider re: medication regime, [place] alternate means of communication, Keep patient's head & body in good alignment, Maintain HOB at least 30 deg, Maintain normothermia, report temp >101.5 F, Maintain patient safety if unsteady gait, Maintain strict intake & output, Monitor Fluid & Electrolytes, Serum Osmolarity, Monitor for headaches, nausea, vomiting, Monitor speech fluency, aphasia, word finding difficulty, Physical assessment per unit standards, Provideemotional support to Pt/caregiver, Teach & encourage deep breath & cough exercises, Teach pt/caregiver on plan of care, treatment, s/s & meds Goals/Interventions, Neurological Yes Neurological, Problem Start 09/10/2024 18:00 Reviewed plan with, Neurological Patient Patient Progression, Neurological Pt progressing according to plan . Nursing Data Neurological Data. : Neurological Data. 09/11/2024 9:00 EST Tongue Disposition Midline Level of Consciousness Full Consciousness Orientated to person, place, time Person, Place, Time, Event Facial Symmetry Intact Characteristics of Speech Clear and normal Swallowing Difficulty None Pupil description, left Regular Pupil description, right Regular Pupil reaction, left Brisk Pupil reaction, right Brisk Strength LUE 5-Active movement against gravity & full resistance Strength RUE 5-Active movement against gravity & full resistance Strength LLE 5-Active movement against gravity & full resistance Strength RLE 5-Active movement against gravity & full resistance Tone LUE Normal Tone RUE Normal Tone LLE Normal Tone RLE Normal Sensation LUE Intact Sensation RUE Intact Sensation LLE Intact Sensation RLE Intact Movement LUE Spontaneous, To command Movement RUE Spontaneous, To command Movement LLE Spontaneous, To command Movement RLE Spontaneous, To command Gait No disturbance Response Eye Opening Spontaneously Motor Response-Adult Obeys commands Verbal Response-Adult Oriented and converses [place] Coma Score 15 1 - 10 Pain Scale Score 2 Pain Interventions PRN medication Pain relief acceptable Yes Neuro WNL except Eyes and Movements Conjugate gaze: Move in same direction at same speed Memory Short term loss Swallow - Neuro Normal . Evaluation Pt alert and oriented x 4. Pt's speech is clear and is able to follow all simple and complex commands. Pt taking pills whole with water. Pt endorsing left sided headache this AM 8/10, that is constant and dull. Also reporting that it feels like the area is intermittently numb with some tingling. Ptdenies any dizziness or any visual changes. Pt is moving all extremities equally and spontaneously w ith 5/5 strength except the RLE is moving with 4/5 strength. Pt's lung sounds are clear throughout on room air, denies any SOB or chest pain. + bowel sounds in all 4 quadrants, last BM was 2/10. Pt is independently ambulating to the bathroom with a cane and is voiding at the bedside with the urinaland is voiding without complaints. Safety precautions have been maintained, bed is locked and in the lowest position, bed alarm on, and all items are within reach. Pt given all d/c instructions and education, IV removed, catheter tip intact without drainage. All belongings have been returned and are with patient. Pt accompanied off unit with wheelchair personnel @ [phone]. * Gloria SANTANA, Lucia: PERFORM Event Display: Progress Note Hospital Authored Date: Patient: ??GUALBERTO MINER ? Age:??64 Years?Sex:??Male?:??1960?? Subjective No acute events overnight. Medically cleared pending placement in acute rehab.?? Review of Systems A full review of systems was completed and is otherwise negative except as mentioned in history of present illness. Allergies Allergies ?(Active and Proposed Allergies Only) Seasonale? (Severity: Unknown severity, Onset: Unknown) Contrast Dye? (Severity: Unknown severity, Onset: Unknown) ?Comments: Patient had adverse reaction after receiving contrast dye--felt alot of pressure in head and then pain in ?head, neck, shoulders and back--took a few days to get better perpatient ? Objective Vital Signs?? Temperature: 97.5 DegF (09/13/24 12:25:00) Temperature Route: Oral (09/13/24 12:25:00) Pulse Rate: 77 bpm (09/13/24 12:25:00) Respiratory Rate: 20 br/min (09/13/24 12:25:00) Systolic Blood Pressure: 138 mm Hg (09/13/24 12:25:00) Diastolic Blood Pressure: 78 mm Hg (09/13/24 12:25:00) Blood pressure sites: Arm, right (09/13/24 12:25:00) Mean Arterial Pressure: 98 mm Hg (09/13/24 12:25:00) Pulse Pressure: 60 mm Hg (09/13/24 12:25:00) Oxygen Saturation: 95 % (09/13/24 12:25:00) Mode of Delivery (Oxygen): Room air (09/13/24 12:25:00) Early Warning Score: 4 (09/13/24 12:26:12) ? Ventilator Settings?? No qualifying data available. ?? [place] Coma Scale [place] Coma Score: 15 (09/13/24 09:00:00) Motor Response-Adult: Obeys commands (09/13/24 09:00:00) Response Eye Opening: Spontaneously (09/13/24 09:00:00) Verbal Response-Adult: Oriented and converses (09/13/24 09:00:00) ?? Mobility & Ambulation Level Mobility & Ambulation Level Activity Assistance: Moderate assistance, One person assistance (09/10/24) Activity Status ADL: Ambulating in room, Bathroom privileges, Up ad benitez (09/13/24) Ambulatory devices needed: Cane (09/10/24) Repositioning: Self (09/10/24) ? Physical Exam Constitutional: Alert, in no acute distress. Head: Normocephalic. Eyes: Pupils are equal and round. Extraocular muscles intact. No pallor or scleral icterus Ear, Nose and Throat: mucous membranes moist. Ears and nose - no obvious deformities. Neck: No JVD or bruits. Respiratory:??Equal bilateral air entry. No wheezing or rhonchi.??No use of accessory muscles. Cardiovascular:??S1 S2 regular. No murmurs, rubs or gallops. Gastrointestinal:??Abdomen soft, non-tender, non-distended. Extremities: No lower extremity pitting edema. Neurologic:??AAOx3, Cranial nerves II-XII grossly intact. Speech normal, no facial droop. No focal neurological deficits. Moves all extremities spontaneously. Musculoskeletal:??No gross deformities on inspection. .?? Psychiatric: Normal mood and affect. ?? Memory still poor, cognition impairment.?? _ Inpatient Medications Medications (16) Active SCHEDULED: (7) Atorvastatin 40 mg Tablet (atorvastatin 40 mg oral tablet) ??40 mg, By Mouth, Daily at bedtime Digoxin 0.125 mg Tablet (digoxin 0.125 mg oral tablet) ??125 mcg, By Mouth, Daily Diltiazem 240 mg/24 hour CD Capsule (diltiazem 240 mg/24 hours oral capsule, extended release) ??240 mg, By Mouth, Daily Furosemide 40 mg Tablet (Lasix 40 mg oral tablet) ??40 mg, By Mouth, Daily NaCl 0.9% Flush 3ml (NaCL 0.9% Flush) ??3 mL, IV Push, Every 8 hours Rivaroxaban 20 mg Tablet (Xarelto) ??20 mg, By Mouth, Daily at supper Vashe Wound Care Emollient/Cleanser (Vashe Topical Solution) ??475 mL, Topically, Every other day CONTINUOUS: (0) PRN: (9) Acetaminophen 325 mg Tablet (Acetaminophen Tablet) ??650 mg, By Mouth, Every 4 hours Albuterol 90mcg/Inhalation Inhaler HFA (Ventolin 90 mcg Inhaler) ??180 mcg 2 puffs, Inhalation, Every 4 hours Dextromethorphan-Guaifenesin 20 mg-200 mg/10 mL Liqu UD (Robitussin DM Liquid) ??10 mL, By Mouth, Every 4 hours Docusate Sodium 100 mg Capsule (Docusate Sodium Capsule) ??100 mg 1 capsule, By Mouth, 2 times a day Melatonin 3 mg Tablet (Melatonin Tablet) ??3 mg, By Mouth, Daily at bedtime NaCl 0.9% Flush 3ml (NaCL 0.9% Flush) ??3 mL, IV Push, Every 8 hours Polyethylene Glycol 17 Gm Powder (MiraLax Powder) ??17 Gm 1 pack/packet, By Mouth, Daily Senna Tablet ??8.6 mg 1 tablet, By Mouth, 2 times a day Simethicone 80 mg Chewable Tablet (Simethicone Tablet) ??80 mg, Chew, 3 times a day ? Results Recent Labs BLOOD COUNT & DIFF WBC 6.4 k/mm3 ()?? 09/12/2024 09:37 RBC 4.13 m/mm3 (Low)?? 09/12/2024 09:37 Hgb 11.7 Gm/dL (Low)?? 09/12/2024 09:37 Hct 35.4 % (Low)?? 09/12/2024 09:37 MCV 85.7 femtoliters ()?? 09/12/2024 09:37 MCH 28.3 pg ()?? 09/12/2024 09:37 MCHC 33.1 Gm/dL ()?? 09/12/2024 09:37 Platelet Count 268 k/mm3 ()?? 09/12/2024 09:37 RDW-SD 43.3 femtoliters ()?? 09/12/2024 09:37 MPV 9.5 femtoliters ()?? 09/12/2024 09:37 Nucleated RBC (Automated) 0.0 #/100 WBC'S ()?? 09/12/2024 09:37 Abs. NRBC 0.0 k/mm3 ()?? 09/12/2024 09:37 ?? CHEM GENERAL Sodium 141 mmol/L ()?? 09/12/2024 09:37 Potassium 3.7 mmol/L ()?? 09/12/2024 09:37 Chloride 103 mmol/L ()?? 09/12/2024 09:37 Bicarbonate Level 26 mmol/L ()?? 09/12/2024 09:37 Anion Gap 12 mmol/L ()?? 09/12/2024 09:37 Glucose Level 105 mg/dL (High)?? 09/12/2024 09:37 BUN 8 mg/dL ()?? 09/12/2024 09:37 Creatinine-Blood 0.76 mg/dL ()?? 09/12/2024 09:37 Estimated GFR Creatinine 100 ML/MIN/1.73 M2 ()?? 09/12/2024 09:37 Calcium 9.1 mg/dL ()?? 09/12/2024 09:37 ?? URINE OTHER Est Creatinine Clearance 104.16 mL/min ()?? 09/12/2024 10:24 ? Assessment/Plan Chief Complaint: Stroke ?? Diagnoses Atrial fibrillation ??(I48.91) Cerebral infarction involving left posterior cerebral artery ??(I63.532) Infarction of left temporal lobe ??(I63.89) Stroke ??(I63.9) Stroke ??(I63.9) Stroke-like symptom ??(R29.90) ?? Assessment:??64-year-old patient with past medical history of morbid obesity, persistent atrial fibrillation with ablation on??09/08/2024, anticoagulated on Xarelto but may have missed a dose for this procedure, brought to the emergency room with altered mental status.??Acute weakness and vision changes.??His daughter is a registered nursing professor and [employer] employee, was able to provide??a thorough neuroexam, realized he was off his baseline??and brought him??to the emergency room. ?? Upon arrival to our facility is NIH stroke scale was [address] scan of the head with no acute intracranial abnormalities.?? CT angiogram head/neck with distal left FAUCETS ASSEMBLER occlusion, TNK was deferred since the patient on Xarelto.?? Was also felt by neuroendovascular and the clot was too distal.?? Initial blood work was fairly stable.??High-sensitivity troponin was critically elevated - He is post??afib ablation x??72 hours.?? Neurology was consulted with recommendation for admission to the neuro floor. ?? [id number]??No acute events overnight. Medically cleared??for discharge pending placement. ?? Stroke-like symptom (R29.90) Acute??left FAUCETS ASSEMBLER??CVA. Acute delirium ?? CT scan of the head without acute intracranial normalities.??CT angiogram head/neck with??left distal P2 occlusion. TNK was deferred??since the patient was on Xarelto and low NIH stroke scale. Neurology recommended admission to medical floor. MRI BRAIN: 1. Early acute LEFT posterior-medial temporal lobe infarct. No hemorrhagic transformation. 2. Intraluminal thrombus within the left posterior cerebral artery correlating with the site of vascular cut off on the prior CTA of the head 3. Chronic small cerebellar infarcts. Echocardiogram - as above. Permissive hypertension. Lipid profile and A1c -started on statin, A1c is??normal. Daily aspirin -??Discontinued per neuro Continue to monitor telemetry.?? Neurochecks every [address]??for any neurological??status change.?? Physical medicine and rehab to evaluate for discharge - recs to acute rehab Remains cognitively impaired - improved.?? Delirium may be medication induced versus stroke versus??hospital-acquired delirium. Delirium precautions, reorient when needed. Lights on in the morning, avoid restraints. Discharge to acute rehab. PM&R consulting, appreciate their recs. ?? Atrial fibrillation (I48.91): Persistent atrial fibrillation s/p ablation x 2 most recently??09/08/24. Resume diltiazem.?? Xarelto resumed per neuro. ?? VTE Prophylaxis:Xarelto ?VTE Prophylaxis Assessment:??VTE Prophylaxis Ordered ?? Discharge Planning: acute rehab -??accepted at [facility]. Pending auth. ?? Code Status:??Full code ?Order Code Status:??Code Status Ordered ? Estimated Discharge Date: 09.14.24 ? * Racheal MOSQUEDA, Devora: VERIFY, PERFORM, SIGN Event Display: Progress Note Hospital Authored Date: Patient: GUALBERTO MINER Age: 64 years Sex: Male : 1960 Associated Diagnoses: None Author: Racheal MOSQUEDA, Devora Findings Problem Related to Alteration in Neurological : Alteration in Neurological Function/new 09/12/2024 22:00 EST Alteration in Neuro status Related to Acute Stroke (CVA) Goals & Outcomes, Neurological Pt will be discharged without infection, Pt will be hemodynamically stable, Pt will be Neurologically stable, Pt will become pain free with appropriate intervention, Pt will maintain intact skin integrity, Pt will remain free from injury, Pt will resume/maintain adequate cardiac output, Pt will state importance of adhering to medication regime, Pt/caregiver will receive psychosocial support as needed, Pt/caregiver will state understanding of rehab plan, Pt/caregiver will state strategies to reduce risk factors, Pt/caregiver will state understanding aspiration precautions, Pt/caregiver will state understanding dietary modifications, Pt/caregiver will state understanding of disease process, Pt will demonstrate safe transfers, Pt will be without signs of aspiration Interventions, Neurological Assess/monitor neurologic status, Assess/monitor VS per unit standards & prn, Call/Report variances in assessments to provider, Collaborate w/ provider to implement appropriate guidelines, Collaborate with Nutrition, Collaborate with provider re: medication regime, Document & Monitor O2 Sats; Administer O2 as ordered, Identify psychosocial issues related to diag nosis/illness, If no bowel movement in 3 days activate bowel regime, [place] alternate means of communication, Keep patient's head & body in good alignment, Maintain HOB at least 30 deg, Maintain normothermia, report temp >101.5 F, Maintain patient safety if unsteady gait, Maintain strict intake & output, Monitor Fluid & Electrolytes, Serum Osmolarity, Monitor for headaches, nausea, vomiting, Monitor speech fluency, aphasia, word finding difficulty, Physical assessment per unitstandards, Provide emotional support to Pt/caregiver, Teach & encourage deep breath & coughexercises, Teach and encourage use of Incentive spirometer, Teach pt/caregiver on plan of care, treatment, s/s & meds, Teach pt/caregiver on use of pain scale Goals/Interventions, Neurological Yes Neurological, Problem Start 09/10/2024 18:00 Reviewed plan with, Neurological Patient Patient Progression, Neurological Pt progressing according to plan . Nursing Data Neurological Data. : Neurological Data. 09/12/2024 21:00 EST Tongue Disposition Midline Neurological Symptoms Weakness or loss of muscle strength Level of Consciousness Full Consciousness Orientated to person, place, time Person, Place, Event Facial Symmetry Intact Characteristics of Speech Clear and normal Pupil description, left Regular Pupil description, right Regular Pupil reaction, left Brisk Pupil reaction, right Brisk Strength LUE 5-Active movement against gravity & full resistance Strength RUE 5-Active movement against gravity & full resistance Strength LLE 5-Active movement against gravity & full resistance Strength RLE 4-Active movement against gravity & some resistance Tone LUE Normal Tone RUE Normal Tone LLE Normal Tone RLE Normal Sensation LUE Intact Sensation RUE Intact Sensation LLE Intact Sensation RLE Intact Movement LUE Spontaneous, To command Movement RUE Spontaneous, To command Movement LLE Spontaneous, To command Movement RLE Spontaneous, To command Gait Steady Tremors None Response Eye Opening Spontaneously Motor Response-Adult Obeys commands Verbal Response-Adult Oriented and converses [place] Coma Score 15 Neuro WNL except Eyes and Movements Conjugate gaze: Move in same direction at same speed Headache None Swallow - Neuro Normal . Evaluation A&O X3. Speech clear, able to verbalize needs and follow commands. Face symmetrical, tongue midline. PERRL. PATTERSON 5/5 except RLE 4/5. LS CTA. Continent of B/B. Last BM - 09/11. Dressing to right leg in place, CDI. C/O mild pain to right knee but refused APAP. Denies CAMACHO, N/V, numbness/tingling. Bed in low position and call light within reach. Purposeful rounding maintained . Discharge Information Case Management Discharge Plan : Case Management Discharge Plan Data 09/08/2024 18:55 EST Discharge Level of Care at Discharge Home/Correction/Foster Care Rehabilitation Discharge : Rehab Discharge Index 09/12/2024 10:09 EST Comments on treatment indicated n/a Full chart review completed Yes Hospital course Hospital course 09/12/2024 8:11 EST Comments on treatment indicated OT to address func cognition as it relates to safe discharge home. Pt currently requires 24 hour supervision. Full chart review completed Yes Hospital course Hospital course 09/12/2024 8:03 EST Comments on treatment indicated see comment Walker: distance 20-50 Distance pt will ambulate ~100' with cane and good balance Full chart review completed Yes Hospital course per chart Other findings MRS:3 Plan of care PT Gait training, Transfer training, Therapeutic exercise, Functional Activities, Balance training 09/11/2024 10:26 EST Full chart review completed No Hospital course 09/11: Hold pending PM&R consult. Consult note * Urszula Chandler RN: PERFORM, SIGN, VERIFY Event Display: Consultation Note Authored Date: [id number] Patient: GUALBERTO MINER Age: 64 years Sex: Male : 1960 Associated Diagnoses: None Author: Urszula Chandler RN Calf/Drake History of Presenting Problem Reason for referral Wound: Description Location- R Lower Leg (Pretibial to Calf) Etiology- Documented Pyoderma Gangrenosum Measurements- 7.0 cm x 14.5 cm x 0.3 cm Wound Bed- reticulated area of full thickness skin loss, areas of exposed moist red tissue and ching/yellow slough Mari Wound- blanchable erythema and dry scaling Edges- defined Drainage- moderate serosanguineous and ching Odor- none No fluctuance or induration Goals- antimicrobial wound care with Vashe and Aquacel AG, elimination of biofilm with Vashe, absorption of drainage with Aquacel and Mepilex dressing, enhanced autolytic debridement of slough . Wound RN consult entered to assess RLE wound and make topical recommendations. Patient was admitted for AMS, acute weakness and vision changes. Abe has a PMH of AF s/p ablation on 09/08, HLD, MALICK, R drake pyoderma and psoriatic arthritis. Upon entering the room patient is lying in bed with daughter at bedside. Wound RN role explained and patient is agreeable to assessment as well as photodocumentation. Abe tells me that he has had his pyoderma wound for about 7 years. He expresses frustration with a local wound clinic as they repeatedly debrided the wound and eventually told him that they would need to amputate the leg. Abe explains that he refused this and began managing his wound himself and researching wound care. He currently uses an ABD with tape to each side covered with Tetranet. He tells me that he changes the dressing about once per day and PRN if the ABD becomes moist. I shared with Abe the differences between education and certifications in wound care and gave him basic knowledge on my [facility] certification. Abe expressed some additional confidence in me due to this and was more agreeable to discussion. I removed the ABD pad and the wound is assessed and described above in detail. I shared my recommendations and we discussed in detail the mechanism ofaction for Vashe and Aquacel and the principle of moist wound healing. We also discussed pathergy, w hich is associated with pyoderma. Initially Abe was agreeable to Vashe only with an ABD pad butrequested to see the Aquacel and Mepilex. Upon returning with supplies Abe tells me that he would like to continue with my full recommendations and was thankful for the discussion. Decision made to cover with ABD pad for now while awaiting Vashe delivery. Abe will then change his dressing with his daughter per below recommendations. Update provided to direct care RN and [facility] [employer] [employer] via [employer]. Recommendations: 1.) R Lower Leg: Cleanse with Vashe. Pat dry. Apply Aquacel AG to the wound bed. Cover with Mepilexfoam dressing. Change every other day and prn for soilage 2.) Continue to provide optimal nutritional support Please reconsult wound care RNs for deterioration in wound/skin status Plan Time spent 31-45 minutes * Reji Mayo MD: PERFORM Event Display: Consultation Note Authored Date: Patient: ??GUALBERTO MINER ? Age:??64 Years?Sex:??Male?:??1960?? Chief Complaint/Reason for Consult Stroke History of Present Illness ?64-year-old RH??man?with history of atrial fibrillation??s/p??ablation on Xarelto,??who presented with??acute onset??confusion and??vision changes.?? Reported exam with??right hemianopia.?? Head CT ?? 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 ?? States he is much improved since yesterday and even than earlier this morning.?? Though noted torepeat himself and frequently needed to pause as he was unable to recall a??name or a word. States vision has returned to normal. Physical Exam Vitals & Measurements T:??97.9?F?? HR:??71??(Peripheral)?? RR:??18?? BP:??126/63?? SpO2:??95%?? HT:??180??cm?? WT:??112.5??kg?? BMI:??34.72?? General:??[Alert].??[No apparent distress]. Psychiatric: Mood:??[??Pleasant & Cooperative]??All responses are slow [Oriented: X 2-- not??to year]? HEENT: Cranial Nerves:??[CN 2-12 normal, no central facial droop].?? EOMI.?? Blinks to threat [Bilaterally] Visual amos: [Full]. ?? Visual neglect: [None].?? [No diplopia or disconjugate gaze.] ??[No nystagmus.] ?? Tracks: [Bilaterally] ?? Cardiovascular: [RRR.] Lungs: [CTA bilaterally? Abdomen/GI: [NABS. NT. Soft.]? Extremities:?? Edema: [none].?? Passive ROM: WFLs? Skin: [No open areas or rash x R drake.? Neurologic? Follows Commands: [1 step well] but not 2 step commands?? Memory: immediate and STM?? impaired-- unable to recall 3 objects immediately even with repetition??, repeats self apraxia- forgot how to write the letter z Unable to do simple calculations or to spell the word world Language:??mild expressive??deficits. ?Naming:??Mildly impaired.?. ??Dysarthria:??[none]. ??Dysphonia:??[none].? Motor Exam: [Motor strength 5/5].?? Sensory Exam: light touch [normal], position [normal].?? Coordination Exam: finger to nose [normal], Fine motor coordination [normal]. Deep Tendon Reflexes [2+ and symmetrical in upper and lower extremities] Babinski: [Absent] ?? Spasticity Exam: [none].? Mobility Exam: [supine to sit independent], [sitting balance independent], ?Sit to stand slow and unsteady gait- slow and unsteady with cane.? Assessment/Plan Discharge Planning:?64 yo RH man developed a R Visual fieldcut and??confusion??several hours after??an ablation for afib.?? Imaging c/w V2/3 L occlusion-- a L FAUCETS ASSEMBLER infarct affecting the L posterior medial temporal lobe.??+ significant immediate and STM deficits,??dyscalculia,??spelling errors,??praxis deficits and a slow unsteady gait. He will have difficulty??learning new tasks. ?? Rec: 1. Should not drive until cog issues resolve 2. Bowel and bladder- no problems 3. Cognition and psych- needs outpatient speech cog?? and language evaluation 4 OT ordered for safety and ADL 5 PT ordered for transfers, ambulation and stair negotiation 6.Optimally he would benefit from an intensive inpatient acute rehab stay .?? I have significant concerns about d/c home at this point regarding safety unless his cognitive issues?? clear rapidly. Hewould need close 24 hour supervision and outpatient OT/PT/[employer] as well as no driving but I would notrecommend this. Total Time Spent I spent 55 mins in face to face contact as well as inn reviewing and writing up my findings Activities performed in this time include chart review, obtaining / reviewing history, performing amedically necessary evaluation, documentation and Care Coordination including medical decision making of Moderate Complexity (45-59 minutes for NEW patient) Problem List/Past Medical History Ongoing Afib Chronic back pain Fatigue HLD (hyperlipidemia) Laugh Apnea Obese class I Obstructive sleep apnea w/CPAP Psoriatic arthritis Pulmonary nodule, right Right drake Pyoderma gangrenosum SNHL (sensorineural hearing loss), bilateral hearing aids Procedure/Surgical History No qualifying data available. Home Medications Albuterol: 90 mcg = 1 inhalation, Inhalation, Every 4 hours, PRN (as needed for shortness of breathor wheezing) Cetirizine: See Instructions, take by mouth once [address] Digoxin: 125 mcg = 1 tablet, By Mouth, Daily Diltiazem: 240 mg = 1 capsule, By Mouth, Daily Docusate: 100 mg = 1 capsule, By Mouth, 2 times a day, PRN (for constipation) Fluticasone Nasal: 1 sprays, Nares, Both, 2 times a day Furosemide: 20 mg = 1 tablet, By Mouth, Every other day MethylPREDNISolone: See Instructions, take 1 tablet [address]take 1 tablet [address] rivaroxaban: 20 mg = 1 tablet, By Mouth, Daily at [facility] Medications Medications (15) Active SCHEDULED: (6) Atorvastatin 40 mg Tablet (atorvastatin 40 mg oral tablet) ??40 mg, By Mouth, Daily at bedtime Digoxin 0.125 mg Tablet (digoxin 0.125 mg oral tablet) ??125 mcg, By Mouth, Daily Diltiazem 240 mg/24 hour CD Capsule (diltiazem 240 mg/24 hours oral capsule, extended release) ??240 mg, By Mouth, Daily Furosemide 40 mg Tablet (Lasix 40 mg oral tablet) ??40 mg, By Mouth, Daily NaCl 0.9% Flush 3ml (NaCL 0.9% Flush) ??3 mL, IV Push, Every 8 hours Rivaroxaban 20 mg Tablet (Xarelto) ??20 mg, By Mouth, Daily at [facility] CONTINUOUS: (0) PRN: (9) Acetaminophen 325 mg Tablet (Acetaminophen Tablet) ??650 mg, By Mouth, Every 4 hours Dextromethorphan-Guaifenesin 20 mg-200 mg/10 mL Liqu UD (Robitussin DM Liquid) ??10 mL, By Mouth, Every 4 hours Docusate Sodium 100 mg Capsule (Docusate Sodium Capsule) ??100 mg 1 capsule, By Mouth, 2 times a day Melatonin 3 mg Tablet (Melatonin Tablet) ??3 mg, By Mouth, Daily at bedtime NaCl 0.9% Flush 3ml (NaCL 0.9% Flush) ??3 mL, IV Push, Every 8 hours Polyethylene Glycol 17 Gm Powder (MiraLax Powder) ??17 Gm 1 pack/packet, By Mouth, Daily Senna Tablet ??8.6 mg 1 tablet, By Mouth, 2 times a day Simethicone 80 mg Chewable Tablet (Simethicone Tablet) ??80 mg, Chew, 3 times a day Tizanidine 4 mg Tablet (tiZANidine 4 mg oral tablet) ??2 mg, By Mouth, 3 times a day Lab Results PM&R Labs WBC: 6.3 k/mm3 (09/11/24) Platelet Count: 204 k/mm3 (09/11/24) Sodium: 139 mmol/L (09/11/24) BUN: 13 mg/dL (09/11/24) Creatinine-Blood: 0.84 mg/dL (09/11/24) AST (SGOT): 11 units/L (09/11/24 09:11:00) AST (SGOT): 15 units/L (09/09/24 21:40:00) ALT (SGPT): 9 units/L (09/11/24 09:11:00) Images (09/09/2024 22:[address] Angio Head Hyperacute Stroke) IMPRESSION: ? 1. 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 [1] [1]??CT Angio Head Hyperacute Stroke; Evan Lane MD 09/09/2024 22:15 EST * Morgan SANTANA, Zeenat Alba: MODIFY, MODIFY, MODIFY, MODIFY, PERFORM, MODIFY, MODIFY Event Display: Consultation Note Authored Date: Patient: ??GUALBERTO MINER ? Age:??64 Years?Sex:??Male?:??1960?? Chief Complaint/Reason for Consultation Confusion, Vision Loss History of Present Illness Mr. Miner is a 64-year-old male with PMH significant for HLD, obesity, MALICK, and A.Fib s/p yeday, who presented for evaluation of confusion and vision loss. Per patient's daughter, this evening, the patient appeared to not be able to see her. She additionally noted confusion, stating they were discussing politics and he could not recall the president, and when they arrived at the ED,the patient could not recall how to get out of the car. The patient's daughter additionally??thought she noted some left sided weakness at home, though no weakness appreciated in ED. LWK: ~8:30pm. inthe ED, BP: 128/68. POC: 135. HsTnT:329. CT Head nonacute. CTA Head/Neck with distal left FAUCETS ASSEMBLER occlusion (distal P2). TNK deferred given patient on Xarelto and low NIHSS. Case discussed with VEENA, no intervention given low NIHSS and occlusion too distal. ? Acute Stroke Time Course: Time patient last seen well (not time patient was found): ~8:30pm Time neurology paged: 2129 Time patient is seen by neurology: [address] head/interpreted: 2214; delay due to contrast dye allergy and needed to be premedicated Thrombolytics (TPA, TNK) Given: No Thrombolytic time if given: Reason for delay in lytic is applicable Reason for lytic exclusion if not given: on Xarelto and low NIHSS CTA/Neurointervention: no intervention given low NIHSS and occlusion too distal. ? Objective Vital Signs?? Temperature: 98.1 DegF (09/09/24 21:26:00) Temperature Route: Oral (09/09/24 21::) Pulse Rate: 72 bpm (09/09/24 21:26:00) Respiratory Rate: 17 br/min (09/09/24 21:26:00) Systolic Blood Pressure: 128 mm Hg (09/09/24 21:26:00) Diastolic Blood Pressure: 68 mm Hg (09/09/24 21:26:00) Blood pressure sites: Arm, left (09/09/24 21::00) Mean Arterial Pressure: 88 mm Hg (09/09/24 21::00) Pulse Pressure: 60 mm Hg (09/09/24 21::00) Oxygen Saturation: 100 % (09/09/24::00) Mode of Delivery (Oxygen): Room air (09/09/24::00) ? NIH Stroke Scale: ?? 1a. LOC (0-alert; 1-not alert, arousable; 2-not alert, obtunded; 3- nonresponsive): 0 1b. Questions (0-answers two correctly; 1-answers one correctly; 2-answers neither correctly): 1 1c. Commands (0-perform two tasks; 1-performs one task; 2-performs neither tasks): 0 2. Gaze (0-normal; 1-partial gaze palsy; 2-forced deviation): 0 3. Visual amos (0-no visual loss; 1-partial hemianopsia; 2-complete hemianopsia; 3-bilateral hemianopsia): 2 4. Facial palsy (0-normal; 1-minor palsy; 2-partial palsy; 3-complete paralysis): 0 5a. Motor left arm (0-normal; 1-drift before 10 sec; 2-falls before 10 sec; 3-no effort against gravity; 4-no movement): 0 5b. Motor right arm (0-normal; 1-drift before 10 sec; 2-falls before 10 sec; 3- no effort against gravity; 4-no movement): 0 6a. Motor left leg (0-normal; 1-drift before 5 sec; 2-falls before 5 sec; 3-no effort against gravity; 4-no movement): 0 6b. Motor right leg (0-normal; 1-drift before 5 sec; 2-falls before 5 sec; 3-no effort against gravity; 4-no movement): 0 7. Ataxia (0-absent; 1-one limb; 2-two limbs): 0 8. Sensory (0-absent; 1-mild/moderate; 2-severe/total loss): 0 9. Language (0-normal; 1-mild/moderate loss; 2-severe aphasia; 3-mute): 0 10. Dysarthria (0-normal; 1-mild/moderate; 2-severe): 0 11. Extinction (0-normal; 1-mild-one modality; 8-emycsn-dug modality): 0 ?? NIHSS Total:??3 ? [place] Coma Scale [place] Coma Score: 14 (09/09/24 21:25:00) Motor Response-Adult: Obeys commands (09/09/24 21:25:00) Response Eye Opening: Spontaneously (09/09/24 21:25:00) Verbal Response-Adult: Disoriented and converses (09/09/24 21:25:00) ? Physical Exam General:?64year-old male, who appears stated age. Awake and attentive. Mildly confused. Respondsto most questioning. Speech clear Integ: Skin is warm, dry and intact. No diaphoresis.?? HEENT: No ptosis. Eyes symmetrical. Pupils 2mm, equally round, regular, and responsive to light. Extraocular eye movements intact. No nystagmus. Hearing grossly intact.?? Respiratory: Respirations even and unlabored. GI: Abd soft, obese. Extremities: warm and perfused. Neurological: Mental status: A&O to person, and age. Not oriented to month, nor year. Mild confusion. Followscommands. Identifies simple objects, though some difficulty (difficulty appears to be a result of vision loss) Cranial Nerves: II: Pupils 2mm equally round, regular and reactive to light III, IV, : EOM intact, no gaze preference or deviation. No nystagmus. Right hemianopsia V: Facial sensation intact to light touch in V1, V2, and V3 segments. VII: Mild Right NFF, but activates well and appears normal per daughter VIII: Normal hearing to speech IX, X:??Normal palatal elevation, no uvular deviation.?? XII: Midline tongue protrusion Motor: Musculoskeletal development appropriate for age and gender. Moves extremities??independently?? Strength Crap Game Box Person: L: 5/5 ? R: 5/5 Deltoids: L: 5/5 ? R:5/5 Biceps: ?? L: 5 ? R:5 Triceps: ?? L: 5 ? R:5/5 Knee extension: L: 5/5 ? R: 5/5 Sensory: Sensation intact to light touch in all limbs. No hemineglect, no extinction to double sided stimulation Coordination:?? Finger to nose without dysmetria Gait: Deferred. ?? Assessment/Plan 64-year-old male with PMH significant for HLD, obesity, MALICK, and A.Fib s/p ablation yesterday, who presented for evaluation of confusion and vision loss. Per patient's daughter, this evening, the patient appeared to not be able to see her. She additionally noted confusion, stating while discussing politics he could not recall the president, and??later, could not recall how to get out of the car. Possible left sided weakness at home, though no weakness appreciated in ED. LWK: ~8:30pm. In the ED,BP: 128/68. POC: 135. HsTnT:329. CT Head nonacute. CTA Head/Neck with distal left FAUCETS ASSEMBLER occlusion (distal P2). TNK deferred given patient on Xarelto and low NIHSS. Case discussed with VEENA, no intervention given low NIHSS and occlusion too distal. ? DDx: Acute Left FAUCETS ASSEMBLER stroke with distal P2 occlusion - PSD: 0 ? Recommendations: - NPO until swallow function cleared - ASA load (rectally until swallow function cleared) - Please hold AC until review of repeat brain imaging - Check lipid profile and A1C - Statin when able for LDL goal??<70 - Obtain MRI Brain - Obtain ECHO - Permissive hypertension - Neuro checks, VS, and telemetry monitoring per unit protocol - STAT CT head for any acute changes - DVT prophylaxis - Continue to control outpatient vascular risks: A1C <7.0. Statin therapy for LDL >70 or >100 with only one vascular risk. 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 Thank you. Neurology will follow. Please call with any questions/concerns ? d/w Dr. Shruthi Cuevas d/w Dixon Chu ? Histories Past Medical History/Problem List Active Problems(11) Afib Chronic back pain Fatigue HLD (hyperlipidemia) Laugh Apnea Obese class I Obstructive sleep apnea w/CPAP Psoriatic arthritis Pulmonary nodule, right Right drake Pyoderma gangrenosum SNHL (sensorineural hearing loss), bilateral hearing aids ? Past Surgical History No surgery history documented. ? Social History Tobacco Details:??Former smoker, Other: Quit years ago. ? Medications Home Medications Albuterol (Albuterol (Eqv-ProAir HFA) 90 mcg/inh inhalation aerosol)??1 inhalation 90 Microgram Inhalation Every 4 hours as needed as needed for shortness of breath or wheezing Cetirizine (cetirizine 10 mg oral tablet)??See Instructions take by mouth once [address] Digoxin (digoxin 0.125 mg oral tablet)??125 Microgram 1 tablet By Mouth Daily Diltiazem (diltiazem 240 mg/24 hours oral capsule, extended release)??240 Milligram 1 capsule By Mouth Daily Docusate (docusate sodium 100 mg oral capsule)??100 Milligram 1 capsule By Mouth 2 times a day as needed for constipation Fluticasone Nasal (Flonase 50 mcg/inh nasal spray)??1 spray(s) Nares, Both 2 times a day Furosemide (Lasix 40 mg oral tablet)??40 Milligram By Mouth Daily for 30 Days MethylPREDNISolone (methylPREDNISolone 32 mg oral tablet)??See Instructions take 1 tablet 12 [address]take 1 tablet [address] rivaroxaban (Xarelto 20 mg oral tablet)??1 tab(s) 20 Milligram By Mouth Daily at supper Tizanidine (tiZANidine 4 mg oral capsule)??2 capsule 8 Milligram By Mouth 3 times a day ? Inpatient Medications Medications (1) Active SCHEDULED: (1) diphenhydrAMINE 50 mg/mL Inj (Benadryl Inj) ??50 mg 1 mL, IV Push Slowly, Once CONTINUOUS: (0) PRN: (0) ? Results Recent Labs BLOOD COUNT & DIFF WBC 10.0 k/mm3 ()?? 09/08/2024 11:26 RBC 4.44 m/mm3 (Low)?? 09/08/2024 11:26 Hgb 12.8 Gm/dL (Low)?? 09/08/2024 11:26 Hct 38.3 % (Low)?? 09/08/2024 11:26 MCV 86.3 femtoliters ()?? 09/08/2024 11:26 MCH 28.8 pg ()?? 09/08/2024 11:26 MCHC 33.4 Gm/dL ()?? 09/08/2024 11:26 Platelet Count 261 k/mm3 ()?? 09/08/2024 11:26 RDW-SD 44.3 femtoliters ()?? 09/08/2024 11:26 MPV 9.2 femtoliters (Low)?? 09/08/2024 11:26 Nucleated RBC (Automated) 0.0 #/100 WBC'S ()?? 09/08/2024 11:26 Abs. NRBC 0.0 k/mm3 ()?? 09/08/2024 11:26 ?? CHEM GENERAL Sodium 145 mmol/L ()?? 09/08/2024 11:26 Potassium 4.1 mmol/L ()?? 09/08/2024 11:26 Chloride 107 mmol/L ()?? 09/08/2024 11:26 Bicarbonate Level 27 mmol/L ()?? 09/08/2024 11:26 Anion Gap 11 mmol/L ()?? 09/08/2024 11:26 Glucose Level 91 mg/dL ()?? 09/08/2024 11:26 Glucose, POC 135 mg/dL (High)?? 09/09/2024 21:34 BUN 9 mg/dL ()?? 09/08/2024 11:26 Creatinine-Blood 0.82 mg/dL ()?? 09/08/2024 11:26 Estimated GFR Creatinine 98 ML/MIN/1.73 M2 ()?? 09/08/2024 11:26 Calcium 9.4 mg/dL ()?? 09/08/2024 11:26 ?? COAG POC ACT-LR 226.0 seconds ()?? 09/08/2024 13:28 ? Abnormal Labs ?? CHEM GENERAL Glucose, POC?135 mg/dL (High)?09/09/2024 21:34 ?? Note: Critical results are displayed in red. ? * Annemarie Augustin MD: PERFORM Event Display: Consultation Note Authored Date: [id number] Attending Attestation:??I have discussed the case and its management with the advanced practitionerand agree with the findings and plan as documented in the advanced practitioner???s note. ?? Briefly,??64-year-old male??with history of atrial fibrillation??s/p??ablation on Xarelto,??who presents with??acute onset??confusion and??vision changes.?? Reported exam with??right hemianopia.?? Per my review, CT head is negative for acute intracranial bleeding or acute infarcts and shows hyperdense??artery sign in the left FAUCETS ASSEMBLER and CTA confirms??occlusion of the left FAUCETS ASSEMBLER??in the distal P2/proximal P3 segment.?? Diagnosis acute??left FAUCETS ASSEMBLER infarct and likely etiology is embolic.?? He is not a candidate for IV thrombolytics??given use of??oral anticoagulation??and??not a candidate for endovascular intervention given very distal??occlusion not amenable for??retrieval.?? We recommend to??continue stroke protocol including swallow evaluation, aspirin load,??will hold on anticoagulation until??repeat brain imaging, ideally brain MRI to evaluate stroke burden, obtain transthoracic echocardiogram to evaluate for intracardiac thrombus. ?? Annemarie Cuevas M.D Attending-Vascular Neurology Department of Neurosciences ?? Note * Cheri Guzmán RN: PERFORM Event Display: Discharge/Transfer Note Hospital Authored Date: [id number] Nursing Discharge Note Entered On: 09/13/2024 16:42 EST Performed On: 09/13/2024 16:45 EST by Cheri Guzmán RN Nursing Discharge Note 2 Discharge Time : 09/13/2024 16:45 EST Cheri Guzmán RN - 09/13/2024 16:47 EST Discharge Level of Care at Discharge : [facility] facility Discharge Nursing Homes/Rehab Facilities : [facility] Patient Left Unit Via : Wheelchair Patient Accompanied Off Unit with : Ambulance/Chair Van Personnel Handover Given to Transport Personnel : Yes DC Instructions Provided & Signed by Pt : Yes Patient Understands D/C Instructions : Yes Patient Instructions Discharge Signed : Yes Did Pt have Specialty Bed or Wound Vac : No Cheri Guzmán RN - 09/13/2024 16:42 EST * Gloria SANTANA, Lucia: PERFORM Event Display: Discharge/Transfer Note Hospital Authored Date: Patient: ??GUALBERTO MINER ? Age:??64 Years?Sex:??Male?:??1960?? 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 (I63.532) _ Discharge Medications Albuterol (Albuterol (Eqv-ProAir HFA) 90 mcg/inh inhalation aerosol)??1 inhalation 90 Microgram Inhalation Every 4 hours as needed as needed for shortness of breath or wheezing Atorvastatin (atorvastatin 40 mg oral tablet)??40 Milligram By Mouth Daily at bedtime for 30 Days Digoxin (digoxin 0.125 mg oral tablet)??125 Microgram 1 tablet By Mouth Daily Diltiazem (diltiazem 240 mg/24 hours oral capsule, extended release)??240 Milligram 1 capsule By Mouth Daily Docusate (docusate sodium 100 mg oral capsule)??100 Milligram 1 capsule By Mouth 2 times a day as needed for constipation Fluticasone Nasal (Flonase 50 mcg/inh nasal spray)??1 spray(s) Nares, Both 2 times a day Furosemide (Lasix 40 mg oral tablet)??40 Milligram By Mouth Daily rivaroxaban (Xarelto 20 mg oral tablet)??1 tab(s) 20 Milligram By Mouth Daily at supper ? Quality Measures Stroke Quality Measures:?Statin Prescribed at Discharge:??Statin Prescribed ? Medications Started Atorvastatin (atorvastatin 40 mg oral tablet)??40 Milligram By Mouth Daily at bedtime for 30 Days Medications Discontinued none Doses Changed none Allergies Allergies ?(Active and Proposed Allergies Only) Seasonale? (Severity: Unknown severity, Onset: Unknown) Contrast Dye? (Severity: Unknown severity, Onset: Unknown) ?Comments: Patient had adverse reaction after receiving contrast dye--felt alot of pressure in head and then pain in ?head, neck, shoulders and back--took a few days to get better perpatient ? PCP Follow-Up/Heads-Up Patient experienced a mild stroke??while holding his apixaban for his atrial fibrillation. Please follow-up in the outpatient for stroke prevention including??lipid profile, we did start himon a statin. Hospital Course 64-year-old patient with past medical history of morbid obesity, persistent atrial fibrillation with ablation on??09/08/2024, anticoagulated on Xarelto but may have missed a dose for this procedure, brought to the emergency room with altered mental status,??Acute weakness and vision changes.? His daughter is a registered nursing professor and [employer] employee, was able to provide??a thorough neuroexam,realized he was off his baseline??and brought him??to the emergency room. ? Upon arrival to our facility is NIH stroke scale was [address] scan of the head with no acute intracranial abnormalities.? 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 Was also felt by neuroendovascular and the clot was too distal.? Initial blood work was fairly stable.??High-sensitivity troponin was critically elevated - He was post??afib ablation x??72 hours.? Neurology was consulted with recommendation for admission to the neuro floor. ?? He was monitored over the past 48 hours, and he has recovered??physically, however is still experiencing some cognitive deficits. For this we can be discharged to??acute rehab at [facility]. ? Objective Assessment and Plan Assessment:? Stroke-like symptom (R29.90) Acute??left FAUCETS ASSEMBLER??CVA. Acute delirium ?? CT scan of the head without acute intercranial normalities.??CT angiogram head/neck with??left distal P2 occlusion. TNK was deferred??since the patient was on Xarelto and low NIH stroke scale. Neurology recommended admission to medical floor. ?? MRI BRAIN: 1. Early acute LEFT posterior-medial temporal lobe infarct. No hemorrhagic transformation. 2. Intraluminal thrombus within the left posterior cerebral artery correlating with the site of vascular cut off on the prior CTA of the head 3. Chronic small cerebellar infarcts. ?? Echocardiogram - as above. Permissive hypertension. Lipid profile and A1c -started on statin, A1c is??normal. Continue to monitor telemetry.?? Neurochecks every [address]??for any neurological??status change.?? Physical medicine and rehab followed while inpatient, appreciate their recs. Remains cognitively impaired - improved, placed in acute rehab.?? Cognitive impairment versus acute delirium. Delirium precautions, reorient when needed. Lights on in the morning, avoid restraints. Discharge to acute rehab. ?? Atrial fibrillation (I48.91): Persistent atrial fibrillation s/p ablation x 2 most recently??09/08/24. Resume diltiazem.?? Xarelto resumed per neuro. ?? VTE Prophylaxis:Xarelto ?VTE Prophylaxis Assessment:??VTE Prophylaxis Ordered ?? Discharge Planning: acute rehab ?? Code Status:??Full code ?Order Code Status:??Code Status Ordered ? Measurements?? Height: 180 cm (09/13/24) Weight: 112.5 kg (09/10/24) Dry Weight: 112.5 kg (09/10/24) Body Mass Index:??34.72 kg/m2??Critical (09/10/24) ? Vital Signs?? Temperature: 97.5 DegF (09/13/24 16:02:00) Temperature Route: Temporal (09/13/24 16:02:00) Pulse Rate: 79 bpm (09/13/24 16:02:00) Respiratory Rate: 20 br/min (09/13/24 16:02:00) Systolic Blood Pressure: 113 mm Hg (09/13/24 16:02:00) Diastolic Blood Pressure:??34 mm Hg??Low (09/13/24 16:02:00) Blood pressure sites: Arm, right (09/13/24 16:02:00) Mean Arterial Pressure: 60 mm Hg (09/13/24 16:02:00) Pulse Pressure: 79 mm Hg (09/13/24 16:02:00) Oxygen Saturation: 97 % (09/13/24 16:02:00) Mode of Delivery (Oxygen): Room air (09/13/24 16:02:00) Early Warning Score: 2 (09/13/24 16:03:07) ? . Physical Exam Constitutional: Alert, in no acute distress. Head: Normocephalic. Eyes: Pupils are equal and round. Extraocular muscles intact. No pallor or scleral icterus Ear, Nose and Throat: mucous membranes moist. Ears and nose - no obvious deformities. Neck: No JVD or bruits. Respiratory:??Equal bilateral air entry. No wheezing or rhonchi.??No use of accessory muscles. Cardiovascular:??S1 S2 regular. No murmurs, rubs or gallops. Gastrointestinal:??Abdomen soft, non-tender, non-distended. Extremities: No lower extremity pitting edema. Neurologic:??AAOx3, Cranial nerves II-XII grossly intact. Speech normal, no facial droop. No focal neurological deficits. Moves all extremities spontaneously. Musculoskeletal:??No gross deformities on inspection. .?? Psychiatric: Normal mood and affect. Consultants Neurology??physical medicine and rehab Pending Results No Pending Results Patient Education Titles WebMD Ignite Patient Education - Atrial Fibrillation?? [employer] Patient Education - Symptoms of a Stroke?? [employer] Patient Education - Discharge Instructions for Stroke?? Web[employer] Patient Education - Atorvastatin?? Web[employer] Patient Education - Discharge Instructions for Atrial Fibrillation?? Web[employer] Ignite Patient Education - Discharge Instructions for Stroke?? [employer] Patient Education - Symptoms of a Stroke?? Follow-Up Appointments Added Follow Up ?Time Frame ?Comments Follow up with Neurology Noam Membreno Patient Instructions You presented to [facility] with altered mental status, and was subsequently found to have acute stroke. ??Neurology consulted and determined that you will need??to continue your Xarelto. ??It is likely that the stroke occurred while you are holding this medication during your atrial fibrillation ablation.?Neurology consulted and??recommended continuation of your apixaban.?? Please follow-up with your primary care??doctor for further stroke prevention. ??You are being dischargedto an acute??rehab facility due to some mild cognitive deficits that you have experienced after your stroke.?? We wish you the best for a speedy recovery. Post Discharge Care Diet: ??Regular Diet ?? Code Status: ??Full ?? Condition: ??Stable ?? Prognosis: ??Good ?? Discharge ?Today, 09/13/24 16:04:00 EST ?Order Comment:?? Results Discharge Labs BLOOD COUNT & DIFF WBC 6.4 k/mm3 ()?? 09/12/2024 09:37 RBC 4.13 m/mm3 (Low)?? 09/12/2024 09:37 Hgb 11.7 Gm/dL (Low)?? 09/12/2024 09:37 Hct 35.4 % (Low)?? 09/12/2024 09:37 MCV 85.7 femtoliters ()?? 09/12/2024 09:37 MCH 28.3 pg ()?? 09/12/2024 09:37 MCHC 33.1 Gm/dL ()?? 09/12/2024 09:37 Platelet Count 268 k/mm3 ()?? 09/12/2024 09:37 RDW-SD 43.3 femtoliters ()?? 09/12/2024 09:37 MPV 9.5 femtoliters ()?? 09/12/2024 09:37 Nucleated RBC (Automated) 0.0 #/100 WBC'S ()?? 09/12/2024 09:37 Abs. NRBC 0.0 k/mm3 ()?? 09/12/2024 09:37 Abs. Neut 7.0 k/mm3 ()?? 09/09/2024 21:40 Abs. Lymph 2.7 k/mm3 ()?? 09/09/2024 21:40 Abs. Bond 0.8 k/mm3 ()?? 09/09/2024 21:40 Abs. Eo 0.1 k/mm3 ()?? 09/09/2024 21:40 Abs. Baso 0.0 k/mm3 ()?? 09/09/2024 21:40 Neut % 65.2 % ()?? 09/09/2024 21:40 Lymph % 25.5 % ()?? 09/09/2024 21:40 Bond % 7.7 % ()?? 09/09/2024 21:40 Eos % 0.8 % ()?? 09/09/2024 21:40 Baso % 0.3 % ()?? 09/09/2024 21:40 Imm Gran 0.5 % ()?? 09/09/2024 21:40 Abs. Imm Gran 0.1 k/mm3 ()?? 09/09/2024 21:40 ?? CARDIAC High Sensitivity Troponin (HSTnT) 329 ng/L (Critical)?? 09/09/2024 21:40 ? CHEM GENERAL Sodium 141 mmol/L ()?? 09/12/2024 09:37 Potassium 3.7 mmol/L ()?? 09/12/2024 09:37 Chloride 103 mmol/L ()?? 09/12/2024 09:37 Bicarbonate Level 26 mmol/L ()?? 09/12/2024 09:37 Anion Gap 12 mmol/L ()?? 09/12/2024 09:37 Glucose Level 105 mg/dL (High)?? 09/12/2024 09:37 Glucose, POC 135 mg/dL (High)?? 09/09/2024 21:34 Hemoglobin A1C (Monitoring) 5.5 % ()?? 09/10/2024 06:42 BUN 8 mg/dL ()?? 09/12/2024 09:37 Creatinine-Blood 0.76 mg/dL ()?? 09/12/2024 09:37 Estimated GFR Creatinine 100 ML/MIN/1.73 M2 ()?? 09/12/2024 09:37 Calcium 9.1 mg/dL ()?? 09/12/2024 09:37 Protein, Total 6.6 Gm/dL ()?? 09/11/2024 09:11 Albumin 3.6 Gm/dL ()?? 09/11/2024 09:11 AG Ratio 1.2 ()?? 09/11/2024 09:11 Alkaline Phosphatase 99 units/L ()?? 09/11/2024 09:11 AST (SGOT) 11 units/L ()?? 09/11/2024 09:11 ALT (SGPT) 9 units/L ()?? 09/11/2024 09:11 Bilirubin, Total 0.8 mg/dL ()?? 09/11/2024 09:11 ? COAG INR 1.2 (High)?? 09/09/2024 21:40 Protime (PT) 12.6 seconds (High)?? 09/09/2024 21:40 APTT 29.6 seconds ()?? 09/09/2024 21:40 ? LIPID STUDIES Cholesterol 182 mg/dL ()?? 09/10/2024 06:42 Triglycerides 123 mg/dL ()?? 09/10/2024 06:42 HDL Cholesterol 35 mg/dL (Low)?? 09/10/2024 06:42 LDL Cholesterol 122 mg/dL ()?? 09/10/2024 06:42 Non HDL Cholesterol 147 mg/dL ()?? 09/10/2024 06:42 ? MISC. CHEMISTRY Hold Gel Top SPECIMEN DISCARDED AFTER 1 WEEK ()?? 09/09/2024 21:40 Hold Patel Top SPECIMEN DISCARDED AFTER 1 WEEK ()?? 09/09/2024 21:40 ?? UA/URINALYSIS Appear/Color, Urine YELLOW ()?? 09/09/2024 02:45 Specific Grandy, Urine >1.050 (High)?? 09/09/2024 02:45 pH, Urine 6.0 ()?? 09/09/2024 02:45 Albumin, Urine TRACE (Abnormal)?? 09/09/2024 02:45 Glucose, Urine NEGATIVE ()?? 09/09/2024 02:45 Ketones, Urine NEGATIVE ()?? 09/09/2024 02:45 Bilirubin, Urine NEGATIVE ()?? 09/09/2024 02:45 Hemoglobin, Urine NEGATIVE ()?? 09/09/2024 02:45 Nitrite, Urine NEGATIVE ()?? 09/09/2024 02:45 Leukocyte, Urine NEGATIVE ()?? 09/09/2024 02:45 Urobilinogen NORMAL mg/dL ()?? 09/09/2024 02:45 WBC's, Urine 1 /HPF ()?? 09/09/2024 02:45 RBC's, Urine 1 /HPF ()?? 09/09/2024 02:45 Squamous Epith 3 /HPF ()?? 09/09/2024 02:45 Mucus SLIGHT /LPF ()?? 09/09/2024 02:45 Hold Urine Culture Testing available 48 hours from time of collection. ()?? 09/09/2024 02:45 ?? URINE OTHER Est Creatinine Clearance 104.16 mL/min ()?? 09/12/2024 10:24 ? 35_ minutes spent on discharge * Parent Layla MOSQUEDA: PERFORM, SIGN, VERIFY Event Display: Case Management Discharge Plan Authored Date: Patient: GUALBERTO MINER Age: 64 years Sex: Male : 1960 Associated Diagnoses: None Author: Parent Layla MOSQUEDA Discharge Plan Case Management Discharge Plan : Case Management Discharge Plan Data 09/13/2024 15:41 EST Discharge Level of Care at Discharge [facility] facility Discharge Nursing Homes/Rehab Facilities [facility] Discharge Transportation Arranged [facility] [address] [facility] [id number] [phone] Discharge Arranged Transport Date/Time 09/13/2024 16:30 Mode of Transportation Arranged Chair Van Name of Agency #1 [facility] Categories #1 Occupational Therapy, Physical Therapy, Intermediate Name of Person Notified of Transfer Patient and Family * Cheri Guzmán RN: PERFORM Event Display: Patient Education/Instruction Authored Date: Inpatient Adult Discharge Instructions. [address] [address] Name: GUALBERTO MINER : 1960?? Visit: 09/09/2024 23:20?? Current Date: 09/13/2024 15:57 ?? Account: [id number]?? Inpatient Adult Discharge Instructions We would like to thank you for allowing us to assist you with your healthcare needs. The following includes patient education materials and information regarding your injury/illness. Our entire staffstrives to provide an excellent experience for our patients and their families. PLEASE ENSURE YOU FOLLOW-UP PER THE INSTRUCTIONS BELOW! ?? YOUR OPINION IS IMPORTANT TO US! Please complete the survey you may receive by mail or email. Your feedback will be used to make improvements to the healthcare experiences of our patients and their families. Surveys are administered by [employer] ?? If further treatment with your primary care physician or another doctor is recommended, it is important for you to keep the appointment. Call your primary care physician or return to the Emergency Department immediately if your condition worsens, fails to improve, or new symptoms develop. If you need to find a doctor, you can call [facility] Basic-Fit Link for a referral at [phone] or toll free at [phone]) or log in to [email or web address].. ?? [facility], in keeping with [facility] guidance, no longer requires face masks for staff, patientsor visitors in most situations. Similiar to time spent indoors at other locations, there is the chance that you were exposed to repiratory viruses during your time with us (such as flu or COVID-19). If you develop symptoms concerning for a viral respiratory infection, please seek testing (and treatment if indicated) from your medical provider or home test kit. ?? You can view and manage your care through the patient portal or by using a health care dewayne of your choosing. [employer] is a website that allows you to securely view your medical information including your hospital discharge summary, office visit summaries, medications and follow-up visits. You can also request appointments, renew medications, and request access to your medical information using a health care dewayne of your choosing, or just ask a question. You can enroll at [email or web address] or register during your next office visit. You have been discharged from [facility], Patient Care Unit: D5A??. If you have any questions regarding these instructions, including results of studies pending, afteryou leave, please call us and we will be happy to assist you 24/02. [facility] Your Care Team Attending Physician David Batista MD?? Consulting Providers David Batista MD?? Reason for Your Visit Stroke?? Your Diagnosis Atrial fibrillation Cerebral infarction involving left posterior cerebral artery Infarction of left temporal lobe Stroke Stroke-like symptom Tests Performed Below is a partial list of the tests performed during your hospitalization. You may have had other tests and procedures not included in this list. Please discuss all test results with your provider. AST Basic Metabolic Panel CBC CBC w/ Differential Comprehensive Metabolic Panel GLUCOSE POC Hemoglobin A1C (Monitoring) High??Sensitivity??Troponin T HOLD GEL TUBE HOLD PATEL TUBE Lipid Panel PT (INR) PTT Urinalysis w/hold for Urine Culture Brain MRI W/O Contrast CT Angio Head Hyperacute Stroke CT Angio Neck Hyperacute Stroke CT Head-Hyper Acute Stroke XR Chest 2 Views Frontal and Lat AST?? Basic Metabolic Panel?? CBC?? CBC w/ Differential?? CT Angio Head Hyperacute Stroke?? CT Angio Neck Hyperacute Stroke?? CT Head-Hyper Acute Stroke?? Comprehensive Metabolic Panel?? Glucose POC?? Hemoglobin A1C (Monitoring)?? High??Sensitivity??Troponin T?? Hold Gel Top Tube (HOLD GEL TUBE)?? Hold Patel Top Tube (HOLD PATEL TUBE)?? INR (PT (INR))?? Lipid Panel?? MRI Brain W/O Contrast (Brain MRI W/O Contrast)?? PTT?? Type and Screen?? Urinalysis w/hold for Urine Culture?? Chest 2 Views Frontal and Lat (XR Chest 2 Views Frontal and Lat)?? Primary Care Provider Noam Membreno? Advance Directive Health Care Proxy on File Yes - Health Care Proxy Discharge Vitals Temperature: 97.5 DegF Height: 180 cm Pulse Rate: 77 bpm Weight: 112.5 kg Respiratory Rate: 20 br/min Body Mass Index:??34.72 kg/m2??Critical Systolic Blood Pressure: 138 mm Hg Body surface area: 2.37 Diastolic Blood Pressure: 78 mm Hg ?? Oxygen Saturation: 95 % ?? Studies Pending All studies ordered during this hospital stay have been completed unless listed below. Please discuss all pending results with your provider listed above in these instructions. ?? No incomplete studies found?? What to do next Instructions From Your Doctor ?? Orders?? Discharge Medications GUALBERTO MINER :1960 Visit Date:09/09/2024 Medications: Please continue your medications until treatment is completed or stopped by your provider. Medications not listed below should be discontinued. Discuss any questions related to medications with your provider. What How Much When Instructions Next Dose New Atorvastatin (atorvastatin 40 mg oral tablet) 40 Milligram Oral Daily at Bedtime Duration: 30 Days Pickup at [facility] 3 Tonight?? 09/13 @ 9pm. Changed Furosemide (Lasix 40 mg oral tablet) 40 Milligram Oral Daily Tomorrow 09/14 @9am. Unchanged Albuterol (Albuterol (Eqv-ProAir HFA) 90 mcg/ inh inhalation aerosol) 1 inhalation Inhalation Every 4 hours as needed for as needed for shortness of breath or wheezing Not given. Take as prescribed. Unchanged Digoxin (digoxin 0.125 mg oral tablet) 1 tab(s) Oral Daily Tomorrow 09/14 @ 9am. Unchanged Diltiazem (diltiazem 240 mg/ 24 hours oral capsule, extended release) 1 capsule Oral Daily Tomorrow 09/14 @9am. Unchanged Docusate (docusate sodium 100 mg oral capsule) 1 capsule Oral Twice a day as needed for for constipation Not given. Take as prescribed. Unchanged Fluticasone Nasal (Flonase 50 mcg/ inh nasal spray) 1 spray(s) Nares, Both Twice a day Not given. Take as prescribed. Unchanged rivaroxaban (Xarelto 20 mg oral tablet) 1 tab(s) Oral Daily at supper Tomorrow 09/14 @ supper. [facility] Information [facility] [address], [place] [id number] [phone] ?? What How Much When Comments Stop Taking Cetirizine (cetirizine 10 mg oral tablet) See instructions take by mouth once [address] ?? Stop Taking MethylPREDNISolone (methylPREDNISolone 32 mg oral tablet) See instructions take 1 tablet [address] take 1 tablet [address] ?? Prescription Given During Visit Atorvastatin (atorvastatin 40 mg oral tablet) - 40 mg, By Mouth, Daily at bedtime, # 30 tablet, 0 Refills, [facility], [address] [place] [phone]?? Laboratory Results Below is a partial list of the most recent Laboratory test results done prior to this discharge. You may have had other tests and procedures not included in this list. Please discuss all test resultswith your provider. Est Creatinine Clearance - 104.16 mL/min (09/12/2024) AST (09/09/2024) ???AST (SGOT) - 15 units/L Basic Metabolic Panel (09/12/2024) ???Sodium - 141 mmol/L???Potassium - 3.7 mmol/L???Chloride - 103 mmol/L???Bicarbonate Level - 26 mmol/L???Anion Gap - 12 mmol/L???Glucose Level - 105 mg/dL???BUN - 8 mg/dL???Creatinine-Blood - 0.76 mg/dL???Estimated GFR Creatinine - 100 ML/MIN/1.73 M2???Calcium - 9.1 mg/dL CBC (09/12/2024) ???WBC - 6.4 k/mm3???RBC - 4.13 m/mm3???Hgb - 11.7 Gm/dL???Hct - 35.4 %???MCV - 85.7 femtoliters???MCH - 28.3 pg???MCHC - 33.1 Gm/dL???Platelet Count - 268 k/mm3???RDW-SD - 43.3 femtoliters???MPV - 9.5 femtoliters???Nucleated RBC (Automated) - 0.0 #/100 WBC'S???Abs. NRBC - 0.0 k/mm3 CBC w/ Differential (09/09/2024) ???WBC - 10.7 k/mm3???RBC - 3.98 m/mm3???Hgb - 11.4 Gm/dL???Hct - 34.2 %???MCV - 85.9 femtoliters???MCH - 28.6 pg???MCHC - 33.3 Gm/dL???Platelet Count - 255 k/mm3???RDW-SD - 46.5 femtoliters???MPV - 9.5 femtoliters???Nucleated RBC (Automated) - 0.0 #/100 WBC'S???Abs. NRBC - 0.0 k/mm3???Abs. Neut - 7.0 k/mm3???Abs. Lymph - 2.7 k/mm3???Abs. Bond - 0.8 k/mm3???Abs. Eo - 0.1 k/mm3???Abs. Baso - 0.0 k/mm3???Neut % - 65.2 %???Lymph % - 25.5 %???Bond % - 7.7 %???Eos % - 0.8 %???Baso % - 0.3 %???Imm Gran - 0.5 %???Abs. Imm Gran - 0.1 k/mm3 Comprehensive Metabolic Panel (09/11/2024) ???Sodium - 139 mmol/L???Potassium - 4.0 mmol/L???Chloride - 102 mmol/L???Bicarbonate Level - 27 mmol/L???Anion Gap - 10 mmol/L???Glucose Level - 94 mg/dL???BUN - 13 mg/dL???Creatinine-Blood - 0.84 mg/dL???Estimated GFR Creatinine - 97 ML/MIN/1.73 M2???Calcium - 9.1 mg/dL???Protein, Total - 6.6 Gm/d L???Albumin - 3.6 Gm/dL???AG Ratio - 1.2???Alkaline Phosphatase - 99 units/L???AST (SGOT) - 11 units/L???ALT (SGPT) - 9 units/L???Bilirubin, Total - 0.8 mg/dL GLUCOSE POC (09/09/2024) ???Glucose, POC - 135 mg/dL Hemoglobin A1C (Monitoring) (09/10/2024) ???Hemoglobin A1C (Monitoring) - 5.5 % High??Sensitivity??Troponin T (09/09/2024) ???High Sensitivity Troponin (HSTnT) - 329 ng/L HOLD GEL TUBE (09/09/2024) ???Hold Gel Top - SPECIMEN DISCARDED AFTER 1 WEEK HOLD PATEL TUBE (09/09/2024) ???Hold Patel Top - SPECIMEN DISCARDED AFTER 1 WEEK Lipid Panel (09/10/2024) ???Cholesterol - 182 mg/dL???Triglycerides - 123 mg/dL???HDL Cholesterol - 35 mg/dL???LDL Cholesterol - 122 mg/dL???Non HDL Cholesterol - 147 mg/dL PT (INR) (09/09/2024) ???INR - 1.2???Protime (PT) - 12.6 seconds PTT (09/09/2024) ???APTT - 29.6 seconds Urinalysis w/hold for Urine Culture (09/09/2024) ? ?Appear/Color, Urine - YELLOW? ?Specific Grandy, Urine - >1.050? ?pH, Urine - 6.0? ?Albumin, Urine - TRACE???Glucose, Urine - NEGATIVE???Ketones, Urine - NEGATIVE???Bilirubin, Urine - NEGATIVE???Hemoglobin, Urine - NEGATIVE???Nitrite, Urine - NEGATIVE???Leukocyte, Urine - NEGATIVE???Urobilinogen - NORMAL???WBC's, Urine - 1 /HPF???RBC's, Urine - 1 /HPF???Squamous Epith - 3 /HPF???Mucus - SLIG HT???Hold Urine Culture - Testing available 48 hours from time of collection. You will be contacted within 72 hours with your results. Immunizations This Visit Not Given Vaccine Commentsinfluenza virus vaccine, inactivated Patient Refuses Allergies (NKA means No Known Allergies) Contrast Dye Seasonale Problems Active Problems??(11) Afib?? Chronic back pain?? Fatigue?? HLD (hyperlipidemia)?? Laugh Apnea?? Obese class I?? Obstructive sleep apnea w/CPAP?? Psoriatic arthritis?? Pulmonary nodule, right?? Right drake Pyoderma gangrenosum?? SNHL (sensorineural hearing loss), bilateral hearing aids?? Education Materials Below is the list of Educational Leaflet Providered with your Discharge Instructions. Web[employer] Ignite Patient Education - Atorvastatin?? Web[employer] Ignite Patient Education - Discharge Instructions for Atrial Fibrillation?? Web[employer] Ignite Patient Education - Discharge Instructions for Stroke?? [employer] Ignite Patient Education - Symptoms of a Stroke?? Valuables and Belongings I fully understand and agree that [facility] accepts no responsibility for all my personal property including clothing, toilet articles, radios, jewelry, dentures, hearing aids, rings, money, or any other property that is in my possession or is brought to me after admission. I understand certain valuables may be placed in a hospital safe for a short period of time. I understand that the hospital is not liable for loss or damage due to accident, fire, or other natural occurrence while said property is in the safe. I accept full responsibility for any personal property that I keep with me, and will not hold the hospital responsible in case of loss or disappearance. I acknowledge that i have been encouraged to send valuables and belongings home. ?? Review of Valuable and Belonging List: With patient, With family, With witness Date for Pt to Sign Valuables/Belongings: 09/10/24 19:43:00 ?? Other Discharge Information ? Case Management Discharge Plan?? Discharge Plan?? Discharge Agency Information?? Discharge Level of Care at Discharge: [facility] facility Name of Agency [facility]1: [facility] Transportation Arranged: [facility] [address] [facility] [address] [phone] Service Categories #1: Occupational Therapy, Physical Therapy, Intermediate Mode of Transportation Arranged: Chair Van Name of Person Notified of Transfer: Patient and Family Discharge Arranged Transport Date/Time: 09/13/24 16:30:00 ?? Discharge Nursing Homes/Rehab Facilities: [facility] ? Pulmonary Rehab Status?? Pulmonary Rehab Discharge Status?? Respiratory Rate: 20 br/min ? Common Emergency Awareness Tips IS IT A STROKE? Act FAST and Check for these signs: FACE Does the face look uneven? ARM Does one arm drift down? SPEECH Does their speech sound strange? TIME Call at any sign of stroke ?? Heart Attack Signs Chest discomfort: Most heart attacks involve discomfort in the center of the chest and lasts more than a few minutes, or goes away and comes back. It can feel like uncomfortable pressure, squeezing, fullness or pain. Discomfort in upper body: Symptoms can include pain or discomfort in one or both arms, back, neck, jaw or stomach. Shortness of breath: With or without discomfort. Other signs: Breaking out in a cold sweat, nausea, or lightheaded. Remember, MINUTES DO MATTER. If you experience any of these heart attack warning signs, call to get immediate medical attention! ?? Smoking can increase your chances of developing chronic health problems and can cause harmful effects to other family members in your house. If you smoke, you are strongly encouraged to quit. Please call [facility] Link at [phone] or 1-392-640MyNewDeals.com ([phone]) or log in to [email or web address] for referrals to smoking cessation programs. ?? 259 Suicide & Crisis Lifeline is available 24/02 if you or someone you know needs to find a reason to keep living. By calling 092 you'll be connected to a skilled, trained counselor at a crisis center in your area. INPATIENT DISCHARGE INSTRUCTIONS SIGNATURE GUALBERTO PLEITEZ Location:[facility] Registration Date and Time:09/09/2024 23:20 EST Primary Care Physician: Noam Membreno, Attending Physician: Latonya Chaudhari MD, [facility], I GUALBERTO MINER, have received the above patient education materials/instructions and have verbalized understanding. If ambulance or transport services are being used I further acknowledge being given a choice of service. ?? If you need to contact me, please call me at this number: . 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 [id number] Atrial Fibrillation Atrial fibrillation is a condition in which the heart beats in an irregular pattern. It is the mostcommon abnormal heart rhythm. It is caused by a problem in the heart's electrical pathways within the muscle of the upper chambers of the heart (atria). It can be a sign of heart disease or other health problems that affect the heart. Heart palpitations are a common symptom of atrial fibrillation. This is the feeling that your heartis fluttering, or beating fast, hard, or irregular. When the heart beats too fast, it doesn't pump blood very well. This can cause other symptoms, such as anxiety, fatigue, shortness of breath, chestpain, dizziness, or fainting. Atrial fibrillation may come and go on its own, which is known as paroxysmal atrial fibrillation. It can last from a few hours to a couple of days. Or it may become persistent, lasting for weeks or months at a time. It can even become lifelong (permanent). Some symptoms of atrial fibrillation are hard to notice. For instance, some people develop subtle fatigue. Others notice a reduced ability to exercise. Some people have no symptoms. Atrial fibrillation is more common in older adults. It may be caused by heart disease or other conditions in the body that affect the heart. They include: ??? Coronary artery disease (atherosclerosis), sometimes called blocked arteries ??? High blood pressure ??? Disease of the heart valves ??? Enlarged heart ??? Heart failure Atrial fibrillation can also occur without heart disease because of: ??? Overactive thyroid (hyperthyroid) ??? Chronic lung disease (COPD, emphysema, or bronchitis) ???Heavy alcohol use ??? Heart stimulants, such as cocaine, amphetamines, diet pills, certain decongestant cold medicines, caffeine, or nicotine ??? Infection ??? Blood clot in the lung (pulmonary embolus) ??? Diabetes ??? Chronic kidney disease ??? Obesity ??? Obstructive sleep apnea ??? Extreme and continued athletic conditioning ??? Certain genetic diseases Treating or removing these causes will help your treatment for atrial fibrillation. It will also make it less likely for it to come back. Atrial fibrillation can alternate back and forth with another abnormal rhythm called atrial flutter. Atrial flutter is a more regular heart rhythm. It is also linked to an increased risk for stroke. Correct treatment of these arrhythmias can lower your risk for stroke. Home care Follow these guidelines when caring for yourself at home: ??? Go back to your usual activities as soon as you are feeling back to normal. ??? If you smoke, stop smoking. Contact your healthcare provider or a local stop-smoking program for help. ??? Don't use stimulants like alcohol, cocaine, amphetamines, diet pills, certain decongestant cold medicines, caffeine, or nicotine. ??? If your providerprescribed medicine to stop atrial fibrillation from coming back, take it exactly as directed. Somemedicines must be taken every day, not just when you have symptoms. This will help them work as they should. ??? If you were prescribed a blood-thinning medicine, take it exactly as prescribed. One of these medicines, called warfarin, needs your blood to be tested regularly as advised by your healthcare provider. This will make sure you are getting the dose that is right for you. It also lowers your risk for side effects. You may have been prescribed other blood-thinning medicines that don't need regular testing. ?? Follow-up care Follow up with your healthcare provider as advised. ?? When to get medical care Call your healthcare provider if any of these occur: ??? Swelling in the legs that gets worse ??? Unexpected weight gain ??? Pain, redness, or swelling in 1 leg ?? Call 911 Calling 911 is the fastest and safest way to get the emergency department. The paramedics can also start treatment on the way to the hospital, if needed. Call 911 or get medical help right away if any of these occur: ??? Weakness of an arm, leg, one side of the face ??? Chest pain ??? Shortness of breath, or feeling that you can't get enough air ??? Feeling lightheaded, faint, or dizzy ??? Your heartbeat is very fast, slow, or irregular compared with your regular heartbeat ??? Uncontrolled bleeding ??? Trouble with speech or vision ??? Extreme drowsiness, confusion, dizziness, or fainting ?? Last Reviewed Date: 2022 ?? [employer]. All rights reserved. This information is not intended as a substitute for professional medical care. Always follow your healthcare professional's instructions. ?? * Lucia Castro NP: PERFORM Event Display: Patient Education Leaflets Authored Date: [id number] Symptoms of a Stroke ?? 37660 Symptoms of a Stroke During a stroke, blood stops flowing to part of the brain or there is bleeding in the brain. This can damage areas in the brain that control the rest of the body. A stroke can happen to anyone at anyage. Call 911 and get help right away if any of these symptoms come on suddenly, even if the symptoms don???t last. Know the symptoms of a stroke A sudden feeling of weakness on one side of your body may be a sign that you are having a stroke. ??? Weakness. You may feel a sudden weakness, tingling, or a loss of feeling on one side of your face or body including your arm or leg.? Vision problems. You may have sudden double vision or trouble seeing in one or both eyes. ??? Speech problems. You may have sudden trouble talking, slurred speech, or problems understanding others. ??? Headache. You may have a sudden, severe headache. ??? Movement problems. You may have sudden trouble walking, dizziness, a feeling of spinning, a loss of balance, a feeling of falling, or blackouts. ??? Seizure. You may also have a seizure as the first symptom of a stroke.? When to call 911 Remember: If you have any of these symptoms, or if someone you are with has these symptoms, call 911 as soon as possible. Never drive yourself or the person with symptoms to the hospital. The ambulance can alert the hospital and start treatment right away. B.E. F.A.S.T. is an easy way to remember the signs of a stroke. When you see these signs, you will know that you need to call 911 fast.?? B.E. F.A.S.T. stands for: ??? B is for balance. Sudden loss of balance or coordination. ??? E is for eyes. Vision changes in one or both eyes. ??? F is for face drooping. One side of the face is drooping or numb. When the person smiles, the smile is uneven. ??? A is for arm weakness. One arm is weak or numb. When the person lifts both arms at the same time, one arm may drift downward. ??? S is for speech difficulty. You may notice slurred speech or difficulty speaking. The person can't repeat asimple sentence correctly when asked. ??? T is for time to dial 911. If someone shows any of these symptoms, even if they go away, call 911 right away. Make note of the time the symptoms first appeared. ?? Last Reviewed Date: 2024 ?? [id number] [employer]. All rights reserved. This information is not intended as a substitute for professional medical care. Always follow your healthcare professional's instructions. ?? * Lucia Castro NP: PERFORM Event Display: Patient Education Leaflets Authored Date: [id number] Discharge Instructions for Stroke ?? 27711 Discharge Instructions for Stroke You have a high risk for a stroke, or??a TIA (transient ischemic attack).??During a stroke, blood stops flowing to part of your brain. This can damage areas in the brain that control other parts of the body. Symptoms from a stroke depend on which part of the brain has been affected. Stroke risk factors Once you???ve had a stroke, you???re at greater risk for another one. Listed below are some other factors that can raise your risk for a stroke: ??? High blood pressure ??? High cholesterol ??? Cigarette or cigar smoking ??? Diabetes ??? Carotid or other artery disease ??? Atrial fibrillation, atrial flutter,??or other heart disease ??? Not being physically active ??? Obesity ??? Certain blood disorders, such as sickle cell anemia ??? Drinking too much alcohol ??? Abusing street drugs ??? Race ??? Gender ??? Family history of stroke ??? Diet high in salty, fried, or greasy foods ?? Changes in daily living Doing??some everyday tasks may be hard after you???ve had a stroke. But you can learn new ways to manage. In fact, doing daily activities may help you to regain muscle strength. This can help your affected arm or leg work more normally. Be patient. Give yourself time to adjust. And appreciate the progress you make. ?? Daily activities You may be at risk of falling. Make changes to your home to help you walk more easily. A therapist will decide if you need an assistive device, such as a cane or walker, to walk safely. You may need to see an occupational therapist (OT). Or you may see a physical therapist (PT). Thesehealthcare providers can help you to learn new ways of doing things. For example, you may need to make changes in how you bathe or dress. You may also need a speech therapist. This is someone who helps you speak normally again and be able to swallow. Tips for showering or bathing ??? Test the water temperature with a hand or foot that was not affected by the stroke. ??? Use grab bars, a shower seat, a handheld showerhead, and a long- handled brush. ??? Use any other device as advised by your therapists. Tips for getting dressed ??? Dress while sitting, starting with the affected side or limb. ??? Wearshirts that pull easily over your head. Wear pants or skirts with elastic waistbands. ??? Use zippers with loops attached to the pull tabs. ?? Lifestyle changes ??? Take your medicines exactly as directed. Don???t skip doses. ??? Begin an exercise program. Askyour provider how to get started. Ask how much activity you should try to get every day or week. You can benefit from simple activities such as walking or gardening. ??? Limit how much alcohol you drink. ??? Control your cholesterol level. Follow your provider???s advice about how to do this. ??? If you are a smoker, quit now. Join a stop-smoking program to improve your chances of success. Ask your provider about medicines or other methods to help you quit. ??? Learn stress management methods. These can help you deal with stress in your home and work life. Diet Your healthcare provider will guide you on changes you may need to make to your diet. They may advise that you see a registered dietitian for help with changes. The changes can improve your cholesterol, blood pressure, and blood sugar. Changes may include: ??? Reducing the amount of fat and cholesterol you eat ??? Reducing the amount of salt (sodium) in your diet, especially if you have high blood pressure ??? Eating more vegetables and fruits ??? Eating more lean proteins, such as fish, poultry, and beans and peas (legumes) ??? Eating less red meat and processed meats ??? Using low-fat dairyproducts ??? Limiting vegetable oils and nut oils ??? Limiting sweets and processed foods such as ch ips, cookies, and baked goods ??? Not eating trans fats. These are often found in processed foods. Don't eat any food that has hydrogenated oils listed in its ingredients. ?? Follow-up care ??? Keep your medical appointments. Close follow-up is important to stroke rehabilitation and recovery. ??? Some medicines require blood tests to check for progress or problems. Keep follow-up appointments for any blood tests ordered by your providers. ?? Call 911 Call 911 right away??if you have any of the following symptoms of stroke: ??? Weakness, tingling, or loss of feeling on one side of your face or body ??? Sudden double vision or trouble seeing in one or both eyes ??? Sudden trouble talking or slurred speech ??? Trouble understanding others ??? Sudden, severe headache ??? Dizziness, loss of balance, or a sense of falling ??? Blackouts or seizures B.E. F.A.S.T. is an easy way to remember the signs of stroke. When you see these signs, you know that you need to call 911 fast. B.E. F.A.S.T. stands for: ??? B is for balance. Sudden loss of balance or coordination. ??? E is for eyes. Vision changes in one or both eyes. ??? F is for face drooping. One side of the face is drooping or numb. When the person smiles, the smile is uneven. ??? A is for arm weakness. One arm is weak or numb. When the personlifts both arms at the same time, one arm may drift downward. ??? S is for speech difficulty. You may notice slurred speech or trouble speaking. The person can't repeat a simple sentence correctly when asked. ??? T is for time to call 911. If someone shows any of these symptoms, even if they go away, call 911 right away. Make note of the time the symptoms first appeared. ?? Last Reviewed Date: 2022 ?? [id number] [employer]. All rights reserved. This information is not intended as a substitute for professional medical care. Always follow your healthcare professional's instructions. ?? Patient Care team information Care Team Personnel Name: Cheri Guzmán RN Position: S RN Member Role: Primary Care Nurse Name: Giulia Brian RN Position: S RN Member Role: Primary Care Nurse Name: Xochitl Vargas RN Position: S RN Member Role: Primary Care Nurse Name: Noam Membreno Position: Reference Physician Member Role: PCP Address: [address] [place] [address] [address] [place], [place] [address] Telecom: Name: Kylah Cornejo RN Position: [facility] RN Member Role: Primary Care Nurse Name: Chey Price RN Position: S RN Member Role: Primary Care Nurse Name: Palmira Nelson RN Position: S RN Member Role: Primary Care Nurse Care Team Related Persons Name: MARTINEZ MINER Name: PHILIPPE MINER Insurance Providers Guarantor name: GUALBERTO MINER Health Plan Information #: 1 Payer: [facility] [employer] Member Number: [id number] Policy Number: NA Group Number: [facility] Health Plan Information #: 2 Payer: [facility] Member Number: [id number] Policy Number: NA Group Number: NA
--- OUTSIDE RECORDS SUMMARY | 2024-09-23 16:31 | XMS_ITS | Clinical Summary ---
Author Organization [employer] Address [address] [place] [address] [address] [place] [address] Care Team Providers Care Tape Controlled Machine Stitcher Name Role Phone Unavailable Primary Care Provider [...] of 2 - Risk 2-dose series) 1979 Pneumococcal Vaccine: 50+ Years (1 of 1 - PCV) 2010 Zoster Vaccines (1 of 2) 2010 Hepatitis [...] 06/12/2015 Dental X-Ray: Full Mouth 11/18/2026 11/18/2023, 12/2020 RSV Patients and Patients Aged 60 [...] 5 Years) and At-Risk Patients (6 to 49) Years) Aged Out No longer eligible based [...] ADULT Routine 11/18/2023 1 0:00 AM EDT INTRAORAL - COMPLETE SERIES OF RADIOGRAPHIC IMAGES Routine 11/18/2023 10:00 AM EDT PERIODIC ORAL EVALUATION - ESTABLISHED PATIENT Routine 11/18/2023 10:00 AM EDT from Last 3 Months or Most Recently Relevant to Health Maintenance Insurance [facility] - [facility]
== END 2024-09-23 16:38 | disposition home or self-care (01) ==
PROVIDERS: PCP Physician Assistant; Visit Provider Physician Assistant
DX: I48.0 Paroxysmal atrial fibrillation (principal); I63.412 Cerebral infarction due to embolism of left middle cerebral artery; Z98.890 Other specified postprocedural states; E78.2 Mixed hyperlipidemia

== ENCOUNTER → 2024-09-23 15:28 | Outpatient (BNVA) | payer OTHER, SELFPAY | PROVIDERS: PCP Physician Assistant; Visit Provider Physician Assistant | DX: I48.0 Paroxysmal atrial fibrillation (principal); I63.412 Cerebral infarction due to embolism of left middle cerebral artery; E78.2 Mixed hyperlipidemia; Z98.890 Other specified postprocedural states | CPT/HCPCS: 99212 ==

== ENCOUNTER 2024-09-28 13:07 | Outpatient (AMB) | payer OTHER, SELFPAY ==
[2024-09-28 13:42] VITALS: BP 110/50; PULSE 74; O2SAT 98; BMI 34.0
--- NOTE | 2024-09-28 13:42 | A.OFFVIS_ITS ---
Vital Signs 09/28/24 13:42 Height 5 ft 11 in Weight 244 lb BMI 34.0 BP 110/50 L Blood Pressure Location Lt brachial Position Sitting Pulse 74 Pulse Source Pulse Oximeter Pulse Oximetry (%) 98 Oxygen Delivery Method Room Air Intake Visit Reasons: sleep apnea Intake Note: pt is here as a new patient with a hx of MALICK, but had heart surgery, has a hx of long time a-fib and is now in regular rhythm. he has been sleeping with his bi- pap and feels good. History Professor Required: No Allergies tetanus toxoid, adsorbed Allergy (Verified 09/28/24 14:27) Hives Medication List - Last Reconciled 09/28/24 by Isaak Paredes MD [4 x 4 non woven gauze As directed] acetaminophen ER (Tylenol Arthritis Pain) 650 mg PO Q12H 30 days adhesive bandage (Adhesive Pads) As directed adhesive tape (Medipore) As directed albuterol sulfate 90 mcg/actuation (Ventolin HFA) 2 puffs inhalation Q6H PRN 30 days alclometasone 0.05% 1 appl topical BID PRN atorvastatin mg PO DAILY blood pressure kit-extra large As directed [coloplast triad cream As directed] CPAP (CPAP Machine/Device) As directed digoxin 125 mcg PO DAILY 90 days diltiazem HCl CD 240 mg PO DAILY 90 days docusate sodium 100 mg PO BID PRN fluocinonide 0.05% 1 appl topical BID PRN fluticasone propionate 50 mcg/actuation 1 spray intranasal DAILY 30 days furosemide 20 mg PO QAM furosemide mg PO DAILY gauze bandage (Gauze Pad) As directed ibuprofen 800 mg (4 x 200 mg) PO Q6H PRN 30 days lactulose 15 mL PO BEDTIME PRN leg brace (Knee Support Brace) NEED FOR SOFT KNEE BRACE WITH MEDIAL AND LATERAL HARD SUPPORT menthol-zinc oxide 0.44-20.6 % (Calmoseptine) 1 appl topical BID 30 days miscellaneous medical supply 1 ea miscellaneous DAILY 99 days mupirocin 2% 1 appl topical BID PRN non-adherent bandage use daily nystatin 1 appl topical DAILY PRN [Omni Tray for wheel chair As directed] potassium chloride ER mEq PO DAILY [reclining lift chair As directed] rivaroxaban (Xarelto) 20 mg PO DAILY 90 days tamsulosin 0.4 mg PO DAILY 90 days tizanidine 4 mg PO BEDTIME PRN 30 days Do you need a note to return to daycare/school/sports/work: No HPI HPI sleep apnea: Details: This 64 years old gentleman is being seen for the 1st time for management of obstructive sleep apnea. He claims that he has had sleep apnea for which he has been treated with the CPAP device for the last 10 years or so. His current CPAP device is more than 5 years old and is nonfunctional. I see copy of his regional polysomnogram report. Of in sleep study at [facility] back in 2000. In that study he was found to have severe obstructive sleep apnea and he had CPAP titration resulting in treatment with bilevel pressure of 12/6 cm using fullface mask. Patient has some memory issue and is not sure if he started using the CPAP right away or if it was started some years after that. He had CPAP device from [facility] to start with and now recently has been getting supplies from [place], because of his change in the insurance to [employer] [place] He say is that he does use the CPAP okay, and sleeps well. Another piece of history is that he has had paroxysmal atrial fibrillation for 10-15 years. He had an ablation procedure back about 10 years ago. And now recently he was having very frequent bouts of atrial fibrillation. He had ablation procedure at [facility] a few months ago, exact dates not known to him. He say is that since that ablation procedure he feels much better and he has had no recurrence of palpitations. In fact he has not needed to use the CPAP since then. However he had a stroke within 1 or 2 days after this procedure and was taken back to the hospital. Luckily he did not have any residual weakness. And is doing okay since then. This gentleman is being treated with small dose of digoxin, diltiazem, and anticoagulation with Xarelto. He denies smoking or drinking alcohol Today his the questions are: 1- As he has lost some weight, does he still need to use CPAP or not. 2- if he needs to continue using CPAP he would need a new CPAP machine as his old machine is not working. [facility] Medical History Carpal tunnel syndrome Ambulates with cane [place] (hard of hearing) History of diverticulitis Weight loss Psoriatic arthritis MALICK on CPAP Morbid obesity PAF (paroxysmal atrial fibrillation) Surgical History Hx of colonoscopy Status post catheter ablation of atrial fibrillation History of cardiac radiofrequency ablation (RFA) (~11/05/17) Family History Father CVD (cardiovascular disease) Mother CVD (cardiovascular disease) Atrial fibrillation Alzheimer disease Other Substance use disorder Social History Household Members: Children Housing: House Do you presently have visiting nurse or other home services: Yes ([employer]) Alcohol intake: never Patient Tobacco Use Status: Former Tobacco user Tobacco use type: Cigarette Years Smoked: 20 +/- e-Cigarette/Vaping Use: Never Used Second Hand Smoke Exposure: No Advance Directives Date on File: 03/17/24 service: No Current occupational status: disabled Cognitive needs: No Hearing needs: Yes (hearing aide) Vision needs: Yes (Glasses) Review of Systems Const All systems reviewed & are unremarkable except as noted in HPI and below Eyes Reports no additional complaints ENT Reports no additional complaints Card Denies chest pain, Denies irregular heart rhythm, Denies leg edema and Reports dyspnea on exertion (Mild) Resp Denies cough, Denies hemoptysis, Reports dyspnea on exertion (Mild) and Denies wheezing GI Reports no additional complaints Reports no additional complaints Musc Reports no additional complaints Skin/Breast Reports wounds (Has on ulcer on the right leg) Neuro Reports memory loss (Mild, he is somewhat slow in answering questions) Psych Reports no additional complaints and Reports memory loss (Mild, he is somewhat slow in answering questions) Aller/Immun Denies wheezing Physical Exam Vital Signs: Last Vital Signs Pulse 74 09/28/24 13:42 BP 110/50 L 09/28/24 13:42 Pulse Ox 98 09/28/24 13:42 Oxygen Delivery Method Room Air 09/28/24 13:42 BMI result Body Mass Index 34.0 Const General: healthy appearing, comfortable, no acute distress, alert and awake Orientation/consciousness: patient oriented x3 HEENT Head: Yes normal to inspection General nose exam: No nasal polyps present and No nasal discharge present Face and sinus: Yes sinuses nontender Mouth: oropharynx normal Throat: Yes posterior oropharynx normal Eyes General: appearance normal, both eyes and all related structures Neck Neck: Yes normal visual inspection, Yes no lymphadenopathy, Yes trachea midline and Yes no JVD Thyroid: Thyroid normal Chest Chest palpation & inspection: normal inspection of the chest, normal palpation of entire chest wall and no tenderness Resp Effort & Inspection: normal respiratory effort Auscultation: clear to auscultation bilaterally Cardio Palpation: normal PMI Rate: regular rate Rhythm: regular rhythm Heart sounds: no gallops and no murmurs GI Palpation (GI): Soft to palpation, nontender, No hepatosplenomegaly present and no masses Auscultation: normal bowel sounds Back/Spine/Pelvis Thoracic/Lumbar Spine: thoracic and lumbar spine normal to inspection Skin General skin exam: no rashes or lesions noted Neuro General: patient oriented x3, gait normal (But he does use cane, for stability) and no focal motor deficits Cranial nerves: Yes CN's II-XII intact bilaterally Extrem General: Yes normal to inspection, Yes no clubbing, cyanosis or edema, Yes no calf tenderness and Yes other (An ulcer on the lateral aspect of right leg) Psych Appearance: grossly normal and well kempt Speech and movement: Normal speech and movement present Results Reviewed Results Reviewed: The only information available is the report of his sleep study at [facility] back in 2000. He had an in sleep lab study which showed severe obstructive sleep apnea with average AHI of 93. He had CPAP titration and responded to a bilevel setting of 12 cm/6 cm. Did not require oxygen with the BiPAP Assessment & Plan Assessment & Plan (1) Intermittent asthma: Comment: Longstanding history of mild intermittent bouts of cough and some wheezing. He needs to use albuterol HFA only once in a while Code(s): J45.20 - Mild intermittent asthma, uncomplicated Category: Medical Qualifiers: Asthma severity: mild Asthma complication type: uncomplicated Qualified Code(s): J45.20 - Mild intermittent asthma, uncomplicated Plan: OK to use Ventolin HFA 2 puffs Q 4-6 hours p.r.n.. (2) MALICK treated with BiPAP: Comment: Longstanding history of obstructive sleep apnea, this is due to moderate degree of obesity. He has been using CPAP for long time. Current CPAP machine is more than 6 years old and as he describes it is dysfunctional. If he has to continue using CPAP he would need a new machine. Code(s): G47.33 - Obstructive sleep apnea (adult) (pediatric) Category: Medical Plan: We are trying to contact the DME provider and get more information about his CPAP device. I think because of his history of paroxysmal atrial fibrillation he may be better of continuing to use CPAP. Will try to get him a new CPAP machine, but if as per insurance he requires to have a repeat sleep study, I think we can do a home-based sleep study in his case. Medications: Changed From furosemide 20 mg PO Q48H 90 days 45 tabs 1RF I48.0 - Paroxysmal atrial fibrillation To furosemide 20 mg PO QAM I48.0 - Paroxysmal atrial fibrillation Coding Level of Care Code New Pt Level 4 (45068) Diagnoses Mild intermittent asthma without complication J45.20 Asthma severity: mild Asthma complication type: uncomplicated MALICK treated with BiPAP G47.33
--- OUTSIDE RECORDS SUMMARY | 2024-09-28 16:04 | XMS_ITS | Encounter Summary ---
Author Organization [employer] Address [address] [facility] [address] [place] [address] Care Team Providers Care Photoflash Powder Mixer Name Role Phone Unavailable Primary Care Provider [...]
--- OUTSIDE RECORDS SUMMARY | 2024-09-28 16:05 | XMS_ITS | Clinical Summary ---
Author Organization [employer] Address [address] [place] [address] [address] [place] [address] Care Team Providers Care Dietitian Consultant Name Role Phone Unavailable Primary Care Provider [...] Relevant to Health Maintenance Insurance DENTAL - [facility]
--- OUTSIDE RECORDS SUMMARY | 2024-09-28 16:05 | XMS_ITS | Encounter Summary ---
Author Organization [employer] Address [address] [facility] [address] [place] [address] Care Team Providers Care Vice President Underwriting Name Role Phone Unavailable Primary Care Provider [...]
--- OUTSIDE RECORDS SUMMARY | 2024-09-28 16:05 | XMS_ITS | Encounter Summary ---
Author Organization [employer] Address [address] [place] [address] [address]t [place] [address] Care Team Providers Care Sewing Department Supervisor Name Role Phone Unavailable Primary Care Provider [...]
== END 2024-09-28 14:11 | disposition home or self-care (01) ==
PROVIDERS: PCP Physician Assistant; Visit Provider Internal Medicine
DX: J45.20 Mild intermittent asthma, uncomplicated (principal); G47.33 Obstructive sleep apnea (adult) (pediatric)
CPT/HCPCS: 99204

== ENCOUNTER → 2024-09-28 13:07 | Outpatient (BNVA) | payer OTHER, SELFPAY | PROVIDERS: PCP Physician Assistant; Visit Provider Internal Medicine | DX: J45.20 Mild intermittent asthma, uncomplicated (principal); G47.33 Obstructive sleep apnea (adult) (pediatric); I48.0 Paroxysmal atrial fibrillation; Z99.89 Dependence on other enabling machines and devices | CPT/HCPCS: 99202 ==

== ENCOUNTER → 2024-11-25 19:30 | Outpatient (REF) | payer OTHER, SELFPAY ==
--- OUTSIDE RECORDS SUMMARY | 2024-11-25 21:27 | XMS_ITS | Encounter Summary ---
Author Organization [employer] Address [address] [facility] 7t [place] [address] Care Team Providers Care Quality Improvement Consultant Name Role Phone Unavailable Primary Care [...]
--- OUTSIDE RECORDS SUMMARY | 2024-11-25 21:27 | XMS_ITS | Encounter Summary ---
Author Organization [employer] Address [address] [facility] [address] [place] [address] Care Team Providers Care Bicycle Courier Name Role Phone Unavailable Primary Care Provider [...]
--- OUTSIDE RECORDS SUMMARY | 2024-11-25 21:27 | XMS_ITS | Clinical Summary ---
Author Organization [employer] Address [address] [place] [address] [address]t [place] [address] Care Team Providers Care Port Engineer Name Role Phone Unavailable Primary Care Provider [...] Relevant to Health Maintenance Insurance DENTAL - [facility]
== END ==
LOC: HO.SL 19:30
PROVIDERS: PCP Physician Assistant; Visit Provider Internal Medicine
DX: G47.33 Obstructive sleep apnea (adult) (pediatric) (principal); E66.01 Morbid (severe) obesity due to excess calories; I48.0 Paroxysmal atrial fibrillation
CPT/HCPCS: 95810

== ENCOUNTER → 2024-11-25 20:45 | Outpatient (BNV) | payer OTHER, SELFPAY | PROVIDERS: PCP Physician Assistant; Visit Provider Internal Medicine | DX: G47.33 Obstructive sleep apnea (adult) (pediatric) (principal) | CPT/HCPCS: 95810 ==

== ENCOUNTER 2024-12-15 10:35 | Outpatient (AMB) | payer OTHER, SELFPAY ==
[2024-12-15 11:03] VITALS: BP 136/70; PULSE 74; BMI 34.4
--- NOTE | 2024-12-15 11:03 | A.OFFVIS_ITS ---
Vital Signs 12/15/24 11:03 Height 5 ft 11 in Weight 246 lb 14.684 oz BMI 34.4 BP 136/70 Blood Pressure Location Lt brachial Position Sitting Pulse 74 Intake Visit Reasons: Follow up Intake Note: Follow-up with ekg feeling better Legal Arbitrator Required: No Allergies tetanus toxoid, adsorbed Allergy (Verified 09/28/24 14:27) Hives Medication List - Last Reconciled 12/15/24 by Say Curry MD [4 x 4 non woven gauze As directed] acetaminophen ER (Tylenol Arthritis Pain) 650 mg PO Q12H 30 days adhesive bandage (Adhesive Pads) As directed adhesive tape (Medipore) As directed albuterol sulfate 90 mcg/actuation (Ventolin HFA) 2 puffs inhalation Q6H PRN 30 days alclometasone 0.05% 1 appl topical BID PRN blood pressure kit-extra large As directed [coloplast triad cream As directed] CPAP (CPAP Machine/Device) As directed digoxin 125 mcg PO DAILY 90 days diltiazem HCl CD 240 mg PO DAILY 90 days docusate sodium 100 mg PO BID PRN fluocinonide 0.05% 1 appl topical BID PRN fluticasone propionate 50 mcg/actuation 1 spray intranasal DAILY 30 days gauze bandage (Gauze Pad) As directed ibuprofen 800 mg (4 x 200 mg) PO Q6H PRN 30 days lactulose 15 mL PO BEDTIME PRN leg brace (Knee Support Brace) NEED FOR SOFT KNEE BRACE WITH MEDIAL AND LATERAL HARD SUPPORT menthol-zinc oxide 0.44-20.6 % (Calmoseptine) 1 appl topical BID 30 days miscellaneous medical supply 1 ea miscellaneous DAILY 99 days mupirocin 2% 1 appl topical BID PRN non-adherent bandage use daily nystatin 1 appl topical DAILY PRN [Omni Tray for wheel chair As directed] [Pill hero dispenser As directed] [reclining lift chair As directed] rivaroxaban (Xarelto) 20 mg PO DAILY 90 days tamsulosin 0.4 mg PO DAILY 90 days tizanidine 4 mg PO BEDTIME PRN 30 days HPI Comments Details: Tom returns for follow-up regarding atrial fibrillation. He initially had ablation in 2017. He was actually free of atrial fibrillation for several years after the ablation. Starting 2022, he had recurring atrial fibrillation and tried antiarrhythmics including flecainide/amiodarone and has also had cardioversion but still had recurrent atrial fibrillation. Then saw EP and underwent another ablation in September of 2024. It seems that he had a stroke after that but recovered completely. Per notes, it seems he might have forgotten to take some anticoagulation but not clear. Otherwise, he states he is much better now when he is happy that he actually had the ablation. No cardiac symptoms. [facility] Medical History Carpal tunnel syndrome Ambulates with cane [place] (hard of hearing) History of diverticulitis Weight loss Psoriatic arthritis MALICK on CPAP Morbid obesity PAF (paroxysmal atrial fibrillation) Surgical History Hx of colonoscopy Status post catheter ablation of atrial fibrillation History of cardiac radiofrequency ablation (RFA) (~11/05/17) Family History Father CVD (cardiovascular disease) Mother CVD (cardiovascular disease) Atrial fibrillation Alzheimer disease Other Substance use disorder Social History Household Members: Children Housing: House Do you presently have visiting nurse or other home services: Yes ([employer]) Alcohol intake: never Patient Tobacco Use Status: Former Tobacco user Tobacco use type: Cigarette Years Smoked: 20 +/- e-Cigarette/Vaping Use: Never Used Second Hand Smoke Exposure: No Advance Directives Date on File: 03/17/24 service: No Current occupational status: disabled Cognitive needs: No Hearing needs: Yes (hearing aide) Vision needs: Yes (Glasses) Review of Systems Const Denies chills, Denies fatigue, Denies fever(s), Denies frequent falls, Denies weakness, Denies weight gain and Denies weight loss ENT Denies dizziness Card Denies chest pain, Denies leg edema, Denies lightheadedness, Denies palpitations, Denies dyspnea, Denies dyspnea on exertion, Denies orthopnea and Denies other (loss of consciousness) Resp Denies cough, Denies dyspnea and Denies dyspnea on exertion GI Denies hematochezia and Denies change in stool character Musc Denies abnormal gait, Denies muscle weakness, Denies numbness, Denies radiating pain into limb and Denies tingling Neuro Denies abnormal gait, Denies dizziness, Denies frequent falls, Denies numbness, Denies tingling and Denies weakness Endo Denies fatigue and Denies palpitations Physical Exam Vital Signs: Last Vital Signs Pulse 74 12/15/24 11:03 BP 136/70 12/15/24 11:03 BMI result Body Mass Index 34.4 Const General: comfortable and no acute distress Orientation/consciousness: patient oriented x3 HEENT Other: Unremarkable Head: Yes normal to inspection Neck Neck: Yes normal visual inspection Chest Chest palpation & inspection: normal inspection of the chest Resp Auscultation: clear to auscultation bilaterally Cardio Palpation: normal PMI Heart sounds: S1 normal heart sound present, S2 normal heart sound present, no gallops, no murmurs and no rubs GI Palpation (GI): Soft to palpation Back/Spine/Pelvis Other: unremarkable Skin General skin exam: no rashes or lesions noted Neuro General: patient oriented x3 Extrem General: Yes normal to inspection Psych Mental Status: mental status grossly normal Office Procedures EKG Details: EKG with underlying sinus rhythm at 74/Min; PVC; [place]. [id number], Complete Assessment & Plan Assessment & Plan (1) PAF (paroxysmal atrial fibrillation): Code(s): I48.0 - Paroxysmal atrial fibrillation Category: Medical Plan: Status post ablation in 2017 and 2024. In sinus rhythm by EKG. Continue diltiazem. Stop digoxin. Continue Xarelto. Check Holter in 3 months. (2) Paroxysmal atrial flutter: Code(s): I48.92 - Unspecified atrial flutter Category: Medical Plan: Same as above. (3) Status post catheter ablation of atrial fibrillation: Code(s): Z98.890 - Other specified postprocedural states Category: Surgical (4) CVA (cerebral vascular accident): Code(s): I63.9 - Cerebral infarction, unspecified Category: Medical Qualifiers: CVA mechanism: embolism Precerebral and cerebral artery: middle cerebral artery Laterality of affected vessel: left Qualified Code(s): I63.412 - Cerebral infarction due to embolism of left middle cerebral artery Plan: Per [facility] notes, CTA had shown left distal P2 occlusion. MRI brain with early acute left posteromedial temporal lobe infarct. 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 Chronic small cerebellar infarcts. He seems pretty much recovered. Continue anticoagulation without any further interruption. Echocardiogram from [facility] with LVEF of 71%. Mitral annular calcification. (5) Morbid obesity: Code(s): E66.01 - Morbid (severe) obesity due to excess calories Category: Medical Plan: It has been this way for a long time and hence unlikely to change. (6) MALICK on CPAP: Code(s): G47.33 - Obstructive sleep apnea (adult) (pediatric); Z99.89 - Dependence on other enabling machines and devices Category: Medical Plan: On Bipap. Plan Discussion Notes During the visit, I discussed with the patient the ongoing management of his atrial fibrillation post-ablation, particularly focusing on anticoagulation therapy. We reviewed his current medication regimen, affirming the discontinuation of Digoxin. We discussed the potential risks and benefits, incl uding the importance of strict medication adherence. I reassured the patient about the efficacy and reduced risk profile of the pulse field ablation procedure compared to older ablation techniques. The importance of follow-up monitoring with a Holter device in three months was emphasized. The potential use of a pill dispenser as a tool for medication compliance was supported. I addressed the patient's apprehensions regarding procedural risks, confirming the safety profile and minimal incidence rates associated with the technique utilized. The discussion included detailed explanations, and the patient expressed understanding and agreement with the management plan. Patient was informed and verbally consented to the use of an ambient scribe for clinic note documentation during this visit. Orders: Orders ECG 3 day holter monitor 3 Months Z98.890 - Other specified postprocedural stat es Medications: Discontinued digoxin Discontinued Reason: Doctor's Order 125 mcg PO DAILY 90 days 90 tabs 1RF I48.0 - Paroxysmal atrial fibrillation Patient Instructions: - Continue taking diltiazem 240 mg daily as prescribed. - Stop taking digoxin as instructed. - Continue taking Xarelto as advised for anticoagulation therapy. - Consider using a pill dispenser to help with taking medications on time. - Expect a follow-up in three months to monitor progress. - Notify your doctor immediately if you experience new or worsening symptoms. - Continue with the outlined medication schedule to help prevent potential complications. Coding Level of Care Code Est Pt Level 4 (53508) Complex EM visit Add On G2211 Diagnoses PAF (paroxysmal atrial fibrillation) I48.0 Paroxysmal atrial flutter I48.92 Status post catheter ablation of atrial fibrillation Z98.890 Cerebrovascular accident (CVA) due to embolism of left middle cerebral artery I63.412 CVA mechanism: embolism Precerebral and cerebral artery: middle cerebral artery Laterality of affected vessel: left Morbid obesity E66.01 MALICK on CPAP G47.33; Z99.89 CPT Codes EKG - CPT: 75321-[id number], Complete ([id number])
== END 2024-12-15 11:37 | disposition home or self-care (01) ==
LOC: HO.HCS 10:36
PROVIDERS: PCP Physician Assistant; Visit Provider Internal Medicine
DX: I48.0 Paroxysmal atrial fibrillation (principal); I48.92 Unspecified atrial flutter; Z98.890 Other specified postprocedural states; I63.412 Cerebral infarction due to embolism of left middle cerebral artery; E66.01 Morbid (severe) obesity due to excess calories; G47.33 Obstructive sleep apnea (adult) (pediatric); Z99.89 Dependence on other enabling machines and devices
CPT/HCPCS: 93010; 99214; G2211

== ENCOUNTER → 2024-12-15 10:35 | Outpatient (BNVA) | payer OTHER, SELFPAY | PROVIDERS: PCP Physician Assistant; Visit Provider Internal Medicine | DX: I48.0 Paroxysmal atrial fibrillation (principal); I48.92 Unspecified atrial flutter; E66.01 Morbid (severe) obesity due to excess calories; G47.33 Obstructive sleep apnea (adult) (pediatric); Z87.891 Personal history of nicotine dependence; Z99.89 Dependence on other enabling machines and devices; Z68.34 Body mass index [BMI] 34.0-34.9, adult; Z86.73 Personal history of transient ischemic attack (TIA), and cerebral infarction without residual deficits; Z98.890 Other specified postprocedural states | CPT/HCPCS: 93005; 99212 ==

== ENCOUNTER 2024-12-23 15:17 | Outpatient (AMB) | payer OTHER, SELFPAY ==
--- OUTSIDE RECORDS SUMMARY | 2024-12-23 15:19 | XMS_ITS | Encounter Summary ---
Author Organization [employer] [facility] Address [address] [facility] 7[address] [place] [address] Care Team Providers Care Powder Worker Tnt Name Role Phone Unavailable Primary Care Provider [...]
[2024-12-23 15:27] VITALS: BP 120/58; PULSE 66; O2SAT 99; BMI 34.3
--- NOTE | 2024-12-23 15:27 | MHC.OFFVIS ---
Vital Signs 12/23/24 15:27 Height 5 ft 11 in Weight 246 lb BMI 34.3 BP 120/58 L Blood Pressure Location Lt brachial Position Sitting Pulse 66 Pulse Source Pulse Oximeter Pulse Oximetry (%) 99 Oxygen Delivery Method Room Air Intake Visit Reasons: Obstructive sleep apnea Intake Note: pt is here for follow up and of sleep study Apprentice Architect Required: No Allergies tetanus toxoid, adsorbed Allergy (Verified 12/23/24 15:32) Hives Medication List - Last Reconciled 12/23/24 by Isaak Paredes MD [4 x 4 non woven gauze As directed] acetaminophen ER (Tylenol Arthritis Pain) 650 mg PO Q12H 30 days adhesive bandage (Adhesive Pads) As directed adhesive tape (Medipore) As directed albuterol sulfate 90 mcg/actuation (Ventolin HFA) 2 puffs inhalation Q6H PRN 30 days alclometasone 0.05% 1 appl topical BID PRN blood pressure kit-extra large As directed [coloplast triad cream As directed] CPAP (CPAP Machine/Device) As directed diltiazem HCl CD 240 mg PO DAILY 90 days docusate sodium 100 mg PO BID PRN fluocinonide 0.05% 1 appl topical BID PRN fluticasone propionate 50 mcg/actuation 1 spray intranasal DAILY 30 days gauze bandage (Gauze Pad) As directed ibuprofen 800 mg (4 x 200 mg) PO Q6H PRN 30 days lactulose 15 mL PO BEDTIME PRN leg brace (Knee Support Brace) NEED FOR SOFT KNEE BRACE WITH MEDIAL AND LATERAL HARD SUPPORT menthol-zinc oxide 0.44-20.6 % (Calmoseptine) 1 appl topical BID 30 days miscellaneous medical supply 1 ea miscellaneous DAILY 99 days mupirocin 2% 1 appl topical BID PRN non-adherent bandage use daily nystatin 1 appl topical DAILY PRN [Omni Tray for wheel chair As directed] [Pill hero dispenser As directed] [reclining lift chair As directed] rivaroxaban (Xarelto) 20 mg PO DAILY 90 days tamsulosin 0.4 mg PO DAILY 90 days tizanidine 4 mg PO BEDTIME PRN 30 days Do you need a note to return to daycare/school/sports/work: No HPI HPI Obstructive sleep apnea: Details: This 64 years old gentleman was seen for the 1st time on 09/28/24 for management of obstructive sleep apnea. He stated that he has had sleep apnea for which he has been treated with the CPAP device for the last 10 years or so. His current CPAP device is more than 5 years old and is nonfunctional. I see copy of his regional polysomnogram report of In sleep Lab. study at [facility] back in 2000. In that study he was found to have severe obstructive sleep apnea and he had CPAP titration resulting in treatment with bilevel pressure of 12/6 cm using fullface mask. Patient has some memory issue and is not sure if he started using the CPAP right away or if it was started some years after that. He had CPAP device from [facility] to start with and now recently has been getting supplies from [employer], because of his change in the insurance to [employer] He say is that he does use the CPAP okay, and sleeps well. Another piece of history is that he has had paroxysmal atrial fibrillation for 10-15 years. He had an ablation procedure back about 10 years ago. And now recently he was having very frequent bouts of atrial fibrillation. He had ablation procedure at [facility] a few months ago, exact dates not known to him. After the ablation procedure he feels better, He still has difficulty in sleeping whole night. He does have some. daytime sleepiness And in sleep lab study was ordered which was completed on 11/25/2024. It shows that he does have obstructive sleep apnea it is mild with total sleep time AHI of 11.5 PFSH Medical History Carpal tunnel syndrome Ambulates with cane [place] (hard of hearing) History of diverticulitis Weight loss Psoriatic arthritis MALICK on CPAP Morbid obesity PAF (paroxysmal atrial fibrillation) Surgical History Hx of colonoscopy Status post catheter ablation of atrial fibrillation History of cardiac radiofrequency ablation (RFA) (~11/05/17) Family History Father CVD (cardiovascular disease) Mother CVD (cardiovascular disease) Atrial fibrillation Alzheimer disease Other Substance use disorder Social History Household Members: Children Housing: House Do you presently have visiting nurse or other home services: Yes (DIRECTOR 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) Alcohol intake: never Patient Tobacco Use Status: Former Tobacco user Tobacco use type: Cigarette Years Smoked: 20 +/- e-Cigarette/Vaping Use: Never Used Second Hand Smoke Exposure: No Advance Directives Date on File: 03/17/24 service: No Current occupational status: disabled Cognitive needs: No Hearing needs: Yes (hearing aide) Vision needs: Yes (Glasses) Review of Systems Const All systems reviewed & are unremarkable except as noted in HPI and below Eyes Reports no additional complaints ENT Reports no additional complaints Card Denies chest pain, Denies irregular heart rhythm, Denies leg edema and Reports dyspnea on exertion (Mild) Resp Denies cough, Denies hemoptysis, Reports dyspnea on exertion (Mild) and Denies wheezing GI Reports no additional complaints Reports no additional complaints Musc Reports no additional complaints Skin/Breast Reports wounds (Has on ulcer on the right leg) Neuro Reports memory loss (Mild, he is somewhat slow in answering questions) Psych Reports no additional complaints and Reports memory loss (Mild, he is somewhat slow in answering questions) Aller/Immun Denies wheezing Physical Exam Vital Signs: Last Vital Signs Pulse 66 12/23/24 15:27 BP 120/58 L 12/23/24 15:27 Pulse Ox 99 12/23/24 15:27 Oxygen Delivery Method Room Air 12/23/24 15:27 BMI result Body Mass Index 34.3 Const General: healthy appearing, comfortable, no acute distress, alert and awake Orientation/consciousness: patient oriented x3 HEENT Head: Yes normal to inspection General nose exam: No nasal polyps present and No nasal discharge present Face and sinus: Yes sinuses nontender Mouth: oropharynx normal Throat: Yes posterior oropharynx normal Eyes General: appearance normal, both eyes and all related structures Neck Neck: Yes normal visual inspection, Yes no lymphadenopathy, Yes trachea midline and Yes no JVD Thyroid: Thyroid normal Chest Chest palpation & inspection: normal inspection of the chest, normal palpation of entire chest wall and no tenderness Resp Effort & Inspection: normal respiratory effort Auscultation: clear to auscultation bilaterally Cardio Palpation: normal PMI Rate: regular rate Rhythm: regular rhythm Heart sounds: no gallops and no murmurs GI Palpation (GI): Soft to palpation, nontender, No hepatosplenomegaly present and no masses Auscultation: normal bowel sounds Back/Spine/Pelvis Thoracic/Lumbar Spine: thoracic and lumbar spine normal to inspection Skin General skin exam: no rashes or lesions noted Neuro General: patient oriented x3, gait normal (But he does use cane, for stability) and no focal motor deficits Cranial nerves: Yes CN's II-XII intact bilaterally Extrem General: Yes normal to inspection, Yes no clubbing, cyanosis or edema, Yes no calf tenderness and Yes other (An ulcer on the lateral aspect of right leg) Psych Appearance: grossly normal and well kempt Speech and movement: Normal speech and movement present Results Reviewed Results Reviewed: Polysomnogram study on 11/25/2024 in the sleep lab, shows the following: Obstructive sleep apnea mild, total sleep time AHI 11.5. Mild periodic limb movement disorder with PLM index 22 and PLM arousal index 4.8. No O2 desaturations were noted. Assessment & Plan Assessment & Plan (1) Intermittent asthma: Comment: Longstanding history of mild intermittent bouts of cough and some wheezing. He needs to use albuterol HFA only once in a while Code(s): J45.20 - Mild intermittent asthma, uncomplicated Category: Medical Qualifiers: Asthma severity: mild Asthma complication type: uncomplicated Qualified Code(s): J45.20 - Mild intermittent asthma, uncomplicated Plan: Albuterol HFA 2 puffs Q 6 hours p.r.n. only. (2) MALICK treated with BiPAP: Comment: Longstanding history of obstructive sleep apnea, this is due to moderate degree of obesity. He has been using CPAP for long time. ( since 2000 ) Current CPAP machine is more than 6 years old and as he describes it is not functioning well . Is present polysomnogram study is consistent with mild obstructive sleep apnea. Code(s): G47.33 - Obstructive sleep apnea (adult) (pediatric) Category: Medical Plan: Ordinarily mild sleep apnea may be treated with conservative measures including weight reduction and position therapy. However in presence of cardiac history of PAROXYSMAL ATRIAL FIBRILLATION, I think it is prudent to use CPAP. He is agreeable to start on the CPAP. As his current CPAP device is more than 6 years old I think he should get a new CPAP device, which is ordered. He will be followed closely for compliance and benefits. (3) Allergic rhinitis: Comment: It is mild intermittent, Code(s): J30.9 - Allergic rhinitis, unspecified Category: Medical Plan: Flonase-50 nasal spray 2 sprays in each nostril daily Coding Level of Care Code Est Pt Level 3 (69410) Diagnoses Mild intermittent asthma without complication J45.20 Asthma severity: mild Asthma complication type: uncomplicated MALICK treated with BiPAP G47.33 Allergic rhinitis J30.9
== END 2024-12-23 15:51 | disposition home or self-care (01) ==
LOC: HO.HPS 15:17
PROVIDERS: PCP Physician Assistant; Visit Provider Internal Medicine
DX: J45.20 Mild intermittent asthma, uncomplicated (principal); G47.33 Obstructive sleep apnea (adult) (pediatric); J30.9 Allergic rhinitis, unspecified
CPT/HCPCS: 99213

== ENCOUNTER → 2024-12-23 15:17 | Outpatient (BNVA) | payer OTHER, SELFPAY | PROVIDERS: PCP Physician Assistant; Visit Provider Internal Medicine | DX: G47.33 Obstructive sleep apnea (adult) (pediatric) (principal); J45.20 Mild intermittent asthma, uncomplicated; J30.9 Allergic rhinitis, unspecified | CPT/HCPCS: 99212 ==

== ENCOUNTER 2025-01-20 10:00 | Outpatient (AMB) | payer OTHER, SELFPAY ==
[2025-01-20 10:17] VITALS: BP 140/70; PULSE 82; TEMP 36.4; O2SAT 95; BMI 35.2
--- NOTE | 2025-01-20 10:17 | A.OFFPC_ITS ---
Vital Signs 01/20/25 10:17 Height 5 ft 11 in Weight 252 lb 6 oz BMI 35.2 BP 140/70 H Blood Pressure Location Lt brachial Position Sitting Pulse 82 Pulse Source Pulse Oximeter Temp 97.5 F Temp Source Temporal Artery Scan Pulse Oximetry (%) 95 Oxygen Delivery Method Room Air Intake Visit Reasons: Annual Exam Mac Artist Required: No Accompanied by: Self / Same As Patient Allergies tetanus toxoid, adsorbed Allergy (Verified 01/20/25 10:37) Hives Medication List - Last Reconciled 01/20/25 by Noam Zapata PA-C [4 x 4 non woven gauze As directed] [ABD pads 6x6 As directed] acetaminophen ER (Tylenol Arthritis Pain) 650 mg PO Q12H 30 days adhesive bandage (Adhesive Pads) As directed adhesive tape (Medipore) As directed albuterol sulfate 90 mcg/actuation (Ventolin HFA) 2 puffs inhalation Q6H PRN 30 days alclometasone 0.05% 1 appl topical BID PRN blood pressure kit-extra large As directed [coloplast triad cream As directed] CPAP (CPAP Machine/Device) As directed diltiazem HCl CD 240 mg PO DAILY 90 days docusate sodium 100 mg PO BID PRN fluocinonide 0.05% 1 appl topical BID PRN fluticasone propionate 50 mcg/actuation 1 spray intranasal DAILY 30 days gauze bandage (Gauze Pad) As directed ibuprofen 800 mg (4 x 200 mg) PO Q6H PRN 30 days lactulose 15 mL PO BEDTIME PRN leg brace (Knee Support Brace) NEED FOR SOFT KNEE BRACE WITH MEDIAL AND LATERAL HARD SUPPORT menthol-zinc oxide 0.44-20.6 % (Calmoseptine) 1 appl topical BID 30 days miscellaneous medical supply 1 ea miscellaneous DAILY 99 days mupirocin 2% 1 appl topical BID PRN non-adherent bandage use daily nystatin 1 appl topical DAILY PRN [Omni Tray for wheel chair As directed] [Pill hero dispenser As directed] [reclining lift chair As directed] rivaroxaban (Xarelto) 20 mg PO DAILY 90 days tamsulosin 0.4 mg PO DAILY 90 days tizanidine 4 mg PO BEDTIME PRN 30 days [Vashe wound airplane cleaner As directed] Tobacco use date assessed: 08/24/24 Fall risk assessment: No Falls in past year Last assessed Fall Risk: 01/20/25 Dental Screening Dental Screen Date: 08/24/24 [facility] Annual Exam HPI Details Patient is a 64-year-old male here for routine annual physical ? Patient has a past medical history significant for AFib, morbid obesity,? MALICK, psoriatic arthritis,? pyoderma,? asthma. STILL HAVING TROUBLE GETTING BANDAGE EQUIPMENT , HE IS CURRENTLY WORKING WITH HIS [employer] .. Paroxysmal AFIB:? Recently underwent a transesophageal cardiac ablation which seems to be successful. Now normal rhythm and reports he is feeling much better in heart rates now in the 70s to 80s. He continues on diltiazem, digoxin and Xarelto for stroke prophylaxis. .. CVA: He felt his stroke after his ablation of his AFib did effect some of his memory and lower extremity weakness. .. Obstructive sleep apnea: Has been diagnosed with obstructive sleep apnea over 10 years ago. Did have a sleep study about 10 years ago and was started on CPAP machine. He reports he does use a BiPAP machine in particular at 12 cm water pressure. He has upcoming appointment with pulmonology to evaluate his obstructive sleep apnea in the need for continued use of BiPAP. .. Psoriatic arthritis: Continues to have pretty severe psoriatic arthritis pain and disability. Continues to ambulate with cane assistance. Does follow a sandblaster stone whom gives injections to patient for his affected joints. He does have an electric lift chair that has been broken over the last 2 years and has been trying to get this fixed or replacement chair for quite some time to help him with his quality of life at home. .. HTN: Patient's blood pressure acceptable today in office. .. Obesity:? He does understand his BMI is over 30 and has been trying to be more physically active to reduce his weight. Vaccines: Up-to-date with COVID vaccine,UTD with Tdap, needs and pneumonia vaccine. Colon cancer screening: Done in 09/23/2023, tubular adenoma polyps found, repeat 2-3 years .. PFSH Medical History Carpal tunnel syndrome Ambulates with cane [place] (hard of hearing) History of diverticulitis Weight loss Psoriatic arthritis MALICK on CPAP Morbid obesity PAF (paroxysmal atrial fibrillation) Surgical History Hx of colonoscopy Status post catheter ablation of atrial fibrillation History of cardiac radiofrequency ablation (RFA) (~11/05/17) Family History Father CVD (cardiovascular disease) Mother CVD (cardiovascular disease) Atrial fibrillation Alzheimer disease Other Substance use disorder Social History Household Members: Children Housing: House Do you presently have visiting nurse or other home services: Yes (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 Sudhir Vasquez, Terri Mcmanus, Mk Ram and colleagues, with an educational marleni from [employer]. Review of Systems Const Denies body aches, Denies chills, Denies excessive sweating, Denies fatigue, Denies fever(s) and Denies headache(s) Eyes Denies blurry vision ENT Denies dysphagia, Denies vertigo, Denies dizziness, Denies headache(s), Denies hearing loss and Denies tinnitus Card Denies chest pain, Denies chest pain with activity, Denies syncope, Denies irregular heart rhythm and Denies dyspnea Resp Denies chest congestion, Denies cough, Denies hemoptysis, Denies dyspnea and Denies wheezing GI Denies abdominal pain, Denies melena, Denies hematochezia, Denies coffee ground emesis, Denies dysphagia, Denies diarrhea, Denies nausea and Denies vomiting Denies difficulty urinating, Denies dysuria, Denies urinary frequency, Denies urinary hesitancy and Denies urinary urgency Musc Denies arthralgias, Denies limited range of motion, Denies muscle cramps and Denies muscle weakness Skin/Breast Denies rash and Denies skin ulcer Neuro Denies Abnormal speech present, Denies confusion, Denies vertigo, Denies dizziness, Denies syncope, Denies headache(s), Denies memory loss and Denies seizure-like activity Psych Denies anxiety, Denies confusion, Denies depression, Denies memory loss, Denies panic attacks and Denies paranoia Endo Denies excessive sweating, Denies fatigue, Denies flushing, Denies polydipsia and Denies polyuria Aller/Immun Denies wheezing Physical exam (Primary Care) Vital Signs: Last Vital Signs Temp 97.5 F 01/20/25 10:17 Pulse 82 01/20/25 10:17 BP 140/70 H 01/20/25 10:17 Pulse Ox 95 01/20/25 10:17 Oxygen Delivery Method Room Air 01/20/25 10:17 BMI result Body Mass Index 35.2 Tobacco/Smoking Status: Tobacco use Status Tobacco use date assessed 08/24/24 01/20/25 10:17 Patient Tobacco Use Status Former Tobacco user 01/20/25 10:17 Tobacco use type Cigarette 01/20/25 10:17 e-Cigarette/Vaping Use Never Used 01/20/25 10:17 Thrive Assessment: Date of Thrive Assessment Date Thrive assessed 08/24/24 01/20/25 10:17 Const General: cooperative, comfortable, no acute distress, alert and awake; No confusion Orientation/consciousness: oriented to person, oriented to place, patient oriented x3 and No confusion HENMT Head: Yes normocephalic Ears: external ears normal and TM's normal bilaterally Face and sinus: No sinus tenderness Mouth: Normal oral and palatal mucosa present and tongue normal Teeth and gingiva: dentition normal and gingiva normal Throat: Yes posterior oropharynx normal, Yes tonsils normal and Yes uvula midline Eyes Conjunctivae: conjunctivae normal Sclerae: sclerae normal Pupils: Equal, round and reactive pupils present EOM: EOMs intact bilaterally Direct Ophthalmoscopy: No no photophobia Neck Neck: Yes no lymphadenopathy, No tender and Yes no JVD Thyroid: Thyroid normal Carotids: no bruits Chest Chest palpation & inspection: no tenderness Resp Effort & Inspection: normal respiratory effort, no audible wheezes, not labored and no stridor Auscultation: no crackles, no rales, no rhonchi and no wheezes Cardio Jugular venous distension: no JVD Rate: regular rate, not bradycardic and not tachycardic Rhythm: regular rhythm Bruits: no carotid bruits Peripheral pulses: Peripheral pulses 2+ throughout GI Inspection: Yes normal to inspection, No abdominal wall ecchymosis and No visible herniation Palpation (GI): Soft to palpation, nontender, no guarding, not rigid and No hepatosplenomegaly present Auscultation: normoactive bowel sounds General: Yes no CVA tenderness Back/Spine/Pelvis Back: no CVA tenderness and No back tenderness Cervical Spine: cervical ROM normal Thoracic/Lumbar Spine: thoracic and lumbar spine normal to inspection, straight leg raise negative bilaterally, No thoraco-lumbar ROM limited and No lumbar spinal tenderness Skin Lesions: no lesions Rashes: no rashes Wounds: no wounds Neuro General: oriented to person, oriented to place, patient oriented x3, CN's II-XI intact bilaterally and No confusion Cranial nerves: Yes Equal, round and reactive pupils present and Yes Normal accommodation reflex present Cognition (Neuro): normal cognition Speech: No Abnormal speech present Gait exam (Neuro): Normal gait present Motor exam (neuro): 5/5 motor strength present throughout Extrem Right upper extremity: full ROM; no cyanosis Left upper extremity: full ROM; no cyanosis Right lower extremity: no edema Left lower extremity: no edema Psych Appearance: grossly normal Mental Status: mental status grossly normal Affect: normal affect Attitude: cooperative Thought process: Normal thought process present Immunizations pneumoc 20-meredith conj-dip cr(PF) 0.5 mL IM syringe Performing Provider: Noam Zapata PA-C [facility] Administered by: ROBINSON Farias on 01/20/25 10:59 Dose Route Admin Location Dispensed Lot Number Expiration Date [facility] Criminology Professor 0.5 mL IM Left Deltoid 0.5 mL [id number] 01/02/26 [employer] Total Dispensed Waste 0.5 mL 0 % VIS Given Date VIS Provided VIS Publication Date 01/20/25 Single Vaccine 24 Eligibility Eligibility Date Funding Source Not [facility] Eligible 01/20/25 Private Coding Level of Care Code Est Pt Prev Care 40-64y(36220) Diagnoses Annual physical exam Z00.00 PAF (paroxysmal atrial fibrillation) I48.0 Cerebrovascular accident (CVA) due to embolism of left middle cerebral artery I63.412 CVA mechanism: embolism Laterality of affected vessel: left Precerebral and cerebral artery: middle cerebral artery Mixed hyperlipidemia E78.2 Hyperlipidemia type: mixed hyperlipidemia Class 2 obesity E66.812 Pyoderma L08.0 Assessment & Plan Assessment & Plan (1) Annual physical exam: Code(s): Z00.00 - Encounter for general adult medical examination without abnormal findings Category: Medical Plan: As per HPI (2) PAF (paroxysmal atrial fibrillation): Code(s): I48.0 - Paroxysmal atrial fibrillation Category: Medical Plan: As per HPI patient underwent a transesophageal cardiac ablation which seems to have been successful. He had now normal rhythm and heart rates are much more appropriate. He reports he has been breathing better has much more energy. He also interestingly enough reports he has been able to sleep lying down without needing to gas for air. He has not been using his BiPAP machine at night. With pulmonology to evaluate the need for continued CPAP (3) CVA (cerebral vascular accident): Code(s): I63.9 - Cerebral infarction, unspecified Category: Medical Qualifiers: CVA mechanism: embolism Laterality of affected vessel: left Precerebral and cerebral artery: middle cerebral artery Qualified Code(s): I63.412 - Cerebral infarction due to embolism of left middle cerebral artery Plan: As per HPI patient experienced acute stroke after his cardiac ablation. He seemed to make a full recovery from his cognitive deficits he was experiencing during his stroke. [facility] with [facility]. Has been started on statin therapy and will continue Xarelto for anticoagulation. Goal LDL to be optimally below 70 (4) HLD (hyperlipidemia): Code(s): E78.5 - Hyperlipidemia, unspecified Category: Medical Qualifiers: Hyperlipidemia type: mixed hyperlipidemia Qualified Code(s): E78.2 - Mixed hyperlipidemia Plan: Has been started on atorvastatin 40 mg due to his recent stroke. Will continue working on dietary modifications. Will continue to follow lipid panel with goal LDL to be optimally below 70 (5) Class 2 obesity: Code(s): E66.812 - Obesity, class 2 Category: Medical Plan: Patient does understand his BMI is over 35 and will work on better eating habits to reduce his weight. He has not been able to be much physically active due to his comorbidities and arthritic pain. (6) Pyoderma: Code(s): L08.0 - Pyoderma Category: Medical Plan: Patient continues to use dry dressings and barrier creams over his right lower extremity. Has not followed up with Dermatology recently. He feels he is able to manage his pyoderma which has been existing over the last several years. Orders: Orders Pneumococcal 20 Immunization Today Z23 - Encounter for immunization Medications: Refilled diltiazem HCl CD 240 mg PO DAILY 90 caps 3RF 90 days I48.0 - Paroxysmal atrial fibrillation
--- OUTSIDE RECORDS SUMMARY | 2025-01-20 11:10 | XMS_ITS | Encounter Summary ---
Author Organization [facility] Address [address] [place] [address] Care Team Providers Care Assistant Account Manager Name Role Phone Unavailable Primary Care Provider [...]
== END 2025-01-20 11:11 | disposition home or self-care (01) ==
LOC: HO.HMCH 10:01
PROVIDERS: PCP Physician Assistant; Visit Provider Physician Assistant
DX: Z00.00 Encounter for general adult medical examination without abnormal findings (principal); I48.0 Paroxysmal atrial fibrillation; E66.812 Obesity, class 2; Z68.35 Body mass index [BMI] 35.0-35.9, adult; I63.412 Cerebral infarction due to embolism of left middle cerebral artery; E78.2 Mixed hyperlipidemia; L08.0 Pyoderma; Z23 Encounter for immunization

== ENCOUNTER → 2025-01-20 10:00 | Outpatient (BNVA) | payer OTHER, SELFPAY | PROVIDERS: PCP Physician Assistant; Visit Provider Physician Assistant | DX: Z00.00 Encounter for general adult medical examination without abnormal findings (principal); I48.0 Paroxysmal atrial fibrillation; E78.2 Mixed hyperlipidemia; I48.91 Unspecified atrial fibrillation; E66.01 Morbid (severe) obesity due to excess calories; G47.33 Obstructive sleep apnea (adult) (pediatric); L40.50 Arthropathic psoriasis, unspecified; J45.909 Unspecified asthma, uncomplicated; I10 Essential (primary) hypertension; E66.812 Obesity, class 2; L08.0 Pyoderma; Z23 Encounter for immunization; Z86.73 Personal history of transient ischemic attack (TIA), and cerebral infarction without residual deficits; Z99.89 Dependence on other enabling machines and devices; Z68.35 Body mass index [BMI] 35.0-35.9, adult | CPT/HCPCS: 90471; 90677; 99396 ==

== ENCOUNTER → 2025-03-17 11:14 | Outpatient (REF) | payer OTHER, SELFPAY ==
--- NOTE | 2025-03-17 11:17 | HM_ITS ---
Conclusion: 1. Patient was monitored for total period of 3 days, but only 4 hours of data could be analyzed 2. Baseline was normal sinus rhythm with average heart of 78 beats per minute 3. No significant pauses noted 4. Frequent PACs noted with total burden of 1.82% of the time of the monitored time 5. No patient reported events MTDD
== END ==
LOC: HO.CARD 11:14
PROVIDERS: PCP Physician Assistant; Visit Provider Internal Medicine
DX: Z98.890 Other specified postprocedural states (principal)
CPT/HCPCS: 93242

== ENCOUNTER → 2025-03-17 11:17 | Outpatient (BNV) | payer OTHER, SELFPAY | PROVIDERS: PCP Physician Assistant; Visit Provider Internal Medicine Cardiovascular Disease | DX: I49.1 Atrial premature depolarization (principal) | CPT/HCPCS: 93244 ==

== ENCOUNTER 2025-03-30 09:54 | Outpatient (AMB) | payer OTHER, SELFPAY ==
--- NOTE | 2025-03-30 10:19 | A.OFFVIS_ITS ---
Vital Signs 03/30/25 10:20 Height 5 ft 11 in Weight 259 lb 0.69 oz BMI 36.1 BP 108/58 L Blood Pressure Location Lt brachial Position Sitting Pulse 72 Pulse Source Pulse Oximeter Pulse Oximetry (%) 95 Oxygen Delivery Method Room Air Intake Visit Reasons: carrillo Intake Note: pt is here for carrillo follow up and states he received his new CPAP and is doing well. He feels all is going great!! Consumer Loan Underwriter Required: No Allergies tetanus toxoid, adsorbed Allergy (Verified 03/30/25 10:47) Hives Medication List - Last Reconciled 03/30/25 by Isaak Paredes MD [4 x 4 non woven gauze As directed] [ABD pads 6x6 As directed] acetaminophen ER (Tylenol Arthritis Pain) 650 mg PO Q12H 30 days adhesive bandage (Adhesive Pads) As directed adhesive remover (Detachol Adhesive Remover liquid) As directed adhesive tape (Medipore) As directed albuterol sulfate 90 mcg/actuation (Ventolin HFA) 2 puffs inhalation Q6H PRN 30 days alclometasone 0.05% 1 appl topical BID PRN blood pressure kit-extra large As directed [coloplast triad cream As directed] CPAP (CPAP Machine/Device) As directed diltiazem HCl CD 240 mg PO DAILY 90 days docusate sodium 100 mg PO BID PRN fluocinonide 0.05% 1 appl topical BID PRN fluticasone propionate 50 mcg/actuation 1 spray intranasal ONCE gauze bandage (Gauze Pad) As directed ibuprofen 800 mg (4 x 200 mg) PO Q6H PRN 30 days lactulose 15 mL PO BEDTIME PRN leg brace (Knee Support Brace) NEED FOR SOFT KNEE BRACE WITH MEDIAL AND LATERAL HARD SUPPORT menthol-zinc oxide 0.44-20.6 % (Calmoseptine) 1 appl topical BID 30 days miscellaneous medical supply 1 ea miscellaneous DAILY 99 days mupirocin 2% 1 appl topical BID PRN non-adherent bandage use daily nystatin 1 appl topical DAILY PRN [Omni Tray for wheel chair As directed] [Pill hero dispenser As directed] [Raised toilet seat As directed] [reclining lift chair As directed] rivaroxaban (Xarelto) 20 mg PO DAILY 90 days [segmented tape As directed] [shower chair As directed] [Suction cup grab bar As directed] tamsulosin 0.4 mg PO DAILY 90 days tizanidine 4 mg PO BEDTIME PRN 30 days [Vashe wound light cleaner As directed] [washing scrub brush As directed] Do you need a note to return to daycare/school/sports/work: No HPI HPI carrillo: Details: 64 YEARS OLD GENTLEMAN A CASE OF OBSTRUCTIVE SLEEP APNEA IS HERE FOR FOLLOW-UP, SINCE HIS LAST VISIT HE DID OBTAIN A NEW CPAP EQUIPMENT, AND HAS BEEN USING IT VERY REGULARLY. THE CPAP DEVICE IS WORKING VERY WELL. AND HE IS HAPPY WITH THIS HE IS USING FOR 5-6 HOURS EVERY NIGHT. HE CLAIMS THAT HE SLEEPS MUCH BETTER AND HAS. NO DAYTIME SLEEPINESS HE DOES NEED NEW SUPPLIES. [facility] Medical History Carpal tunnel syndrome Ambulates with cane [place]PPER [place] (hard of hearing) History of diverticulitis Weight loss Psoriatic arthritis CARRILLO on CPAP Morbid obesity PAF (paroxysmal atrial fibrillation) Surgical History Hx of colonoscopy Status post catheter ablation of atrial fibrillation History of cardiac radiofrequency ablation (RFA) (~11/05/17) Family History Father CVD (cardiovascular disease) Mother CVD (cardiovascular disease) Atrial fibrillation Alzheimer disease Other Substance use disorder Social History Household Members: Children Housing: House Do you presently have visiting nurse or other home services: Yes ([employer]) Alcohol intake: never Patient Tobacco Use Status: Former Tobacco user Tobacco use type: Cigarette Years Smoked: 20 +/- e-Cigarette/Vaping Use: Never Used Second Hand Smoke Exposure: No Advance Directives Date on File: 03/17/24 service: No Current occupational status: disabled Cognitive needs: No Hearing needs: Yes (hearing aide) Vision needs: Yes (Glasses) Review of Systems Const All systems reviewed & are unremarkable except as noted in HPI and below Eyes Reports no additional complaints ENT Reports no additional complaints Card Denies chest pain, Denies irregular heart rhythm, Denies leg edema and Reports dyspnea on exertion (Mild) Resp Denies cough, Denies hemoptysis, Reports dyspnea on exertion (Mild) and Denies wheezing GI Reports no additional complaints Reports no additional complaints Musc Reports no additional complaints Skin/Breast Reports wounds (Has on ulcer on the right leg) Neuro Reports memory loss (Mild, he is somewhat slow in answering questions) Psych Reports no additional complaints and Reports memory loss (Mild, he is somewhat slow in answering questions) Aller/Immun Denies wheezing Physical Exam Vital Signs: Last Vital Signs Pulse 72 03/30/25 10:20 BP 108/58 L 03/30/25 10:20 Pulse Ox 95 03/30/25 10:20 Oxygen Delivery Method Room Air 03/30/25 10:20 BMI result Body Mass Index 36.1 Const General: healthy appearing, comfortable, no acute distress, alert and awake Orientation/consciousness: patient oriented x3 HEENT Head: Yes normal to inspection General nose exam: No nasal polyps present and No nasal discharge present Face and sinus: Yes sinuses nontender Mouth: oropharynx normal Throat: Yes posterior oropharynx normal Eyes General: appearance normal, both eyes and all related structures Neck Neck: Yes normal visual inspection, Yes no lymphadenopathy, Yes trachea midline and Yes no JVD Thyroid: Thyroid normal Chest Chest palpation & inspection: normal inspection of the chest, normal palpation of entire chest wall and no tenderness Resp Effort & Inspection: normal respiratory effort Auscultation: clear to auscultation bilaterally Cardio Palpation: normal PMI Rate: regular rate Rhythm: regular rhythm Heart sounds: no gallops and no murmurs GI Palpation (GI): Soft to palpation, nontender, No hepatosplenomegaly present and no masses Auscultation: normal bowel sounds Back/Spine/Pelvis Thoracic/Lumbar Spine: thoracic and lumbar spine normal to inspection Skin General skin exam: no rashes or lesions noted Neuro General: patient oriented x3, gait normal (But he does use cane, for stability) and no focal motor deficits Cranial nerves: Yes CN's II-XII intact bilaterally Extrem General: Yes normal to inspection, Yes no clubbing, cyanosis or edema, Yes no calf tenderness, Yes venous stasis dermatitis and Yes other (THE ULCER ON THE RIGHT LEG LATERAL ASPECT HAS HEALED,) Psych Appearance: grossly normal and well kempt Speech and movement: Normal speech and movement present Results Reviewed Results Reviewed: COMPLIANCE REPORT FOR THE LAST 30 NIGHTS IS REVIEWED AND HE HAS USED 29/30 NIGHTS. AVERAGE USE IT PER NIGHT IS 5 HOURS 51 MINUTES. PRESSURE USED MOSTLY 10-12 CM. THERE IS ONLY MINIMAL AIR LEAK. RESIDUAL AHI 0.6 Assessment & Plan Assessment & Plan (1) Morbid obesity: Comment: HE REMAINS MODERATELY OBESE, CURRENT BMI 36, RECENTLY PUT ON ABOUT 7 LB OF WEIGHT. Code(s): E66.01 - Morbid (severe) obesity due to excess calories Category: Medical Plan: DISCUSSED WITH HIM ABOUT CONTROLLING HIS WEIGHT. HE IS WELL WORSE WITH DIETARY RESTRICTION AND NEED TO WALK DAILY, (2) Allergic rhinitis: Comment: It is mild intermittent, Code(s): J30.9 - Allergic rhinitis, unspecified Category: Medical Plan: MAY USE FLONASE 1 OR 2 SPRAYS IN EACH NOSTRIL ONCE A DAY (3) Intermittent asthma: Comment: Longstanding history of mild intermittent bouts of cough and some wheezing. He needs to use albuterol HFA only once in a while Code(s): J45.20 - Mild intermittent asthma, uncomplicated Category: Medical Qualifiers: Asthma complication type: uncomplicated Asthma severity: mild Qualified Code(s): J45.20 - Mild intermittent asthma, uncomplicated Plan: OK TO USE ALBUTEROL HFA 2 PUFFS Q 6 HOURS BUT ONLY P.R.N. (4) CARRILLO treated with BiPAP: Comment: Longstanding history of obstructive sleep apnea, this is due to moderate degree of obesity. He has been using CPAP for long time. ( since 2000 ) RECENTLY GOT HIS NEW DEVICE WHICH IS WORKING GOOD AND HE IS FEELING MUCH BETTER, SLEEPS GOOD. Code(s): G47.33 - Obstructive sleep apnea (adult) (pediatric) Category: Medical Plan: COMMENDED FOR GOOD COMPLIANCE AND ADVISED TO KEEP ON USING THE CPAP REGULARLY EVERY NIGHT Coding Level of Care Code Est Pt Level 3 (07519) Diagnoses Morbid obesity E66.01 Allergic rhinitis J30.9 Mild intermittent asthma without complication J45.20 Asthma complication type: uncomplicated Asthma severity: mild CARRILLO treated with BiPAP G47.33
[2025-03-30 10:20] VITALS: BP 108/58; PULSE 72; O2SAT 95; BMI 36.1
--- OUTSIDE RECORDS SUMMARY | 2025-03-30 10:35 | XMS_ITS | Encounter Summary ---
Author Organization [employer] [facility] Address [address] [place] [address] Care Team Providers Care Media Supervisor Name Role Phone Unavailable Primary Care [...]
--- OUTSIDE RECORDS SUMMARY | 2025-03-30 10:35 | XMS_ITS | Encounter Summary ---
Author Organization [employer] [facility] Address [address] [place] [address] Care Team Providers Care Filing Writer Name Role Phone Unavailable Primary Care Provider Unavailabl e Encounter Details Date Type Department Care Team (Latest Contact Info) Description 08/25/2020 Abstract C CONVERSIONS Dental, Provider, DDS Social [...]
--- OUTSIDE RECORDS SUMMARY | 2025-03-30 10:35 | XMS_ITS | Encounter Summary ---
Author Organization [employer] [facility] Address [address] [place] [address] Care Team Providers Care Tobacco Sampler Name Role Phone Unavailable Primary Care Provider [...]
--- OUTSIDE RECORDS SUMMARY | 2025-03-30 10:35 | XMS_ITS | Clinical Summary ---
Author Organization [employer] Address [address] [place] [address] Care Team Providers Care Distribution Engineering Technologist Name Role Phone Unavailable Primary Care Provider [...] Panel 1960 SDOH Screening 1960 Sigmoidoscopy 1960 Disability Screening 1960 Alcohol/Substance Use Screening 1972 Hepatitis C Screening 1978 Hepatitis A Vaccines (1 of 2 - Risk 2-dose series) 1979 Pneumococcal Vaccine: 50+ Years (1 of 1 - PCV) 2010 Zoster Vaccines (1 of 2) 2010 Hepatitis B Vaccines (1 of 3 - Risk 3-dose series) 2020 COVID-19 Vaccine ( - season) 2024 07/18/2021, 11/13/2020 Dental Oral Exam 05/20/2024 11/18/2023, 12/27/2022 Dental Prophylaxis 05/20/2024 11/18/2023, 12/27/2022 Dental X-Ray: Bitewings 11/18/2024 11/18/2023, 12/27 Tobacco Screening 01/06/2025 01/07/2024 Influenza Vaccine (#1) 2025 , 04/23/2016, 05/04/2012, Additional history exists DTaP/Tdap/Td Vaccines (2 - Td or Tdap) [...] patient's age to complete this topic Meningococcal B Vaccine Aged Out No l onger eligible based on patient's age to complete [...] Relevant to Health Maintenance Insurance DENTAL - [facility]
== END 2025-03-30 10:49 | disposition home or self-care (01) ==
LOC: HO.HPS 09:54
PROVIDERS: PCP Physician Assistant; Visit Provider Internal Medicine
DX: E66.01 Morbid (severe) obesity due to excess calories (principal); J30.9 Allergic rhinitis, unspecified; J45.20 Mild intermittent asthma, uncomplicated; G47.33 Obstructive sleep apnea (adult) (pediatric)
CPT/HCPCS: 99213

== ENCOUNTER → 2025-03-30 09:54 | Outpatient (BNVA) | payer OTHER, SELFPAY | PROVIDERS: PCP Physician Assistant; Visit Provider Internal Medicine | DX: G47.33 Obstructive sleep apnea (adult) (pediatric) (principal); J30.9 Allergic rhinitis, unspecified; J45.20 Mild intermittent asthma, uncomplicated; Z99.89 Dependence on other enabling machines and devices | CPT/HCPCS: 99212 ==

== ENCOUNTER 2025-04-22 06:18 | Emergency (ER) | payer OTHER, SELFPAY ==
--- OUTSIDE RECORDS SUMMARY | 2025-04-20 08:00 | XMS_ITS | Encounter Summary ---
Author Organization [employer] [facility] Address [address] [place] [address] Care Team Providers Care Construction Code Administrator Name Role Phone Unavailable Primary Care Provider Unavailabl e Reason for Visit * Reason Comments Dental Exam Encounter Details Date Type Department Care Team (Late st Contact Info) Description 04/20/2025 8:00 AM EDT Office Visit [facility] ADULT DENTAL [address] [place] [address] Yon Vanessa DMD [address] [place] [address] Social History Tobacco Use Types Packs/Day Years [...] AM EDT documented as of this encounter Progress Notes * Yon Vanessa DMD - 04/20/2025 8:00 AM EDT C/C: sensitive LL premolar and broken UL anterior tooth I.O.E: root remnant #10, 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, broken fillings #19,20, erythematous and edematous gingiva, gen plaque and calculus accumulation, missing P/, bilateral mandibular chalo E.O.E: NSF OCS: NSF Head and neck: NSF Radiographic: gen moderate periodontal bone loss, pulp involved filling #20, root remnant #10 Dx: gen chronic moderate periodontitis, pulpitis #20, root remnant #10, broken filling #19 Tx: gen chronic moderate periodontitis, RCT, P&C and crown #20, exo #10, filling #19, P/ Need medical clearance prior to dental treatment Raghu documented in this encounter Plan of Treatment Upcoming Encounters Date Type Department Care Team (Late st Contact Info) Description 04/22/2025 11:00 AM EDT Office Visit [facility] ADULT DENTAL [address] [place] [address] Prasad Leonarda [address] [place] [address] 05/06/2025 2:00 PM EDT Office Visit [facility] ADULT DENTAL [address] [place] [address] Yon Vanessa DMD [address] [place] [address] 05/18/2025 11:00 AM EDT Office Visit [facility] ADULT DENTAL [address] [place] [address] Yon Vanessa DMD [address] [place] [address] Scheduled Orders Name Type Priority Associated Diagnoses Orde r Schedule 19 MODB 19 MODB AMALGAM - 4+ SURF, PRIMARY OR PERMANENT Dental Routine 1 Occurrences 04/20/2025 PROPHYLAXIS - ADULT Dental Routine 1 Occ urrences starting 04/20/2025 20 20 CROWN - PORCELAIN/CERAMIC Dental Routine 1 Occurrences starting 04/20/2025 20 20 ENDODONTIC THERAPY, PREMOLAR TOOTH Dental Routine 1 Occurrences 04/20/2025 20 20 PREFABRICATED POST AND CORE IN ADDITION TO CROWN Dental Routine [address] 04/20/2025 20 20 CROWN PREP Dental Routine 1 Occurr ences starting 04/20/2025 15,14,12,10,5,3 15,14,12,10,5,3 MAXILLARY PARTIAL DENTURE - FLEXIBLE BASE (INCLUDING ANY CLASPS, RESTS AND TEETH) Dental Routine [address] 04/20/2025 DENTURE IMPRESSION Dental Routine 1 Occu rrences starting 04/20/2025 BITE REGISTRATION Dental Routine 1 Occur rences starting 04/20/2025 WAX TRY IN Dental Routine 1 Occurrences starting 04/20/2025 documented as of this encounter Procedures Procedure Name Priority Date/Time Associated Diagnosis Comments PERIODIC ORAL EVALUATION - ESTABLISHED PATIENT Routine 04/20/2025 8:00 AM EDT INTRAORAL - PERIAPICAL FIRST RADIOGRAPHIC IMAGE Routine 04/20/2025 8:00 AM EDT INTRAORAL - PERIAPICAL EACH ADDITIONAL RADIOGRAPHIC IMAGE Routine 04/20/2025 8:00 AM EDT CASE PRESENTATION, DETAILED AND EXTENSIVE TREATMENT PLANNING Routine 04/20/2025 8:00 AM EDT BITEWINGS - 4 RADIOGRAPHIC IMAGES Routine 04/20/2025 8:00 AM EDT documented in this encounter Visit Diagnoses Not on filedocumented in this encounter
--- NOTE | ~2025-04-22 | XR_ITS ---
EXAMINATION: XR WRIST 3 OR MORE VIEWS LEFT HISTORY: fall COMPARISON: There are no prior studies available for comparison. FINDINGS: Four views of the left wrist, including a scaphoid view are submitted. Osseous mineralization is normal. A well-corticated osseous density adjacent to the ulnar styloid is likely the result of old trauma. No acute fracture or dislocation is seen. The joint spaces are preserved. There is widening of the scapholunate space, compatible with old ligamentous injury. The soft tissues are unremarkable. XR/XR wrist LT min 3V IMPRESSION: Widening of the scapholunate space compatible with old ligamentous injury. No acute fracture is seen. Electronically signed by: Sudhir Ivory MD 04/22/2025 08:10 AM EDT
--- NOTE | ~2025-04-22 | CT_ITS ---
EXAMINATION: CT HEAD WITHOUT CONTRAST CLINICAL INFORMATION: Fall, anticoagulated. COMPARISON: 03/31/2022, 04/29/2019. TECHNIQUE: Contiguous axial imaging was performed from the skull base to vertex without intravenous administration of contrast. This CT examination was performed using dose optimization techniques as appropriate, variously including the following: *Automated exposure control *Adjustment of mA and/or kV according to patient size (this includes techniques or standardized protocols for targeted exams where dose is matched to indication/reason for exam; i.e. extremities or head) *Use of iterative reconstruction technique FINDINGS: There is no evidence of intracranial hemorrhage or extra-axial fluid collection. There is no mass effect, or edema. No CT evidence of acute territorial infarct. Ventricles, sulci, and cisterns are normal in size and configuration for patient age. No hydrocephalus. No midline shift. Negative hyperdense MCA sign. Negative insular ribbon sign. Patchy periventricular and deep white matter hypoattenuation is consistent with mild small vessel ischemic changes. Normal pituitary. Atheromatous calcification of the bilateral carotid siphons and V4 segments vertebral arteries bilaterally. Globes and orbital contents image normally. No extracranial soft tissue abnormalities. There is complete opacification of the left maxillary sinus, which is unchanged and appears chronic. This may represent silent sinus syndrome. The remainder of the paranasal sinuses appear normally aerated. There is opacity in the left mastoid air cells, which are underpneumatized, as well as the left superior tympanic space. No suspicious bony abnormalities. There are no acute fractures evident. CT/CT head/brain wo IV con IMPRESSION: 1. No acute intracranial abnormality. No fracture evident. 2. Chronic opacification of the left maxillary sinus, with a configuration suspicious for silent sinus syndrome. 3. Chronic opacity in the left mastoid air cells, mastoid antrum, and superior left tympanic cavity. Electronically signed by: Jono Mims MD 04/22/2025 08:14 AM EDT
[2025-04-22 06:26] VITALS: BP 145/70; PULSE 80; RESP 18; O2SAT 94; BMI 33.9
--- OUTSIDE RECORDS SUMMARY | 2025-04-22 07:25 | XMS_ITS | Encounter Summary ---
Author Organization [employer] [facility] Address [address] [place] [address] Care Team Providers Care Summer Associate Name Role Phone Unavailable Primary Care Provider Unavailabl e Encounter Details Date Type Department Care Team (Latest Contact Info) Description 08/25/2020 Abstract [facility] CONVERSIONS Dental, Provider, DDS Social History Tobacco Use Types Packs/Day Years Used Date Smoking Tobacco: Never Assessed Sex and Gender Information Value Date Recorded Sex Assigned at Male 06/03/2022 10:24 AM EDT Legal Sex Male 10:24 AM EDT Gender Identity Male 06/03/2022 10:24 AM EDT Sexual Orientation Straight 06/03/2022 10 :24 AM EDT documented as of this encounter Plan of Treatment Upcoming Encounters Date Type Department Care Team (Late st Contact Info) Description 04/22/2025 11:00 AM EDT Office Visit [facility] ADULT DENTAL [address] [place] [address] Leonarda Parham [address] [place] [address] 05/06/2025 2:00 PM EDT Office Visit [facility] ADULT DENTAL [address] [place] [address] Yon Vanessa, DMD [address] [place] [address] 05/18/2025 11:00 AM EDT Office Visit [facility] ADULT DENTAL [address] [place] [address] Yon Vanessa, DMD [address] [place] [address] documented as of this encounter Visit Diagnoses Not on filedocumented in this encounter
--- OUTSIDE RECORDS SUMMARY | 2025-04-22 07:25 | XMS_ITS | Encounter Summary ---
Author Organization [employer] [facility] Address [address] [place] [address] Care Team Providers Care Vice Chair Name Role Phone Unavailable Primary Care Provider Unavailabl e Encounter Details Date Type Department Care Team (Latest Contact Info) Description 09/03/2018 Abstract [facility] CONVERSIONS Dental, Provider, DDS Social History Tobacco [...] Description 04/22/2025 11:00 AM EDT Office Visit [facility] ADULT DENTAL [address] [place] [address] Randall Parhamaris [address] [place] [address] 05/06/2025 2:00 PM EDT Office Visit [facility] ADULT DENTAL [address] [place] [address] Yon Vanessa, RADHA [address] [place] [address] 05/18/2025 11:00 AM EDT Office Visit [facility] ADULT DENTAL [address] [place] [address] Yon Vanessa, DMD [address] [place] [address] documented as of this encounter Visit Diagnoses Not on filedocumented in this encounter
--- OUTSIDE RECORDS SUMMARY | 2025-04-22 07:25 | XMS_ITS | Encounter Summary ---
Author Organization [employer] [facility] Address [address] [place] [address] Care Team Providers Care Roller Repairer Name Role Phone Unavailable Primary Care Provider Unavailabl e Encounter Details Date Type Department Care Team (Latest Contact Info) Description 10/11/2021 Abstract [facility] CONVERSIONS Dental, Provider, DDS Social History Tobacco [...] Description 04/22/2025 11:00 AM EDT Office Visit [facility] ADULT DENTAL [address] [place] [address] Leonarda Parham [address] [place] [address] 05/06/2025 2:00 PM EDT Office Visit [facility] ADULT DENTAL [address] [place] [address] Yon Vanessa, DMD [address] [place] [address] 05/18/2025 11:00 AM EDT Office Visit [facility] ADULT DENTAL [address] [place] [address] Yon Vanessa, DMD [address] [place] [address] documented as of this encounter Visit Diagnoses Not on filedocumented in this encounter
--- NOTE | 2025-04-22 07:26 | PC.NURSE ---
swelling left wrist noted. brisk cap refill finger tips. unable to palpate for rad pulse d/t pain. 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 has memory loss. no c spine tenderness. no headache. [id number]
--- OUTSIDE RECORDS SUMMARY | 2025-04-22 07:26 | XMS_ITS | Clinical Summary ---
Author Organization [employer] Address [address] [place] [address] Care Team Providers Care Service Captain Name Role Phone Unavailable Primary Care Provider [...] mg by mouth at bedtime. 3 Active acetaminophen (Tylenol 8 Hour) 650 MG ER tablet Take 650 mg by mouth every 12 (twelve) hours. Active alclometasone (Aclovate) 0.05 % cream 5 Active atorvastatin (Lipitor) 40 MG tablet Take 40 mg by mouth at bedtime. 5 Active Diclofenac Sodium 1 % gel APPLY 2 GM TOPICALLY THREE TIMES DAILY 5 Active furosemide (Lasix) 20 MG tablet Take 1 tablet by mouth every other day. 5 Active Xarelto 20 MG tablet Take 20 mg by mouth Once per day. Active Active Problems Problem Noted Date Diagnosed Date Missing teeth, acquired 11/18/2023 Dental calculus 12/27/2022 Encounters Date Type Department Care Team Description 04/20/2025 8:00 AM EDT Office Visit [facility] ADULT DENTAL [address] [place] [address] Yon Vanessa DMD from Last 3 Months Social History Tobacco Use Types Packs/Day Years [...] Mass Index - - Plan of Treatment Upcoming Encounters Date Type Department Care Team (Late st Contact Info) Description 04/22/2025 11:00 AM EDT Office Visit [facility] ADULT DENTAL [address] [place] [address] Leonarda Parham [address] [place] [address] 05/06/2025 2:00 PM EDT Office Visit [facility] ADULT DENTAL [address] [place] [address] Yon Vanessa DMD [address] [place] [address] 05/18/2025 11:00 AM EDT Office Visit [facility] ADULT DENTAL [address] [place] [address] Yon Vanessa, DMD [address] [place] [address] Health Maintenance Due Date Last Done Comments [...] of 3 - Risk 3-dose series) 2020 Dental Prophylaxis 05/20/2024 11/18/2023, 12/27/2022 Influenza Vaccine (#1) 2025 , 04/23/2016, 05/04/2012, Additional history exists Dental Oral Exam 10/19/2025 04/20/2025, , 12/27/2022 Tobacco Screening 04/20/2026 04/20/2025 Dental X-Ray: Bitewings 04/21/2026 04/20/20 25, 11/18/2023, 12/27/2022 Dental X-Ray: Full Mouth 11/18/2026 11/18/2023, 0112/2020 DTaP/Tdap/Td Vaccines (3 - Td or Tdap) 01/14/2034 01/15/2024, 06/12/2015 RSV Patients and Patients Aged 60 years or older (1 - 1-dose 75+ series) 2035 Pneumococcal Vaccine: 50+ Years Completed 01/20/2025 COVID-19 Vaccine Completed 04/13/2025, , 11/13/2020 HIB Vaccines Aged Out No longer eligi [...] Procedure Name Priority Date/Time Associated Diagnosis Comments CASE PRESENTATION, DETAILED AND EXTENSIVE TREATMENT PLANNING Routine 04/20/2025 8:00 AM EDT INTRAORAL - PERIAPICAL EACH ADDITIONAL RADIOGRAPHIC IMAGE Routine 04/20/2025 8:00 AM EDT INTRAORAL - PERIAPICAL FIRST RADIOGRAPHIC IMAGE Routine 04/20/2025 8:00 AM EDT BITEWINGS - 4 RADIOGRAPHIC IMAGES Routine 04/20/2025 8:00 AM EDT PERIODIC ORAL EVALUATION - ESTABLISHED PATIENT Routine 04/20/2025 8:00 AM EDT PROPHYLAXIS - ADULT Routine 11/18/2023 1 0:00 AM EDT INTRAORAL - COMPLETE SERIES OF RADIOGRAPHIC IMAGES Routine 11/18/2023 10:00 AM EDT from Last 3 Months or Most Recently Relevant to Health Maintenance Insurance DENTAL [facility]
--- NOTE | 2025-04-22 08:04 | ED_ITS ---
HPI - Extremity Problem General Chief complaint: Extremity Injury, Upper Stated complaint: left wrist injury Time Seen by Provider: 04/22/25 07:11 Source: patient, RN notes reviewed and old records reviewed Mode of arrival: ambulatory Limitations: no limitations History of Present Illness ED Provider: MALCOM Rodriguez HPI Narrative: 64-year-old male with medical history of paroxysmal AFib on Xarelto, MALICK on CPAP, psoriatic arthritis, asthma, CVA, HLD, HTN, presents to the ED due to 2 days of left wrist pain. Patient states Friday when he was changing a bird feeder he tripped over his feet falling forward and hitting the left wrist on a metal pole of a chain-link fence. Patient states he experienced pain and swelling immediately, denies head strike or LOC. Patient states yesterday pain and swelling became worse making it difficult for him to sleep. Patient reports he took ibuprofen yesterday around 4:00 p.m. with minimal effect. Related Data Home Medications ?Medication ?Instructions ?Recorded ?Confirmed alclometasone 0.05 % topical cream 1 appl topical BID PRN Itching 01/02/23 03/30/25 fluocinonide 0.05 % topical cream 1 appl topical BID P RN Rash 01/02/23 03/30/25 nystatin 100,000 unit/gram topical 1 appl topical ALEC Y PRN Rash 03/16/24 03/30/25 cream Previous Rx's ?Medication ?Instructions ?Recorded blood pressure kit-extra large #1 ea 08/06/23 docusate sodium 100 mg capsule 100 mg PO BID PRN const ipation #60 01/19/24 caps lactulose 10 gram/15 mL oral 15 ml PO BEDTIME PRN cons tipation 01/19/24 solution #237 mL albuterol sulfate 90 mcg/actuation 2 puff inhalation Q 6H PRN 03/03/24 aerosol inhaler (Ventolin HFA) shortness of breath or wheezing 30 days #8.5 grams Omni Tray for wheel chair #1 ea 03/18/24 tizanidine 4 mg tablet 4 mg PO BEDTIME PRN muscle 0 04/22/24 spasticity 30 days #30 tabs tamsulosin 0.4 mg capsule 0.4 mg PO DAILY 90 days #90 caps 05/29/24 miscellaneous medical supply 1 ea miscellaneous DAILY 99 days 06/07/24 #1 ea coloplast triad cream #2 ea 06/15/24 menthol 0.44 %-zinc oxide 20.6 % 1 appl topical BID sk in irritation 06/17/24 topical ointment (Calmoseptine) 30 days #113 grams CPAP (CPAP Machine/Device) #1 ea 06/24/24 rivaroxaban 20 mg tablet (Xarelto) 20 mg PO DAILY 90 d ays #90 tabs 08/10/24 reclining lift chair #1 ea 09/03/24 leg brace (Knee Support Brace) #1 ea 10/19/24 acetaminophen 650 mg 650 mg PO Q12H 30 days #60 t abs 11/15/24 tablet,extended release (Tylenol Arthritis Pain) mupirocin 2 % topical ointment 1 appl topical BID PRN boils #22 01/05/25 grams gauze bandage 4 X 4 (Gauze Pad) #100 ea 01/18/25 fluticasone propionate 50 1 spray intranasal ONCE #144 grams 01/28/25 mcg/actuation nasal spray,suspension Pill hero dispenser #1 ea 02/24/25 Raised toilet seat #1 ea 02/24/25 shower chair #1 ea 02/24/25 ibuprofen 200 mg capsule 800 mg (4 x 200 mg) PO Q6H P RN 03/09/25 Pain 30 days #480 caps diltiazem HCl 240 mg 240 mg PO DAILY 90 days #90 caps 04/11/25 capsule,extended release 24 hr 4 x 4 non woven gauze #600 ea 04/20/25 ABD pads 6x6 #1 ea 04/20/25 Vashe wound cleaners #1 ea 04/20/25 adhesive bandage 6 X 6 (Adhesive #50 ea 04/20/25 Pads) adhesive remover (Detachol #240 mL 04/20/25 Adhesive Remover liquid) adhesive tape 2 X 10 yard #12 ea 04/20/25 (Medipore) non-adherent bandage 8 X 10 #500 ea 04/20/25 segmented tape #2 ea 04/20/25 washing scrub brush #1 ea 04/20/25 Suction cup grab bar #2 ea 04/21/25 Allergies Allergy/AdvReac Type Severity Reaction Status Date / Time tetanus toxoid, adsorbed Allergy Hives Verified 04/22/25 06:31 Review of Systems 2 Review of Systems: CONST: Negative for fever, body aches and chills. HENT: Negative for neck pain/stiffness, headache, congestion, sore throat, swelling. EYES: Negative for discharge/pain or vision changes. RESP: Negative for cough/hemoptysis and shortness of breath. CV: Negative chest pain, difficulty breathing, palpitations. ABD: Negative pain, nausea, vomiting. : Negative increase frequency, dysuria, blood in urine or stool. MUSC: Negative for muscle aches, edema. POS L wrist pain SKIN: Negative rash, lesions/sores. NEURO: Negative headache, dizziness, weakness. Yes all other systems are reviewed and are negative [facility] Past Medical History Attestation statement: The following information was validated with the patient. Source: old records reviewed and nursing notes reviewed Medical History Carpal tunnel syndrome Ambulates with cane [place] (hard of hearing) History of diverticulitis Weight loss Psoriatic arthritis MALICK on CPAP Morbid obesity PAF (paroxysmal atrial fibrillation) Surgical History Hx of colonoscopy Status post catheter ablation of atrial fibrillation History of cardiac radiofrequency ablation (RFA) (~11/05/17) Family History Family History Father CVD (cardiovascular disease) Mother CVD (cardiovascular disease) Atrial fibrillation Alzheimer disease Other Substance use disorder Social History Social History Household Members: Children Housing: House Do you presently have visiting nurse or other home services: Yes ([employer]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) Alcohol intake: never Patient Tobacco Use Status: Former Tobacco user Tobacco use type: Cigarette Years Smoked: 20 +/- e-Cigarette/Vaping Use: Never Used Second Hand Smoke Exposure: No Advance Directives: Yes Advance Directives on File: Yes Advance Directives Date on File: 01/06/23 service: No Current occupational status: disabled Cognitive needs: No Hearing needs: Yes (hearing aide) Vision needs: Yes (Glasses) Physical Exam 2 Vital Signs: Vital Signs: Last Vital Signs Pulse 80 04/22/25 06:26 Resp 18 04/22/25 06:26 BP 145/70 H 04/22/25 06:26 Pulse Ox 94 04/22/25 06:26 O2 Del Method Room Air 04/22/25 06:26 BMI result Body Mass Index 33.9 GENERAL APPEARANCE: ?AxOx4, generally well-appearing, no acute distress. HEENT: ?NC, AT. MMM. EOMI, clear conjunctiva, oropharynx clear. NECK: ?Supple without lymphadenopathy.? No stiffness or restricted ROM. HEART:? Normal rate and regular rhythm, normal S1/S2, no m/r/g LUNGS:? CTAB, moving air well. No crackles or wheezes are heard. ABDOMEN: ?Soft, nontender, nondistended BACK: No CVAT, no obvious deformity. EXTREMITIES: ?Without cyanosis, clubbing or edema. L wrist with dorsal superficial abrasion, mild edema, TTP of L wrist, radial pulses 2+ bilaterally, appropriate capillary refill time, compartments soft, reduced ROM with rotational movements due to pain, opposition intact, small hematoma of the ventral ulnar aspect of wrist without ecchymosis, warmth, edema. See photos NEUROLOGICAL: ?Grossly nonfocal. Alert and oriented, moving all 4 extremities. Observed to ambulate with normal gait. Skin: ?Warm and dry without any rash. Medications Administered Discontinued Medications Generic Name Dose Route Start Last Admin Trade Name Freq PRN Reason Stop Dose Admin Acetaminophen 975 mg 04/22/25 08:26 04/22/25 09:07 Acetaminophen 325 Mg Tablet PO 04/22/25 08:27 975 mg ONCE ONE Administration Oxycodone HCl 5 mg 04/22/25 08:52 04/22/25 09:07 Oxycodone Hcl Immed Release 5 Mg Tablet PO 04/22/25 08:53 5 mg ONCE ONE Administration Medical Decision Making Medical Decision Making MDM Narrative: 64-year-old male with medical history of paroxysmal AFib on Xarelto, MALICK on CPAP, psoriatic arthritis, asthma, CVA, HLD, HTN, presents to the ED due to 2 days of left wrist pain after mechanical trip and fall hitting L wrist on metal pole of chain link fence with immediate pain and swelling. Pain and swelling became worse yesterday. Took ibuprofen yesterday with minimal effect. VS on initial observation-BP 145/70, pulse rate of 80, respiratory rate of 18, afebrile with oral temp of 98.2?, O2 saturation 94% on room air. Patient is well-appearing, nontoxic appearing. Physical exam reveals L wrist with dorsal superficial abrasion, mild edema, TTP of L wrist, radial pulses 2+ bilaterally, appropriate capillary refill time, compartments soft, reduced ROM with rotational movements due to pain, opposition intact, small hematoma of the ventral ulnar aspect of wrist without ecchymosis, warmth, edema. See photos in physical exam portion of this note. XR L wrist negative for joint effusion, acute fracture or dislocation. Does reveal syndesmosis of the scapholunate space compatible with old ligamentous injury. CT head/brain negative for acute intracranial pathology. Does reveal chronic opacification of the left maxillary sinus with questionable silent sinus syndrome, and a chronic opacity of the left mastoid air cells, mastoid antrum, and superior left tympanic cavity. I spoke to patient about these findings and counseled him to follow up with his primary care provider for review. Patient medicated with 975 p.o. Tylenol and 5mg oxycodone while in the department for pain management. Patient with soft compartments, ROM including opposition intact, without warmth, erythema, or neurological deficits of the limb, SILT, afebrile, small ventral hematoma on the ulnar side of the wrist. Patient appropriate to go home for self care. I counseled patient to follow up with his primary care provider to ensure resolution of wrist pain. Additionally I will place referral to ortho hand specialist which he can contact if pain persists. Patient is in agreement with the plan. Differential Diagnosis Differential Diagnoses: The differential diagnosis associated with the presentation includes Compartment syndrome septic joint Wrist fracture Wrist dislocation Hematoma Admission/Observation Consideration of admission/observation: Escalation of care including admission/observation considered Independent Interpretation I performed an independent interpretation of an: Plain X-Ray Interpretation: I personally interpreted the XR L wrist which was negative for large joint effusion, fracture, dislocation, I agree with the radiologist's interpretation I personally interpreted the CT head/brain which is negative for intracranial hemorrhage, I agree with the radiologist's interpretation Radiology Impression Discussion of test interpretation with radiology: I have reviewed the radiologist's reading. Radiologist Impression: XR L wrist FINDINGS: Four views of the left wrist, including a scaphoid view are submitted. Osseous mineralization is normal. A well-corticated osseous density adjacent to the ulnar styloid is likely the result of old trauma. No acute fracture or dislocation is seen. The joint spaces are preserved. There is widening of the scapholunate space, compatible with old ligamentous injury. The soft tissues are unremarkable. XR/XR wrist LT min 3V IMPRESSION: Widening of the scapholunate space compatible with old ligamentous injury. No acute fracture is seen. Electronically signed by: Sudhir Ivory MD 04/22/2025 08:10 AM EDT Dictated By: Sudhir Ivory MD Signed By: <Electronically signed by Sudhir Ivory MD in [place]> 04/22/[address] head/brain FINDINGS: There is no evidence of intracranial hemorrhage or extra-axial fluid collection. There is no mass effect, or edema. No CT evidence of acute territorial infarct. Ventricles, sulci, and cisterns are normal in size and configuration for patient age. No hydrocephalus. No midline shift. Negative hyperdense MCA sign. Negative insular ribbon sign. Patchy periventricular and deep white matter hypoattenuation is consistent with mild small vessel ischemic changes. Normal pituitary. Atheromatous calcification of the bilateral carotid siphons and V4 segments vertebral arteries bilaterally. Globes and orbital contents image normally. No extracranial soft tissue abnormalities. There is complete opacification of the left maxillary sinus, which is unchanged and appears chronic. This may represent silent sinus syndrome. The remainder of the paranasal sinuses appear normally aerated. There is opacity in the left mastoid air cells, which are underpneumatized, as well as the left superior tympanic space. No suspicious bony abnormalities. There are no acute fractures evident. CT/CT head/brain wo IV con IMPRESSION: 1. No acute intracranial abnormality. No fracture evident. 2. Chronic opacification of the left maxillary sinus, with a configuration suspicious for silent sinus syndrome. 3. Chronic opacity in the left mastoid air cells, mastoid antrum, and superior left tympanic cavity. Electronically signed by: Jono Mims MD 04/22/2025 08:14 AM EDT Dictated By: Jono Mims MD Signed By: <Electronically signed by Jono Mims MD in [place]> 04/22/25 0814 External Record Review External record reviewed: Inpatient record, Office record and Outpatient record Prescription Management I considered prescription management with: Other (Toradol) I considered Toradol for treatment of swelling and pain, however patient on Xarelto, not a candidate for NSAIDs. Chronic Conditions Patient?s care impacted by: Hypertension and Other (paroxysmal AFib on Xarelto, MALICK on CPAP, psoriatic arthritis, asthma, CVA, HLD,) Discharge Plan Discharge Clinical Impression: Hematoma of left wrist Patient Disposition: Home, Self-Care Additional Instructions: You were evaluated in the ED today due to left wrist pain. The left wrist x-ray was negative for acute fracture or dislocation. Your CT head/brain was negative for acute head bleed, however did reveal non emergent abnormalities in the left sinus space showing the area is not inflated with air properly. This is a non emergent finding, and does not usually cause symptoms. You can follow up with your primary care provider about these findings. You were medicated in the department with 975mg tylenol and 5mg oxycodone and Velcro wrist splint for pain management. Use the splint for compression and support while the wrist heals. To manage pain at home, take 500 mg of Tylenol every 6 hours. I do not recommend you take ibuprofen/Motrin/Aleve by mouth due to being on Xarelto as this can increase your risk of bleeding. If you have NSAID creams like diclofenac at home you can use this topically on top of the skin for pain management. I placed a referral to orthopedic hand specialists for you. You need to call their office as they will not call you. I recommend you follow up with your primary care doctor to ensure pain is resolving of the wrist. Please return to the emergency department if you experience fevers over 100.4? that are not controlled by Tylenol, increased left wrist pain, loss of sensation of the left wrist, increased swelling of the left wrist, or any new/worsening/concerning symptoms. Prescriptions: No Action (DME) Omni Tray for wheel chair See Rx Instructions .Route .MEDSUPPLY Qty: 1 0RF Rx Instructions: As directed tamsulosin 0.4 mg capsule 0.4 mg PO DAILY 90 Days Qty: 90 3RF miscellaneous medical supply Misc 1 ea miscellaneous DAILY 99 Days Qty: 1 0RF Rx Instructions: NEED FOR MED MINDER MACHINE (DME) coloplast triad cream See Rx Instructions .Route .MEDSUPPLY Qty: 2 3RF Rx Instructions: As directed menthol-zinc oxide [Calmoseptine] 0.44-20.6 % ointment 1 appl topical BID 30 Days Qty: 113 6RF Rx Instructions: use thin layer on affected skin area (DME) CPAP Machine/Device Device See Rx Instructions .Route Qty: 1 0RF Rx Instructions: As directed Xarelto 20 mg tablet 20 mg PO DAILY 90 Days Qty: 90 3RF (DME) reclining lift chair See Rx Instructions .Route .MEDSUPPLY Qty: 1 0RF Rx Instructions: As directed (DME) Knee Support Brace Misc See Rx Instructions .Route Qty: 1 0RF Rx Instructions: NEED FOR SOFT KNEE BRACE WITH MEDIAL AND LATERAL HARD SUPPORT acetaminophen [Tylenol Arthritis Pain] 650 mg tablet extended release 650 mg PO Q12H 30 Days Qty: 60 3RF mupirocin 2 % ointment 1 appl topical BID PRN (Reason: boils) Qty: 22 0RF (DME) gauze bandage [Gauze Pad] 4 X 4 bandage See Rx Instructions .Route Qty: 100 3RF Rx Instructions: As directed fluticasone propionate 50 mcg/actuation spray,suspension 1 spray intranasal ONCE Qty: 144 0RF (DME) shower chair See Rx Instructions .Route .MEDSUPPLY Qty: 1 0RF Rx Instructions: As directed (DME) Raised toilet seat See Rx Instructions .Route .MEDSUPPLY Qty: 1 0RF Rx Instructions: As directed (DME) Pill hero dispenser See Rx Instructions .Route .MEDSUPPLY Qty: 1 0RF Rx Instructions: As directed ibuprofen 200 mg capsule 800 mg PO Q6H PRN (Reason: Pain) 30 Days Qty: 480 3RF diltiazem HCl 240 mg capsule,extended release 24hr 240 mg PO DAILY 90 Days Qty: 90 3RF (DME) 4 x 4 non woven gauze See Rx Instructions .Route .MEDSUPPLY Qty: 600 3RF Rx Instructions: As directed (DME) ABD pads 6x6 See Rx Instructions .Route .MEDSUPPLY Qty: 1 0RF Rx Instructions: As directed (DME) Adhesive Pads 6 X 6 bandage See Rx Instructions .Route Qty: 50 3RF Rx Instructions: As directed (DME) adhesive remover [Detachol Adhesive Remover] Liquid See Rx Instructions .Route Qty: 240 1RF Rx Instructions: As directed (DME) Medipore 2 X 10 -yard tape See Rx Instructions .Route Qty: 12 1RF Rx Instructions: As directed (DME) non-adherent bandage 8 X 10 bandage See Rx Instructions .Route Qty: 500 12RF Rx Instructions: use daily (DME) segmented tape See Rx Instructions .Route .MEDSUPPLY Qty: 2 11RF Rx Instructions: As directed (DME) Vashe wound cleaners See Rx Instructions .Route .MEDSUPPLY Qty: 1 0RF Rx Instructions: As directed (DME) washing scrub brush See Rx Instructions .Route .MEDSUPPLY Qty: 1 0RF Rx Instructions: As directed (DME) Suction cup grab bar See Rx Instructions .Route .MEDSUPPLY Qty: 2 0RF Rx Instructions: As directed alclometasone 0.05 % Cream 1 appl TOPICAL BID PRN (Reason: Itching) Rx Instructions: APPLY TO ELBOW fluocinonide 0.05 % Cream 1 appl TOPICAL BID PRN (Reason: Rash) Rx Instructions: APPLY TO FOREHEAD nystatin 100,000 unit/gram cream 1 appl topical DAILY PRN (Reason: Rash) docusate sodium 100 mg capsule 100 mg PO BID PRN (Reason: constipation) Qty: 60 3RF lactulose 10 gram/15 mL solution 15 ml PO BEDTIME PRN (Reason: constipation) Qty: 237 0RF albuterol sulfate [Ventolin HFA] 90 mcg/actuation HFA aerosol inhaler 2 puff inhalation Q6H PRN (Reason: shortness of breath or wheezing) 30 Days Qty: 8.5 3RF (DME) blood pressure kit-extra large Kit See Rx Instructions .Route Qty: 1 0RF Rx Instructions: As directed tizanidine 4 mg tablet 4 mg PO BEDTIME PRN (Reason: muscle spasticity) 30 Days Qty: 30 3RF Referrals: [facility] [place] [facility] [Provider Group] Print Language: Mongolian
[2025-04-22] MEDS: oxyCODONE HCl Immed Release 5 MG TABLET PO (09:07)
[2025-04-22 09:58] VITALS: BP 145/70; PULSE 80; RESP 18; TEMP 36.3; O2SAT 94
== END 2025-04-22 09:59 | disposition home or self-care (01) ==
PROVIDERS: Emergency Provider Emergency Medicine; PCP Physician Assistant
DX: S60.212A Contusion of left wrist, initial encounter (principal); R51.9 Headache, unspecified; M25.532 Pain in left wrist; I48.91 Unspecified atrial fibrillation; X50.9XXA Other and unspecified overexertion or strenuous movements or postures, initial encounter; Y93.9 Activity, unspecified; Y92.9 Unspecified place or not applicable; Y99.8 Other external cause status; Z79.01 Long term (current) use of anticoagulants; Z79.899 Other long term (current) drug therapy
CPT/HCPCS: 70450; 73110; 99283; 99284

== ENCOUNTER → 2025-04-22 06:42 | Outpatient (BNV) | payer OTHER, SELFPAY | PROVIDERS: Emergency Provider Emergency Medicine; PCP Physician Assistant; Visit Provider Radiology Diagnostic Radiology | DX: Z04.3 Encounter for examination and observation following other accident (principal); J32.0 Chronic maxillary sinusitis; H74.8X2 Other specified disorders of left middle ear and mastoid; S63.512A Sprain of carpal joint of left wrist, initial encounter; W19.XXXA Unspecified fall, initial encounter | CPT/HCPCS: 70450; 73110 ==

== ENCOUNTER 2025-05-23 09:28 | Outpatient (AMB) | payer OTHER, SELFPAY ==
--- OUTSIDE RECORDS SUMMARY | 2025-05-20 09:00 | XMS_ITS | Encounter Summary ---
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 Name Role Phone Unavailable Primary Care Provider Unavailabl e Reason for Visit * Reason Comments Consult Encounter Details Date Type Department Care Team (Late st Contact Info) Description 05/20/2025 9:00 AM EDT Office Visit [facility] [address] [place] [address] Jennifer Tam DDS [address] [place] [address] Dental abscess (Primary Dx); Recurrent dental caries extending into dentin; Dental root caries Social History Tobacco Use Types Packs/Day Years [...] as of this encounter Progress Notes * Jennifer Tam DDS - 05/20/2025 9:00 AM EDT Dental procedures in this visit D9310 - CONSULTATION - DIAGNOSTIC SERVICE PROVIDED BY DENTIST OR PHYSICIAN OTHER THAN REQUESTING DENTIST OR PHYSICIAN (Completed) Service provider: Jennifer Tam DDS Billing provider: Jennifer Tam DDS [id number] - CASE PRESENTATION, DETAILED AND EXTENSIVE TREATMENT PLANNING (Completed) Service provider: Jennifer Tam DDS Billing provider: Jennifer Tam DDS Patient ID: Tom Miner is a 64 y.o. male. 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 Confirmed via patient's chart, intraorally and by radiographs. Piercer: not applicable Chief Complaint Patient presents with Consult Medical Hx: Vitals: There were no vitals taken for this visit. Medical History[1] Medications: Encounter Medications[2] Subjective: The patient was referred by Dr. Vanessa for evaluation of tooth #20 for a possible root canal treatmentand jewish. 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 The tooth has a large distal-occlusal amalgam filling that is fracturedon the buccal side, and there are periodontal pockets measuring 8 mm on the distal-lingual side. X-rays reveal a large composite filling under the distal-occlusal amalgam, that is in contact with thepulp. There is recurrent decay that has penetrated into the root and is beneath the bone line. The tooth is bi-rooted. I explained to the patient that, due to the condition of the tooth, it is non- restorable because ofthe extent of the cavity and its involvement with the periodontal issues. Diagnosis: Abscess tooth Fistula Recurrent decay Assessment/Plan: Ext - pt would like to wait t have ext done, and will request Dr. Vanessa for a possible repair on of #20. Prescriptions: Amoxicillin 875 mg/125 mg/bid/7 14 tabs Pt tolerated procedure well, all questions answered. Dismissed in good condition. NV: Ext F/up - Dr. Vanessa Protocol Officer: Susan Soliz Dentist: Jennifer Tam DDS [1] Past Medical History: Diagnosis Date Arthritis Asthma Back pain respiratory problems due to retained fluid Heart trouble Hx of long-term use of blood thinners Hypertension Stroke (cerebrum) ([facility]) [2] Outpatient Encounter Medications as of 05/20/2025 Medication Sig Dispense Refill acetaminophen (Tylenol 8 Hour) 650 MG ER tablet Take 650 mg by mouth every 12 (twelve) hours. albuterol 108 (90 Base) MCG/ACT inhaler INHALE 2 PUFFS BY MOUTH EVERY 6 HOURS NEEDED FOR SHORTNESS OF BREATH OR WHEEZING alclometasone (Aclovate) 0.05 % cream amoxicillin (Amoxil) 875 MG tablet Take 875 mg by mouth 2 times daily. amoxicillin-clavulanate (Augmentin) 875-125 MG tablet Take 1 tablet by mouth 2 times daily for 7 days. 14 tablet 0 atorvastatin (Lipitor) 40 MG tablet Take 40 mg by mouth at bedtime. Diclofenac Sodium 1 % gel APPLY 2 GM TOPICALLY THREE TIMES DAILY dilTIAZem CD (Cardizem CD) 120 MG 24 hr capsule Take 120 mg by mouth in the morning. docusate sodium (Colace) 100 MG capsule TAKE 1 CAPSULE BY MOUTH 2 TIMES A SHELLY NEEDED FOR CONSTIPATION fluocinonide (Lidex) 0.05 % cream fluticasone (Flonase) 50 MCG/ACT nasal spray SHAKE LIQUID AND USE 1 SPRAY IN EACH NOSTRIL DAILY Fluticasone Propionate, Inhal, (Flovent Diskus) 100 MCG/ACT aerosol powder Inhale 1 puff every 12 (twelve) hours. furosemide (Lasix) 20 MG tablet Take 1 tablet by mouth every other day. naproxen (Naprosyn) 500 MG tablet Take 500 mg by mouth every 12 (twelve) hours if needed. Otezla 30 MG tablet tiZANidine (Zanaflex) 4 MG tablet Take 4 mg by mouth at bedtime. Xarelto 20 MG tablet Take 20 mg by mouth Once per day. No facility-administered encounter medications on file as of 05/20/2025. documented in this encounter Plan of Treatment Upcoming Encounters Date Type Department Care Team (Late st Contact Info) Description 05/27/2025 2:30 PM EDT Office Visit [facility] [address], [place] [id number] Yon Vanessa DMD [address] [place] [address] Scheduled Orders Name Type Priority Associated Diagnoses Orde r Schedule 20 20 EXTRACTION, ERUPTED TOOTH OR EXPOSED ROOT (ELEVATION/FORCEPS REMOVAL) Dental Routine 1 st arting 05/20/2025 20 MB(V) 20 MB(V) RESIN-BASED COMPOSITE - 2 SURF, POSTERIOR Dental Routine 1 Occurrences starting 05/20/2025 documented as of this encounter Procedures Procedure Name Priority Date/Time Associated Diagnosis Comments CONSULTATION - DIAGNOSTIC SERVICE PROVIDED BY DENTIST OR PHYSICIAN OTHER THAN REQUESTING DENTIST OR PHYSICIAN Routine 05/20/2025 9:00 AM EDT CASE PRESENTATION, DETAILED AND EXTENSIVE TREATMENT PLANNING Routine 05/20/2025 9:00 AM EDT documented in this encounter Visit Diagnoses Diagnosis Dental abscess- Primary Periapical abscess without sinus Recurrent dental caries extending into dentin Dental root caries documented in this encounter
--- NOTE | 2025-05-23 09:30 | A.OFFPC_ITS ---
Vital Signs 05/23/25 09:32 05/23/25 09:55 Height 5 ft 11 in Weight 259 lb BMI 36.1 BP 140/60 H 140/60 H Blood Pressure Location Lt brachial Position Sitting Pulse 76 Pulse Source Pulse Oximeter Temp 97.3 F Temp Source Temporal Artery Scan Pulse Oximetry (%) 97 Oxygen Delivery Method Room Air Intake Visit Reasons: f/u AFIB/ CVA Intake Note: Patient is here to follow up on Afib, CVA. Polarity Tester Required: No Client Services Director: Not Required per policy Accompanied by: Self / Same As Patient Allergies tetanus toxoid, adsorbed Allergy (Verified 05/23/25 09:45) Hives Medication List - Last Reconciled 05/23/25 by Noam Zapata PA-C [4 x 4 non woven gauze As directed] [ABD pads 6x6 As directed] acetaminophen ER (Tylenol Arthritis Pain) 650 mg PO Q12H 30 days adhesive bandage (Adhesive Pads) As directed adhesive remover (Detachol Adhesive Remover liquid) As directed adhesive tape (Medipore) As directed albuterol sulfate 90 mcg/actuation (Ventolin HFA) 2 puffs inhalation Q6H PRN 30 days alclometasone 0.05% 1 appl topical BID PRN blood pressure kit-extra large As directed [coloplast triad cream As directed] CPAP (CPAP Machine/Device) As directed [Depends As directed] [Depends As directed] diltiazem HCl CD 240 mg PO DAILY 90 days [Disposable bed pads As directed] docusate sodium 100 mg PO BID PRN fluocinonide 0.05% 1 appl topical BID PRN fluticasone propionate 50 mcg/actuation 1 spray intranasal ONCE gauze bandage (Gauze Pad) As directed ibuprofen 800 mg (4 x 200 mg) PO Q6H PRN 30 days lactulose 15 mL PO BEDTIME PRN leg brace (Knee Support Brace) NEED FOR SOFT KNEE BRACE WITH MEDIAL AND LATERAL HARD SUPPORT menthol-zinc oxide 0.44-20.6 % (Calmoseptine) 1 appl topical QID PRN 4 weeks [microbicodin urinal As directed] miscellaneous medical supply 1 ea miscellaneous DAILY 99 days mupirocin 2% 1 appl topical BID PRN non-adherent bandage use daily nystatin 1 appl topical DAILY PRN [Omni Tray for wheel chair As directed] [Pill hero dispenser As directed] [Raised toilet seat As directed] [reclining lift chair As directed] rivaroxaban (Xarelto) 20 mg PO DAILY 90 days [segmented tape As directed] [shower chair As directed] [Suction cup grab bar As directed] tamsulosin 0.4 mg PO DAILY 90 days tizanidine 4 mg PO BEDTIME PRN 30 days [Vashe wound engine cleaner As directed] [washing scrub brush As directed] Tobacco use date assessed: 05/23/25 Fall risk assessment: 1 Fall in past year Last assessed Fall Risk: 05/23/25 Dental Screening Dental Screen Date: 08/24/24 HPI f/u AFIB/ CVA HPI Details Patient is a 64-year-old male here for a follow-up visit ? Patient has a past medical history significant for AFib, CVA, morbid obesity,? MALICK, psoriatic arthritis,? pyoderma,? asthma. .. Alcohol use disorder: He now admits he has been sober from alcohol over last 7 months, and I congratulated him on this. .. Paroxysmal AFIB:? He is status post transesophageal cardiac ablation which seem to work well Now normal rhythm and reports he is feeling much better in heart rates now in the 70s to 80s. He continues on diltiazem and Xarelto for stroke prophylaxis. .. CVA: He felt his stroke after his ablation of his AFib did effect some of his memory and lower extremity weakness. Noted that he was not taking any cholesterol medication at this time, will send in atorvastatin 20 mg to reduce his LDL preferably below 70. PATIENT IS INTERESTED IN A NEW SCRIPT FOR A URINAL .. Obstructive sleep apnea: Has been diagnosed with obstructive sleep apnea over 10 years ago. Did have a sleep study about 10 years ago and was started on CPAP machine. He reports he does use a BiPAP machine in particular at 12 cm water pressure. He continues to follow pulmonology .. Psoriatic arthritis: Continues to have pretty severe psoriatic arthritis pain and disability. Continues to ambulate with cane assistance. Does follow a dough puncher whom gives injections to patient for his affected joints. He does have an electric lift chair that has been broken over the last 2 years and has been trying to get this fixed or replacement chair for quite some time to help him with his quality of life at home. .. Pyoderma gangrenosum: The patient has a history of pyoderma gangrenosum, which has been challenging to manage, requiring frequent bandage changes and the use of camoseptine. He has been dealing with this condition for 11 years, and it has significantly impacted his quality of life. .. HTN: Patient's blood pressure elevated today in office. He does not regularly check his blood pressure at home. We did discuss perhaps increasing dose of antihypertensive though patient is not interested in doing so at this time. Otherwise denies any chest discomfort, headaches or vision issues. .. Class 2 Obesity:? He does understand his BMI is over 30 and has been trying to be more physically active to reduce his weight. [facility] Medical History Carpal tunnel syndrome Ambulates with cane EGEGIK (hard of hearing) History of diverticulitis Weight loss Psoriatic arthritis MALICK on CPAP Morbid obesity PAF (paroxysmal atrial fibrillation) Surgical History Hx of colonoscopy Status post catheter ablation of atrial fibrillation History of cardiac radiofrequency ablation (RFA) (~11/05/17) Family History Father CVD (cardiovascular disease) Mother CVD (cardiovascular disease) Atrial fibrillation Alzheimer disease Other Substance use disorder Social History (Updated 05/23/25 @ 10:17 by Noam Zapata PA-C) Household Members: Children Housing: House Do you presently have visiting nurse or other home services: 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 1. Little interest or pleasure in doing things: not at all 2. Feeling down, depressed, or hopeless: not at all 3. Trouble falling or staying asleep, or sleeping too much: not at all 4. Feeling tired or having little energy: not at all 5. Poor appetite or overeating: not at all 6. Feeling bad about yourself - or that you are a failure or have let yourself or your family down: not at all 7. Trouble concentrating on things, such as reading the newspaper or watching television: not at all 8. Moving or speaking so slowly that other people could have noticed. Or the opposite - being so fidgety or restless that you have been moving around a lot more than usual: not at all 9. Thoughts that you would be better off or of hurting yourself in some way: not at all Total score: 0 Depression Screening Interpretation: Negative Depression Screening Done: Yes 22830 - PHQ-9 Billing: Yes Source: Developed by Drs. Sudhir Vasquez, Terri Mcmanus, Mk Ram and colleagues, with an educational marleni from [employer]. Thrive Questionnaire Date Thrive assessed: 08/24/24 I am a: Patient What is your living situation today?: I have a steady place to live Within the past 12 months, did the food you bought not last and you didn't have the money to get more?: Never true Within the past 12 months, did you worry whether your food would run out before you got money to buy more?: Never true Do you have trouble paying for medicines?: No Do you have trouble getting transportation to medical appointments?: No Do you have trouble paying your heating and electricity bill?: No Do you have trouble taking care of your child, family member or friend?: No Do you have trouble with day-to-day activities such as bathing, preparing meals, shopping, managing finances, etc.?: No Are you currently unemployed and looking for a job?: No Are you interested in more education?: No Please select the resources that you would like help with: None Currently or been in a relationship where the following occur: No concerns reported THRIVE Score: 0 AUDIT C Alcohol Use Questionnaire (AUDIT-C) 1. How often do you have a drink containing alcohol?: Never Total Score: 0 YIN-7 AMB Questionnaire YIN-7 Date YIN - 7 assessed: 08/24/24 Feeling nervous, anxious, or on edge: 0 = Not at all Not being able to stop or control worryin = Not at all Worrying too much about different things: 0 = Not at all Trouble relaxin = Not at all Being so restless that it is hard to sit still: 0 = Not at all Becoming easily annoyed or irritable: 0 = Not at all Feeling afraid as if something awful might happen: 0 = Not at all Total YIN-7 score (0-4 normal; 5-9 mild; 10-14 moderate; 15-21 severe): 0 Source: Developed by Drs. Sudhir Vasquez, Terri Mcmanus, Mk Ram and colleagues, with an educational marleni from [employer]. YIN-7 Assessment Billing YIN-7 Assessment Tool: YIN-7 Assessment 68911 Review of Systems Const Denies body aches, Denies chills, Denies excessive sweating, Denies fatigue, Denies fever(s) and Denies headache(s) Eyes Denies blurry vision ENT Denies dysphagia, Denies vertigo, Denies dizziness, Denies headache(s), Denies hearing loss and Denies tinnitus Card Denies chest pain, Denies chest pain with activity, Denies syncope, Denies irregular heart rhythm and Denies dyspnea Resp Denies chest congestion, Denies cough, Denies hemoptysis, Denies dyspnea and Denies wheezing GI Denies abdominal pain, Denies melena, Denies hematochezia, Denies coffee ground emesis, Denies dysphagia, Denies diarrhea, Denies nausea and Denies vomiting Denies difficulty urinating, Denies dysuria, Denies urinary frequency, Denies urinary hesitancy and Denies urinary urgency Musc Denies arthralgias, Denies limited range of motion, Denies muscle cramps and Denies muscle weakness Skin/Breast Denies rash and Denies skin ulcer Neuro Denies Abnormal speech present, Denies confusion, Denies vertigo, Denies dizziness, Denies syncope, Denies headache(s), Denies memory loss and Denies seizure-like activity Psych Denies anxiety, Denies confusion, Denies depression, Denies memory loss, Denies panic attacks and Denies paranoia Endo Denies excessive sweating, Denies fatigue, Denies flushing, Denies polydipsia and Denies polyuria Americo/Lymph Denies easy bleeding and Denies easy bruising Aller/Immun Denies wheezing Physical exam (Primary Care) Vital Signs: Last Vital Signs Temp 97.3 F 05/23/25 09:32 Pulse 76 05/23/25 09:32 BP 140/60 H 05/23/25 09:55 Pulse Ox 97 05/23/25 09:32 Oxygen Delivery Method Room Air 05/23/25 09:32 BMI result Body Mass Index 36.1 BMI Assessment/Plan discussion: High BMI High, discussed plan: lifestyle, weight reduction, dietary and physical activity Tobacco/Smoking Status: Tobacco use Status Tobacco use date assessed 05/23/25 05/23/25 09:37 Patient Tobacco Use Status Former Tobacco user 05/23/25 10:17 Tobacco use type Cigarette 05/23/25 10:17 e-Cigarette/Vaping Use Never Used 05/23/25 10:17 PHQ-9: PHQ-9 Score PHQ-9: Total score 0 05/23/25 10:21 Depression Screening Interpretation: Negative Thrive Assessment: Date of Thrive Assessment Date Thrive assessed 08/24/24 05/23/25 09:37 Currently or been in a relationship where the following occur: No concerns reported Const General: cooperative, comfortable, no acute distress, alert and awake; No confusion Nutritional Appearance: well nourished Orientation/consciousness: oriented to person, oriented to place, patient oriented x3 and No confusion HENMT Head: Yes normocephalic Ears: external ears normal and TM's normal bilaterally General nose exam: Normal nasal mucous membranes and turbinates present Face and sinus: No sinus tenderness Mouth: Normal oral and palatal mucosa present and tongue normal Teeth and gingiva: dentition normal and gingiva normal Throat: Yes posterior oropharynx normal, Yes tonsils normal and Yes uvula midline Eyes Conjunctivae: conjunctivae normal Sclerae: sclerae normal Pupils: Equal, round and reactive pupils present EOM: EOMs intact bilaterally Direct Ophthalmoscopy: No no photophobia Neck Neck: Yes no lymphadenopathy, No tender and Yes no JVD Thyroid: Thyroid normal Carotids: no bruits Chest Chest palpation & inspection: no tenderness Resp Effort & Inspection: normal respiratory effort, no audible wheezes, not labored and no stridor Auscultation: no crackles, no rales, no rhonchi and no wheezes Cardio Jugular venous distension: no JVD Rate: regular rate, not bradycardic and not tachycardic Rhythm: regular rhythm Heart sounds: no murmurs and normal S1 and S2 Bruits: no carotid bruits Peripheral pulses: Peripheral pulses 2+ throughout GI Inspection: Yes normal to inspection, No abdominal wall ecchymosis and No v isible herniation Palpation (GI): Soft to palpation, nontender, no guarding, not rigid and No hepatosplenomegaly present Auscultation: normoactive bowel sounds General: Yes no CVA tenderness Back/Spine/Pelvis Back: no CVA tenderness and No back tenderness Cervical Spine: cervical ROM normal Thoracic/Lumbar Spine: thoracic and lumbar spine normal to inspection, straight leg raise negative bilaterally, No thoraco-lumbar ROM limited and No lumbar spinal tenderness Skin General skin exam: no rashes or lesions noted and dry skin Lesions: no lesions Rashes: no rashes Wounds: no wounds Neuro General: oriented to person, oriented to place, patient oriented x3, CN's II-XI intact bilaterally and No confusion Cranial nerves: Yes Equal, round and reactive pupils present and Yes Normal accommodation reflex present Cognition (Neuro): normal cognition Speech: No Abnormal speech present Gait exam (Neuro): Normal gait present Motor exam (neuro): 5/5 motor strength present throughout Extrem Right upper extremity: full ROM; no cyanosis Left upper extremity: full ROM; no cyanosis Right lower extremity: no edema Left lower extremity: no edema Psych Appearance: grossly normal Mental Status: mental status grossly normal Speech and movement: Normal speech and movement present Affect: normal affect Attitude: cooperative Thought process: Normal thought process present Office Procedures Flu Questionnaire Does the patient have a severe egg allergy?: No Does the patient have severe life threatening allergies?: No Does the patient have a fever or illness today?: No Has the patient ever had Guillain-[place] Syndrome?: No Has the patient ever had any past reaction to a flu shot?: No Immunizations Fluarix [id number] (PF) 45 mcg (15 mcg x 3)/0.5 mL IM syringe Performing Provider: Noam Zapata PA-C [facility] Administered by: LARRY Anderson on 05/23/25 10:14 Dose Route Admin Location Dispensed Lot Number Expiration Date [facility] [address] [employer] 0.5 mL IM Left Deltoid 0.5 mL [id number] 01/31/26 [id number] [employer] VIS Given Date VIS Provided VIS Publication Date 05/23/25 Single Vaccine 24 Eligibility Eligibility Date Funding Source Not VF Eligible 05/23/25 Private Coding Level of Care Code Est Pt Level 4 (99681) Diagnoses PAF (paroxysmal atrial fibrillation) I48.0 Cerebrovascular accident (CVA) due to embolism of left middle cerebral artery I63.412 CVA mechanism: embolism Laterality of affected vessel: left Precerebral and cerebral artery: middle cerebral artery Mixed hyperlipidemia E78.2 Hyperlipidemia type: mixed hyperlipidemia Class 2 obesity E66.812 Pyoderma L08.0 Additional Codes YIN-7 Assessment Billing - YIN-7 Assessment Tool: YIN-7 Assessment 91402 ([id number]) PHQ-9 - 78562 - PHQ-9 Billing: Yes ([id number]) Assessment & Plan Assessment & Plan (1) PAF (paroxysmal atrial fibrillation): Code(s): I48.0 - Paroxysmal atrial fibrillation Category: Medical Plan: As per HPI patient underwent a transesophageal cardiac ablation which seems to have been successful. He had now normal rhythm and heart rates are much more appropriate. He reports he has been breathing better has much more energy. No overt signs of bleeding as he continues on Xarelto. (2) CVA (cerebral vascular accident): Code(s): I63.9 - Cerebral infarction, unspecified Category: Medical Qualifiers: CVA mechanism: embolism Laterality of affected vessel: left Precerebral and cerebral artery: middle cerebral artery Qualified Code(s): I63.412 - Cerebral infarction due to embolism of left middle cerebral artery Plan: He seemed to make a full recovery from his cognitive deficits he was experiencing during his stroke. [facility] with [facility] status post stroke. He has not been taking cholesterol medication, will restart atorvastatin help reduce his CV risk. and will continue Xarelto for anticoagulation. Goal LDL to be optimally below 70 (3) HLD (hyperlipidemia): Code(s): E78.5 - Hyperlipidemia, unspecified Category: Medical Qualifiers: Hyperlipidemia type: mixed hyperlipidemia Qualified Code(s): E78.2 - Mixed hyperlipidemia Plan: Will continue working on dietary modifications. Will continue to follow lipid panel with goal LDL to be optimally below 70 (4) Class 2 obesity: Code(s): E66.812 - Obesity, class 2 Category: Medical Plan: Patient does understand his BMI is over 35 and will work on better eating habits to reduce his weight. He has not been able to be much physically active due to his comorbidities and arthritic pain. (5) Pyoderma: Code(s): L08.0 - Pyoderma Category: Medical Plan: Has been treating his own wound for over 10 years. Has seen Wound management in the past whom has debrided his wound though did not seem to promote healing. The patient will be referred to a bpo specialist for further evaluation/2nd opinion and management of pyoderma gangrenosum, considering the chronic nature and impact on quality of life. Orders: Orders Influenza [id number] Immunization Today Z23 - Encounter for immunization Referrals Wound Care Referral L08.0 - Pyoderma Medications: New [Male portable urinal] As directed 1 ea 0RF I63.412 - Cerebral infarction due to embolism of left middle cerebral artery atorvastatin (Lipitor) 20 mg PO DAILY 90 tabs 1RF 90 days E78.2 - Mixed hyperlipidemia Changed From menthol-zinc oxide 0.44-20.6 % (Calmoseptine) 1 appl topical QID PRN 113 grams 0RF skin irritation L08.0 - Pyoderma To menthol-zinc oxide 0.44-20.6 % (Calmoseptine) 1 appl topical QID PRN 113 grams 6RF skin irritation 4 weeks L08.0 - Pyoderma From fluticasone propionate 50 mcg/actuation 1 spray intranasal ONCE 144 grams 0RF To fluticasone propionate 50 mcg/actuation 1 spray intranasal ONCE PRN 16 grams 2RF nasal congestion 4 weeks Refilled albuterol sulfate 90 mcg/actuation (Ventolin HFA) 2 puffs inhalation Q6H PRN 8.5 grams 3RF shortness of breath or wheezing 30 days I48.0 - Paroxysmal atrial fibrillation Discontinued lactulose Discontinued Reason: Doctor's Order 15 mL PO BEDTIME PRN 237 mL 0RF constipation I48.0 - Paroxysmal atrial fibrillation
[2025-05-23 09:32] VITALS: BP 140/60; PULSE 76; TEMP 36.3; O2SAT 97; BMI 36.1
[2025-05-23 09:55] VITALS: BP 140/60
--- OUTSIDE RECORDS SUMMARY | 2025-05-23 10:37 | XMS_ITS | Clinical Summary ---
Author Organization [facility] Address [address] [place] [address] Care Team Providers Care Core Winder Name Role Phone Unavailable Primary Care Provider Unavailabl e Allergies Active Allergy Reactions Criticality Noted Date Comments Iodinated Contrast Media 05/20/2025 Patient had adverse reaction after receiving contrast dye--felt alot of pressure in head and then pain in head, neck, shoulders and back--took a few days to get better per patient Levonorgestrel-Ethinyl Estrad 05/20/2025 Medications albuterol 108 (90 Base) MCG/ACT inhaler [...] mg by mouth Once per day. Active amoxicillin-cla vulanate (Augmentin) 875-125 MG tablet Take 1 tablet by mouth 2 times daily for 7 days. 14 tablet 5 05/27/20 Active Active Problems Problem Noted Date Diagnosed Date Afib ([facility]) 05/20/2025 Chronic back pain 05/20/2025 Class 1 obesity 05/20/2025 Fatigue 05/20/2025 HLD (hyperlipidemia) 05/20/2025 Lung mass 05/20/2025 Obstructive sleep apnea syndrome 05/20/2025 Psoriatic arthritis ([facility]) 05/20/2025 Pyoderma gangrenosum 05/20/2025 Sensorineural hearing loss ([facility]) 05/20/2025 Missing teeth, acquired 11/18/2023 Dental calculus 12/27/2022 Abnormal breathing 11/30/2013 High blood pressure 11/30/2013 Ulcers of both great toes ([facility]) 11/30/2013 Encounters Date Type Department Care Team Description 05/20/2025 9:00 AM EDT Office Visit [facility] [address] [place] [address] Jnenifer Tam, KATIE Dental abscess (Primary Dx); Recurrent dental caries extending into dentin; Dental root caries 04/20/2025 8:00 AM EDT Office Visit [facility] [address] [place] [address] Yon Vanessa DMD from Last 3 Months [...] Description 05/27/2025 2:30 PM EDT Office Visit [facility] [address] [place], [place] [id number] Yon Vanessa, DMD [address] [place] [address] Health Maintenance Due Date Last Done Comments Anal Pap 1960 CT Colonography 1960 Colonoscopy 1960 Colorectal Cancer Screening 1960 Depression Screening 1960 FIT DNA/Cologuard 1960 FIT 1960 FOBT 1960 HIV Screening 1960 Lipid Panel 1960 SDOH Screening 1960 Sigmoidoscopy 1960 Disability Screening 1960 Alcohol/Substance Use Screening 1972 Hepatitis C Screening 1978 Hepatitis A Vaccines (1 of 2 - Risk 2-dose series) 1979 Hepatitis B Vaccines (1 of 3 - Risk 3-dose series) 2020 Dental Prophylaxis 05/20/2024 11/18/2023, 12/27/2022 Influenza Vaccine (#1) 2025 , 04/23/2016, 05/04/2012, Additional history exists Zoster Vaccines (2 of 2) 07/04/2025 05/09/2025 Dental Oral Exam 10/19/2025 04/20/2025, , 12/27/2022 Dental X-Ray: Bitewings 04/21/2026 04/20/20 25, 11/18/2023, 12/27/2022 Tobacco Screening 05/20/2026 05/20/2025 Dental X-Ray: Full Mouth 11/18/2026 11/18/2023, 12/2020 DTaP/Tdap/Td Vaccines (3 - Td or Tdap) [...] TREATMENT PLANNING Routine 05/20/2025 9:00 AM EDT CONSULTATION - DIAGNOSTIC SERVICE PROVIDED BY DENTIST [...] Recently Relevant to Health Maintenance Insurance DENTAL [facility] * Guarantor: Tom Miner Account Type Relation to Patient Date of Phone Billing Address Personal/Family Self [place], [place]
--- OUTSIDE RECORDS SUMMARY | 2025-05-23 10:37 | XMS_ITS | Encounter Summary ---
Author Organization [facility] Address [address] [place] [address] Care Team Providers Care Business Reporting Developer Name Role Phone Unavailable Primary Care Provider Unavailabl e Encounter Details Date Type Department Care Team (Latest Contact Info) Description 08/25/2020 Abstract [facility] CONVERSIONS Dental, Provider, DDS Social History Tobacco [...] Description 05/27/2025 2:30 PM EDT Office Visit [facility] [address] [place] [address] Yon Vanessa, RADHA [address] [place] [address] documented as of this encounter Visit Diagnoses Not on filedocumented in this encounter
--- OUTSIDE RECORDS SUMMARY | 2025-05-23 10:37 | XMS_ITS | Encounter Summary ---
Author Organization [facility] Address [address] [place] [address] Care Team Providers Care Protective Signal Installer Helper Name Role Phone Unavailable Primary Care Provider Unavailabl e Encounter Details Date Type Department Care Team (Latest Contact Info) Description 10/11/2021 Abstract [facility] CONVERSIONS Dental, Provider, DDS Social History Tobacco [...] Description 05/27/2025 2:30 PM EDT Office Visit [facility] [address] [place] [address] Yon Vanessa, RADHA [address] [place] [address] documented as of this encounter Visit Diagnoses Not on filedocumented in this encounter
--- OUTSIDE RECORDS SUMMARY | 2025-05-23 10:37 | XMS_ITS | Encounter Summary ---
Author Organization [facility]ly [facility] [employer] [facility] Address [address] [place] [address] Care Team Providers Care Tar Chaser Name Role Phone Unavailable Primary Care Provider Unavailabl e Encounter Details Date Type Department Care Team (Latest Contact Info) Description 09/03/2018 Abstract [facility] CONVERSIONS Dental, Provider, DDS Social History Tobacco [...] Description 05/27/2025 2:30 PM EDT Office Visit [facility] ADULT DENTAL [address] [place] [address] Yon Vanessa, RADHA [address] [place] [address] documented as of this encounter Visit Diagnoses Not on filedocumented in this encounter
== END 2025-05-23 10:22 | disposition home or self-care (01) ==
LOC: HO.HMCH 09:28
PROVIDERS: PCP Physician Assistant; Visit Provider Physician Assistant
DX: I48.0 Paroxysmal atrial fibrillation (principal); I63.412 Cerebral infarction due to embolism of left middle cerebral artery; Z68.36 Body mass index [BMI] 36.0-36.9, adult; E66.812 Obesity, class 2; E78.2 Mixed hyperlipidemia; L08.0 Pyoderma; Z23 Encounter for immunization

== ENCOUNTER → 2025-05-23 09:28 | Outpatient (BNVA) | payer OTHER, SELFPAY | PROVIDERS: PCP Physician Assistant; Visit Provider Physician Assistant | DX: I48.0 Paroxysmal atrial fibrillation (principal); Z23 Encounter for immunization; E78.2 Mixed hyperlipidemia; E66.812 Obesity, class 2; Z68.36 Body mass index [BMI] 36.0-36.9, adult; I69.311 Memory deficit following cerebral infarction; I69.349 Monoplegia of lower limb following cerebral infarction affecting unspecified side; G47.33 Obstructive sleep apnea (adult) (pediatric); L40.50 Arthropathic psoriasis, unspecified; L88 Pyoderma gangrenosum; F10.91 Alcohol use, unspecified, in remission; Z79.01 Long term (current) use of anticoagulants; Z13.31 Encounter for screening for depression | CPT/HCPCS: 90471; 90656; 96127; 99212 ==

== ENCOUNTER 2025-07-06 09:22 | Outpatient (REF) | payer OTHER, SELFPAY ==
--- NOTE | ~2025-07-06 | XR_ITS ---
EXAMINATION: XR WRIST, LEFT CLINICAL INFORMATION: M25.532 - Pain in left wrist COMPARISON: Radiographs on April 22, 2025 TECHNIQUE: PA, lateral, and oblique views of the left wrist. FINDINGS: No acute fractures. Chronic deformity of the distal ulna and displaced fracture fragment have similar appearance to April 2025. Mild worsening of the previously described widening of the scapholunate space. No dislocation. Vascular calcifications. XR/XR wrist LT w scaphoid IMPRESSION: 1. No acute fracture or dislocation. 2. Mild worsening of the widening of the scapholunate space, sequela from old ligamentous injury. Electronically signed by: August Wild MD 07/06/2025 10:08 AM FEDE
--- OUTSIDE RECORDS SUMMARY | 2025-07-06 10:13 | XMS_ITS | Clinical Summary ---
Author Organization [facility] Address [address] [place] [address] Care Team Providers Care Screen Tender Helper Name Role Phone Unavailable Primary Care [...] Problems Problem Noted Date Diagnosed Date Afib ([facility]) 05/20/2025 Chronic back pain 05/20/2025 Class 1 obesity 05/20/2025 Fatigue 05/20/2025 HLD (hyperlipidemia) 05/20/2025 Lung mass 05/20/2025 Obstructive sleep apnea syndrome 05/20/2025 Psoriatic arthritis ([facility]) 05/20/2025 Pyoderma gangrenosum 05/20/2025 Sensorineural hearing loss (SNHL) 05/20/2025 Missing teeth, acquired 11/18/2023 Dental calculus 12/27/2022 Abnormal breathing 11/30/2013 High blood pressure 11/30/2013 Ulcers of both great toes ([facility]) 11/30/2013 Encounters Date Type Department Care Team Description 05/27/2025 2:30 PM EDT Office Visit [facility] ADULT DENTAL [address] [place] [address] Yon Vanessa DMD 05/20/2025 9:00 AM EDT Office Visit [facility] ADULT DENTAL [address] [place] [address] Bardales-Atwood, Jennifer, DDS Dental abscess (Primary Dx); Recurrent dental caries extending into dentin; Dental root caries 04/20/2025 8:00 AM EDT Office Visit [facility] ADULT DENTAL [address] [place] [address] Yon Vanessa DMD from Last 3 Months [...] Sign Reading Time Taken Comments Blood Pressure 134/80 05/27/2025 2:26 PM EDT Pulse 75 11/18/2023 9:38 AM EDT Temperature - - Respiratory Rate - - Oxygen Saturation - - Inhaled Oxygen Concentration - - Weight - - Height - - Body Mass Index - - Plan of Treatment Upcoming Encounters Date Type Department Care Team (Late st Contact Info) Description 07/07/2025 9:00 AM EST Office Visit [facility] ADULT DENTAL [address] [place], [place] [phone] Saurabh Hernandez DDS [address] [place], [place] [phone] Health Maintenance Due Date Last Done Comments Anal Pap 1960 CT Colonography 1960 Colonoscopy 1960 Colorectal Cancer Screening 1960 Depression Screening 1960 FIT DNA/Cologuard 1960 FIT 1960 FOBT 1960 Lipid Panel 1960 SDOH Screening 1960 Sigmoidoscopy 1960 Alcohol/Substance Use Screening 1972 Hepatitis C Screening 1978 Hepatitis A Vaccines (1 of 2 - Risk 2-dose series) 1979 Hepatitis B Vaccines (1 of 3 - Risk 3-dose series) 2020 Dental Prophylaxis 05/20/2024 11/18/2023, 12/27/2022 Zoster Vaccines (2 of 2) 07/04/2025 05/09/2025 COVID-19 Vaccine ( season) 2025 04/13/2025, 07/18/2021, 11/13/2020 Dental Oral Exam 10/19/2025 04/20/2025, , 12/27/2022 Dental X-Ray: Bitewings 04/21/2026 04/20/20 25, 11/18/2023, 12/27/2022 Tobacco Screening 05/27/2026 05/27/2025 Dental X-Ray: Full Mouth 11/18/2026 11/18/2023, 12/2020 DTaP/Tdap/Td Vaccines (3 - Td or Tdap) 01/14/2034 01/15/2024, 06/12/2015 RSV Patients and Patients Aged 60 years or older (1 - 1-dose 75+ series) 2035 Pneumococcal Vaccine: 50+ Years Completed 01/20/2025 Influenza Vaccine Completed 05/23/2025, , 04/23/2016, Additional history exists HIB Vaccines Aged Out No longer eligi [...] PRESENTATION, DETAILED AND EXTENSIVE TREATMENT PLANNING Routine 05/27/2025 2:30 PM EDT 19 MB RESIN-BASED COMPOSITE - 2 SURF, POSTERIOR Routine 05/27/2025 2:30 PM EDT CASE PRESENTATION, DETAILED AND EXTENSIVE TREATMENT [...] Recently Relevant to Health Maintenance Insurance [facility] * Guarantor: Tom Miner Account Type Relation to Patient Date of Phone Billing Address Personal/Family Self [place], [place]
--- OUTSIDE RECORDS SUMMARY | 2025-07-06 10:13 | XMS_ITS | Encounter Summary ---
Author Organization Formerly [facility] [employer] [facility] Address [address] [place] [address] Care Team Providers Care Case Managers Name Role Phone Unavailable Primary Care Provider Unavailabl e Encounter Details Date Type Department Care Team (Latest Contact Info) Description 09/03/2018 Abstract [facility] CONVERSIONS Dental, Provider, DDS Social History [...] Description 07/07/2025 9:00 AM EST Office Visit [facility] ADULT DENTAL [address] [place] [address] Saurabh Hernandez DDS [address] [place] [address] documented as of this encounter Visit Diagnoses Not on filedocumented in this encounter
--- OUTSIDE RECORDS SUMMARY | 2025-07-06 10:13 | XMS_ITS | Encounter Summary ---
Author Organization [facility] [employer] [facility] Address [address] [place] [address] Care Team Providers Care Malware Analyst Name Role Phone Unavailable Primary Care Provider Unavailabl e Encounter Details Date Type Department Care Team (Latest Contact Info) Description 10/11/2021 Abstract [facility] CONVERSIONS Dental, Provider, DDS Social History [...] Description 07/07/2025 9:00 AM EST Office Visit [facility] ADULT DENTAL [address] [place] [address] Saurabh Hernandez DDS [address] [place] [address] documented as of this encounter Visit Diagnoses Not on filedocumented in this encounter
--- OUTSIDE RECORDS SUMMARY | 2025-07-06 10:13 | XMS_ITS | Encounter Summary ---
Author Organization [facility] Address [address] [place] [address] Care Team Providers Care Drums Teacher Name Role Phone Unavailable Primary Care Provider Unavailabl e Encounter Details Date Type Department Care Team (Latest Contact Info) Description 08/25/[address] [facility] CONVERSIONS Dental, Provider, DDS Social History [...] Description 07/07/2025 9:00 AM EST Office Visit [facility] ADULT DENTAL [address] [place] [address] Saurabh Hernandez DDS [address] [place] [address] documented as of this encounter Visit Diagnoses Not on filedocumented in this encounter
== END 2025-07-06 09:23 | disposition home or self-care (01) ==
LOC: HO.HOSX 09:22
PROVIDERS: Visit Provider Orthopaedic Surgery
DX: M25.332 Other instability, left wrist (principal)
CPT/HCPCS: 73110; 99202

== ENCOUNTER 2025-07-06 09:42 | Outpatient (AMB) | payer OTHER, SELFPAY ==
[2025-07-06 09:55] VITALS: BMI 36.1
--- NOTE | 2025-07-06 09:55 | MHC.OFFVIS ---
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 Patient presented to [facility] on 04/22/25 reporting he was changing a bird feeder when he tripped over his feet, falling forward and hitting the left wrist on a metal pole of a chain-link fence. At the time, patient was notified he did not have any fractures or dislocations. Today, patient complains of pain and swelling on the dorsal and ulnar aspect of the wrist. Patient explains he cannot make a full fist with his own hand, he needs to close it with his other hand. He has been working on ROM exercises at home. He has been taking Tylenol PRN with relief. He denies numbness, tingling, finger locking. He reports about 33 years ago he had left hand nerve surgery from an injury. 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 Patient presented to [facility] on 04/22/25 reporting he was changing a bird feeder when he tripped over his feet, falling forward and hitting the left wrist on a metal pole of a chain-link fence. At the time, patient was notified he did not have any fractures or dislocations. Today, patient complains of pain and swelling on the dorsal and ulnar aspect of the wrist. Patient explains he cannot make a full fist with his own hand, he needs to close it with his other hand. He has been working on ROM exercises at home. He has been taking Tylenol PRN with relief. He denies numbness, tingling, finger locking. He reports about 33 years ago he had left hand nerve surgery from an injury that involved a nerve laceration. [facility] Medical History Carpal tunnel syndrome Ambulates with cane [place] (hard of hearing) History of diverticulitis Weight loss Psoriatic arthritis MALICK on CPAP Morbid obesity PAF (paroxysmal atrial fibrillation) Surgical History Hx of colonoscopy Status post catheter ablation of atrial fibrillation History of cardiac radiofrequency ablation (RFA) (~11/05/17) Family History Father CVD (cardiovascular disease) Mother CVD (cardiovascular disease) Atrial fibrillation Alzheimer disease Other Substance use disorder Social History (Updated 07/06/25 @ 09:59 by LARRY Nava) Household Members: Children Housing: House Do you presently have visiting nurse or other home services: Yes (DIRECTOR OF 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 SERVICE) Alcohol intake: former Year quit: 2024 Patient Tobacco Use Status: Former Tobacco user Tobacco use type: Cigarette Years Smoked: 20 +/- e-Cigarette/Vaping Use: Never Used Second Hand Smoke Exposure: Yes Advance Directives Date on File: 01/06/23 service: No Current occupational status: disabled Current occupation: rt handed Cognitive needs: No Hearing needs: Yes (hearing aide) Vision needs: Yes (Glasses) Review of Systems Const All systems reviewed & are unremarkable except as noted in HPI and below Physical Exam Vital Signs: BMI result Body Mass Index 36.1 Extrem Other: Patient is alert, oriented, and in no acute distress. Neuro: Normal sensation of the tips of all digits of the left hand at this time Vascular: Cap refill brisk Pain: Tenderness to palpation of the dorsal aspect of the left wrist over the scapholunate interval There is some mild tenderness in his area in the volar aspect, however this is not as painful No anatomical snuffbox or scaphoid tubercle tenderness of the left wrist No tenderness to palpation of the left ulnar styloid ROM: Patient is able to get to 50% of a a closed fist and extend all digits of the left hand fully Flexion and extension of the left wrist is possible, but quite painful for the patient in the area of the scapholunate interval and lunate facet Skin: No lacerations or abrasions. General: No ecchymosis, erythema, or evidence of infection. Psych: Appears grossly normal Affect normal Attitude cooperative Results Reviewed Results Reviewed: X-rays obtained in the office today and independently reviewed by me, Jake Juarez PA-C, demonstrate scapholunate interval widening consistent with old scapholunate ligament tear with dorsal subluxation of the left lunate. Assessment & Plan Assessment & Plan (1) Scapholunate dissociation of left wrist: Code(s): M25.332 - Other instability, left wrist Category: Medical Plan 1. 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 Patient is educated about this condition Patient is educated about the treatment options available At this time, patient is informed that there is no acute surgical intervention indicated for this injury at this time, as the state of his wrist is likely the result of a very chronic injury that has just worsened over time, and his fall likely exacerbated pain from the arthritis and chronic inflammatory conditions that have ensued Patient is educated that I do feel the best treatment option for him at this time is likely a steroid injection into the left wrist, which we will need to be performed by Dr. Alcala under x-ray guidance I feel that the patient has limited range of motion of the left hand is likely some residual weakness, as he is status post CVA with left-sided affects, but is also exacerbated most likely by swelling in the left hand and wrist Patient is also referred to OT to work on some range of motion of the left hand Patient understands this and is amenable to this plan Follow-up with Dr. Alcala for next available injection appointment under C-arm guidance for the left wrist, sooner with any acute concerns Orders: Orders OT Evaluation and Treatment Today M25.332 - Other instability, left wrist Coding Level of Care Code New Pt Level 3 (84779) Complex visit Add On G2211 Diagnoses Scapholunate dissociation of left wrist M25.332
== END 2025-07-06 10:28 | disposition home or self-care (01) ==
LOC: HO.HOS 09:42
PROVIDERS: PCP Physician Assistant
DX: M25.332 Other instability, left wrist (principal)
CPT/HCPCS: 99203; G2211

== ENCOUNTER → 2025-07-06 09:44 | Outpatient (BNV) | payer OTHER, SELFPAY | PROVIDERS: Visit Provider Radiology Body Imaging | DX: M25.532 Pain in left wrist (principal) | CPT/HCPCS: 73110 ==